=== PATIENT | female | born 1960 | race Caucasian/White ===

== ENCOUNTER → 2017-07-30 07:07 | Outpatient (CLI) | payer OTHER, SELFPAY ==
--- NOTE | 2017-07-30 07:07 | DT_ITS ---
This patient was seen during an EMR downtime July 29, 2017 - August 05, 2017. This patient may have a combination of paper and electronic documentation or all paper documentation. All documentation is viewable within the e-chart portion of [employer] for each patient visit.
[2017-08-04 09:44] LABS: AST(SGOT) 16 U/L (15-37); Alanine Aminotransfer ALT/SGPT 21 U/L (13-56); Albumin, Serum 3.9 g/dL (3.2-5.0); Alkaline Phosphatase 67 U/L (45-117); BUN 19 mg/dL (7-18); BUN/Creat Ratio 22.1 RATIO (10-20); Bilirubin, Direct 0.11 mg/dL (0.00-0.30); Calcium,Total 9.3 mg/dL (8.5-10.1); Cholesterol 146 mg/dL (200); Creatinine, Serum 0.86 mg/dL (0.55-1.02); EST Glomerular Filtration Rate 72 mL/min (>60); Est Glom Filt Rate - Afr Amer 87 mL/min (>60); Globulin 3.7 g/dL (2.2-4.2); Glucose 120 mg/dL (74-106); Protein, Total 7.6 g/dL (6.4-8.2); Sodium Level 138 mmol/L (136-145); Triglycerides 180 mg/dL; Very Low Density Lipoprotein 36 mg/dL (5-40)
[2017-08-04 09:45] LABS: Anion Gap 7 (5-15); Chloride 105 mmol/L (98-107); High Density Lipoprotein 47 mg/dL; Potassium 4.2 mmol/L (3.5-5.1)
[2017-08-04 10:07] LABS: Microalbumin,Random Urine < 5.0 mg/L (NO RANGE EST.)
== END ==
PROVIDERS: Family Provider Family Medicine; PCP Family Medicine; Visit Provider Family Medicine
DX: E11.9 Type 2 diabetes mellitus without complications (principal)
CPT/HCPCS: 36415; 80048; 80061; 80076; 82043; 82570; 83036

== ENCOUNTER → 2017-08-06 08:06 | Outpatient (CLI) | payer OTHER, SELFPAY ==
--- NOTE | 2017-08-06 08:10 | BI_ITS ---
MAMMOGRAPHY - BILATERAL SCREENING REASON FOR EXAM: Female, 56 years old. Routine annual screening examination. PERTINENT HISTORY: Non-contributory. TECHNIQUE: Digital bilateral breast lucian (3D mammographic acquisition) in the CC and MLO projections. 2-D mediolateral oblique (MLO) and craniocaudad (CC) views of both breasts were obtained. CAD: Full Field Digital Mammography with Computer Added Detection was performed. COMPARISON: None. FINDINGS: Breast Composition: There are scattered areas of fibroglandular density. There is a new nodule in the lateral aspect of the left breast for which further evaluation by ultrasound is recommended. No other significant abnormalities are identified. BI/SCREENING MAMM (CAD), BILAT IMPRESSION: Further imaging evaluation recommended, as described above. (E) ASSESSMENT CATEGORY: BIRADS Category 0: Incomplete. Need additional imaging evaluation. A letter regarding these results will be sent to the patient by the facility within 30 days. Approximately 10% of breast cancers are not detected by mammography. A normal mammogram should not delay biopsy of a clinically suspicious abnormality. [id number] Electronically Signed: Mikey Hartman MD at 10:25 EDT Tel , Service support ,
--- NOTE | 2017-08-06 08:41 | BD_ITS ---
STUDY: DUAL ENERGY X-RAY ABSORPTIOMETRY / DXA REASON FOR EXAM: Female, 56 years old. Postmenopausal female diabetic. Smoker. Family history of osteoporosis. Minimal exercise. TECHNIQUE: Bone Mineral Density (BMD) measurements of lumbar spine and bilateral hips were obtained. COMPARISON: None. FINDINGS: Lumbar Spine (L1-L4): g/cm2 (1.308) / T-score (1.1) / Z-score (2.2) Findings are suggestive of normal bone density with a low fracture risk. Left Femur Total: g/cm2 (0.866) / T-score (-1.1) / Z-score (-0.3) Left Femoral Neck: g/cm2 (0.980) / T-score (-0.4) / Z-score (0.8) Right Femur Total: g/cm2 (0.944) / T-score (-0.5) / Z-score (0.3) Right Femoral Neck: g/cm2 (1.037) / T-score (0.0) / Z-score (1.2) BD/Dexa Bone Density Study IMPRESSION: The patient is considered osteopenic as outlined below according to World Eme[place] Organization (WHO) criteria with a moderate fracture risk. Reference Information: The T-score is the number of standard deviations above or below the standard which is normal for young adults at their peak bone mineral density. The World Health Organization (WHO) interprets the T-scores as follows: Above -1 Normal bone density Between -1 and -2.5 Osteopenia Equal to / or below -2.5 Osteoporosis As a practical clinical guideline, osteopenia may be graded as follows: Mild -1 through -1.5 Moderate -1.6 through -2.0 Severe -2.1 through -2.4 The Z-score is the number of standard deviations above or below age-matched controls. A Z-score of less than -1.5 would be considered abnormal. References: 1. NIH Osteoporosis and Related Bone Diseases http://www.osteo.org 2. International Society for Clinical Densitometry http://www.iscd.org 3. National Osteoporosis Foundation http://www.nof.org Electronically Signed: Clem Whitt DO at 11:14 EDT Tel [phone], Service support ,
== END ==
PROVIDERS: Family Provider Family Medicine; PCP Family Medicine; Visit Provider Family Medicine
DX: Z12.31 Encounter for screening mammogram for malignant neoplasm of breast (principal); N63.20 Unspecified lump in the left breast, unspecified quadrant; Z78.0 Asymptomatic menopausal state
CPT/HCPCS: 77063; 77067; 77080

== ENCOUNTER → 2017-08-09 13:45 | Outpatient (CLI) | payer OTHER, SELFPAY ==
--- NOTE | 2017-08-09 13:46 | US_ITS ---
STUDY: ULTRASOUND BREAST - LEFT REASON FOR EXAM: Female, 56 years old. Abnormal screening mammogram. Left breast nodule. TECHNIQUE: Axial and longitudinal images of the LEFT breast were performed with a high resolution ultrasound transducer. COMPARISON: Comparison is made with prior mammogram dated August 06, 2017. FINDINGS: LEFT Breast: The upper and lateral quadrants of the left breast laterally were examined with ultrasound. No solid or cystic mass lesion is seen. US/Breast Limited Unilateral IMPRESSION: Unremarkable left breast ultrasound. ASSESSMENT CATEGORY: BIRADS Category 1: Negative. A letter regarding these results will be sent to the patient by the facility within 30 days. Electronically Signed: Talon Cesar MD at 8:15 EDT Tel [phone], Service support ,
== END ==
PROVIDERS: Family Provider Family Medicine; PCP Family Medicine; Visit Provider Family Medicine
DX: R92.8 Other abnormal and inconclusive findings on diagnostic imaging of breast (principal)
CPT/HCPCS: 76642

== ENCOUNTER 2017-12-23 05:46 | Inpatient (IN) | payer OTHER, SELFPAY ==
[2017-12-10 10:15] VITALS: BP 113/66; PULSE 64; RESP 16; TEMP 36.9; O2SAT 99; BMI 30.2
--- NOTE | 2017-12-10 10:30 | RAD_ITS ---
STUDY: X-RAY CHEST REASON FOR EXAM: Female, 57 years old. Preoperative evaluation. TECHNIQUE: PA and lateral views of the chest. COMPARISON: None. FINDINGS: The lungs are clear and expanded. There is no demonstrated pleural abnormality. Normal size heart. Normal mediastinum and maureen. Normal visualized pulmonary arteries. Normal visualized aortic arch and descending thoracic aorta. Normal visualized thoracic spine. Normal visualized ribs, clavicles, and shoulders. There is no demonstrated abnormality of the visualized soft tissue structures of the upper abdomen. RAD/Chest PA and Lateral IMPRESSION: Normal x-ray examination of the chest. Electronically Signed: Talon Cesar MD at 11:01 EDT Tel [phone], Service support ,
--- NOTE | 2017-12-10 10:30 | SDCEKG_ITS ---
Test Reason : Blood Pressure : / mmHG Vent. Rate : 061 BPM Atrial Rate : 061 BPM P-R Int : 124 ms QRS Dur : 086 ms QT Int : 436 ms P-R-T Axes : 026 -09 030 degrees QTc Int : 438 ms Normal sinus rhythm Low voltage QRS Borderline ECG Confirmed by EARNEST FLETCHER, RENE ([id number]), research editor GERARDO MAYEN ([id number]) on 12/12/2017 9:40:44 AM Referred By: Sanjay Cardoza Confirmed By:RENE TINOCO MD
[2017-12-10 11:00] LABS: Hematocrit 41.2 % (37-47); Hemoglobin 14.5 g/dl (12.0-15.0); Mean Corp Hgb Conc 35.2 g/gl (32-36); Mean Corpuscular Hgb 33.5 pg (27.0-32.0); Mean Corpuscular Volume 95.2 fL (81-99); Mean Platelet Vol. 9.6 fl (6.2-12.0); Platelet Count 206 K/mm3 (150-450); RBC Distribution Width CV 12.5 % (11.6-14.6); RBC Distribution Width SD 42.5 fl (35.1-43.9); Red Blood Count 4.33 M/mm3 (4.2-5.4); White Blood Count 5.7 K/mm3 (4.4-11.0)
[2017-12-10 11:01] LABS: Scan Indicated on CBC? Y/N NO
[2017-12-10 11:33] LABS: Anion Gap 8 (5-15); BUN 20 mg/dL (7-18); BUN/Creat Ratio 24.2 RATIO (10-20); Calcium,Total 8.9 mg/dL (8.5-10.1); Chloride 105 mmol/L (98-107); Creatinine, Serum 0.83 mg/dL (0.55-1.02); EST Glomerular Filtration Rate 75 mL/min (>60); Est Glom Filt Rate - Afr Amer 91 mL/min (>60); Estimated Creatinine Clearance 78.92 ml/min; Glucose 97 mg/dL (74-106); Potassium 4.4 mmol/L (3.5-5.1); Sodium Level 139 mmol/L (136-145)
[2017-12-10 11:53] LABS: Hemoglobin A1c 6.3 % (4.2-6.3)
--- NOTE | 2017-12-18 10:16 | CASEMGMT ---
Called and spoke with patient regarding discharge needs after upcoming surgery. Patient plans to return home with assistance from family. Has outpatient physical therapy set up with [facility], and will have assistance with transportation. Patient has a walker, shower seat, grab bars, toilet riser. Patient has 4 steps into home at the front entrance, there are no steps at rear entrance. Patient has a bathroom on the 1st level of the home, plans to sleep in recliner chair at first. Otherwise, there are 13 steps to 2nd level of home. Informed patient that RN-CM will follow up after surgery. Deann Valencia LPN Clinical Support
[2017-12-23] VITALS (20 sets, daily range): BP systolic 99–122; BP diastolic 54–72; PULSE 49–83; RESP 16–18; TEMP 36.1–36.6; O2SAT 96–99; BMI 30.2
[2017-12-23] MEDS: Acetaminophen 500 MG Tablet 1000 MG PO ×3 (06:33→22:46)
[2017-12-23] MEDS: oxyCODONE HCl Cr 10 MG Tablet PO (06:34)
[2017-12-23] MEDS: Celecoxib 200 MG Capsule 400 MG PO (06:34)
[2017-12-23 06:41] LABS: Bedside Glucose 159 mg/dL (70-110)
--- NOTE | 2017-12-23 07:15 | KNEE_PTH ---
PATIENT: JACI PERALTA LOC: MS3 U#:[id number] AGE/SX: 57/F ROOM: MS305 RE12/23/[address]: Dr. Sanjay Cardoza DO : 1960 BED: 1 DIS: 12/25/2017 SPEC #: [id number] RECD: 12/23/17 10:52 STATUS: OZ REQ #: [id number] CHUY: 12/23/17 07:[address]: Sanjay Cardoza DEPT: SURGICAL PATHOLOGY RECD BY: Daniel Stewart ENTERED: 12/23/17 11:03 SP TYPE: TOTAL KNEE OTHR DR: Dr. Darshan Rowley MD Tissues: Knee, NOS Procedures: Decalcification bone/plaque Surgery Specimen Level IV HEADER OPERATION: Left total knee replacement PRE-OP DIAGNOSIS: Endstage osteoarthritis left knee TISSUE SUBMITTED: Bone and soft tissue of left knee MICROSCOPIC DIAGNOSIS Bone and soft tissue of left knee, total knee resection: Severe degenerative joint disease. Mild synovial hyperplasia. AM:jada 12/27/17 MICROSCOPIC DESCRIPTION Slides are reviewed. GROSS DESCRIPTION Received is one container designated bone and soft tissue left knee. The specimen consists of multiple fragments of gant-yellow bone measuring in aggregate 10 x 11 x 4 cm. Also in the specimen container are multiple fragments of yellow-white soft tissue measuring in aggregate 7 x 6 x 3 cm. A number of bony fragments contain articular surfaces consistent with tibial plateau and femoral condyle and displaying prominent osteophyte formation, eburnation, and bone erosion. Home Aid sections are submitted in two cassettes as follows: 1 - soft tissue, 2 - bone after decalcification. / SJ:jada 12/23/17 TC:5 [facility]: [id number], [id number]
[2017-12-23] MEDS: Cefazolin 2 GM in 0.9% Normal Saline 100 ML IV (07:26)
--- NOTE | 2017-12-23 08:59 | OP.PN_ITS ---
Immediate Post-Op Note Date of Procedure: 12/23/17 Primary Surgeon/Physician: Sanjay Cardoza calendering supervisor: Colby Acharya Pre-Operative Diagnosis: OA Left knee Post-Operative Diagnosis: same Surgery/Procedure Performed:: Left TKR Description of Surgical Findings:: see op norte Estimated Blood Loss: 25cc Specimen's removed: bone Type of Anesthesia:: Spinal ASA Class: ASA2 Mod Systematic Disease - Admit VTE Documentation VTE Present on Admission: No VTE Mechan Device Prophylaxis: SCD's, Thigh High BELKYS Hose VTE Pharm Prophylaxis ordered?: Yes
--- NOTE | 2017-12-23 08:59 | PCM.OP.BLANK ---
Operative Report Date of Procedure: 12/23/17 Primary Surgeon/Physician: Sanjay Cardoza riding coach: Colby Herman.MAINTENANCE FITTER riding coach: Pre-Operative Diagnosis: OA left knee Post-Operative Diagnosis: same Surgery/Procedure Performed: Left TKR Estimated Blood Loss: 25cc Specimen's Removed: bone Type of Anesthesia: spinal ASA Class: 2 Implants: [Check Triathlon size 4 cemented PS femur, size 4 tibia, 11mm polyethylene spacer, 29 mm patella ] Indications: Patient has severe end-stage osteoarthritis diagnosed via x-rays in the knee. They have failed all forms of conservative measures including activity modification, injections, anti-inflammatories, use of assistive device. The patient has pain that affects on a daily basis and prevents him from doing things that they enjoyed. They have elected to undergo the above procedure. The risks of the procedure were discussed at length and their questions were answered. Procedure Description: The patient was greeted in the preoperative area. The [left knee ] knee was then marked with a surgical marker. Patient was then taken to or Suite 1. They were administered a dose of antibiotics as well as tranexamic acid. Once adequate anesthesia was obtained and airway was secured to placed in supine position on the operating room table. A well-padded tourniquet was placed on the affected extremity. Leg was then prepped and draped in the usual sterile fashion from the knee down. Ioban was used on the skin. Surgical timeout was then performed and confirmed with all present. Six-inch Esmarch was used to examine the limb and tourniquet was then inflated to 250 mmHg. A longitudinal incision was then planned and carried out in the anterior aspect of the knee. The dissection was then carried the length of the incision the extensor mechanism was identified. Standard medial parapatellar arthrotomy was then performed revealing severe eburnation of bone and periarticular osteophytes. There is complete loss of cartilage especially in the medial compartment with varus alignment. Anterior fat pad was removed for visualization purposes and the anterior medial aspect of the tibia was skeletonized for exposure to the knee. The knee was then flexed the patella was inverted. Opening reamer was then used in the femur approximately 1 cm anterior to the attachment of the PCL. The intramedullary valgus wand was then placed in the femur set at 5? of valgus. The distal femoral cutting jig was then applied to the femur with anticipated resection of approximately 8 mm. This was then made with a oscillating saw. The sizing guide was then placed referencing off the posterior condyles and also reference off the epicondylar axis. This was measured and the appropriate size 4-in-1 cutting jig was then applied to the distal femur. Anterior posterior cuts were made followed by the anterior and posterior chamfer cuts. These bony pieces and fragments were removed and placed on the back table. Posterior retractor was then utilized and the tibia was subluxed anteriorly. Intramedullary tibial alignment jig was then applied to the tibia referencing off the medial one third of the tibial tubercle the anterior tibial spine the middle aspect of the tibiotalar joint. Also reference off patient's nondalton slope. The tibial cutting jig was then pinned with anticipated resection of 2 mm off of the deficient medial tibial condyle. This cut was made with the oscillating saw. Once this was complete a laminar singing messenger was utilized in both medial lateral meniscus were removed and a posterior capsular osteophytes were also removed. Posterior capsule release was performed in the posterior capsule as well as the geniculate arteries are treated with the aqua Mario Alberto. The tibia was incised and the appropriate sized tibial tray was then pinned. The femoral box cutting jig was then applied to the femur and the box was prepared removing a portion of the intercondylar notch. The femoral trial was then placed and the knee was trialed. Full flexion-extension were easily achieved. The knee seemed to balance quite nicely. Any remaining osteophytes were removed at this time. Once this was complete the patella was everted and the Lencho patella reaming device was then utilized the patella was then placed in the appropriate jig and reamer was then used to remove approximately 9 mm of the undersurface of the patella. A soft tissue remaining was in the way was removed and patella trial was then placed listed maintain excellent tracking using the no thumbs technique. The tibial tray at this point was punched to accommodate the fins of the final implant. At this point cement was mixed on the back table. The trial components were removed and the knee was copiously irrigated. Did use a cocktail of injection for postoperative pain control. The final components were then cemented in the standard fashion and excess cement was removed with cement removal tools and patellar clamp is placed in the patella. As the cement had cured in full extension tourniquet was deflated and hemostasis was perfect with Bovie cautery as well as the aqua Manus. Needle is once again trialed with different size polyethylenes to ensure the full range of motion was achieved as well as excellent balancing ligamentously was achieved. At this point the knee was copiously irrigated. Final implant was then inserted locking mechanism was engaged and confirmed to be locked. The arthrotomy was then closed with #1 Vicryl aggravate type fashion interrupted. Subcutaneous tissue was closed with 0 Vicryl and surgical lakia were placed in the skin. A occlusive silver impregnated dressing was then applied followed by well-padded sterile dressing secured with an Alcides wrap. The patient was taken to the PACU in stable condition. No complications known at this time. Postoperatively we will maintain standard total knee postoperative protocol. The use of the metal forger's assistant was integral during this procedure. They assisted with positioning placement of the tourniquet retracting closure and placement of the dressing. The procedure would have been much more difficult without their expertise and assistance
--- NOTE | 2017-12-23 09:03 | OP.PCM_ITS ---
Operative Report Date of Procedure: 12/23/17 Primary Surgeon/Physician: Sanjay Cardoza policy manager: Colby Herman.FRONT COUNTER CLERK policy manager: Pre-Operative Diagnosis: OA left knee Post-Operative Diagnosis: same Surgery/Procedure Performed: Left TKR Estimated Blood Loss: 25cc Specimen's Removed: bone Type of Anesthesia: spinal ASA Class: 2 Implants: [[place] Triathlon size 4 cemented PS femur, size 4 tibia, 11mm polyethylene spacer, 29 mm patella ] Indications: Patient has severe end-stage osteoarthritis diagnosed via x-rays in the knee. They have failed all forms of conservative measures including activity modification, injections, anti-inflammatories, use of assistive device. The patient has pain that affects on a daily basis and prevents him from doing things that they enjoyed. They have elected to undergo the above procedure. The risks of the procedure were discussed at length and their questions were answered. Procedure Description: The patient was greeted in the preoperative area. The [left knee ] knee was then marked with a surgical marker. Patient was then taken to or Suite 1. They were administered a dose of antibiotics as well as tranexamic acid. Once adequate anesthesia was obtained and airway was secured to placed in supine position on the operating room table. A well-padded tourniquet was placed on the affected extremity. Leg was then prepped and draped in the usual sterile fashion from the knee down. Ioban was used on the skin. Surgical timeout was then performed and confirmed with all present. Six- inch Esmarch was used to examine the limb and tourniquet was then inflated to 250 mmHg. A longitudinal incision was then planned and carried out in the anterior aspect of the knee. The dissection was then carried the length of the incision the extensor mechanism was identified. Standard medial parapatellar arthrotomy was then performed revealing severe eburnation of bone and periarticular osteophytes. There is complete loss of cartilage especially in the medial compartment with varus alignment. Anterior fat pad was removed for visualization purposes and the anterior medial aspect of the tibia was skeletonized for exposure to the knee. The knee was then flexed the patella was inverted. Opening reamer was then used in the femur approximately 1 cm anterior to the attachment of the PCL. The intramedullary valgus wand was then placed in the femur set at 5? of valgus. The distal femoral cutting jig was then applied to the femur with anticipated resection of approximately 8 mm. This was then made with a oscillating saw. The sizing guide was then placed referencing off the posterior condyles and also reference off the epicondylar axis. This was measured and the appropriate size 4-in-1 cutting jig was then applied to the distal femur. Anterior posterior cuts were made followed by the anterior and posterior chamfer cuts. These bony pieces and fragments were removed and placed on the back table. Posterior retractor was then utilized and the tibia was subluxed anteriorly. Intramedullary tibial alignment jig was then applied to the tibia referencing off the medial one third of the tibial tubercle the anterior tibial spine the middle aspect of the tibiotalar joint. Also reference off patient's [place] slope. The tibial cutting jig was then pinned with anticipated resection of 2 mm off of the deficient medial tibial condyle. This cut was made with the oscillating saw. Once this was complete a laminar engineering job titles was utilized in both medial lateral meniscus were removed and a posterior capsular osteophytes were also removed. Posterior capsule release was performed in the posterior capsule as well as the geniculate arteries are treated with the aqua Mario Alberto. The tibia was incised and the appropriate sized tibial tray was then pinned. The femoral box cutting jig was then applied to the femur and the box was prepared removing a portion of the intercondylar notch. The femoral trial was then placed and the knee was trialed. Full flexion-extension were easily achieved. The knee seemed to balance quite nicely. Any remaining osteophytes were removed at this time. Once this was complete the patella was everted and the Lencho patella reaming device was then utilized the patella was then placed in the appropriate jig and reamer was then used to remove approximately 9 mm of the undersurface of the patella. A soft tissue remaining was in the way was removed and patella trial was then placed listed maintain excellent tracking using the no thumbs technique. The tibial tray at this point was punched to accommodate the fins of the final implant. At this point cement was mixed on the back table. The trial components were removed and the knee was copiously irrigated. Did use a cocktail of injection for postoperative pain control. The final components were then cemented in the standard fashion and excess cement was removed with cement removal tools and patellar clamp is placed in the patella. As the cement had cured in full extension tourniquet was deflated and hemostasis was perfect with Bovie cautery as well as the aqua Manus. Needle is once again trialed with different size polyethylenes to ensure the full range of motion was achieved as well as excellent balancing ligamentously was achieved. At this point the knee was copiously irrigated. Final implant was then inserted locking mechanism was eng aged and confirmed to be locked. The arthrotomy was then closed with #1 Vicryl aggravate type fashion interrupted. Subcutaneous tissue was closed with 0 Vicryl and surgical lakia were placed in the skin. A occlusive silver impregnated dressing was then applied followed by well-padded sterile dressing secured with an Alcides wrap. The patient was taken to the PACU in stable condition. No complications known at this time. Postoperatively we will maintain standard total knee postoperative protocol. The use of the physical therapy assistant instructor was integral during this procedure. They assisted with positioning placement of the tourniquet retracting closure and placement of the dressing. The procedure would have been much more difficult without their expertise and assistance
[2017-12-23 09:51] LABS: Bedside Glucose 155 mg/dL (70-110)
[2017-12-23] MEDS: Lactated Ringers 1,000 ML 125 ML IV (13:32)
[2017-12-23] MEDS: Cefazolin 1 GM/50 ML BAG IV ×2 (15:24→22:46)
[2017-12-23] MEDS: Aspirin 325 MG Tablet PO (17:05)
[2017-12-23] MEDS: metFORMIN HCl 1,000 MG Tablet 1000 MG PO (17:05)
[2017-12-23 17:25] LABS: Bedside Glucose 175 mg/dL (70-110)
[2017-12-23] MEDS: Senna/Docusate Sodium 1 Tablet 2 TABLET PO (22:46)
[2017-12-23] MEDS: 0.9% NaCl Peripheral Flush Adult/Peds IV (22:47)
[2017-12-23] MEDS: Atorvastatin Calcium 20 MG Tablet PO (22:47)
[2017-12-24 02:20] VITALS: BP 91/48; PULSE 59; RESP 16; TEMP 36.7; O2SAT 99
[2017-12-24] MEDS: Acetaminophen 500 MG Tablet 1000 MG PO ×3 (05:56→22:50)
[2017-12-24 06:15] LABS: Hematocrit 36.9 % (37-47); Hemoglobin 12.7 g/dl (12.0-15.0); Mean Corp Hgb Conc 34.4 g/gl (32-36); Mean Corpuscular Hgb 32.7 pg (27.0-32.0); Mean Corpuscular Volume 95.1 fL (81-99); Mean Platelet Vol. 9.6 fl (6.2-12.0); Platelet Count 198 K/mm3 (150-450); RBC Distribution Width SD 41.1 fl (35.1-43.9); Red Blood Count 3.88 M/mm3 (4.2-5.4); White Blood Count 6.7 K/mm3 (4.4-11.0)
[2017-12-24 06:24] LABS: Scan Indicated on CBC? Y/N NO
[2017-12-24 06:37] LABS: Anion Gap 9 (5-15); BUN 16 mg/dL (7-18); BUN/Creat Ratio 22.5 RATIO (10-20); Calcium,Total 8.4 mg/dL (8.5-10.1); Chloride 109 mmol/L (98-107); Creatinine, Serum 0.71 mg/dL (0.55-1.02); EST Glomerular Filtration Rate 89 mL/min (>60); Est Glom Filt Rate - Afr Amer 108 mL/min (>60); Estimated Creatinine Clearance 92.26 ml/min; Glucose 108 mg/dL (74-106); Potassium 4.4 mmol/L (3.5-5.1); Sodium Level 144 mmol/L (136-145)
--- NOTE | 2017-12-24 07:48 | DCINST_ITS ---
Discharge Diet: No Restrictions Discharge Activity: May Not Drive Call your doctor if your incision/area has: Continuous Slow Oozing, Sudden Increased Bleeding, Increased Pain/ Swelling, Increased Redness, Foul Smelling Discharge, Swelling at the incision site Call your doctor if you observe: Fever of 101 or Higher Additional Dressing/Incision Instructions:: Leave current dreesing on until Saturday unless saturated the change and cover wound with standard sterile dressing Additional Instructions: see pink sheet Allergies/Adverse Reactions: Allergies lisinopril Adverse Reaction (Verified 12/10/17 10:08) COUGH Medications to take at Discharge Cholecalciferol (VIT D3) [Vitamin D3] 400 unit PO DAILY 12/28/15 Losartan Potassium [Cozaar] 25 mg PO DAILY 12/28/15 Meloxicam [Mobic] 15 mg PO DAILY 12/28/15 Metformin HCl [Glucophage] 1,000 mg PO BIDCM 01/09/16 Aspirin [Adult Aspirin] 81 mg PO DAILY 12/10/17 Dapagliflozin Propanediol [Farxiga] 5 mg PO DAILY 12/10/17 Multivitamin [Multiple Vitamins] 1 each PO DAILY 12/10/17 Rosuvastatin Calcium [Crestor] 10 mg PO QHS 12/10/17 Zolpidem Tartrate [Ambien] 5 mg PO QHS PRN PRN 12/10/17 Acetaminophen [Tylenol] 1,000 mg PO Q8 tablet 12/24/17 Aspirin 325 mg PO BIDCM tablet 12/24/17 Oxycodone [Oxyir] 5 - 10 mg PO Q4H PRN PRN 7 Days #60 tab 12/24/17 The following prescriptions were given: Oxycodone [Oxyir] 5 - 10 mg PO Q4H PRN PRN 7 Days #60 tab PRN Reason: Mod-Severe Pain (4-12/04) Primary Care Physician: Darshan Rowley MD [Primary Care Provider] - Test Results: Test results from this visit will be discussed in further detail at your follow- up appointment, if applicable. Proposed Discharge Date: 12/24/17
--- NOTE | 2017-12-24 08:00 | PCM.PN.ORT ---
Subjective: Pt. doing well, Pain under excellent control. - Physical Exam General: Alert, Oriented x3, No apparent distress Extremities: No clubbing, No edema, Capillary Refill Less than 3 Seconds, No Calf Tenderness Skin: Incision - stable Vital Signs Temp Pulse Resp BP Pulse Ox 98.1 F 59 L 16 91/48 L 99 12/24/17 02:20 12/24/17 02:20 12/24/17 02:20 12/24/17 02:20 12/24/17 02:20 Oxygen Delivery Method Room Air Weight: 210 lb 8.663 oz Body Mass Index (BMI) 30.2 Finger Stick Blood Glucose 155 Intake and Output for Last 24 Hours 12/22/17 12/23/17 12/24/17 23:59 23:59 23:59 Intake Total 3300 / 3300 736 / 736 Balance 3300 / 3300 736 / 736 Laboratory Tests Past 24 Hrs 12/24/17 12/24/17 05:37 05:37 WBC 6.7 RBC 3.88 L Hgb 12.7 Hct 36.9 L MCV 95.1 MCH 32.7 H MCHC 34.4 RDW 12.0 RDW Differential 41.1 Plt Count 198 MPV 9.6 Sodium 144 Potassium 4.4 Chloride 109 H Carbon Dioxide 26.0 Anion Gap 9 BUN 16 Creatinine 0.71 Estim Creat Clear Calc 92.26 Est GFR (MDRD) Af Amer 108 Est GFR (MDRD) Non-Af 89 BUN/Creatinine Ratio 22.5 H Glucose 108 H Calcium 8.4 L POC Glucose 12/23/17 12/23/17 17:08 09:44 POC Glucose 175 H 155 H Medical Necessity - Tobacco Use Smoking Status: Current every day smoker Tobacco Use: Cigarettes Assessment/Plan s/p left TKR Discharge home today after PT if does well
[2017-12-24 08:20] VITALS: BP 113/57; PULSE 68; RESP 16; TEMP 36.6; O2SAT 97
[2017-12-24] MEDS: Multivitamins,Therapeutic Tablet 1 TABLET PO (08:25)
[2017-12-24] MEDS: Aspirin 325 MG Tablet PO ×2 (08:25→18:24)
[2017-12-24] MEDS: metFORMIN HCl 1,000 MG Tablet 1000 MG PO ×2 (08:25→18:24)
[2017-12-24] MEDS: oxyCODONE 5 MG Tablet PO ×3 (10:04→22:54)
[2017-12-24] MEDS: Empagliflozin 10 MG Tablet PO (10:06)
[2017-12-24] MEDS: Senna/Docusate Sodium 1 Tablet 2 TABLET PO ×2 (10:07→22:51)
[2017-12-24] MEDS: Losartan Potassium 25 MG Tablet PO (10:07)
--- NOTE | 2017-12-24 10:42 | NURSING ---
per patient she would like to wait to be discharged until after dinner today
--- NOTE | 2017-12-24 10:50 | CASEMGMT ---
RN CM Face to Face with patient for initial transition planning/care coordination assessment. RN CM introduced self and role at [facility]. Patient lying in bed, alert and oriented, at bedside. Patient willing to participate in assessment and is able to answer all questions appropriately. Care providers, pharmacy, and demographics verified. Patient wishes to discharge home and is setup with [facility] for outpatient therapy. Patient states she has no further needs or concerns at this time. CM to follow for discharge planning needs that may arise. PCP: [facility] Specialists: None Preferred Pharmacy: [facility] Insurance: Commercial other Prescription Benefit: Commercial other Living Will/HPOA: No, interested in completing at hospital. DEIDRA EvanLula Melchores updated [facility]NOK: Living Arrangements: Patient lives with in 2 story house with bed and bath on first floor. Patient was independent prior to admission. Transportation: DME/HHC: Patient has walker, cane, and hip kit. Denies additional DME. Outpt PT at [facility] scheduled. Disposition Plan: Patient to discharge home with outpatient therapy, family support, and follow-up plans in place. Keiry MILES, RN, CM
[2017-12-24 14:10] VITALS: BP 105/70; PULSE 78; RESP 18; TEMP 37.5; O2SAT 99
--- NOTE | 2017-12-24 15:00 | CASEMGMT ---
Social Work Note RN PALMIRA Morin updated this worker that pt would like to complete Advanced Directives. SW completed Advanced Directives with pt. Pt is alert and orientated x4. SW provided pt with original copy of Advanced Directives and copy was placed on pt's chart. Keiry Grande MANAGER PROVIDER RELATIONS, MATERIALS PLANNER
--- NOTE | 2017-12-24 18:33 | NURSING ---
pt requesting to stay another night, concerned with pain and earlier temp of 99.5. Dr. Cardoza made aware - discharge canceled
[2017-12-24 20:00] VITALS: PULSE 79
[2017-12-24 20:10] VITALS: BP 128/57; PULSE 79; RESP 16; TEMP 37.3; O2SAT 97
[2017-12-24] MEDS: Atorvastatin Calcium 20 MG Tablet PO (22:51)
[2017-12-25 04:00] VITALS: BP 131/65; PULSE 69; RESP 16; TEMP 37.4; O2SAT 96
[2017-12-25] MEDS: Acetaminophen 500 MG Tablet 1000 MG PO (06:46)
[2017-12-25 08:00] VITALS: BP 129/59; PULSE 87; RESP 16; TEMP 37.2; O2SAT 98
[2017-12-25] MEDS: Aspirin 325 MG Tablet PO (08:10)
[2017-12-25] MEDS: Multivitamins,Therapeutic Tablet 1 TABLET PO (08:10)
[2017-12-25] MEDS: Senna/Docusate Sodium 1 Tablet 2 TABLET PO (08:10)
[2017-12-25] MEDS: metFORMIN HCl 1,000 MG Tablet 1000 MG PO (08:10)
[2017-12-25] MEDS: Losartan Potassium 25 MG Tablet PO (08:11)
[2017-12-25] MEDS: Empagliflozin 10 MG Tablet PO (08:11)
--- NOTE | 2017-12-25 11:38 | PCM.PN.ORT ---
Subjective: Patient sitting up in bed, her at bedside. Patient states pain is well-managed has no complaints ready for discharge home. Objective: Dressings clean dry intact, negative signs and symptoms of DVT. Vital signs labs within normal limits. Patient is afebrile neurovascular is otherwise intact. - Physical Exam General: Alert HEENT: Atraumatic, PERRLA, EOMI, Normocephalic Neck: Supple, No JVD, Negative Carotid Bruits Lungs: Clear to auscultation, Normal air movement Cardiovascular: Regular rate, No murmurs Abdomen: Bowel Sounds Present, Soft, Non Tender Extremities: No edema, Capillary Refill Less than 3 Seconds Skin: No rashes, No breakdown Musculoskeletal: No Tenderness to Palpation of Joints or Extremities Neurological: Cranial nerves II-XII grossly intact Psych/Mental Status: Normal Affect, Appropriate, Alert and oriented to time, place, person, mood and affect Vital Signs Temp Pulse Resp BP Pulse Ox 98.9 F 87 16 129/59 H 98 12/25/17 08:00 12/25/17 08:00 12/25/17 08:00 12/25/17 08:00 12/25/17 08:00 Oxygen Delivery Method Room Air Weight: 95.5 kg Body Mass Index (BMI) 30.2 Finger Stick Blood Glucose 155 Intake and Output for Last 24 Hours 12/23/17 12/24/17 12/25/17 23:59 23:59 23:59 Intake Total 3300 / 3300 1536 / 1536 200 / 200 Balance 3300 / 3300 1536 / 1536 200 / 200 Medical Necessity - Tobacco Use Smoking Status: Current every day smoker Tobacco Use: Cigarettes Assessment/Plan Status post left total knee Plan 1. Continue all pain medications as prescribed 2. Continue with physical therapy outpatient at [facility] 3. Aspirin 325 mg 1 p.o. every 12 hours times 30 days for postop DVT prophylaxis 4. Follow-up as scheduled (see pink sheet) 5. Discharge home today
--- NOTE | 2017-12-25 11:41 | PN.ORTHO_ITS ---
Subjective: Patient sitting up in bed, her at bedside. Patient states pain is well- managed has no complaints ready for discharge home. Objective: Dressings clean dry intact, negative signs and symptoms of DVT. Vital signs labs within normal limits. Patient is afebrile neurovascular is otherwise intact. - Physical Exam General: Alert HEENT: Atraumatic, PERRLA, EOMI, Normocephalic Neck: Supple, No JVD, Negative Carotid Bruits Lungs: Clear to auscultation, Normal air movement Cardiovascular: Regular rate, No murmurs Abdomen: Bowel Sounds Present, Soft, Non Tender Extremities: No edema, Capillary Refill Less than 3 Seconds Skin: No rashes, No breakdown Musculoskeletal: No Tenderness to Palpation of Joints or Extremities Neurological: Cranial nerves II-XII grossly intact Psych/Mental Status: Normal Affect, Appropriate, Alert and oriented to time, place, person, mood and affect Vital Signs Temp Pulse Resp BP Pulse Ox 98.9 F 87 16 129/59 H 98 12/25/17 08:00 12/25/17 08:00 12/25/17 08:00 12/25/17 08:00 12/25/17 08:00 Oxygen Delivery Method Room Air Weight: 95.5 kg Body Mass Index (BMI) 30.2 Finger Stick Blood Glucose 155 Intake and Output for Last 24 Hours 12/23/17 12/24/17 12/25/17 23:59 23:59 23:59 Intake Total 3300 / 3300 1536 / 1536 200 / 200 Balance 3300 / 3300 1536 / 1536 200 / 200 Medical Necessity - Tobacco Use Smoking Status: Current every day smoker Tobacco Use: Cigarettes Assessment/Plan Status post left total knee Plan 1. Continue all pain medications as prescribed 2. Continue with physical therapy outpatient at [facility] 3. Aspirin 325 mg 1 p.o. every 12 hours times 30 days for postop DVT prophylaxis 4. Follow-up as scheduled (see pink sheet) 5. Discharge home today
== END 2017-12-25 12:05 | disposition home or self-care (01) | DRG 470 ==
PROVIDERS: Anesthesiology; Admitting Provider Orthopaedic Surgery; Family Provider Family Medicine; PCP Family Medicine; Referring Provider Orthopaedic Surgery; Visit Provider Orthopaedic Surgery
PROC: 0SRD0J9 Replacement of Left Knee Joint with Synthetic Substitute, Cemented, Open Approach (ICD-10-PCS; CPT 27447; principal; 2017-12-23 06:50)
DX: M17.12 Unilateral primary osteoarthritis, left knee (principal); F17.210 Nicotine dependence, cigarettes, uncomplicated; Z96.651 Presence of right artificial knee joint; Z23 Encounter for immunization
CPT/HCPCS: 36415; 71046; 80048; 82962; 83036; 85027; 87081; 88305; 88311; 93005; 97110; 97161; 97165; 97530; C1776; J7120; 90686; A4216; J2405

== ENCOUNTER → 2018-02-14 07:45 | Outpatient (CLI) | payer OTHER, SELFPAY ==
[2018-02-14 10:58] LABS: Cholesterol 178 mg/dL (200); High Density Lipoprotein 45 mg/dL; Triglycerides 262 mg/dL; Very Low Density Lipoprotein 52 mg/dL (5-40)
[2018-02-14 11:00] LABS: Vitamin D,25 Hydroxy 99.6 ng/mL (29.95-100.01)
== END ==
PROVIDERS: Family Provider Family Medicine; PCP Family Medicine; Referring Provider Family Medicine; Visit Provider Family Medicine
DX: E11.9 Type 2 diabetes mellitus without complications (principal); E55.9 Vitamin D deficiency, unspecified
CPT/HCPCS: 36415; 80061; 82306

== ENCOUNTER → 2018-03-17 09:57 | Outpatient (CLI) | payer OTHER, SELFPAY ==
[2018-03-17 12:17] LABS: Absolute Neutrophil Count 2.3 X10^3/uL (2.0-7.7); Basophil# 0.01 X10^3/uL; Basophil% 0.2 % (0-1); Eosinophil# 0.05 X10^3/uL; Eosinophils% 1.1 % (0-5); Hematocrit 44.6 % (37-47); Hemoglobin 15.1 g/dl (12.0-15.0); Lymphocyte % 40.6 % (19-41); Mean Corp Hgb Conc 33.9 g/gl (32-36); Mean Corpuscular Hgb 31.9 pg (27.0-32.0); Mean Corpuscular Volume 94.3 fL (81-99); Mean Platelet Vol. 9.6 fl (6.2-12.0); Monocyte# 0.42 X10^3/uL; Neutrophil # 2.29 X10^3/uL (2.7-7.7); Neutrophil % 48.9 % (47-70); Platelet Count 225 K/mm3 (150-450); RBC Distribution Width CV 12.9 % (11.6-14.6); RBC Distribution Width SD 44.3 fl (35.1-43.9); Red Blood Count 4.73 M/mm3 (4.2-5.4); White Blood Count 4.7 K/mm3 (4.4-11.0)
[2018-03-17 12:18] LABS: CRP < 2.90 mg/L (0.0-3.0)
[2018-03-17 12:27] LABS: POSITIVE COUNT NO; POSITIVE DIFFERENTIAL NO; POSITIVE MORPHOLOGY NO
[2018-03-17 12:28] LABS: Erythrocyte Sedimentation Rate 7 mm/hr (0-30)
--- OUTSIDE RECORDS SUMMARY | 2018-05-19 20:02 | XMS RPT_ITS ---
:1960 Author Organization OHIP Care Team Providers Name Role Phone Darshan Rowley Attending Unavailable Darshan Rowley Referring Unavailable Darshan Rowley Primary Care Unavailable Conrado Cardoza Attending Unavailable Darshan Rowley Primary Care Unavailable Conrado Cardoza Referring Unavailable Darshan Rowley Attending Unavailable Darshan Rowley Referring Unavailable Darshan Rowley Primary Care Unavailable Darshan Rowley Attending Unavailable Darshan Rowley Primary Care Unavailable Darshan Rowley Attending Unavailable Darshan Rowley Primary Care Unavailable Conrado Cardoza Admitting Unavailable Conrado Cardoza Attending Unavailable Conrado Cardoza Referring Unavailable Darshan Rowley Primary Care Unavailable Miguel Bowman Attending Unavailable Conrado Cardoza Referring Unavailable PROBLEMS PROBLEMS DATE TYPE CONDITION / CODE ATTENDING STATUS SOURCE 02/14/2018 Unknown E11.9 - Type 2 Darshan Rowley Active [place] diabetes mellitus Community without Hospital complications / Repository E11.9(ICD-10) 02/14/2018 Unknown E55.9 - Vitamin D Darshan Rowley Active [place] deficiency, Community unspecified / Hospital E55.9(ICD-10) Repository 12/25/2017 Unknown M25.569 - Pain in Conrado Cardoza Active [place] unspecified knee / Community M25.569(ICD-10) Hospital Repository 12/31/2017 Unknown Z01.810 - Encounter GracieMiguel desai Active [place] for preprocedural [facility] cardiovascular Hospital examination / Repository Z01.810(ICD-10) PROCEDURES PROCEDURES No Procedure Records FoundRESULTS RESULTS CRP Collected: 03/17/2018 Status: F Source: LOWELL 10:02 AM [facility] REPOSITORY TYPE CODE TESTS RESULT OUT OF RANGE REFERENCE UNITS LAB L501.6710 0.0-3.0 mg/L Normal < 2.90 C-REACTIVE PROT Result Comment: C-Reactive Protein (CRP) provides useful information for the diagnosis, therapy and monitoring of inflammatory processes and associated diseases. For the evaluation of Relative Risk for Cardiovascular Disease, a High Sensitivity CRP (HSCRP) should be ordered. Performed By: #### L501.6710 #### [facility] [place], [address] CBC W/DIFF, AUTOMATED Collected: 03/17/2018 Status: F Source: MANI 10:02 AM [facility] REPOSITORY TYPE CODE TESTS RESULT OUT OF RANGE REFERENCE UNITS LAB L100.1000 4.4-11.0 K/mm3 Normal WBC 4.7 LAB L100.1200 4.2-5.4 M/mm3 Normal RBC 4.73 LAB L100.1300 12.0-15.0 g/dl High HGB 15.1 LAB L100.1400 37-47 % Normal HCT 44.6 LAB L100.1500 81-99 fL Normal MCV 94.3 LAB L100.1600 27.0-32.0 pg Normal MCH 31.9 LAB L100.1700 32-36 g/gl Normal MCHC 33.9 LAB L100.1810 11.6-14.6 % Normal RDW CV 12.9 LAB L100.1820 35.1-43.9 fl High RDW SD 44.3 LAB L100.1900 150-450 K/mm3 Normal PLT 225 LAB L100.2000 6.2-12.0 fl Normal MPV 9.6 LAB L100.2100 47-70 % Normal NEUT% 48.9 LAB L100.2200 19-41 % Normal LY% 40.6 LAB L100.2300 0-10 % Normal MONO% 9.0 LAB L100.2400 0-5 % Normal EO% 1.1 LAB L100.2500 0-1 % Normal BASO% 0.2 LAB L100.2550 0.0-0.9 % Normal IM GRAN % 0.200 Result Comment: IG% - Immature Granulocytes (promyelocytes, myelocytes and metamyelocytes) > 1% indicates that a LEFT SHIFT is Present. LAB L100.2620 2.0-7.7 X10 3/uL Normal Absolute Neut 2.3 LAB L100.2720 0.83-4.51 X10 3/ul Normal Absolute Lymph 1.90 Performed By: #### L100.0100, L101.9900 #### [facility] [address] [place], [place], [address] ERYTHROCYTE SED RATE Collected: 03/17/2018 Status: F Source: [place]OWELL 10:02 AM [facility] REPOSITORY TYPE CODE TESTS RESULT OUT OF RANGE REFERENCE UNITS LAB L102.0000 0-30 mm/hr Normal SED RATE 7 Performed By: #### L100.0100, L101.9900 #### [facility] [address] [place], [place], [address] LIPID PROFILE Collected: 02/14/2018 Status: F Source: [place]OWELL 7:49 AM [facility] REPOSITORY TYPE CODE TESTS RESULT OUT OF RANGE REFERENCE UNITS LAB L501.4900 200 mg/dL Normal CHOL 178 Result Comment: <200 mg/dL Desirable 200-240 mg/dL Borderline >240 mg/dL High Risk LAB L501.5000 mg/dL High TRIG 262 Result Comment: The drugs N-Acetylcysteine and Metamizole may falsely depress this assay. Serum Triglycerides Reference Interval Normal <150 mg/dL Borderline high 150 - 199 mg/dL High 200 - 499 mg/dL Very High > or = 500 mg/dL LAB L501.6400 mg/dL Normal HDL 45 Result Comment: The drugs N-Acetylcysteine and Metamizole may falsely depress this assay. Reference Range HDL <40 mg/dL Low HDL Cholesterol HDL >or= 60 mg/dL High HDL Cholesterol LAB L501.6500 0-130 mg/dL Normal LDL 81 LAB L501.6600 5-40 mg/dL High VLDL 52 Performed By: #### L500.4100 #### [facility] [address] [place], [address] VITAMIN D,25 HYDROXY Collected: 02/14/2018 Status: F Source: [place] 7:49 AM [facility] REPOSITORY TYPE CODE TESTS RESULT OUT OF RANGE REFERENCE UNITS LAB L506.1000 29.95-100.01 ng/mL Normal Vitamin D 99.6 25-OH Result Comment: Vitamin D 25(OH) Status Range Deficiency <20 ng/mL (50nmol/L) Insuffciency 20 - 30 ng/mL (50 - 75 nmol/L) Sufficiency 30 - 100 ng/mL (75 - 250 nmol/L) Toxicity >100 ng/mL (>250 nmol/L) Performed By: #### L506.1000 #### [facility] [address] [facility] [place] [place], [address] DISCHARGE INSTRUCTION Observed: 12/24/2017 Status: F Source: [place] 7:48 AM [facility] REPOSITORY [facility] Medical Records Department [address] [facility] [place] [address] Instructions for Home/Discharge Instructions 12/24/17 0744 MR#: [id number] Acct: [id number] Name: TESS PERALTA Donald Rep #: [id number] : 1960 57 From: Conrado Cardoza DO PCP: Darshan Rowley MD Status: ADM IN Discharge Diet: No Restrictions Discharge Activity: May Not Drive Call your doctor if your incision/area has: Continuous Slow Oozing, Sudden Increased Bleeding, Increased Pain/ Swelling, Increased Redness, Foul Smelling Discharge, Swelling at the incision site Call your doctor if you observe: Fever of 101 or Higher Additional Dressing/Incision Instructions:: Leave current dreesing on until Saturday unless saturated the change and cover wound with standard sterile dressing Additional Instructions: see pink sheet Allergies/Adverse Reactions: Allergies lisinopril Adverse Reaction (Verified 12/10/17 10:08) COUGH Medications to take at Discharge Cholecalciferol (VIT D3) [Vitamin D3] 400 unit PO DAILY 12/28/15 Losartan Potassium [Cozaar] 25 mg PO DAILY 12/28/15 Meloxicam [Mobic] 15 mg PO DAILY 12/28/15 Metformin HCl [Glucophage] 1,000 mg PO BIDCM 01/09/16 Aspirin [Adult Aspirin] 81 mg PO DAILY 12/10/17 Dapagliflozin Propanediol [Farxiga] 5 mg PO DAILY 12/10/17 Multivitamin [Multiple Vitamins] 1 each PO DAILY 12/10/17 Rosuvastatin Calcium [Crestor] 10 mg PO QHS 12/10/17 Zolpidem Tartrate [Ambien] 5 mg PO QHS PRN PRN 12/10/17 Acetaminophen [Tylenol] 1,000 mg PO Q8 tablet 12/24/17 Aspirin 325 mg PO BIDCM tablet 12/24/17 Oxycodone [Oxyir] 5 - 10 mg PO Q4H PRN PRN 7 Days #60 tab 12/24/17 The following prescriptions were given: Oxycodone [Oxyir] 5 - 10 mg PO Q4H PRN PRN 7 Days #60 tab PRN Reason: Mod-Severe Pain (-12/04) Primary Care Physician: Darshan Rowley MD [Primary Care Provider] - Test Results: Test results from this visit will be discussed in further detail at your follow-up appointment, if applicable. Proposed Discharge Date: 12/24/17 12/24/17 0748 <Electronically signed by Conrado Cardoza DO> Date Conrado Cardoza DO CC: Darshan Rowley MD CBC-COMPLETE BLOOD CNT Collected: 12/24/2017 Status: F Source: MANI NO DIFF 5:37 AM [facility] REPOSITORY TYPE CODE TESTS RESULT OUT OF RANGE REFERENCE UNITS LAB L100.1000 4.4-11.0 K/mm3 Normal WBC 6.7 LAB L100.1200 4.2-5.4 M/mm3 Low RBC 3.88 LAB L100.1300 12.0-15.0 g/dl Normal HGB 12.7 LAB L100.1400 37-47 % Low HCT 36.9 LAB L100.1500 81-99 fL Normal MCV 95.1 LAB L100.1600 27.0-32.0 pg High MCH 32.7 LAB L100.1700 32-36 g/gl Normal MCHC 34.4 LAB L100.1810 11.6-14.6 % Normal RDW CV 12.0 LAB L100.1820 35.1-43.9 fl Normal RDW SD 41.1 LAB L100.1900 150-450 K/mm3 Normal PLT 198 LAB L100.2000 6.2-12.0 fl Normal MPV 9.6 Performed By: #### L100.0500 #### [facility] [address] [place], [address] BASIC METABOLIC Collected: 12/24/2017 Status: F Source: [place] PROFILE ([facility]) 5:37 AM [facility] REPOSITORY TYPE CODE TESTS RESULT OUT OF RANGE REFERENCE UNITS LAB L501.0100 74-106 mg/dL High GLU 108 Result Comment: Fasting Glucose result from 100 to 125 mg/dL suggests IMPAIRED HOMEOSTASIS per A.D.A. criteria. Please note revised GLUCOSE reference range effective 2017. LAB L501.1000 7-18 mg/dL Normal BUN 16 LAB L501.1100 0.55-1.02 mg/dL Normal CREAT,SERUM 0.71 Result Comment: The validity of the calculated GFR AND GFRAA in patients over 70 years has not been determined. Clinical correlation is essential. LAB L501.1110 >60 mL/min Normal EST GFR 89 Result Comment: Non- GFR Calc LAB L501.1115 >60 mL/min Normal EST GFR - AA 108 Result Comment: GFR Calc LAB L501.1255 ml/min Normal Estimated CRCL 92.26 LAB L501.1300 10-20 RATIO High BUN/CRE 22.5 LAB L501.2200 8.5-10 mg/dL Low .1 CA 8.4 LAB L501.5300 136-14 mmol/L Normal 5 NA 144 LAB L501.5600 3.5-5. mmol/L Normal 1 K 4.4 LAB L501.5900 98-107 mmol/L High CL 109 LAB L501.6100 21.0-3 mmol/L Normal 2.0 CO2 26.0 LAB L501.6200 5-15 Normal GAP 9 Performed By: #### L500.2500 #### [facility] [address] [place], [address] BEDSIDE GLUCOSE Collected: 12/23/2017 Status: F Source: MANI 5:08 PM [facility] REPOSITORY TYPE CODE TESTS RESULT OUT OF REFERENCE UNITS RANGE LAB L501.080 70-110 mg/dL High BEDSIDE GLU 175 Result Comment: MANAGEMENT OF PATIENT CARE PER NURSING PROTOCOL Performed By: #### L501.080 #### [facility] Point of Care [address] [place] [address] BEDSIDE GLUCOSE Collected: 12/23/2017 Status: F Source: MANI 9:44 AM [facility] REPOSITORY TYPE CODE TESTS RESULT OUT OF REFERENCE UNITS RANGE LAB L501.080 70-110 mg/dL High BEDSIDE GLU 155 Result Comment: MANAGEMENT OF PATIENT CARE PER NURSING PROTOCOL Performed By: #### L501.080 #### [facility] Point of Care [address] [place] [address] OPERATIVE REPORT Observed: 12/23/2017 Status: F Source: MANI 9:03 AM [facility] REPOSITORY [facility] Medical Records Department [address] [place] [address] Operative Report 12/23/17 0859 MR#: [id number] Acct: [id number] Name: TESS PERALTA Rep #: [id number] : 1960 57 From: Conrado Cardoza DO PCP: Darshan Rowley MD Status: ADM IN [id number] Report Date of Procedure: 12/23/17 Primary Surgeon/Physician: Conrado Cardoza hotel dining room cashier: Colby Herman.BEVELLER OPERATOR hotel dining room cashier: Pre-Operative Diagnosis: OA left knee Post-Operative Diagnosis: same Surgery/Procedure Performed: Left TKR Estimated Blood Loss: 25cc Specimen's Removed: bone Type of Anesthesia: spinal ASA Class: 2 Implants: [[place] [employer]athlon size 4 cemented PS femur, size 4 tibia, 11mm polyethylene spacer, 29 mm patella ] Indications: Patient has severe end-stage osteoarthritis diagnosed via x-rays in the knee. They have failed all forms of conservative measures including activity modification, injections, anti-inflammatories, use of assistive device. The patient has pain that affects on a daily basis and prevents him from doing things that they enjoyed. They have elected to undergo the above procedure. The risks of the procedure were discussed at length and their questions were answered. Procedure Description: The patient was greeted in the preoperative area. The [left knee ] knee was then marked with a surgical marker. Patient was then taken to or [address]. They were administered a dose of antibiotics as well as tranexamic acid. Once adequate anesthesia was obtained and airway was secured to placed in supine position on the operating room table. A well-padded tourniquet was placed on the affected extremity. Leg was then prepped and draped in the usual sterile fashion from the knee down. Ioban was used on the skin. Surgical timeout was then performed and confirmed with all present. Six-inch Esmarch was used to examine the limb and tourniquet was then inflated to 250 mmHg. A longitudinal incision was then planned and carried out in the anterior aspect of the knee. The dissection was then carried the length of the incision the extensor mechanism was identified. Standard medial parapatellar arthrotomy was then performed revealing severe eburnation of bone and periarticular osteophytes. There is complete loss of cartilage especially in the medial compartment with varus alignment. Anterior fat pad was removed for visualization purposes and the anterior medial aspect of the tibia was skeletonized for exposure to the knee. The knee was then flexed the patella was inverted. Opening reamer was then used in the femur approximately 1 cm anterior to the attachment of the PCL. The intramedullary valgus wand was then placed in the femur set at 5 of valgus. The distal femoral cutting jig was then applied to the femur with anticipated resection of approximately 8 mm. This was then made with a oscillating saw. The sizing guide was then placed referencing off the posterior condyles and also reference off the epicondylar axis. This was measured and the appropriate size 4-in-1 cutting jig was then applied to the distal femur. Anterior posterior cuts were made followed by the anterior and posterior chamfer cuts. These bony pieces and fragments were removed and placed on the back table. Posterior retractor was then utilized and the tibia was subluxed anteriorly. Intramedullary tibial alignment jig was then applied to the tibia referencing off the medial one third of the tibial tubercle the anterior tibial spine the middle aspect of the tibiotalar joint. Also reference off patient's [place] slope. The tibial cutting jig was then pinned with anticipated resection of 2 mm off of the deficient medial tibial condyle. This cut was made with the oscillating saw. Once this was complete a laminar antenna installer was utilized in both medial lateral meniscus were removed and a posterior capsular osteophytes were also removed. Posterior capsule release was performed in the posterior capsule as well as the geniculate arteries are treated with the aqua Mario Alberto. The tibia was incised and the appropriate sized tibial tray was then pinned. The femoral box cutting jig was then applied to the femur and the box was prepared removing a portion of the intercondylar notch. The femoral trial was then placed and the knee was trialed. Full flexion-extension were easily achieved. The knee seemed to balance quite nicely. Any remaining osteophytes were removed at this time. Once this was complete the patella was everted and the Lencho patella reaming device was then utilized the patella was then placed in the appropriate jig and reamer was then used to remove approximately 9 mm of the undersurface of the patella. A soft tissue remaining was in the way was removed and patella trial was then placed listed maintain excellent tracking using the no thumbs technique. The tibial tray at this point was punched to accommodate the fins of the final implant. At this point cement was mixed on the back table. The trial components were removed and the knee was copiously irrigated. Did use a cocktail of injection for postoperative pain control. The final components were then cemented in the standard fashion and excess cement was removed with cement removal tools and patellar clamp is placed in the patella. As the cement had cured in full extension tourniquet was deflated and hemostasis was perfect with Bovie cautery as well as the aqua Manus. Needle is once again trialed with different size polyethylenes to ensure the full range of motion was achieved as well as excellent balancing ligamentously was achieved. At this point the knee was copiously irrigated. Final implant was then inserted locking mechanism was engaged and confirmed to be locked. The arthrotomy was then closed with #1 Vicryl aggravate type fashion interrupted. Subcutaneous tissue was closed with 0 Vicryl and surgical lakia were placed in the skin. A occlusive silver impregnated dressing was then applied followed by well-padded sterile dressing secured with an Alcides wrap. The patient was taken to the PACU in stable condition. No complications known at this time. Postoperatively we will maintain standard total knee postoperative protocol. The use of the physician assistant was integral during this procedure. They assisted with positioning placement of the tourniquet retracting closure and placement of the dressing. The procedure would have been much more difficult without their expertise and assistance 12/23/17902 <Electronically signed by Conrado Cardoza DO> Date Conrado Cardoza DO CC: Conrado Cardoza DO; Darshan Rowley MD Signed TOTAL KNEE REPLACEMENT Observed: 12/23/2017 Status: F Source: MANI 7:15 AM [facility] REPOSITORY Patient: TESS PERALTA : 1960 (57/F) Acct Num: [id number] Phys: Conrado Cardoza DO Unit Num: [id number] Loc: MS3 [id number] Specimen: [id number] Received: 12/23/17 - 1052 Spec Type: TOTAL KNEE TISSUES 1 TISSUES: Knee, NOS GROSS DESCRIPTION Received is one container designated bone and soft tissue left knee. The specimen consists of multiple fragments of gant-yellow bone measuring in aggregate 10 x 11 x 4 cm. Also in the specimen container are multiple fragments of yellow-white soft tissue measuring in aggregate 7 x 6 x 3 cm. A number of bony fragments contain articular surfaces consistent with tibial plateau and femoral condyle and displaying prominent osteophyte formation, eburnation, and bone erosion. Executive Secretary sections are submitted in two cassettes as follows : 1 - soft tissue, 2 - bone after decalcification. / ESTRELLA:jada 12/23/17 TC:5 CPT: 81625, 70960 HEADER OPERATION: Left total knee replacement PRE-OP DIAGNOSIS: Endstage osteoarthritis left knee TISSUE SUBMITTED: Bone and soft tissue of left knee MICROSCOPIC DESCRIPTION Slides are reviewed. MICROSCOPIC DIAGNOSIS Bone and soft tissue of left knee, total knee resection: Severe degenerative joint disease. Mild synovial hyperplasia. AM:rg 12/27/17 Signed Calin Kleinih 12/27/17 <signature on file> Performed By: #### PKNEE #### [facility] [address] [place], [address] BEDSIDE GLUCOSE Collected: 12/23/2017 Status: F Source: [place]OW[place] 6:31 AM [facility] REPOSITORY TYPE CODE TESTS RESULT OUT OF REFERENCE UNITS RANGE LAB L501.080 70-110 mg/dL High BEDSIDE GLU 159 Result Comment: MANAGEMENT OF PATIENT CARE PER NURSING PROTOCOL Performed By: #### L501.080 #### [facility] Point of Care [address] [facility] [place] [address] 12 LEAD ELECTROCARDIOGRAM Observed: 12/12/2017 Status: F Source: MANI 9:40 AM [facility] REPOSITORY [facility] Cardiovascular Services [address] [place] [address] EKG - [facility] 12/10/17 0943 MR#: [id number] Acct: [id number] Name: TESS PERALTA Rep #: [id number] : 1960 57 From: Miguel Bowman MD Attending Dr: Conrado Cardoza DO Status: PRE IN Ordering Dr: Conrado Cardoza DO Date: 12/10/17 Location: [facility] Sex: F C Admitted: Test Reason : Blood Pressure : / mmHG Vent. Rate : 061 BPM Atrial Rate : 061 BPM P-R Int : 124 ms QRS Dur : 086 ms QT Int : 436 ms P-R-T Axes : 026 -09 030 degrees QTc Int : 438 ms Normal sinus rhythm Low voltage QRS Borderline ECG Confirmed by MIGUEL BOWMAN MD ([id number]), editor magazine GERARDO MAYEN ([id number]) on 12/12/2017 9:40:44 AM Referred By: Conrado Cardoza Confirmed By:MIGUEL BOWMAN MD 12/12/1740 Date Miguel Bowman MD CC: Conrado Cardoza DO; Darshan Rowley MD Date Dictated: 12/10/17942 Date Transcribed: 12/10/17942 Clothing Designer: Signed CBC-COMPLETE BLOOD CNT Collected: 12/10/2017 Status: F Source: [place] NO DIFF 10:45 AM [facility] REPOSITORY TYPE CODE TESTS RESULT OUT OF RANGE REFERENCE UNITS LAB L100.1000 4.4-11.0 K/mm3 Normal WBC 5.7 LAB L100.1200 4.2-5.4 M/mm3 Normal RBC 4.33 LAB L100.1300 12.0-15.0 g/dl Normal HGB 14.5 LAB L100.1400 37-47 % Normal HCT 41.2 LAB L100.1500 81-99 fL Normal MCV 95.2 LAB L100.1600 27.0-32.0 pg High MCH 33.5 LAB L100.1700 32-36 g/gl Normal MCHC 35.2 LAB L100.1810 11.6-14.6 % Normal RDW CV 12.5 LAB L100.1820 35.1-43.9 fl Normal RDW SD 42.5 LAB L100.1900 150-450 K/mm3 Normal PLT 206 LAB L100.2000 6.2-12.0 fl Normal MPV 9.6 Performed By: #### L100.0500 #### [facility] [address] [place] [address]. [place], [address] BASIC METABOLIC Collected: 12/10/2017 Status: F Source: [place] PROFILE (BMP) 10:45 AM [facility] REPOSITORY TYPE CODE TESTS RESULT OUT OF RANGE REFERENCE UNITS LAB L501.0100 74-106 mg/dL Normal GLU 97 Result Comment: Please note revised GLUCOSE reference range effective 2017. LAB L501.1000 7-18 mg/dL High BUN 20 LAB L501.1100 0.55-1.02 mg/dL Normal CREAT,SERUM 0.83 Result Comment: The validity of the calculated GFR AND GFRAA in patients over 70 years has not been determined. Clinical correlation is essential. LAB L501.1110 >60 mL/min Normal EST GFR 75 Result Comment: Non- GFR Calc LAB L501.1115 >60 mL/min Normal EST GFR - AA 91 Result Comment: GFR Calc LAB L501.1255 ml/min Normal Estimated CRCL 78.92 LAB L501.1300 10-20 RATIO High BUN/CRE 24.2 LAB L501.2200 8.5-10 mg/dL Normal .1 CA 8.9 LAB L501.5300 136-14 mmol/L Normal 5 NA 139 LAB L501.5600 3.5-5. mmol/L Normal 1 K 4.4 LAB L501.5900 98-107 mmol/L Normal CL 105 LAB L501.6100 21.0-3 mmol/L Normal 2.0 CO2 26.0 LAB L501.6200 5-15 Normal GAP 8 Performed By: #### L500.2500 #### [facility] [address] [place], [address] HEMOGLOBIN A1C Collected: 12/10/2017 Status: F Source: [place] 10:45 AM [facility] REPOSITORY TYPE CODE TESTS RESULT OUT OF RANGE REFERENCE UNITS LAB L501.9985 4.2-6.3 % Normal HGB A1C 6.3 Performed By: #### L501.9985 #### [facility] [address] [place], [address] Observed: 12/10/2017 Status: F Source: [place] MRSA/SAID SCREEN 10:45 AM [facility] REPOSITORY MRSA/SAID SCRN S. AUREUS S. aureus Negative MRSA MRSA Negative Performed By: #### M100.651 #### [facility] [address] [place], [address] CHEST PA AND LATERAL Observed: 12/10/2017 Status: F Source: [place] 10:33 AM [facility] REPOSITORY [facility] Imaging Services [address] [place] [address] Chest PA and Lateral MR#: [id number] Acct: [id number] Name: TESS PERALTA Rep #: [id number] : 1960 F 57 From: Talon Cesar MD PCP: Darshan Rowley MD Status: PRE IN Study: Chest PA and Lateral Date of Exam: 12/10/17 Exam# [id number] Ordering Dr: Conrado Cardoza DO STUDY: X-RAY CHEST REASON FOR EXAM: Female, 57 years old. Preoperative evaluation. TECHNIQUE: PA and lateral views of the chest. COMPARISON: None. FINDINGS: The lungs are clear and expanded. There is no demonstrated pleural abnormality. Normal size heart. Normal mediastinum and maureen. Normal visualized pulmonary arteries. Normal visualized aortic arch and descending thoracic aorta. Normal visualized thoracic spine. Normal visualized ribs, clavicles, and shoulders. There is no demonstrated abnormality of the visualized soft tissue structures of the upper abdomen. RAD/Chest PA and Lateral IMPRESSION: Normal x-ray examination of the chest. Electronically Signed: Talon Cesar MD at 11:01 EDT Tel [phone], Service support , CC: Conrado Cardoza DO; Darshan Rowley MD Clothing Designer: Signed DOWNTIME REPORT Observed: 08/15/2017 Status: F Source: MANI 2:02 PM [facility] REPOSITORY [facility] Medical Records Department [address] [place] [address] Downtime Report MR#: [id number] Acct: [id number] Name: TESS PERALTA Rep #: [id number] : 1960 56 From: Jordon Mayen PCP: Darshan Rowley MD Status: REG CLI This patient was seen during an EMR downtime July 29, 2017 - August 05, 2017. This patient may have a combination of paper and electronic documentation or all paper documentation. All documentation is viewable within the e-chart portion of [employer] for each patient visit. BREAST LIMITED Observed: 08/09/2017 Status: F Source: MANI UNILATERAL 1:46 PM [facility] REPOSITORY [facility] Imaging Services [address] [place] [address] Breast Limited Unilateral MR#: [id number] Acct: [id number] Name: TESS PERALTA Rep #: [id number] : 1960 F 56 From: Talon Cesar MD PCP: Darshan Rowley MD Status: REG CLI Study: Breast Limited Unilateral Date of Exam: 08/09/17 Exam# [id number] Ordering Dr: Darshan Rowley MD STUDY: ULTRASOUND BREAST - LEFT REASON FOR EXAM: Female, 56 years old. Abnormal screening mammogram. Left breast nodule. TECHNIQUE: Axial and longitudinal images of the LEFT breast were performed with a high resolution ultrasound transducer. COMPARISON: Comparison is made with prior mammogram dated August 06, 2017. FINDINGS: LEFT Breast: The upper and lateral quadrants of the left breast laterally were examined with ultrasound. No solid or cystic mass lesion is seen. US/Breast Limited Unilateral IMPRESSION: Unremarkable left breast ultrasound. ASSESSMENT CATEGORY: BIRADS Category 1: Negative. A letter regarding these results will be sent to the patient by the facility within 30 days. Electronically Signed: Talon Cesar MD at 8:15 EDT Tel [phone], Service support , CC: Darshan Rowley MD Clothing Designer: Signed SCREENING MAMM (CAD), Observed: 08/06/2017 Status: F Source: MANI BILAT 8:14 AM [facility] REPOSITORY [facility] Imaging Services [address] [place] [address] SCREENING MAMM (CAD), BILAT MR#: [id number] Acct: [id number] Name: PERALTATESS Donald Rep #: [id number] : 1960 F 56 From: Mikey Hartman MD PCP: Darshan Rowley MD Status: [facility] Study: SCREENING MAMM (CAD), BILAT Date of Exam: 08/06/17 Exam# [id number] Ordering Dr: Darshan Rowley MD ADDENDUM by Mikey Hartman MD on 08/07/17 at 1046 BI/SCREENING MAMM (CAD), BILAT 08/07/17 1053 Date cc: Darshan Rowley MD * Signed ADDENDUM by Mikey Hartman MD on 08/07/17 at 1046 ADDENDUM COMPARISON: 04/01/15 and 04/08/2015 Electronically Signed: Mikey Hartman MD at 10:46 EDT Tel , Service support , 08/07/17 1046 Date cc: Darshan Rowley MD * Signed MAMMOGRAPHY - BILATERAL SCREENING REASON FOR EXAM: Female, 56 years old. Routine annual screening examination. PERTINENT HISTORY: Non-contributory. TECHNIQUE: Digital bilateral breast lucian (3D mammographic acquisition) in the CC and MLO projections. 2-D mediolateral oblique (MLO) and craniocaudad (CC) views of both breasts were obtained. CAD: Full Field Digital Mammography with Computer Added Detection was performed. COMPARISON: None. FINDINGS: Breast Composition: There are scattered areas of fibroglandular density. There is a new nodule in the lateral aspect of the left breast for which further evaluation by ultrasound is recommended. No other significant abnormalities are identified. BI/SCREENING MAMM (CAD), BILAT IMPRESSION: Further imaging evaluation recommended, as described above. (E) ASSESSMENT CATEGORY: BIRADS Category 0: Incomplete. Need additional imaging evaluation. A letter regarding these results will be sent to the patient by the facility within 30 days. Approximately 10% of breast cancers are not detected by mammography. A normal mammogram should not delay biopsy of a clinically suspicious abnormality. [id number] Electronically Signed: Mikey Hartman MD at 10:25 EDT Tel , Service support , CC: Darshan Rowley MD Clothing Designer: Signed DEXA BONE DENSITY Observed: 08/06/2017 Status: F Source: LOWELL STUDY 8:14 AM [facility] REPOSITORY [facility] Imaging Services [address] [place] [address] Dexa Bone Density Study MR#: [id number] Acct: [id number] Name: TESS PERALTA Rep #: [id number] : 1960 F 56 From: Clem Whitt DO PCP: Darshan Rowley MD Status: REG CLI Study: Dexa Bone Density Study Date of Exam: 08/06/17 Exam# [id number] Ordering Dr: Darshan Rowley MD STUDY: DUAL ENERGY X-RAY ABSORPTIOMETRY / DXA REASON FOR EXAM: Female, 56 years old. Postmenopausal female diabetic. Smoker. Family history of osteoporosis. Minimal exercise. TECHNIQUE: Bone Mineral Density (BMD) measurements of lumbar spine and bilateral hips were obtained. COMPARISON: None. FINDINGS: Lumbar Spine (L1-L4): g/cm2 (1.308) / T-score (1.1) / Z-score (2.2) Findings are suggestive of normal bone density with a low fracture risk. Left Femur Total: g/cm2 (0.866) / T-score (-1.1) / Z- score (-0.3) Left Femoral Neck: g/cm2 (0.980) / T-score (-0.4) / Z- score (0.8) Right Femur Total: g/cm2 (0.944) / T-score (-0.5) / Z- score (0.3) Right Femoral Neck: g/cm2 (1.037) / T-score (0.0) / Z- score (1.2) BD/Dexa Bone Density Study IMPRESSION: The patient is considered osteopenic as outlined below according to World Emeka Organization (WHO) criteria with a moderate fracture risk. Reference Information: The T-score is the number of standard deviations above or below the standard which is normal for young adults at their peak bone mineral density. The World Health Organization (WHO) interprets the T-scores as follows: Above -1 Normal bone density Between -1 and -2.5 Osteopenia Equal to / or below -2.5 Osteoporosis As a practical clinical guideline, osteopenia may be graded as follows: Mild -1 through -1.5 Moderate -1.6 through -2.0 Severe -2.1 through -2.4 The Z-score is the number of standard deviations above or below age-matched controls. A Z-score of less than -1.5 would be considered abnormal. References: 1. NIH Osteoporosis and Related Bone Diseases http://www.osteo.org 2. International Society for Clinical Densitometry http://www.iscd.org 3. National Osteoporosis Foundation http://www.nof.org Electronically Signed: Clem Whitt DO at 11:14 EDT Tel [phone], Service support , CC: Darshan Rowley MD Clothing Designer: Signed BASIC METABOLIC Collected: 07/30/2017 Status: F Source: MANI PROFILE (BMP) 9:25 AM [facility] REPOSITORY Order Comment: RESULT(S) PREVIOUSLY REPORTED ON MANUAL REQUISITION DURING DOWNTIME. TYPE CODE TESTS RESULT OUT OF RANGE REFERENCE UNITS LAB L501.0100 74-106 mg/dL High GLU 120 Result Comment: Fasting Glucose result from 100 to 125 mg/dL suggests IMPAIRED HOMEOSTASIS per A.D.A. criteria. Please note revised GLUCOSE reference range effective 2017. LAB L501.1000 7-18 mg/dL High BUN 19 LAB L501.1100 0.55-1.02 mg/dL Normal CREAT,SERUM 0.86 Result Comment: The validity of the calculated GFR AND GFRAA in patients over 70 years has not been determined. Clinical correlation is essential. LAB L501.1110 >60 mL/min Normal EST GFR 72 LAB L501.1115 >60 mL/min Normal EST GFR - AA 87 LAB L501.1300 10-20 RATIO High BUN/CRE 22.1 LAB L501.2200 8.5-10.1 mg/dL Normal CA 9.3 LAB L501.5300 136-145 mmol/L Normal NA 138 LAB L501.5600 3.5-5.1 mmol/L Normal K 4.2 LAB L501.5900 98-107 mmol/L Normal CL 105 LAB L501.6100 21.0-32.0 mmol/L Normal CO2 26.0 LAB L501.6200 5-15 Normal GAP 7 Performed By: #### L500.2500, L500.3400, L500.4100 #### [facility] [address] [place], [address] LIVER PROFILE Collected: 07/30/2017 Status: F Source: MANI 9:25 AM [facility] REPOSITORY Order Comment: RESULT(S) PREVIOUSLY REPORTED ON MANUAL REQUISITION DURING DOWNTIME. TYPE CODE TESTS RESULT OUT OF RANGE REFERENCE UNITS LAB L501.1500 6.4-8.2 g/dL Normal T PROT 7.6 LAB L501.1800 3.2-5.0 g/dL Normal ALB 3.9 LAB L501.1950 2.2-4.2 g/dL Normal GLOB 3.7 LAB L501.4100 15-37 U/L Normal AST 16 LAB L501.4305 45-117 U/L Normal ALK P 67 LAB L501.4405 13-56 U/L Normal ALT 21 LAB L501.4600 0.20-1.00 mg/dL Normal T BILI 0.40 LAB L501.4700 0.00-0.30 mg/dL Normal D BILI 0.11 Performed By: #### L500.2500, L500.3400, L500.4100 #### [facility] [address] [place], [place], [id number] LIPID PROFILE Collected: 07/30/2017 Status: F Source: LOWELL 9:25 AM [facility] REPOSITORY Order Comment: RESULT(S) PREVIOUSLY REPORTED ON MANUAL REQUISITION DURING DOWNTIME. TYPE CODE TESTS RESULT OUT OF RANGE REFERENCE UNITS LAB L501.4900 200 mg/dL Normal CHOL 146 Result Comment: <200 mg/dL Desirable 200-240 mg/dL Borderline >240 mg/dL High Risk LAB L501.5000 mg/dL Normal TRIG 180 Result Comment: The drugs N-Acetylcysteine and Metamizole may falsely depress this assay. Serum Triglycerides Reference Interval Normal <150 mg/dL Borderline high 150 - 199 mg/dL High 200 - 499 mg/dL Very High > or = 500 mg/dL LAB L501.6400 mg/dL Normal HDL 47 Result Comment: The drugs N-Acetylcysteine and Metamizole may falsely depress this assay. Reference Range HDL <40 mg/dL Low HDL Cholesterol HDL >or= 60 mg/dL High HDL Cholesterol LAB L501.6500 0-130 mg/dL Normal LDL 63 LAB L501.6600 5-40 mg/dL Normal VLDL 36 Performed By: #### L500.2500, L500.3400, L500.4100 #### [facility] [address] [place], [place], [id number] HEMOGLOBIN A1C Collected: 07/30/2017 Status: F Source: LOWELL 9:25 AM [facility] REPOSITORY Order Comment: RESULT(S) PREVIOUSLY REPORTED ON MANUAL REQUISITION DURING DOWNTIME. TYPE CODE TESTS RESULT OUT OF RANGE REFERENCE UNITS LAB L501.9985 4.2-6.3 % High HGB A1C 7.0 Performed By: #### L501.9985 #### [facility] [address] [place], [address] MICROALB:CREAT Collected: 07/30/2017 Status: F Source: MANI RATIO,RANDOM UR 9:25 AM [facility] REPOSITORY Order Comment: RESULT(S) PREVIOUSLY REPORTED ON MANUAL REQUISITION DURING DOWNTIME. TYPE CODE TESTS RESULT OUT OF RANGE REFERENCE UNITS LAB L501.1200 NO RANGE EST. mg/dL Test Normal UR not performed CREAT LAB L502.0500 NO RANGE EST. mg/L < 5.0 Normal MICROALBUMI N,UR LAB L502.0600 <30 mg/g CRE mg/g CRE Test Normal not performed MALB:CREAT Performed By: #### L502.0250 #### [facility] [address] [place], [address] ALLERGIES ALLERGIES DATE TYPE / CODE NAME / CODE REACTION SEVERITY SOURCE 12/10/2017 Drug lisinopril/F cough Unknown [facility] Allergy/4160 [id number]([facility] 33265(SNOMED NORM) Repository CT) ENCOUNTERS ENCOUNTERS ADMIT/DISCHARGE ACCOUNT ADMITTING ENCOUNTER LOCATION SOURCE NUMBER CLASS 03/17/2018 [id number] Ambulatory [facility]i Mani 8 [facility] ing:MTLAB Repository 02/14/2018 [id number] Ambulatory Mani Mani 1 [facility] ing:MTLAB Repository 12/23/2017/ [id number] [place], Inpatient [place] Mani 8 9 [place] Encounter [facility] ing:EF9Rxbq: Repository YJ174Sha: 1 12/10/2017 [id number] Ambulatory BMSBuilding:W Mani 1 [facility] Repository 08/09/2017 [id number] Ambulatory [place] Mani 6 [facility] ing:OPUS Repository 08/06/2017 [id number] Ambulatory Mani Mani 0 [facility] ing:OPBI Repository 07/30/2017 [id number] Ambulatory [place] Mani 5 [facility] ing:MTLAB Repository PAYERS PAYERS ENCOUNTER GUARANTOR PAYER SUBSCRIBER SOURCE 03/17/2018 TESS Bennett Primary [place] [id number] Insurance:HEALTH EOS BARNESDOB: [facility] BY [id number] [place] [facility] Repository [address]Sea: 330 [id number] [phone] () Date:7814-84-07QL [id number] [address]QL: 03/17/2018 Secondary NOT GIVENUNK [place] Insurance:SELF PAY [place] Number: Effective Repository Date:2018-03-15 02/14/2018 TESS Bennett Primary [place] [id number] Insurance:HEALTH EOS BARNESDOB: [facility] BY [facility] [id number] [place] Number: Repository [address]Uda: 330 [id number] [phone] () Date:2895-65-44KD [id number] [place] [address]AN: 02/14/2018 Secondary NOT GIVENUNK [place] Insurance:SELF PAY [place] Number: Effective Repository Date:2018-02-14 12/23/2017 TESS Bennett Primary [place] [id number] Insurance:HEALTH EOS BARNESDOB: [facility] BY [facility] [id number] [place] Number: Repository [address]Cpp: 330 [id number] [phone] () Date:0364-35-25OX [id number] [place] [address]WJ: 12/23/2017 Secondary NOT GIVENUNK [place] Insurance:SELF PAY [place] Number: Effective Repository Date:2017-10-21 12/10/2017 TESS Bennett Primary [place] [id number] Insurance:HEALTH EOS BARNESDOB: [facility] [id number] [facility] [place] Number: Repository [address]Oyf: 330 [id number] [phone] (HP) Date:1475-35-91IU [id number] [place], [place] [address]VY: 12/10/2017 Secondary NOT GIVENUNK [place] Insurance:SELF PAY [facility]: Effective Repository Date:2017-12-10 08/09/2017 Tess Bennett Primary Conrado Boykin Mani [id number] Insurance:HEALTH EOS BarnesDOB: [facility] BY [facility] [id number] [place] Number: Repository [address]Lbn: 330 [id number] [phone] (HP) Date:7060-14-86JZ [id number] [place], [place] [address]LG: 08/09/2017 Secondary NOT GIVENUNK [place] Insurance:SELF PAY [facility] Number: Effective Repository Date:2017-08-07 08/06/2017 [facility] Con[place]ado Boykin Mani [id number] Insurance:HEALTH EOS BarnesDOB: [facility] BY [facility] [id number] [place] Number: Repository [address]Lvn: 330 [id number] [phone] () Date:2677-62-33XR [id number] [address]JR: 08/06/2017 Secondary NOT GIVENUNK [place] Insurance:SELF PAY [place] Number: Effective Repository Date:2017-08-05 07/30/2017 [facility] Con[place]ado Boykin [place] [id number] Insurance:HEALTH EOS BarnesDOB: [facility] BY [facility] [id number] [place] Number: Repository [address]Pir: 330 [id number] [phone] (HP) Date:5929-73-47WL [id number], [place] [address]SC: 07/30/2017 Secondary NOT GIVENUNK Man[place] Insurance:SELF PAY [place] Number: Effective Repository Date:2017-07-30
== END ==
PROVIDERS: Family Provider Family Medicine; PCP Family Medicine; Referring Provider Orthopaedic Surgery; Visit Provider Orthopaedic Surgery
DX: M54.16 Radiculopathy, lumbar region (principal); M17.12 Unilateral primary osteoarthritis, left knee; M25.562 Pain in left knee
CPT/HCPCS: 36415; 85025; 85652; 86140

== ENCOUNTER → 2018-05-13 09:12 | Outpatient (CLI) | payer OTHER, SELFPAY ==
[2017-12-23 13:09] VITALS: BMI 30.2
[2018-05-13 10:31] LABS: Anion Gap 8 (5-15); BUN 30 mg/dL (7-18); BUN/Creat Ratio 34.5 RATIO (10-20); Calcium,Total 9.1 mg/dL (8.5-10.1); Chloride 105 mmol/L (98-107); Cholesterol 136 mg/dL (200); Creatinine, Serum 0.87 mg/dL (0.55-1.02); EST Glomerular Filtration Rate 71 mL/min (>60); Est Glom Filt Rate - Afr Amer 86 mL/min (>60); Glucose 117 mg/dL (74-106); High Density Lipoprotein 44 mg/dL; Potassium 4.3 mmol/L (3.5-5.1); Sodium Level 139 mmol/L (136-145); Triglycerides 148 mg/dL; Very Low Density Lipoprotein 30 mg/dL (5-40)
== END ==
PROVIDERS: Family Provider Family Medicine; PCP Family Medicine; Referring Provider Family Medicine; Visit Provider Family Medicine
DX: E11.9 Type 2 diabetes mellitus without complications (principal)
CPT/HCPCS: 36415; 80048; 80061

== ENCOUNTER → 2018-08-08 08:41 | Outpatient (CLI) | payer OTHER, SELFPAY ==
[2017-12-23 13:09] VITALS: BMI 30.2
--- NOTE | 2018-08-08 08:46 | RAD_ITS ---
HISTORY: back pain, radiates into left leg COMPARISON: None FINDINGS: # of images incl. paperwork: 3 XR Spine Lumbar 2 or 3 Views: Lumbar vertebral bodies are normal in height. Lumbar disc spaces are well maintained. No acute lumbar spine fracture or subluxation. Facet arthropathy at the L4-L5 and L5-S1 levels. RAD/Lumbar Spine 2 or 3 Views IMPRESSION: No acute lumbar spine fracture or subluxation. at 0055 Reported and signed by: Ministerio Boyce MD Electronically Signed: Ministerio Boyce MD at 0:54 EDT Tel , Service support ,
== END ==
PROVIDERS: Family Provider Family Medicine; PCP Family Medicine; Referring Provider Physician Assistant; Visit Provider Physician Assistant
DX: M54.16 Radiculopathy, lumbar region (principal)
CPT/HCPCS: 72100

== ENCOUNTER 2018-09-29 09:16 | Day surgery (SDC) | payer OTHER, SELFPAY ==
[2018-09-29] VITALS (7 sets, daily range): BP systolic 94–106; BP diastolic 56–70; PULSE 64–69; RESP 16; TEMP 36.4–36.6; O2SAT 98–99; BMI 27.4
--- NOTE | 2018-09-29 10:20 | RAD_ITS ---
PROCEDURE: Caudal block. DATE OF EXAMINATION: September 29, 2018. INDICATION: Female, 58 years old. Chronic low back pain. FLUOROSCOPY TIME (if supplied): (0:08) minutes/seconds. 2 images were obtained. Intraoperative imaging provided for caudal block. RAD/Fluor Guidance for Spine Inj IMPRESSION: Intraoperative imaging provided for caudal block. Electronically Signed: Talon Cesar, at 16:03 EDT , Service support ,
[2018-09-29 10:26] LABS: Bedside Glucose 115 mg/dL (70-110)
[2018-09-29] MEDS: MethylPREDNISolone Acetate 80 MG/ML Vial (10:41)
[2018-09-29] MEDS: Bupivacaine 0.25% 30 ML Vial (10:41)
--- NOTE | 2018-09-29 17:39 | PCM.OPRPT ---
Problem List (1) Degeneration of lumbar or lumbosacral intervertebral disc Status: Chronic (2) Radiculopathy of lumbosacral region Status: Chronic Report of Operation Date of Procedure: 09/29/18 Pre-Operative Diagnosis: Lumbosacral radiculopathy, lumbosacral degenerative disc disease, lumbar sacral spinal stenosis Post-Operative Diagnosis: Lumbosacral radiculopathy, lumbar sacral degenerative disc disease, lumbosacral spinal stenosis Surgery/Procedure Performed:: Diagnostic/therapeutic caudal epidural steroid injection Description of Surgical Findings:: PROCEDURE: Diagnostic/therapeutic caudal epidural steroid injection PREOPERATIVE DIAGNOSIS: Lumbosacral radiculopathy, lumbosacral degenerative disc disease, lumbosacral spinal stenosis POSTOPERATIVE DIAGNOSIS: Lumbosacral radiculopathy, lumbosacral degenerative disc disease, lumbosacral spinal stenosis ANESTHESIA: MAC COMPLICATIONS: None BLOOD LOSS: Minimal PROCEDURE IN DETAIL: History and physical today was reviewed. Risks and benefits of the procedure were explained. The patient understood, agreed to our procedure, and informed consent was obtained. IV inserted per routine protocol. The patient was taken to the operating room, placed in a prone position with a pillow positioned underneath the abdomen. The lower back area was prepped and draped in a sterile fashion using iodine x3 under fluoroscopy guidance on the lateral view the caudal space was identified the skin and subcutaneous tissue and size approximately 3 cc of 1% lidocaine using a 25-gauge regular needle under direct visualization fluoroscopy using a 22-gauge 3-1/2 inch spinal needle the needle was advanced via the skin through the sacral hiatus tip of the needle passed through the sacrococcygeal ligament advanced approximately S4 area after negative aspiration for blood or CSF a total of 3 cc of contrast were injected to confirm correct placement of the needle as well as cephalad spread the spread was followed to approximately L5 area after negative aspiration for blood or CSF and confirmation AP as well as lateral view a total of 15 cc of preservative-free 0.125% Marcaine with 80 mg of Depo-Medrol were injected easily. The needles were then removed intact. The patient experienced no signs or symptoms intrathecal, intravascular injection. The patient experienced no paraesthesia. The procedure was completed without any apparent difficult, any complication. The patient appeared to tolerate well. ASSESSMENT AND PLAN: This is a 58-year-old female with lumbosacral radiculopathy, lumbosacral trip disc disease, lumbar sacral spinal stenosis status post diagnostic/therapeutic caudal epidural steroid injection. The patient will continue her current medications. The patient will follow in approximately 2 weeks for possible reevaluation.
== END 2018-09-29 11:34 | disposition home or self-care (01) ==
LOC: SDC 09:19 → AC 09:21
PROVIDERS: Family Provider Family Medicine; PCP Family Medicine; Referring Provider Anesthesiology Pain Medicine; Visit Provider Anesthesiology Pain Medicine
PROC: 3E0S3BZ Introduction of Anesthetic Agent into Epidural Space, Percutaneous Approach (ICD-10-PCS; CPT 62282; principal; 2018-09-29 10:15)
DX: M51.17 Intervertebral disc disorders with radiculopathy, lumbosacral region (principal); M51.36 Other intervertebral disc degeneration, lumbar region; M48.07 Spinal stenosis, lumbosacral region; M48.061 Spinal stenosis, lumbar region without neurogenic claudication; F17.200 Nicotine dependence, unspecified, uncomplicated; Z79.891 Long term (current) use of opiate analgesic
CPT/HCPCS: 62323; 64483; 77003; 82962; J7120; J3490

== ENCOUNTER → 2018-11-12 07:09 | Outpatient (CLI) | payer OTHER, SELFPAY ==
[2018-09-29 10:02] VITALS: BMI 27.4
--- NOTE | 2018-11-12 07:20 | MRI_ITS ---
STUDY: MRI LUMBAR SPINE WITHOUT CONTRAST REASON FOR EXAM: Female, 58 years old. Low back pain, left leg pain and radiculopathy. TECHNIQUE: Standardized fat and water weighted pulse sequences were obtained in the sagittal and axial planes. COMPARISON: X-ray 08/08/2018 FINDINGS: T12-L1: Normal endplates. Normal disc height, hydration and morphology. Normal bilateral facet joints. Normal central canal and bilateral lateral recesses. Normal bilateral intervertebral neural foramina. Normal lumbar lordosis. There is no substantial scoliosis. Normal conus medullaris that terminates at the L1. At the level of T11/T12 there is a 2.5 cm mass within the thecal sac worrisome for tumor correlation with MRI of the thoracic spine with contrast is recommended. L1-2: Normal endplates. Normal disc height, hydration and morphology. Normal bilateral facet joints. Normal central canal and bilateral lateral recesses. Normal bilateral intervertebral neural foramina. L2-3: Normal endplates. Normal disc height, hydration and morphology. Normal bilateral facet joints. Normal central canal and bilateral lateral recesses. Normal bilateral intervertebral neural foramina. L3-4: Mild bilateral facet hypertrophy and moderate ligament flavum hypertrophy. Mild bilobed disc protrusion produces mild spinal stenosis and mild bilateral neural foraminal stenosis. L4-5: Moderate bilateral facet hypertrophy and ligament flavum hypertrophy. 2 mm of anterolisthesis of L4 and L5 with a mild broad disc protrusion produces mild spinal stenosis and mild bilateral neural foraminal stenosis. L5-S1: Mild bilateral facet hypertrophy. Mild broad disc protrusion produces mild spinal stenosis and mild bilateral neural foraminal stenosis. Normal visualized sacral ala. Normal visualized paraspinous soft tissue structures. MRI/Spine Lumbar (Routine) IMPRESSION: 1. Incompletely imaged 2.5 cm mass within the thecal sac at the level T11/T12 worrisome for tumor correlation with MRI of the thoracic spine with contrast is recommended. 2. Mild degenerative disc disease as described above. Electronically Signed: Cam Monroe MD at 8:51 EDT Tel , Service support ,
[2018-11-12 12:47] LABS: Anion Gap 6 (5-15); BUN 24 mg/dL (7-18); BUN/Creat Ratio 28.3 RATIO (10-20); Calcium,Total 9.4 mg/dL (8.5-10.1); Chloride 106 mmol/L (98-107); Creatinine, Serum 0.85 mg/dL (0.55-1.02); EST Glomerular Filtration Rate 73 mL/min (>60); Est Glom Filt Rate - Afr Amer 88 mL/min (>60); Glucose 131 mg/dL (74-106); Potassium 4.4 mmol/L (3.5-5.1); Sodium Level 139 mmol/L (136-145)
--- NOTE | 2018-11-12 15:13 | MRI_ITS ---
STUDY: MRI THORACIC SPINE WITH AND WITHOUT CONTRAST REASON FOR EXAM: Female, 58 years old. Mass TECHNIQUE: 17 IV Dotarem was administered for the contrast portion of the examination. COMPARISON: MRI lumbar spine earlier today FINDINGS: Normal kyphosis of the thoracic spine. There is no substantial scoliosis. T1-2, T2-3, T3-4, T4-5, T5-6, T6-7, T7-8, T8-9, T9-10, T10-11, T11-12: At T7/T8 there is a small central disc protrusion which produces mild spinal stenosis but no cord compression. At T11/T12 there is a 1.2 x 1.6 x 2.5 cm oval circumscribed isointense mass with solid contrast enhancement within the thecal sac felt to represent an intradural but extramedullary tumor. This occupies virtually the entire thecal sac with compression of the spinal cord anteriorly into the right. This is felt to most likely represent a meningioma but other possibilities include nerve sheath tumor, leptomeningeal metastasis or ependymoma. It is possible that this is an intramedullary lesion in the differential diagnosis includes ependymoma or metastasis. Normal conus medullaris that terminates at the L1.. The soft tissue structures are unremarkable. There is no enhancing abnormality. 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 Other possibilities include ependymoma or metastasis. Electronically Signed: Cam Monroe MD at 16:46 EDT Tel , Service support ,
== END ==
PROVIDERS: Family Provider Family Medicine; PCP Family Medicine; Referring Provider Physician Assistant; Visit Provider Physician Assistant
DX: M54.16 Radiculopathy, lumbar region (principal); D49.2 Neoplasm of unspecified behavior of bone, soft tissue, and skin
CPT/HCPCS: 36415; 72148; 72157; 80048; A9575

== ENCOUNTER → 2019-02-09 10:30 | Outpatient (CLI) | payer OTHER, SELFPAY ==
[2018-09-29 10:02] VITALS: BMI 27.4
== END ==
PROVIDERS: Family Provider Family Medicine; PCP Family Medicine; Referring Provider Family Medicine; Visit Provider Family Medicine
DX: N39.0 Urinary tract infection, site not specified (principal)
CPT/HCPCS: 87086; 87088

== ENCOUNTER 2019-06-08 16:00 | Outpatient (RCR) | payer OTHER, SELFPAY ==
[2018-09-29 10:02] VITALS: BMI 27.4
--- NOTE | 2019-04-02 11:05 | HP.PTEVAL_ITS ---
Patient's Visit Information JACI PERALTA is a 58 year old F referred to Physical Therapy by Lauren Sewell MD with a diagnosis of 02/16/19 S/P LAMINECTOMY FOR SPINAL TUMOR T10,11,12. Date of Evaluation: 04/02/19 Physical Therapist: Hollie Rebolledo PT, Cert MDT - Visit Plan Frequency: 2-3x /Week Duration: 4-6 Weeks Plan: START OUT 2X'S A WEEK IN THE WATER AND 1 TIME A WEEK ON LAND X 2 WEEKS THEN PROGRESS TO 1X A WEEK IN THE WATER AND 2 TIMES A WEEK ON LAND IF APPROPRIATE. BALANCE TRAINING. POSTURE CORRECTION/STRENGTHENING, INSTRUCTION IN APPROPRIATE BODY MECHANICS AND ACTIVITY MODIFICATIONS. DLS STARTING WITH A NEUTRAL SPINE PROGRESSING ROM TOLERATED. MEGHAN LE ROM, STRETCHING AND STRENGTHENING. HEP INSTRUCTION. *MINIMAL LIFTING > 10 LBS, BENDING, PUSHING, PULLING, TWISTING AND OVER HEAD EXTENSION FOR 4-6 WEEKS. 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 Disability: NO. Present symptoms: INTERMITTENT MID BACK PAIN (SUB SCAPULAR). NO NUMBNESS OR TINGLING. LLE WEAKNESS. Present since: YEARS - CHRONIC. Pain Scale: WORST 3/10, LEAST 0/10. Currently: 0/10. IMPROVING. Commenced as a result of: T11- T12 TUMOR INSIDE THE DURA CRUSHING THE SPINAL CORD. Symptoms at onset: ELECTRIC CHARGES IN MEDIAL LEFT THIGH. Worse: LIFTING, REACHING ON RIGHT SIDE. Better: STOP AND REST. Disturbed sleep: NO. Previous history/Previous treatment: TESTING LED TO SURGERY. MRI IN OCT 2018. Treatment this episode: 02/16/19 TUMOR REMOVEL AND LAMINECTOMY T10, T11, T12. LIMPING HAS IMPROVED SINCE SURGERY ON LLE. REPORTS SURGEON THINKS TUMOR WAS SLOW GROWING AND MAY HAVE BEEN THERE 10 TO 15 YEARS OR MAYBE SINCE . Coughing/sneezing/straining: NEGATIVE. Gait: MUCH BETTER. LEFT LEG JUST ISN'T STRONG. NEEDS UE'S MORE ON STEPS. Difficulty initiating urinatin: NO. Accidents: NO. Unexplained weight loss: NO. Imaging: MRI - TUMOR - BENIGN. PMH/Recent major surgery: MEGHAN TKR'S 2015 AND 2018. LEFT KNEE COMPLICATION AND THEN LIGHTENING VOLTS. NIDDM. HIGH CHOLESTEROL. DEGENERATIVE ARTHRITIS MEGHAN HIPS. - Objective Sitting/Standing Posture: POOR. INCREASED KYPHOSIS. Lordosis: REDUCED. Lateral shift: NO. Relevant shift: N/A. Active Correction of posture: NE. Other Observations: INDEP GAIT INTO PT WITHOUT ANY ASSISTIVE DEVICES OR LOB. VERY ACTIVE ANKLE STRATEGIES TO MAINTAIN BALANCE IN STANDING. Motor deficit: Sensory deficit: ROM deficit: Reflexes: Dural Signs: Lumbar mvmt loss: flex - MOD. ext - GABRIELLE. R SG - MOD. L SG - GABRIELLE. THORACIC MVMT LOSS: RIGHT ROT - MOD, LEFT ROT - MOD. NO PAIN WITH TESTING. PATIENT DENIES INCREASED PAIN WITH LUMBAR ROM TESTING. Core strength: POOR. Palpation: NO ACUTE TENDERNESS. TREATMENT: NEUROMUSCULAR REEDUCATION - RETRAINING OF MVMT AND POSTURE FOR SITTING, LYING AND STANDING ACTIVITIES. - Goals Goal 1:: DECREASE C/O BACK PAIN AND LLE WEAKNESS Goal Time Frame: 6-8 Weeks Goal 2:: IMPROVE STAIR CLIMBING, SIT TO STAND TRANSER, LIFTING, ADL AND WORK FUNCTION Goal Time Frame: 6-8 Weeks Goal 3:: PATIENT WILL BE INDEP WITH A HEP FOR FURTHER IMPROVEMENT ONCE FORMAL PHYSICAL THERAPY CONCLUDES. Goal Time Frame: 6-8 Weeks - Rehabilitation Potential Rehabilitation Potential: Good - Anticipated Interventions Patient/Client Instruction: Educate patient on: Condition, Plan of Care, Risk Factors, Benefits of Fitness Program For the Purpose of:: To improve self management Therapeutic Exercise to Include: Strength training, Body mechanics, Postural training, Flexibilty training, Gait and locomotor training, Neuromotor development, Dynamic Lumbar Stabilization, Scapular Strength/Stabilization Comment: STAIR TRAINING FOR WORK AND OTHER. For the Purpose of:: To increase ROM, To improve muscle performance and motor function, To increase tolerance to activity/condition/position, To improve ability of physical actions for home/community/work/leisure, To improve gait and locomotor functions Thank you for the opportunity to evaluate your patient. For Medicare and Medicare HMO plans, please review the plan of care and approve it. It will need to be FAXED BACK to us at [phone] for Medicare purposes. For Medicare only, by signing this I certify the plan of care. Please let me know if there are questions or concerns regarding this plan of care. Physician Signature:___ Date:
--- NOTE | 2019-04-20 12:23 | HP.PTREVAL ---
Lauren Sewell MD, It has been my pleasure to treat JACI PERALTA over the last 8 visits for 02/16/19 S/P LAMINECTOMY FOR SPINAL TUMOR T10,11,12. Please see the progress note below for an update on the physical therapy plan of care! Subjective: TENTATIVE RTW DATE MAY 11 2019. I THINK I AM PRETTY MUCH 100%. I FEEL I AM BACK TO HOW I WAS BEFORE SURGERY BUT I WOULD LIKE TO BE BETTER THAN I WAS BEFORE SURGERY. DOS 02/16/19 (TWO MONTHS PO NOW). LE SX'S HAVE RESOLVED EXCEPT STILL SOME WEAKNESS LLE. STEPS ARE GOING BETTER BUT CAN FEEL LLE WEAKNESS ON STEPS. RIGHT SCAP PAIN IS GONE. SAW PAIN MGMT LAST WEEK. WEANING OFF OF LYRICA NOW. PLANS TO TRY TO STOP MALAXACAM SOON TOO. HTN AND DIABETIC MEDICATION TO CONTINUE. Objective/Function: PATIENT WAS SEEN TODAY FOR RE-ASSESSMENT OF PROGRESS TOWARD THE SET PT GOALS AND THE NEED FOR FURTHER PHYSICAL THERAPY VS READINESS FOR DISCHARGE. PATIENT IS MAKING GOOD PROGRESS WITH PT BUT STILL WITH SIGNIFICANT CORE AND MEGHAN HIP/KNEE WEAKNESS LEFT > RIGHT. UPON EXAM TODAY: THIS PATIENT AMBULATES INDEP'LY INTO PT WITHOUT ANY ASSISTIVE DEVICES. PATIENT IS UNABLE TO TRANSFER FROM SIT TO STAND WITHOUT UE ASSIST. MEGHAN LE MMT'ING REVEALS MEGHAN WEAKNESS. MEGHAN QUADS 4-/5, MEGHAN HS'S 4+/5, RIGHT HIP 4/5 AND LEFT HIP 4-/5. MEGHAN HIP EXTENSOR WEAKNESS NOTED. PATIENT IS ABLE TO HEEL WALK AND TOE WALK WELL. Lumbar mvmt loss: flex - MIN. ext - GABRIELLE. R SG - MIN. L SG - MOD. THORACIC MVMT LOSS: RIGHT ROT - MIN, LEFT ROT - MIN. NO PAIN WITH TESTING. PATIENT DENIES INCREASED PAIN WITH LUMBAR ROM TESTING. RIGHT KNEE ROM IN SUPINE WITH A HEEL SLIDE: 0 DEG EXT TO 120 DEG FLEX. LEFT 0 DEG EXT TO 130 DEG FLEX. MILD RIGHT HIP IR TIGHTNESS COMPARED TO LEFT. Plan Plan: CONT PER POC. PATIENT IS AGREEABLE. *Progressing to I pool program with [facility]*. *START OUT 2X'S A WEEK IN THE WATER AND 1 TIME A WEEK ON LAND X 2 WEEKS THEN PROGRESS TO 1X A WEEK IN THE WATER AND 2 TIMES A WEEK ON LAND IF APPROPRIATE. BALANCE TRAINING. POSTURE CORRECTION/STRENGTHENING, INSTRUCTION IN APPROPRIATE BODY MECHANICS AND ACTIVITY MODIFICATIONS. DLS STARTING WITH A NEUTRAL SPINE PROGRESSING ROM TOLERATED. MEGHAN LE ROM, STRETCHING AND STRENGTHENING. HEP INSTRUCTION. *MINIMAL LIFTING > 10 LBS, BENDING, PUSHING, PULLING, TWISTING AND OVER HEAD EXTENSION FOR 4-6 WEEKS. Goals Goal 1:: DECREASE C/O BACK PAIN AND LLE WEAKNESS Goal Time Frame: 6-8 Weeks Goal Progress: Progressing Goal 2:: IMPROVE STAIR CLIMBING, SIT TO STAND TRANSER, LIFTING, ADL AND WORK FUNCTION Goal Time Frame: 6-8 Weeks Goal Progress: Progressing Goal 3:: PATIENT WILL BE INDEP WITH A HEP FOR FURTHER IMPROVEMENT ONCE FORMAL PHYSICAL THERAPY CONCLUDES. Goal Time Frame: 6-8 Weeks Goal Progress: Progressing Anticipated Interventions Patient/Client Instruction: Educate patient on: Condition, Plan of Care, Risk Factors, Benefits of Fitness Program For the Purpose of:: To improve self management Therapeutic Exercise to Include: Strength training, Body mechanics, Postural training, Flexibilty training, Gait and locomotor training, Neuromotor development, Dynamic Lumbar Stabilization, Scapular Strength/Stabilization Comment: STAIR TRAINING FOR WORK AND OTHER. For the Purpose of:: To increase ROM, To improve muscle performance and motor function, To increase tolerance to activity/condition/position, To improve ability of physical actions for home/community/work/leisure, To improve gait and locomotor functions Please do not hesitate to contact me at [phone] by phone or if you have questions or concerns regarding this new plan of care! Sincerely, Hollie Rebolledo, PT, Cert MDT
--- NOTE | 2019-06-08 16:32 | HP.PTDCSUM ---
It has been my pleasure to treat JACI PERALTA referred by Lauren Sewell MD, with the diagnosis of 02/16/19 S/P LAMINECTOMY FOR SPINAL TUMOR T10,11,12 for a total of 22 visit(s). Discharge Date: Please see the following information for a summary of their discharge status. Subjective: PATIENT REPORTS SHE IS MUCH BETTER. STATES SHE HAS ENJOYED PT AND IT HAS KEPT HER ACCOUNTABLE BUT SHE CAN CONTINUE HER HEP AT THIS POINT. PATIENT STILL FEELS A LITTLE WEAKER IN THE LEFT LEG. Lumbar Spine Pain Intensity (Out of 10): 0 % Improvement: 100 Objective/Function: PATIENT WAS SEEN TODAY FOR RE-ASSESSMENT OF PROGRESS TOWARD THE SET PT GOALS AND THE NEED FOR FURTHER PHYSICAL THERAPY VS READINESS FOR DISCHARGE. ALL GOALS HAVE BEEN MET AND PATIENT IS APPROPRIATE FOR D/C. UPON EXAM TODAY: STRENGHT: MEGHAN LE'S 5/5 EXCEPT LEFT HIP IR, EX ROT, AND EXT GRADED 4/5. Lumbar mvmt loss: flex - VERY MIN. ext - MOD. R SG - MIN. L SG - MIN. THORACIC MVMT LOSS: RIGHT ROT - NIL, LEFT ROT - NIL NO PAIN WITH TESTING. PATIENT DENIES INCREASED PAIN WITH LUMBAR ROM TESTING TOO. RIGHT KNEE ROM IN SUPINE WITH A HEEL SLIDE: 0 DEG EXT TO 123 DEG FLEX. LEFT 0 DEG EXT TO 130 DEG FLEX. MILD RIGHT HIP IR TIGHTNESS COMPARED TO LEFT. Goal 1:: DECREASE C/O BACK PAIN AND LLE WEAKNESS Goal Progress: Goal Met Goal 2:: IMPROVE STAIR CLIMBING, SIT TO STAND TRANSER, LIFTING, ADL AND WORK FUNCTION Goal Progress: Goal Met Goal 3:: PATIENT WILL BE INDEP WITH A HEP FOR FURTHER IMPROVEMENT ONCE FORMAL PHYSICAL THERAPY CONCLUDES. Goal Progress: Goal Met Plan: D/C TO HEP. PATIENT AGREEABLE. If there are questions or concerns regarding this patient's physical therapy, please feel free to call me at [phone]. Thank you for the referral of this patient. Sincerely, Hollie Rebolledo, PT, Cert MDT
== END 2019-06-08 19:00 | disposition home or self-care (01) ==
LOC: PT 16:00
PROVIDERS: PCP Family Medicine; Referring Provider Neurological Surgery; Visit Provider Neurological Surgery
DX: D49.2 Neoplasm of unspecified behavior of bone, soft tissue, and skin (principal); Z98.890 Other specified postprocedural states
CPT/HCPCS: 97110; 97112; 97113; 97162; 97164; 97530

== ENCOUNTER → 2019-08-13 13:07 | Outpatient (CLI) | payer OTHER, SELFPAY ==
[2018-09-29 10:02] VITALS: BMI 27.4
--- NOTE | 2019-08-13 13:23 | MRI_ITS ---
STUDY: MRI THORACIC SPINE WITH AND WITHOUT CONTRAST REASON FOR EXAM: Female, 58 years old. thoracic mass, S/P SURGERY 02/16/19 TECHNIQUE: IV 17 cc dotarem was administered for the contrast portion of the examination. COMPARISON: November 12, 2018 and MR thoracic spine FINDINGS: Normal kyphosis of the thoracic spine. There is no substantial scoliosis. Interval resection of spinal tumor and laminectomies at Laminectomies [id number]. No residual enhancement/tumors noted. Moderate disc marginal osteophyte at T7-T8. T1-2, T2-3, T3-4, T4-5, T5-6, T6-7, T7-8, T8-9, T9-10, T10-11, T11-12: Normal endplates. Normal disc hydration, heights and morphology of the corresponding intervertebral discs. Normal central canal and intervertebral neural foramina at the corresponding levels. T11-T12 cord narrowing and focal T2 lengthening. Normal conus medullaris that terminates at the L1 level. The soft tissue structures are unremarkable. There is no enhancing abnormality. MRI/Spine Thoracic W/WO Contrast IMPRESSION: Postsurgical change/focal myelomalacia T11-T12 status post tumor resection with no evidence of residual or recurrent tumor. Laminectomies T10-T11 and T12. Moderate disc marginal osteophyte at T7-T8. Electronically Signed: Go Paige MD at 0:00 EDT , Service support ,
[2019-08-15 11:02] LABS: CREATININE FINGERSTICK 0.91 mg/dL (0.55-1.02); EGFR FINGERSTICK > 60 mL/min (>60)
== END ==
PROVIDERS: PCP Family Medicine
DX: D49.2 Neoplasm of unspecified behavior of bone, soft tissue, and skin (principal); Z98.890 Other specified postprocedural states
CPT/HCPCS: 72157; A9575

== ENCOUNTER → 2019-08-27 07:30 | Outpatient (CLI) | payer OTHER, SELFPAY ==
[2018-09-29 10:02] VITALS: BMI 27.4
[2019-08-27 10:41] LABS: Anion Gap 3 (5-15); BUN 24 mg/dL (7-18); BUN/Creat Ratio 29.2 RATIO (10-20); Calcium,Total 8.9 mg/dL (8.5-10.1); Chloride 110 mmol/L (98-107); Cholesterol 169 mg/dL (200); Creatinine, Serum 0.82 mg/dL (0.55-1.02); EST Glomerular Filtration Rate 75 mL/min (>60); Est Glom Filt Rate - Afr Amer 91 mL/min (>60); Glucose 99 mg/dL (74-106); High Density Lipoprotein 46 mg/dL; Potassium 3.9 mmol/L (3.5-5.1); Sodium Level 140 mmol/L (136-145); Triglycerides 211 mg/dL; Very Low Density Lipoprotein 42 mg/dL (5-40)
[2019-08-27 11:20] LABS: Microalbumin,Random Urine 15.3 mg/L (NO RANGE EST.); Microalbumin:Creatinine Ratio 9.3 mg/g CRE (<30 mg/g CRE)
== END ==
PROVIDERS: PCP Family Medicine; Referring Provider Family Medicine; Visit Provider Family Medicine
DX: E11.9 Type 2 diabetes mellitus without complications (principal)
CPT/HCPCS: 36415; 80048; 80061; 82043; 82570

== ENCOUNTER → 2019-11-18 07:15 | Outpatient (CLI) | payer OTHER, SELFPAY ==
[2018-09-29 10:02] VITALS: BMI 27.4
--- NOTE | 2019-11-18 07:28 | MRI_ITS ---
STUDY: MRI THORACIC SPINE WITH AND WITHOUT CONTRAST REASON FOR EXAM: Female, 59 years old. spine meningioma, post op meningioma removal T11-T12 02/16/19 TECHNIQUE: IV Dotarem 17 was administered for the contrast portion of the examination. COMPARISON: 08/13/2019 FINDINGS: Normal kyphosis of the thoracic spine. There is no substantial scoliosis. No evidence for acute fracture... There is interosseous hemangioma of T8 There is diffuse desiccation of the disks within the lower thoracic spine. There is a small left paracentral disc/osteophyte protrusion at T7-8 mildly narrowing the spinal canal without cord compression. There is minor bulging of the disc at T9-10 without spinal stenosis. Normal visualized thoracic cord. Normal conus medullaris that terminates at T12-L1 Surgical changes status post bilateral laminectomy T10-11 and T11-12. The soft tissue structures are unremarkable. Increased intramedullary signal noted within the cord at T11-12 without enhancement consistent with myelomalacia possibly due to chronic impingement. There is no enhancing abnormality. No significant change since prior exam MRI/Spine Thoracic W/WO Contrast IMPRESSION: Post surgical changes at T11-12 and T12-L1 status post meningioma removal as per clinical history. No evidence for residual or recurrent tumor. Focal myelomalacia in the cord at T11-12. Small left paracentral disc/ossified protrusion at T7-8 mildly narrowing the central canal without cord compression. Minor bulging of the disc at T9-10 without spinal stenosis Electronically Signed: Stanislav Lui MD at 16:42 EDT , Service support ,
[2019-11-28 13:02] LABS: CREATININE FINGERSTICK 0.76 mg/dL (0.55-1.02); EGFR FINGERSTICK > 60 mL/min (>60)
== END ==
PROVIDERS: PCP Family Medicine
DX: D32.1 Benign neoplasm of spinal meninges (principal)
CPT/HCPCS: 72157; A9575

== ENCOUNTER → 2020-03-03 06:29 | Outpatient (CLI) | payer OTHER, SELFPAY ==
[2018-09-29 10:02] VITALS: BMI 27.4
[2020-03-04 07:11] LABS: CREATININE FINGERSTICK 1.15 mg/dL (0.55-1.02)
== END ==
PROVIDERS: PCP Family Medicine
DX: D49.2 Neoplasm of unspecified behavior of bone, soft tissue, and skin (principal); D32.1 Benign neoplasm of spinal meninges

== ENCOUNTER → 2020-04-14 07:42 | Outpatient (CLI) | payer OTHER, SELFPAY ==
[2018-09-29 10:02] VITALS: BMI 27.4
--- NOTE | 2020-04-14 08:07 | US_ITS ---
STUDY: THYROID ULTRASOUND REASON FOR EXAM: Female, 59 years old. Enlarged thyroid TECHNIQUE: Ultrasound evaluation of the thyroid was performed with real-time and static acuna-scale imaging. COMPARISON: None. FINDINGS: RIGHT LOBE: The right lobe of the thyroid gland is slightly enlarged and measures 5.2 cm x 1.9 cm x 1.8 cm. There is a heterogeneous echotexture. There is a 1.1 cm x 0.9 cm x 0.9 cm solid hypoechoic nodule with rim-like calcification in the lower pole. There is evidence of perinodular increased vascularity. LEFT LOBE: The left lobe of the thyroid gland measures 4.6 cm x 1.8 cm x 1.7 cm. There is a heterogeneous echotexture. There are 2 hypoechoic solid nodules in the lower pole of the left lobe. The larger measures 1.3 cm x 1 cm x 0.9 cm. Perinodular vascularity is seen. ISTHMUS: The isthmus measures 3.7 mm. The regional lymph nodes are normal. US/Thyroid IMPRESSION: Mild enlargement of the right lobe of the thyroid. Bilateral dominant solid nodules as described. A biopsy of the lower pole nodule in the left thyroid is recommended. Electronically Signed: Talon Cesar MD at 15:16 EST , Service support ,
== END ==
PROVIDERS: PCP Family Medicine; Referring Provider Family Medicine; Visit Provider Family Medicine
DX: E04.9 Nontoxic goiter, unspecified (principal)
CPT/HCPCS: 76536

== ENCOUNTER → 2020-04-25 15:28 | Outpatient (CLI) | payer OTHER, SELFPAY ==
--- NOTE | 2020-04-25 14:00 | ASPS_PTH ---
PATIENT: JACI PERALTA LOC: [facility] U#:[id number] AGE/SX: 64/F ROOM: RE04/25/[address]: Dr. Yung Inman MD : 1960 BED: DIS: SPEC #: [id number] RECD: 04/25/20 15:13 STATUS: OZ GENIE #: [id number] CHUY: 04/25/20 14:[address]: Yung Inman DEPT: CYTOLOGY RECD BY: Saba Burr ENTERED: 04/26/20 07:57 SP TYPE: ASPIRATION OTHR DR: Dr. Darshan Rowley MD Tissues: A - Thyroid gland, NOS B - Thyroid gland, NOS Procedures: Special Stain Group II Cytology Other HEADER OPERATION: Bilateral thyroid FNA PRE-OP DIAGNOSIS: Multiple thyroid nodules TISSUE SUBMITTED: A - Right thyroid slides x4, B - Left thyroid slides x6 DIAGNOSIS CYTOLOGY A. Right thyroid nodule, FNA (smears): Consistent with benign follicular/colloid nodule. Adequate for evaluation. B. Left thyroid nodule, FNA (smears): Consistent with benign follicular/colloid nodule. Adequate for evaluation. See comment. SJ:jada 04/27/2020 COMMENT B. The smears are cellular and the findings may represent adenomatoid nodule. Correlation with clinical, radiologic findings and appropriate follow up are necessary. CYTOLOGY STUDY Slides are reviewed. CYTOLOGY GROSS A - Received are four smears labeled with the patient's name and designated per the requisition as right thyroid. Submitted for staining. B - Received are six smears labeled with the patient's name and designated per the requisition as left thyroid. Submitted for staining. / jada 04/26/20 TC:5 CPT: 87885 x2
[2020-04-25 14:05] VITALS: BMI 29.8
== END ==
PROVIDERS: PCP Family Medicine; Visit Provider Surgery
DX: E04.1 Nontoxic single thyroid nodule (principal)
CPT/HCPCS: 88161; 88313

== ENCOUNTER → 2020-06-15 07:31 | Outpatient (CLI) | payer OTHER, SELFPAY ==
[2020-04-25 14:05] VITALS: BMI 29.8
[2020-06-15 10:52] LABS: Hemoglobin A1c 6.3 % (3.8-5.6)
[2020-06-15 10:54] LABS: Cholesterol 147 mg/dL (200); High Density Lipoprotein 48 mg/dL; Triglycerides 204 mg/dL; Very Low Density Lipoprotein 41 mg/dL (5-40)
== END ==
PROVIDERS: PCP Family Medicine; Referring Provider Family Medicine; Visit Provider Family Medicine
DX: I10 Essential (primary) hypertension (principal); E11.9 Type 2 diabetes mellitus without complications
CPT/HCPCS: 36415; 80061; 82043; 83036

== ENCOUNTER → 2020-11-25 08:24 | Outpatient (CLI) | payer OTHER, SELFPAY ==
[2020-11-25 10:24] LABS: Hemoglobin A1c 6.5 % (3.8-5.6)
[2020-11-25 10:27] LABS: Anion Gap 5 (5-15); BUN 24 mg/dL (7-18); BUN/Creat Ratio 31.3 RATIO (10-20); Calcium,Total 8.8 mg/dL (8.5-10.1); Chloride 107 mmol/L (98-107); Cholesterol 151 mg/dL (200); Creatinine, Serum 0.77 mg/dL (0.55-1.02); EST Glomerular Filtration Rate 81 mL/min (>60); Est Glom Filt Rate - Afr Amer 98 mL/min (>60); Glucose 121 mg/dL (74-106); High Density Lipoprotein 43 mg/dL; Potassium 4.4 mmol/L (3.5-5.1); Sodium Level 140 mmol/L (136-145); Thyroid Stim Hormone (TSH) 1.47 uIU/mL (0.358-3.74); Triglycerides 237 mg/dL; Very Low Density Lipoprotein 47 mg/dL (5-40)
== END ==
PROVIDERS: PCP Family Medicine; Referring Provider Family Medicine; Visit Provider Family Medicine
DX: Z00.00 Encounter for general adult medical examination without abnormal findings (principal); E11.9 Type 2 diabetes mellitus without complications
CPT/HCPCS: 36415; 80048; 80061; 83036; 84443

== ENCOUNTER 2021-04-28 07:13 | Outpatient (CLI) | payer OTHER, SELFPAY ==
--- NOTE | 2021-04-28 07:16 | US_ITS ---
History: Thyroid nodules Thyroid ultrasound: Comparison: April 14, 2020 Findings: Right thyroid lobe measures 4.7 x 1.7 x 2.0 cm. Left lobe measures 5.2 x 1.8 x 1.8 cm. Isthmus measures 2 mm in AP dimension. Thyroid echogenicity is multinodular and without significant interval change from prior exam. Dominant 16 mm left thyroid nodule is unchanged in appearance. 10 mm nodules along the posterior aspect of both thyroid lobes may represent parathyroid tissue. 15 x 5 mm mm right-sided cervical lymph node is noted with loss of the normal internal architecture may represent reactive change. IMPRESSION: Stable multinodular thyroid gland. A 15 x 5 mm right-sided cervical lymph node which may be reactive in nature. at 1012 Reported and signed by: Daniel Harrington MD Electronically Signed: Daniel Harrington MD at 10:10 EST , US/Thyroid
== END 2021-04-28 23:59 | disposition home or self-care (01) ==
LOC: US 07:15
PROVIDERS: PCP Family Medicine; Referring Provider Surgery; Visit Provider Surgery
DX: E04.2 Nontoxic multinodular goiter (principal)
CPT/HCPCS: 76536

== ENCOUNTER 2021-05-11 07:43 | Outpatient (CLI) | payer OTHER, SELFPAY ==
[2021-05-11 08:43] LABS: PTHIN 43.8 pg/mL (18.4-80.1)
== END 2021-05-11 23:59 | disposition home or self-care (01) ==
LOC: LAB 07:44
PROVIDERS: PCP Family Medicine; Referring Provider Surgery; Visit Provider Surgery
DX: E04.2 Nontoxic multinodular goiter (principal)
CPT/HCPCS: 36415; 83970

== ENCOUNTER 2021-05-29 07:03 | Outpatient (CLI) | payer OTHER, SELFPAY ==
--- NOTE | 2021-05-29 07:06 | BI_ITS ---
MAMMOGRAPHY - BILATERAL SCREENING REASON FOR EXAM: Female, 60 years old. Routine annual screening examination. PERTINENT HISTORY: Non-contributory. TECHNIQUE: Digital bilateral breast chrissie (3D mammographic acquisition) in the CC and MLO projections. 2-D mediolateral oblique (MLO) and craniocaudad (CC) views of both breasts were obtained. CAD: Full Field Digital Mammography with Computer Added Detection was performed. COMPARISON: Comparison is made with prior study dated 08/06/2017 and 04/08/2015. FINDINGS: Breast Composition: The breasts are heterogeneously dense, which may obscure small masses. There is a 9.4 mm x 9.4 mm nodule in the upper lateral aspect of the left breast. Correlation with ultrasound is recommended. Stable small benign-appearing bilateral axillary lymph nodes. No other significant abnormalities are identified. BI/SCRN MAMM (CAD)W/CHRISSIE BILAT IMPRESSION: 9.4 mm x 9.4 mm well-defined nodule in the upper lateral aspect of the left breast. Correlation with ultrasound is recommended. ASSESSMENT CATEGORY: BIRADS Category 0: Incomplete. Need additional imaging evaluation. A letter regarding these results will be sent to the patient by the facility within 30 days. Approximately 10% of breast cancers are not detected by mammography. A normal mammogram should not delay biopsy of a clinically suspicious abnormality. [id number] Electronically Signed: Talon Cesar MD at 8:40 EDT ,
== END 2021-05-29 23:59 | disposition home or self-care (01) ==
LOC: OPBI 07:03
PROVIDERS: PCP Family Medicine; Visit Provider Family Medicine
DX: Z12.31 Encounter for screening mammogram for malignant neoplasm of breast (principal)
CPT/HCPCS: 77063; 77067

== ENCOUNTER 2021-06-02 08:42 | Outpatient (CLI) | payer OTHER, SELFPAY ==
--- NOTE | 2021-06-02 08:49 | BI_ITS ---
MAMMOGRAPHY - UNILATERAL DIAGNOSTIC: LEFT BREAST REASON FOR EXAM: Female, 60 years old. Abnormal screening mammogram. PERTINENT HISTORY: Non-contributory. TECHNIQUE: Compression spot views in the mediolateral oblique and craniocaudad views were obtained. CAD: Full Field Digital Mammography with Computer Added Detection was performed. COMPARISON: Comparison is made with prior study dated 05/29/2001. FINDINGS: Breast Composition: The breasts are heterogeneously dense, which may obscure small masses. No definite nodule is seen at this time. Correlation with ultrasound is recommended. No other significant abnormalities are identified. BI/DIAG MAMM W/CAD, UNILAT IMPRESSION: No definite nodule is seen at this time. Correlation with ultrasound is recommended. ASSESSMENT CATEGORY: BIRADS Category 0: Incomplete. Need additional imaging evaluation. A letter regarding these results will be sent to the patient by the facility within 30 days. Approximately 10% of breast cancers are not detected by mammography. A normal mammogram should not delay biopsy of a clinically suspicious abnormality. Electronically Signed: Talon Cesar MD at 9:57 EDT ,
--- NOTE | 2021-06-02 08:49 | US_ITS ---
STUDY: ULTRASOUND BREAST - LEFT REASON FOR EXAM: Female, 60 years old. Abnormal screening mammogram. TECHNIQUE: Axial and longitudinal images of the LEFT breast were performed with a high resolution ultrasound transducer. # OF IMAGES: [id number] COMPARISON: Comparison is made with prior mammogram dated 05/29/2021 and prior sonogram of the left breast dated 08/09/2017. FINDINGS: LEFT Breast: The upper outer quadrant of the left breast was examined by ultrasound. No sonographic abnormality is seen. US/Breast Limited Unilateral IMPRESSION: No sonographic abnormality is seen. ASSESSMENT CATEGORY: BIRADS Category 1: Negative. A letter regarding these results will be sent to the patient by the facility within 30 days. Electronically Signed: Talon Cesar MD at 15:34 EDT ,
== END 2021-06-02 23:59 | disposition home or self-care (01) ==
LOC: OPBI 08:48
PROVIDERS: PCP Family Medicine; Visit Provider Family Medicine
DX: R92.8 Other abnormal and inconclusive findings on diagnostic imaging of breast (principal)
CPT/HCPCS: 76642; 77065

== ENCOUNTER → 2021-12-25 | Outpatient (CLI) | payer OTHER, SELFPAY ==
[2021-12-25 10:26] LABS: Anion Gap 7 (5-15); BUN 31 mg/dL (7-18); Calcium,Total 9.2 mg/dL (8.5-10.1); Chloride 107 mmol/L (98-107); Cholesterol 168 mg/dL (200); Creatinine, Serum 0.91 mg/dL (0.55-1.02); EST Glomerular Filtration Rate 66 mL/min (>60); Est Glom Filt Rate - Afr Amer 80 mL/min (>60); Glucose 140 mg/dL (74-106); High Density Lipoprotein 47 mg/dL; Potassium 4.5 mmol/L (3.5-5.1); Sodium Level 139 mmol/L (136-145); Triglycerides 234 mg/dL; Very Low Density Lipoprotein 47 mg/dL (5-40)
[2021-12-25 10:30] LABS: Hemoglobin A1c 6.8 % (3.8-5.6)
[2021-12-25 10:39] LABS: Microalbumin:Creatinine Ratio 97.7 mg/g CRE (<30 mg/g CRE)
== END | disposition home or self-care (01) ==
LOC: MTLAB 08:36
PROVIDERS: PCP Family Medicine; Referring Provider Family Medicine; Visit Provider Family Medicine
DX: Z00.00 Encounter for general adult medical examination without abnormal findings (principal); E11.9 Type 2 diabetes mellitus without complications
CPT/HCPCS: 36415; 80048; 80061; 82043; 82306; 82570; 83036

== ENCOUNTER → 2022-04-30 | Outpatient (CLI) | payer OTHER, SELFPAY ==
--- NOTE | 2022-04-30 07:14 | US_ITS ---
STUDY: THYROID ULTRASOUND REASON FOR EXAM: Female, 61 years old. Multiple thyroid nodules TECHNIQUE: Ultrasound evaluation of the thyroid was performed with real-time and static acuna-scale imaging. COMPARISON: Comparison is made with prior study dated April 28, 2021. FINDINGS: RIGHT LOBE: The right lobe of the thyroid gland is enlarged and measures 5.5 cm x 1.7 cm x 2.1 cm. There is a heterogeneous echotexture. Multiple small hypoechoic nodes are seen in the right lobe. The largest measures 9 mm x 9 mm x 9 mm. A calcific rim is seen. This is unchanged. LEFT LOBE: The left lobe of the thyroid gland is enlarged and measures 5.1 cm x 1.7 cm x 2.3 cm. There is a heterogeneous echotexture. Once again, multiple small nodules are scattered throughout the left lobe. The largest measures 1.1 sono by 1 cm x 0.9 cm. ISTHMUS: The isthmus measures 4 mm. Stable 1.6 cm x 0.8 cm x 0.6 cm benign-appearing right cervical lymph node. US/Thyroid IMPRESSION: Stable examination. Thyroid enlargement with multiple bilateral small nodules scattered throughout. Electronically Signed: Talon Cesar MD at 12:44 EST ,
== END | disposition home or self-care (01) ==
LOC: US 07:14
PROVIDERS: PCP Family Medicine; Visit Provider Surgery
DX: E04.2 Nontoxic multinodular goiter (principal)
CPT/HCPCS: 76536

== ENCOUNTER → 2022-09-14 | Outpatient (CLI) | payer OTHER, SELFPAY ==
--- NOTE | 2022-09-14 07:21 | BI_ITS ---
MAMMOGRAPHY - BILATERAL SCREENING 3-D TOMOSYNTHESIS REASON FOR EXAM: Female, 62 years old. Routine screening PERTINENT HISTORY: No significant family history. TECHNIQUE: 2-D mammograms and 3-D Tomosynthesis of the breast (s) were performed. CAD was performed. COMPARISON: 08/06/2017 FINDINGS: The breast composition is heterogeneously dense that can obscure small breast masses. Scattered benign calcifications are seen. No dense spiculated masses or suspicious microcalcifications are identified. No architectural distortion is identified. There is no skin thickening or retraction. There has been no significant change since the prior study. BI/SCRN MAMM (CAD)W/CHRISSIE BILAT IMPRESSION: No mammographic signs of malignancy. Routine yearly mammograms recommended. ASSESSMENT CATEGORY: BIRADS Category 2: Benign. A letter regarding these results will be sent to the patient by the facility within 30 days. FOLLOW UP RECOMMENDATION: Yearly follow up mammogram recommended. (A) Approximately 10% of breast cancers are not detected by mammography. A normal mammogram should not delay biopsy of a clinically suspicious abnormality. Electronically Signed: Henrry Luke MD at 8:32 EDT ,
== END | disposition home or self-care (01) ==
LOC: OPBI 07:19
PROVIDERS: PCP Family Medicine; Referring Provider Family Medicine; Visit Provider Family Medicine
DX: Z12.31 Encounter for screening mammogram for malignant neoplasm of breast (principal)
CPT/HCPCS: 77063; 77067

== ENCOUNTER → 2022-12-27 | Outpatient (CLI) | payer OTHER, SELFPAY ==
[2022-12-27 10:19] LABS: Hemoglobin A1c 6.8 % (3.8-5.6)
[2022-12-27 10:20] LABS: Microalbumin,Random Urine 8.6 mg/L (NO RANGE EST.); Microalbumin:Creatinine Ratio 8.4 mg/g CRE (<30 mg/g CRE)
[2022-12-27 10:28] LABS: Anion Gap 7 (5-15); BUN 21 mg/dL (7-18); BUN/Creat Ratio 25.4 RATIO (10-20); Calcium,Total 9.1 mg/dL (8.5-10.1); Chloride 107 mmol/L (98-107); Cholesterol 178 mg/dL (200); Creatinine, Serum 0.83 mg/dL (0.55-1.02); EST Glomerular Filtration Rate 74 mL/min (>60); Est Glom Filt Rate - Afr Amer 89 mL/min (>60); Glucose 115 mg/dL (74-106); High Density Lipoprotein 46 mg/dL; Potassium 4.2 mmol/L (3.5-5.1); Sodium Level 139 mmol/L (136-145); Triglycerides 287 mg/dL; Very Low Density Lipoprotein 57 mg/dL (5-40)
== END | disposition home or self-care (01) ==
LOC: MTLAB 08:19
PROVIDERS: PCP Family Medicine; Referring Provider Family Medicine; Visit Provider Family Medicine
DX: E11.9 Type 2 diabetes mellitus without complications (principal)
CPT/HCPCS: 36415; 80048; 80061; 82043; 82570; 83036

== ENCOUNTER → 2023-03-08 | Outpatient (CLI) | payer OTHER, SELFPAY | END | disposition home or self-care (01) | LOC: LABSPEC 15:17 | PROVIDERS: PCP Family Medicine; Referring Provider Physician Assistant Surgical; Visit Provider Physician Assistant Surgical | DX: N39.0 Urinary tract infection, site not specified (principal) | CPT/HCPCS: 87086 ==

== ENCOUNTER → 2023-06-04 | Outpatient (CLI) | payer OTHER, SELFPAY ==
[2023-06-04 07:51] LABS: Bacteria 0 SEEN /hpf (None Seen); Mucous, Urine 0 SEEN /hpf (<or=2+); Red Blood Cells-Urine 0 SEEN /hpf (0-5); Squamous Epithelial Cells - UA 0 SEEN /hpf (5-10)
[2023-06-04 09:50] LABS: Color, Urine Yellow (Yellow); Glucose, Dipstick 1000 mg/dl (Normal); Ketone-Dipstick 15 mg/dl (Negative); Leukocyte Esterase-Dipstick 500 /ul (Negative); Nitrite-Dipstick Negative (Negative); Occult Blood-Urine 250 /ul (Negative); Protein-Dipstick 100 mg/dl (Negative); Urine Bilirubin Dipstick Negative (Negative); Urine Clarity Turbid (Clear); Urine Urobilinogen Normal (Normal)
[2023-06-04 09:57] LABS: White Blood Cells >100 SEEN /hpf (0-5)
== END | disposition home or self-care (01) ==
PROVIDERS: PCP Family Medicine; Visit Provider Physician Assistant
DX: R35.0 Frequency of micturition (principal)
CPT/HCPCS: 81001; 87077; 87086; 87088; 87186

== ENCOUNTER → 2023-07-03 | Outpatient (CLI) | payer OTHER, SELFPAY ==
--- NOTE | 2023-07-03 13:45 | US_ITS ---
ACR Level 3 findings have been noted. An addendum which confirms receipt of the report will follow. INDICATION: UTI EXAMINATION: Ultrasound US Kidney(s) complete (eg, kidneys and bladder) TECHNIQUE: Moralez scale and color doppler images were obtained of the kidneys. COMPARISON: None. FINDINGS: RIGHT KIDNEY: 11.9 x 5.7 x 5.4 cm. There is no hydronephrosis. No shadowing calculus, focal lesion or perinephric collection is demonstrated. LEFT KIDNEY: 11.7 x 5.4 x 6.4 cm. There is no hydronephrosis. Exophytic midpole 0.6 x 0.6 x 0.9 cm hyperechoic lesion. No shadowing calculus or perinephric collection is demonstrated. URINARY BLADDER: Mostly anechoic with demonstration of bilateral ureteral jets. Mild dependent debris seen within the posterior bladder. Prevoid volume 420 mL. No post void imaging obtained. Borderline wall thickening at 5 mm. US/Kidney and Bladder IMPRESSION: No hydronephrosis. Borderline bladder wall thickening with mild dependent debris in the bladder as can be seen with cystitis. Correlate with urine. Recommend ultrasound follow-up after treatment to exclude underlying focal wall thickening along the posterior bladder. Prevoid bladder volume 420 mL. Left renal exophytic echogenic 0.9 cm lesion is indeterminate by ultrasound, commonly angiomyolipoma. Noncontrast CT may be able to characterize if there is high fat content. Otherwise multiphasic renal MRI could best further evaluate given small size Electronically Signed: Eleuterio Batres MD at 22:16 EDT ,
== END | disposition home or self-care (01) ==
LOC: US 13:42
PROVIDERS: PCP Family Medicine; Referring Provider Urology; Visit Provider Urology
DX: N39.0 Urinary tract infection, site not specified (principal)
CPT/HCPCS: 76770

== ENCOUNTER → 2023-07-19 | Outpatient (CLI) | payer OTHER, SELFPAY ==
--- NOTE | 2023-07-19 17:17 | CT_ITS ---
EXAM: CT ABDOMEN AND PELVIS WITHOUT AND WITH INTRAVENOUS CONTRAST CLINICAL INDICATION: RENAL MASS TECHNIQUE: Helically acquired images were obtained of the abdomen and pelvis without and with intravenous contrast. This CT exam was performed using one or more of the following dose reduction techniques: automated exposure control, adjustment of the mA and/or kV according to patient size, and/or use of iterative reconstruction technique. CONTRAST: IV 100mL Isovue-370 COMPARISON: No relevant prior studies available. FINDINGS: LOWER THORAX: Small sliding hiatal hernia. ABDOMEN: LIVER: Normal. Homogeneous. No focal mass. PANCREAS: Normal. No focal cystic or solid mass. SPLEEN: Normal. Normal size without focal cystic or solid mass. ADRENALS: Normal. No nodules. KIDNEYS AND URETERS: Tiny cortical cyst noted within both kidneys. No evidence of solid renal mass. Normal renal size and position. No hydronephrosis. STOMACH AND BOWEL: Mild stool burden within the large bowel and rectum. Diverticulosis of the colon noted without evidence of acute diverticulitis. PELVIS: APPENDIX: Appendix is visualized and normal in appearance. BLADDER: Normal. REPRODUCTIVE: Unremarkable as visualized. No mass. ABDOMEN and PELVIS: INTRAPERITONEAL SPACE: Normal. No ascites or other fluid collection. No free air. BONES/JOINTS: No suspicious lytic or blastic abnormality. SOFT TISSUES: Normal. No discrete abdominal or pelvic wall hernia. VASCULATURE: Normal. Abdominal aorta is non-dilated. LYMPH NODES: Normal. No enlarged lymph nodes. CT/CT Abd/Pelvis W/WO Contrast IMPRESSION: 1. No acute abdominal or pelvic abnormality. 2. No evidence of renal mass. Electronically Signed: Daniel Harrington MD at 16:58 EDT ,
[2023-07-19 17:39] LABS: CREATININE FINGERSTICK < 1.0 mg/dL (0.55-1.02); EGFR FINGERSTICK > 60.0000 mL/min (>60)
== END | disposition home or self-care (01) ==
LOC: CT 17:14
PROVIDERS: PCP Family Medicine; Referring Provider Urology; Visit Provider Urology
DX: N28.81 Hypertrophy of kidney (principal)
CPT/HCPCS: 74178; Q9967

== ENCOUNTER → 2023-08-21 | Outpatient (CLI) | payer OTHER, SELFPAY ==
[2023-08-21 10:29] LABS: Erythrocyte Sedimentation Rate 4 mm/hr (0-30)
[2023-08-21 10:31] LABS: Absolute Lymphocyte Count 2.16 X10^3/uL (0.83-4.51); Absolute Neutrophil Count 3.9 X10^3/uL (2.0-7.7); Basophil# 0.04 X10^3/uL; Basophil% 0.6 % (0-1); Eosinophil# 0.13 X10^3/uL; Eosinophils% 1.9 % (0-5); Hematocrit 44.6 % (37-47); Hemoglobin 14.9 g/dL (12.0-15.0); Lymphocyte # 2.16 X10^3/ul (0.83-4.51); Lymphocyte % 32.3 % (19-41); Mean Corp Hgb Conc 33.4 g/dL (32-36); Mean Corpuscular Hgb 31.9 pg (27.0-32.0); Mean Corpuscular Volume 95.5 fL (81-99); Mean Platelet Vol. 9.8 fl (6.2-12.0); Monocyte# 0.46 X10^3/uL; Monocyte% 6.9 % (0-10); NRBC Flagged by Analyzer 0 % (0-5); Neutrophil # 3.89 X10^3/uL (2.7-7.7); Neutrophil % 58.2 % (47-70); Platelet Count 248 K/mm3 (150-450); RBC Distribution Width CV 13.6 % (11.6-14.6); RBC Distribution Width SD 47.5 fl (35.1-43.9); Red Blood Count 4.67 M/mm3 (4.2-5.4); White Blood Count 6.7 K/mm3 (4.4-11.0)
[2023-08-21 10:39] LABS: Anion Gap 6 (5-15); BUN 19 mg/dL (7-18); BUN/Creat Ratio 19.8 RATIO (10-20); CRP, High Sensitivity Cardiac 3.36 mg/L; Calcium,Total 9.3 mg/dL (8.5-10.1); Chloride 107 mmol/L (98-107); Creatinine, Serum 0.96 mg/dL (0.55-1.02); EST Glomerular Filtration Rate 62 mL/min (>60); Est Glom Filt Rate - Afr Amer 75 mL/min (>60); Glucose 123 mg/dL (74-106); Potassium 4.4 mmol/L (3.5-5.1); Sodium Level 140 mmol/L (136-145)
== END | disposition home or self-care (01) ==
PROVIDERS: PCP Family Medicine; Referring Provider Family Medicine; Visit Provider Family Medicine
DX: R59.1 Generalized enlarged lymph nodes (principal); N32.9 Bladder disorder, unspecified
CPT/HCPCS: 36415; 80048; 85025; 85652; 86141

== ENCOUNTER 2023-09-12 10:09 | Day surgery (SDC) | payer OTHER, SELFPAY ==
--- NOTE | 2023-09-04 07:49 | EKG12_ITS ---
Test Reason : PREOP Blood Pressure : / mmHG Vent. Rate : 068 BPM Atrial Rate : 068 BPM P-R Int : 124 ms QRS Dur : 088 ms QT Int : 414 ms P-R-T Axes : 018 -05 041 degrees QTc Int : 440 ms Normal sinus rhythm Normal ECG Confirmed by Sanjay Yancey ([id number]), editorial intern HAI YUAN ([id number]) on 09/05/2023 7:48:24 AM Referred By: Rayna Smith Confirmed By:Sanjay Yancey
[2023-09-12] VITALS (7 sets, daily range): BP systolic 76–122; BP diastolic 59–66; PULSE 54–67; RESP 14–16; TEMP 36.2–36.5; O2SAT 96–100; BMI 28.0
--- NOTE | 2023-09-12 | BLA_PTH ---
PATIENT: JACI PERALTA LOC: [facility] U#:[id number] AGE/SX: 63/F ROOM: RE09/12/[address]: Dr. Rayna Smith MD : 1960 BED: DIS: 09/12/2023 SPEC #: [id number] RECD: 09/12/23 13:18 STATUS: OZ PRESCOTT #: [id number] CHUY: 09/12/23 00:[address]: Rayna Smith DEPT: SURGICAL PATHOLOGY RECD BY: Heladio Mauricio ENTERED: 09/12/23 13:18 SP TYPE: BLADDER BX OTHR DR: Dr. Darshan Rowley MD Tissues: Urinary bladder, NOS Procedures: Surgery Specimen Level IV HEADER OPERATION: Bladder biopsy with fulguration PRE-OP DIAGNOSIS: Nocturia, urinary tract infection TISSUE SUBMITTED: Bladder biopsy MICROSCOPIC DIAGNOSIS Urinary bladder, biopsy: Chronic follicular cystitis. AM/mr 09/13/2023 MICROSCOPIC DESCRIPTION Slides are reviewed. GROSS DESCRIPTION Received in fixative is one container labeled with the patient's name and designated Bladder biopsy. The specimen consists of two irregular fragments of light gant soft tissue that in aggregate measure 0.6 x 0.3 x 0.1 cm. The specimen is totally submitted in one cassette. ESTRELLA/ 09/12/2023 TC:3 CPT:98615
[2023-09-12] MEDS: Lactated Ringers 1,000 ML 15 ML IV (10:39)
[2023-09-12 11:00] LABS: Bedside Glucose 116 mg/dL (74-106)
--- NOTE | 2023-09-12 11:04 | PCM.PRE.AN2 ---
ASA Classification* ASA Classification ASA Classification: 2 Assessment & Plan Anesthesia* Anesthesia Assessment Anesthesia Assessment: Discussed sedation and/or anesthesia options, risks, benefits, and alternatives with patient/parents/legal guardian/POA. Questions invited. The patient/parents/legal guardian/POA seems to understand and agrees to proceed with anesthesia plan. Reviewed the physical assessment, medical history, allergy history and patient home medications list prior to surgery/procedure/anesthetic and documented any changes. Performed airway and anesthesia risk assessments. Anesthesia Type Anesthesia Type: MAC (see pre anesthesia written record for full assessment) Anesthesia Focused Assessment* Temperature: 97.7 F Pulse Rate: 55 Blood Pressure: 122/66 Respiratory Rate: 16 Pulse Ox: 99 Airway Assessment Mouth opens: >3 cm Mallampati Score: II Focused Labs Anesthesia Preop lab: CBC WBC 6.7 K/mm3 (4.4-11.0) 08/21/23 07:16 RBC 4.67 M/mm3 (4.2-5.4) 08/21/23 07:16 Hgb 14.9 g/dL (12.0-15.0) 08/21/23 07:16 Hct 44.6 % (37-47) 08/21/23 07:16 Plt Count 248 K/mm3 (150-450) 08/21/23 07:16 CHEMISTRY Potassium 4.4 mmol/L (3.5-5.1) 08/21/23 07:16 Sodium 140 mmol/L (136-145) 08/21/23 07:16 BUN 19 mg/dL (7-18) H 08/21/23 07:16 Creatinine 0.96 mg/dL (0.55-1.02) 08/21/23 07:16 Glucose 123 mg/dL (74-106) H 08/21/23 07:16 POC Glucose 116 mg/dL (74-106) H 09/12/23 10:33 TSH 1.47 uIU/mL (0.358-3.74) 11/25/20 08:27 COAG Pre-Assessment Diagnosis/Proposed Procedure Planned Operative Procedure(s): Cysto, Bladder biospy with fulguration Anesthesia History Anesthesia History - envelope adjuster: Anesthesia History - envelope adjuster Hx Hospitalization No 09/03/23 10:01 Any Problems With Anesthesia No 09/03/23 10:01 Cholinesterase deficiency No 09/03/23 10:01 You/Your Family Experience No 09/03/23 10:01 fever (hyperthermia) with Relationship Recent Exposure to Contagious No 09/12/23 10:34 Disease Does patient have nerve No 09/03/23 10:01 stimulator Patient instructed to have device shut off --Does patient have Pacemaker No 09/12/23 10:34 or ICD? When Was Last Pacemaker Check QUESTION #4 FULL TEXT: You/Your Family Experience fever (hyperthermia) with Anesthesia Last Oral Intake Last Oral intake: Last Oral Intake NPO since 00:00 09/12/23 10:34 Meds taken in AM with sips of No 09/12/23 10:34 water? Meds patient instructed to take am of surgery PONV PONV - envelope adjuster: PONV - envelope adjuster Female Yes 09/03/23 10:01 HX of Motion Sickness No 09/03/23 10:01 HX of N/V After Surgery No 09/03/23 10:01 Non-Smoker No 09/03/23 10:01 Duration of Surgery greater No 09/03/23 10:01 than 60 minutes Number of Risk Factors 1 09/03/23 10:01 PONV Score Low Risk 09/03/23 10:01 Height & Weight Height & Weight: Anesthesia: Height & Weight Height 5 ft 10 in 09/12/23 10:34 Weight: 88.541 kg 09/12/23 10:34 Body Mass Index (BMI) 28.0 09/12/23 10:34 Respiratory Assessment Respiratory Assessment - envelope adjuster: Respiratory Tract Infection Hx - envelope adjuster Hx Respiratory Tract Infection No 09/03/23 10:01 STOP Sleep Apnea STOP Sleep Apnea - envelope adjuster: STOP Sleep Apnea - envelope adjuster Hx Hypertension Yes 09/03/23 10:01 Hx Sleep Apnea No 09/03/23 10:01 CPAP BIPAP Do you snore loudly (louder No 09/03/23 10:01 than talking or can be heard Do you often feel tired/ No 09/03/23 10:01 fatigued/ sleepy during daytime? Has anyone observed you stop No 09/03/23 10:01 breathing during sleep? STOP Results Negative 09/03/23 10:01 QUESTION #5 FULL TEXT : Do you snore loudly (louder than talking or can be heard through closed doors)? 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 Specify any problems Hx of Preganancy in last 3 N/A 09/03/23 10:01 Months Nurse Filling Out Transfusion NBUCHER 09/03/23 10:01 & Questions: Date: 09/03/23 09/03/23 10:01 Time: 10:02 09/03/23 10:01 Patient unable to answer at this time (ie. confused, unrespo /Reproduction History /Reproductive History - envelope adjuster: /Reproductive Hx- envelope adjuster Hx Now No 09/03/23 10:01 Gestational Age (in weeks): EDC: Hx Hx Para Hx Section SAB No 09/03/23 10:01 Active Medications Active Medications: Current Medications Generic Name Dose Route Start Last Admin Trade Name Freq PRN Reason Stop Dose Admin Cefazolin Sodium 2 gm/ Sodium 110 mls @ 150 mls/hr 09/12/23 11:45 Chloride IV 09/12/23 12:28 PREOP ONE Lactated Ringer's 1,000 mls @ 15 mls/hr 09/12/23 10:15 09/12/23 10:39 IV 15 mls/hr .Q48H KIMBERLY Administration PFSH Medical History Arthritis High cholesterol Heartburn Smoker Hyperlipidemia Insomnia Osteoarthritis Diabetes Multiple thyroid nodules Home Medications ?Medication ?Instructions ?Recorded ?Last Taken ?Type losartan 25 mg tablet 25 mg PO DAILY PROTECT KIDNEYS 12/28/15 09/12/23 History meloxicam 15 mg tablet 15 mg PO DAILY PAIN 12/28/15 09/11/23 History metformin 500 mg tablet 1,000 mg PO BIDCM DIABETES 01/09/16 09/11/23 History multivitamin 1 ea PO DAILY SUPPLEMENT 12/10/17 09/11/23 History rosuvastatin 10 mg tablet 10 mg PO QHS CHOLESTEROL 12/10/17 09/11/23 History acetaminophen 500 mg tablet 1,000 mg PO Q8 PRN Pain 09/24/18 09/11/23 History empagliflozin 10 mg tablet 10 mg PO DAILY 09/24/18 09/11/23 History eszopiclone 2 mg tablet (Lunesta) 2 mg PO QHS PRN sleep 04/25/20 09/11/23 History ascorbic acid (vitamin C) 500 mg 1 g PO DAILY 09/03/23 09/11/23 History tablet (Vitamin C) cranberry 500 mg capsule 1,000 mg PO DAILY 09/03/23 09/11/23 History lactobacillus combination no.4 3 3,000 mmu cells PO DAILY 09/03/23 09/11/23 History billion cell capsule (Probiotic) Allergy/AdvReac Type Severity Reaction Status Date / Time methocarbamol (From Robaxin) AdvReac Intermediate pain Verified 09/03/23 09:56 lisinopril AdvReac COUGH Verified 09/03/23 09:56 Family History Father No problems noted. Surgical History History of tubal ligation History of resection of meningioma History of laminectomy History of left knee replacement History of right knee joint replacement History of tonsillectomy and adenoidectomy Social History Smoking Status: Current every day smoker tobacco type: cigarettes Review of Systems (Anesthesia) ROS Narrative System reviewed and no additional complaints, except as documented.
--- NOTE | 2023-09-12 11:16 | DCINST_ITS ---
Discharge Instructions Diet Discharge Diet: No restrictions Activity Discharge Activity: Return to Normal Activity Dressing / Incision Call your doctor if you observe: Fever of 101 or Higher, Inability to urinate and Inability to have a bowel movement Follow Up Care Please Follow Up With: Rayna Smith MD When: Next week for biopsy results. Test Results: Test results from this visit will be discussed in further detail at your follow- up appointment, if applicable. Discharge Plan Admission Attending Provider: Rayna Smith Primary Care Provider: Darshan Rowley Instructions Print Language: Luxembourgish Discharge Orders/Prescriptions Prescriptions: New oxycodone-acetaminophen [Percocet] 5-325 mg tablet 1 tab PO Q8H PRN (Reason: pain) 2 Days Qty: 6 0RF cephalexin 500 mg capsule 500 mg PO Q12 3 Days Qty: 6 0RF Continued eszopiclone [Lunesta] 2 mg tablet 2 mg PO QHS PRN (Reason: sleep) meloxicam 15 MG tablet 15 mg PO DAILY losartan 25 MG tablet 25 mg PO DAILY Patient Comments: bp metformin 500 MG tablet 1,000 mg PO BIDCM Patient Comments: diabetic medication multivitamin 1 EACH tablet 1 ea PO DAILY rosuvastatin 10 MG tablet 10 mg PO QHS empagliflozin 10 MG tablet 10 mg PO DAILY acetaminophen 500 MG tablet 1,000 mg PO Q8 PRN (Reason: Pain) Probiotic 3 billion cell capsule 3,000 mmu cells PO DAILY Rx Instructions: administer with a meal cranberry 500 mg capsule 1,000 mg PO DAILY Rx Instructions: administer with a meal ascorbic acid (vitamin C) [Vitamin C] 500 mg tablet 1 g PO DAILY Other Ambulatory Orders: 12 Lead EKG (Routine) Timeframe: [id number] Location: None Selected Ordered By: Dr. David Reyes Referrals / Follow Up: Darshan Rowley MD [Primary Care Provider] - Disposition Disposition (needs filled in before D/C Order can be placed): Home, Self Care
[2023-09-12] MEDS: Cefazolin 2 GM in 0.9% Normal Saline (100mL Bag) 100 ML IV (11:17)
--- NOTE | 2023-09-12 11:19 | PCM.OPRPT ---
Report of Operation Date of Procedure: 09/12/23 Pre-Operative Diagnosis: erythematous bladder lesion, urinary tract infection Post-Operative Diagnosis: same Surgery/Procedure Performed:: cystoscopy with bladder biopsy and fulguration Surgeon: Rayna Smith Type of Anesthesia: MAC Specimen's removed: bladder biopsy Description of Procedure: The patient is a 63-year-old female who was evaluated with cystoscopy for issues with recurrent urinary tract infections. An erythematous lesion was identified and she now presents for biopsy and fulguration for evaluation and treatment. Informed consent was obtained. The patient was taken to the operating room and placed on the operating room table. Anesthesia monitored the head, neck, airway, IV access and vital signs throughout the case. Once anesthesia was appropriately administered, she was placed into dorsolithotomy position and was prepped and draped in usual sterile fashion. The cystoscope was inserted through the urethra under direct visualization. The bladder mucosa was visualized in its entirety. The same areas of erythema were identified. Two biopsies were performed with flexible biopsy forceps. One was in the right posterior dome of the bladder and the other was the left posterior bladder wall. These areas were fulgurated for hemostatic control and tissue treatment. At this time the patient's bladder was emptied and the cystoscope was removed. She was awakened and taken to the recovery room in good condition. There were no complications during the procedure. Grafts/Implants Used: none Complications none Admit VTE Documentation VTE Present on Admission: Yes VTE Mechan Device Prophylaxis: SCD's VTE Pharm Prophylaxis ordered?: No Reason prophylaxis not ordered:: Treatment Not Indicated
--- NOTE | 2023-09-12 11:49 | PCM.POST.ANE ---
Anesthesia: Postop Eval I Current Vital Signs Temperature: 97.1 F Pulse Rate: 60 Blood Pressure: 76/59 Respiratory Rate: 14 Pulse Ox: 98 Oxygen Delivery Method: Room Air Assessment Airway patent: Yes Spontaneous unlabored respirations: Yes Mental status: Awake and Calm nausea: No Vomiting: No Anesthesia Complication: No Fluid Hydration Crystalloid volume administer (ml): 800 Total IV fluid infused: 800 Progress Note Anesthesia document: Postop Eval 1 completed: Yes
--- NOTE | 2023-09-12 12:12 | POSTOPAN2_ITS ---
Anesthesia Postop Eval I Sum Postop Eval Completion status Anesthesia document: Postop Eval 1 completed: Yes Anesthesia Postop Eval I Summary Anesthesia Postop Eval I Summary: Anesthesia Postop Eval I: Assessment Summary Airway patent Yes 09/12/23 11:50 MONOMER RECOVERY [email or web address] Spontaneous unlabored Yes 09/12/23 11:50 MONOMER RECOVERY [email or web address] respirations Mental status Awake,Calm 09/12/23 11:50 MONOMER RECOVERY [email or web address] nausea No 09/12/23 11:50 MONOMER RECOVERY [email or web address] Vomiting No 09/12/23 11:50 MONOMER RECOVERY [email or web address] Anesthesia Postop Eval I: Fluid Summary Crystalloid volume administer 800 09/12/23 11:50 MONOMER RECOVERY [email or web address] (ml) Colloids volume administered ( ml) Blood Product volume administered (ml) Total IV fluid infused 800 09/12/23 11:50 MONOMER RECOVERY [email or web address] Anesthesia Postop Eval I: Summary Notes Anesthesia Complication No 09/12/23 11:50 MONOMER RECOVERY [email or web address] Anesthesia Complication Comment: Post-operative progress note Anesthesia: Postop Eval II Evaluation Mental status: Awake Pain Level: 0 nausea: No Vomiting: No
--- NOTE | 2023-09-12 12:12 | PCM.POSTANE2 ---
Anesthesia Postop Eval I Sum Postop Eval Completion status Anesthesia document: Postop Eval 1 completed: Yes Anesthesia Postop Eval I Summary Anesthesia Postop Eval I Summary: Anesthesia Postop Eval I: Assessment Summary Airway patent Yes 09/12/23 11:50 TRAFFIC CONTROL [email or web address] Spontaneous unlabored Yes 09/12/23 11:50 TRAFFIC CONTROL [email or web address].[email or web address] respirations Mental status Awake,Calm 09/12/23 11:50 TRAFFIC CONTROL [email or web address].[email or web address] nausea No 09/12/23 11:50 TRAFFIC CONTROL [email or web address] Vomiting No 09/12/23 11:50 TRAFFIC CONTROL [email or web address] Anesthesia Postop Eval I: Fluid Summary Crystalloid volume administer 800 09/12/23 11:50 TRAFFIC CONTROL [email or web address] (ml) Colloids volume administered ( ml) Blood Product volume administered (ml) Total IV fluid infused 800 09/12/23 11:50 TRAFFIC CONTROL [email or web address] Anesthesia Postop Eval I: Summary Notes Anesthesia Complication No 09/12/23 11:50 TRAFFIC CONTROL [email or web address] Anesthesia Complication Comment: Post-operative progress note Anesthesia: Postop Eval II Evaluation Mental status: Awake Pain Level: 0 nausea: No Vomiting: No
== END 2023-09-12 12:41 | disposition home or self-care (01) ==
LOC: SDC 10:14 → AC 10:15
PROVIDERS: PCP Family Medicine; Referring Provider Urology; Visit Provider Urology
PROC: 0TBB8ZX Excision of Bladder, Via Natural or Artificial Opening Endoscopic, Diagnostic (ICD-10-PCS; CPT 52204; principal; 2023-09-12 11:35)
DX: N30.30 Trigonitis without hematuria (principal); E11.9 Type 2 diabetes mellitus without complications; N32.89 Other specified disorders of bladder; F17.200 Nicotine dependence, unspecified, uncomplicated; N28.89 Other specified disorders of kidney and ureter; N95.2 Postmenopausal atrophic vaginitis; R35.1 Nocturia; E78.00 Pure hypercholesterolemia, unspecified; Z79.84 Long term (current) use of oral hypoglycemic drugs; Z79.899 Other long term (current) drug therapy
CPT/HCPCS: 52204; 00910; 82962; 88305; 93005; J7120; J2405

== ENCOUNTER → 2023-10-31 | Outpatient (CLI) | payer OTHER, SELFPAY ==
[2023-10-31 15:14] LABS: Mucous, Urine 0 SEEN /hpf (<or=2+)
[2023-10-31 17:43] LABS: Color, Urine Brown (Yellow); Glucose, Dipstick 1000 mg/dl (Normal); Leukocyte Esterase-Dipstick 500 /ul (Negative); Nitrite-Dipstick Positive (Negative); Occult Blood-Urine 250 /ul (Negative); Protein-Dipstick 500 mg/dl (Negative); Urine Clarity Cloudy (Clear); Urine Urobilinogen 8 mg/dl (Normal)
[2023-10-31 17:47] LABS: Urine Bilirubin Dipstick 3 mg/dL (Negative)
[2023-10-31 17:58] LABS: Ketone-Dipstick 150 mg/dl (Negative)
[2023-10-31 18:00] LABS: Bacteria 1+ /hpf (None Seen); Red Blood Cells-Urine 25-50 SEEN /hpf (0-5); Squamous Epithelial Cells - UA 5-10 SEEN /hpf (5-10); White Blood Cells 50-100 SEEN /hpf (0-5)
== END | disposition home or self-care (01) ==
LOC: MTLAB 15:09
PROVIDERS: PCP Family Medicine; Referring Provider Internal Medicine Infectious Disease; Visit Provider Internal Medicine Infectious Disease
DX: B37.41 Candidal cystitis and urethritis (principal)
CPT/HCPCS: 36415; 81001; 87077; 87086; 87101

== ENCOUNTER → 2023-11-01 | Outpatient (CLI) | payer OTHER, SELFPAY ==
[2023-11-01 11:56] LABS: Absolute Lymphocyte Count 1.21 X10^3/uL (0.83-4.51); Absolute Neutrophil Count 4.8 X10^3/uL (2.0-7.7); Basophil# 0.05 X10^3/uL; Basophil% 0.7 % (0-1); Eosinophil# 0.09 X10^3/uL; Eosinophils% 1.3 % (0-5); Hematocrit 40.9 % (37-47); Hemoglobin 13.2 g/dL (12.0-15.0); Lymphocyte # 1.21 X10^3/ul (0.83-4.51); Mean Corp Hgb Conc 32.3 g/dL (32-36); Mean Corpuscular Hgb 32.7 pg (27.0-32.0); Mean Corpuscular Volume 101.2 fL (81-99); Mean Platelet Vol. 8.9 fl (6.2-12.0); Monocyte# 0.55 X10^3/uL; Monocyte% 8.2 % (0-10); NRBC Flagged by Analyzer 0 % (0-5); Neutrophil # 4.79 X10^3/uL (2.7-7.7); Neutrophil % 71.5 % (47-70); Platelet Count 334 K/mm3 (150-450); RBC Distribution Width CV 13.2 % (11.6-14.6); RBC Distribution Width SD 49.1 fl (35.1-43.9); Red Blood Count 4.04 M/mm3 (4.2-5.4); White Blood Count 6.7 K/mm3 (4.4-11.0)
[2023-11-01 12:25] LABS: Anion Gap 8 (5-15); BUN 21 mg/dL (7-18); Calcium,Total 9.5 mg/dL (8.5-10.1); Chloride 102 mmol/L (98-107); Creatinine, Serum 1.05 mg/dL (0.55-1.02); EST Glomerular Filtration Rate 56 mL/min (>60); Est Glom Filt Rate - Afr Amer 68 mL/min (>60); Glucose 261 mg/dL (74-106); Potassium 4.4 mmol/L (3.5-5.1); Sodium Level 136 mmol/L (136-145)
[2023-11-01 12:36] LABS: Hemoglobin A1c 5.5 % (3.8-5.6)
== END | disposition home or self-care (01) ==
LOC: MTLAB 10:58
PROVIDERS: PCP Family Medicine; Referring Provider Family Medicine; Visit Provider Family Medicine
DX: R73.9 Hyperglycemia, unspecified (principal); N39.0 Urinary tract infection, site not specified
CPT/HCPCS: 36415; 80048; 83036; 85025

== ENCOUNTER 2023-11-14 09:00 | Outpatient (CLI) | payer OTHER, SELFPAY | END 2023-11-14 23:00 | disposition home or self-care (01) | LOC: SDC 04-29 21:52 | PROVIDERS: PCP Family Medicine; Visit Provider Urology | DX: Z53.9 Procedure and treatment not carried out, unspecified reason (principal) ==

== ENCOUNTER → 2024-02-05 | Outpatient (CLI) | payer OTHER, SELFPAY ==
[2024-02-05 13:11] LABS: AST(SGOT) 14 U/L (15-37); Alanine Aminotransfer ALT/SGPT 17 U/L (13-56); Albumin, Serum 3.6 g/dL (3.2-5.0); Alkaline Phosphatase 62 U/L (45-117); Anion Gap 6 (5-15); BUN 13 mg/dL (7-18); BUN/Creat Ratio 14.6 RATIO (10-20); Calcium,Total 9.3 mg/dL (8.5-10.1); Chloride 106 mmol/L (98-107); Cholesterol 171 mg/dL (200); Creatinine, Serum 0.89 mg/dL (0.55-1.02); EST Glomerular Filtration Rate 68 mL/min (>60); Est Glom Filt Rate - Afr Amer 82 mL/min (>60); Globulin 3.7 g/dL (2.2-4.2); Glucose 148 mg/dL (74-106); High Density Lipoprotein 55 mg/dL; Potassium 4.3 mmol/L (3.5-5.1); Protein, Total 7.3 g/dL (6.4-8.2); Sodium Level 138 mmol/L (136-145); Triglycerides 192 mg/dL; Very Low Density Lipoprotein 38 mg/dL (5-40)
[2024-02-05 14:16] LABS: Hemoglobin A1c 6.7 % (3.8-5.6)
== END | disposition home or self-care (01) ==
LOC: MTLAB 09:34
PROVIDERS: PCP Family Medicine; Referring Provider Family Medicine; Visit Provider Family Medicine
DX: E11.9 Type 2 diabetes mellitus without complications (principal)
CPT/HCPCS: 36415; 80053; 80061; 83036

== ENCOUNTER → 2024-02-07 | Outpatient (CLI) | payer OTHER, SELFPAY ==
--- NOTE | 2024-02-07 06:58 | MRI_ITS ---
EXAM: MR THORACIC SPINE WITHOUT AND WITH INTRAVENOUS CONTRAST CLINICAL INDICATION: SPINAL TUMOR TECHNIQUE: Multiplanar and multisequence MR images of the thoracic spine without and with intravenous contrast. CONTRAST: IV 17ml clariscan COMPARISON: MRI of thoracic spine, 11/18/[address] abdomen and pelvis, 07/19/2023. FINDINGS: VERTEBRAE: Advanced degenerative changes at T11-T12 with intervertebral disc height loss and associated endplate sclerosis as well as endplate edema. Mild multilevel facet arthrosis and endplate osteophytosis. Status post T11 and T12 laminectomy. Degenerative changes at T10-T11 with disc height loss and likely vacuum disc phenomenon as well as endplate edema. Focal T2 hyperintense intramedullary signal abnormality and volume loss in the distal spinal cord/conus medullaris at the level of the superior endplate of T12 indicating myelomalacia. This is similar to the prior examination. Normal alignment. There is preservation of the normal thoracic kyphosis. No scoliosis. DISCS/SPINAL CANAL/NEURAL FORAMINA: No significant abnormality. Normal disc height and morphology. Normal spinal canal and neuroforamina. SPINAL CORD: No significant abnormality. No pathologic intramedullary enhancement throughout the spinal cord and no additional spinal cord signal abnormality is clearly identified. SOFT TISSUES: No significant abnormality. No pathologic intradural mass or enhancement is present. MRI/Spine Thoracic W/WO Contrast IMPRESSION: 1. Status post T11 and T12 laminectomy. Degenerative changes, significantly more advanced at T10-T11 and T11-T12. 2. Focal T2 hyperintense intramedullary signal abnormality and volume loss in the distal spinal cord/conus medullaris at the level of the superior endplate of T12 indicating myelomalacia. This is similar to the prior examination. Electronically Signed: Estiven uBtler DO at 16:06 EST ,
--- NOTE | 2024-02-07 07:02 | MRI_ITS ---
EXAM: MR ORBITS WITHOUT AND WITH INTRAVENOUS CONTRAST CLINICAL INDICATION: HX WHITE LESIONS PERIVENTRICULAR SPACE, OCULAR INFLAMM, bilat posterior uveitis TECHNIQUE: Multiplanar and multisequence MR images of the orbits without and with intravenous contrast. CONTRAST: IV 17ml clariscan COMPARISON: No relevant prior studies available. FINDINGS: ORBITS: The extraocular muscles are normal and symmetric. Lacrimal glands appear normal and symmetric. Status post left ocular lens extraction presumptively for the treatment of a cataract. Optic globes are otherwise unremarkable. Unremarkable optic nerve sheath and nerves. No orbital mass or inflammatory change. No pathologic orbital enhancement is otherwise identified. OPTIC CHIASM: No significant abnormality. No pathologic enhancement or signal abnormality along the course of the optic nerves or the optic chiasm. SELLA: No significant abnormality. Pituitary gland is normal in size and signal. Normal sella Turcica and suprasellar structures. CAVERNOUS SINUSES: No significant abnormality. SINUSES: Normal as visualized. Clear. MASTOID AIR CELLS: Trace left and small right mastoid effusion is nonspecific. SOFT TISSUES: Surrounding soft tissues appear normal. No scalp edema. VASCULATURE: No significant abnormality. Superior ophthalmic veins are symmetric. BRAIN AND EXTRA-AXIAL SPACES: There is no pathologic parenchymal or meningeal enhancement identified. There are a few foci of periventricular and subcortical T2 and T2 FLAIR hyperintensity within the white matter of the bilateral cerebral hemispheres. There is no restricted diffusion to indicate recent infarct or other pathology. Mild global parenchymal volume loss, not atypical for age. MRI/Brain W/WO Contrast IMPRESSION: 1. Trace left and small right mastoid effusion is nonspecific. 2. No discrete evidence of optic neuritis or other acute orbital pathology. 3. White matter changes are most likely due to chronic microvascular ischemic changes in a patient of this age. Otherwise, postinfectious or inflammatory changes or migraine related changes may be considered. Doubt primary demyelination. Electronically Signed: Estiven Butler DO at 15:57 EST ,
== END | disposition home or self-care (01) ==
LOC: MRI 06:54
PROVIDERS: PCP Family Medicine
DX: H30.93 Unspecified chorioretinal inflammation, bilateral (principal); D32.1 Benign neoplasm of spinal meninges
CPT/HCPCS: 70553; 72157; A9575

== ENCOUNTER → 2024-04-29 | Outpatient (CLI) | payer OTHER, SELFPAY ==
[2024-04-29 15:17] LABS: Hematocrit 42.8 % (37-47); Hemoglobin 14.5 g/dL (12.0-15.0); Mean Corp Hgb Conc 33.9 g/dL (32-36); Mean Corpuscular Hgb 33.1 pg (27.0-32.0); Mean Corpuscular Volume 97.7 fL (81-99); Mean Platelet Vol. 9.2 fl (6.2-12.0); Platelet Count 293 K/mm3 (150-450); RBC Distribution Width CV 13.5 % (11.6-14.6); RBC Distribution Width SD 48.9 fl (35.1-43.9); Red Blood Count 4.38 M/mm3 (4.2-5.4); White Blood Count 7.7 K/mm3 (4.4-11.0)
== END | disposition home or self-care (01) ==
LOC: MTLAB 12:53
PROVIDERS: PCP Family Medicine; Referring Provider Urology; Visit Provider Urology
DX: N76.0 Acute vaginitis (principal)
CPT/HCPCS: 36415; 85027

== ENCOUNTER → 2024-07-08 | Outpatient (CLI) | payer MEDICARE, SELFPAY ==
[2024-07-08 09:36] LABS: Bacteria 0 SEEN /hpf (None Seen); Mucous, Urine 0 SEEN /hpf (<or=2+)
[2024-07-08 12:32] LABS: Color, Urine Yellow (Yellow); Glucose, Dipstick Normal (Normal); Ketone-Dipstick Negative (Negative); Leukocyte Esterase-Dipstick 100 /ul (Negative); Nitrite-Dipstick Negative (Negative); Occult Blood-Urine 50 /ul (Negative); Protein-Dipstick 15 mg/dl (Negative); Urine Bilirubin Dipstick Negative (Negative); Urine Clarity Sl. Cloudy (Clear); Urine Urobilinogen Normal (Normal)
[2024-07-08 12:38] LABS: Red Blood Cells-Urine 0-5 SEEN /hpf (0-5); Squamous Epithelial Cells - UA 0-5 SEEN /hpf (5-10); White Blood Cells 0-5 SEEN /hpf (0-5)
== END | disposition home or self-care (01) ==
LOC: MTLAB 09:24
PROVIDERS: PCP Family Medicine; Referring Provider Internal Medicine Infectious Disease; Visit Provider Internal Medicine Infectious Disease
DX: N34.2 Other urethritis (principal)
CPT/HCPCS: 81001; 87086

== ENCOUNTER → 2024-09-28 | Outpatient (CLI) | payer MEDICARE, SELFPAY ==
[2024-09-28 12:48] LABS: Mucous, Urine 0 SEEN /hpf (<or=2+)
[2024-09-28 13:26] LABS: Hematocrit 41.4 % (37-47); Hemoglobin 14.6 g/dL (12.0-15.0); Mean Corp Hgb Conc 35.3 g/dL (32-36); Mean Corpuscular Volume 93.9 fL (81-99); Mean Platelet Vol. 9.0 fl (6.2-12.0); Platelet Count 259 K/mm3 (150-450); RBC Distribution Width CV 12.3 % (11.6-14.6); RBC Distribution Width SD 43.0 fl (35.1-43.9); Red Blood Count 4.41 M/mm3 (4.2-5.4); White Blood Count 8.4 K/mm3 (4.4-11.0)
[2024-09-28 13:41] LABS: Anion Gap 13 (5-15); BUN 17 mg/dL (4-19); BUN/Creat Ratio 15.5 RATIO (10-20); Calcium,Total 9.7 mg/dL (7.6-11.0); Carbon Dioxide 24.6 mmol/L (21.0-32.0); Chloride 98 mmol/L (98-108); Glucose 147 mg/dL (70-99); Lipase 42 U/L (13-75); Potassium 4.9 mmol/L (3.3-5.1)
[2024-09-28 13:48] LABS: Color, Urine Yellow (Yellow); Glucose, Dipstick Normal (Normal); Ketone-Dipstick 15 mg/dl (Negative); Leukocyte Esterase-Dipstick 25 /ul (Negative); Nitrite-Dipstick Negative (Negative); Occult Blood-Urine 10 /ul (Negative); Protein-Dipstick 15 mg/dl (Negative); Specific Gravity, Urine 1.010 (1.002-1.030); Urine Bilirubin Dipstick Negative (Negative)
[2024-09-28 14:09] LABS: Red Blood Cells-Urine 0-5 SEEN /hpf (0-5); Squamous Epithelial Cells - UA 0-5 SEEN /hpf (5-10)
--- NOTE | 2024-09-28 15:23 | CT_ITS ---
PROCEDURE: ABDOMEN/PELVIS WITH CONTRAST 09/28/2024 REASON FOR EXAM: ABD PAIN Increasing left abdominal pain. TECHNIQUE: ABDOMEN/PELVIS WITH CONTRAST Coronal and Sagittal reconstruction series were provided. CONTRAST: Isovue-300 VOLUME: 85 mL One or more dose reduction techniques were used (e.g., Automated exposure control, adjustment of the mA and/or kV according to patient size, use of iterative reconstruction technique. RADIATION DOSE SUMMARY: CTDlvol: 15.4 mGy DLP: 951.32 mGycm COMPARISON: Prior study dated July 19, 2023 FINDINGS: Lung bases: The lung bases are clear. Liver: Diffuse fatty infiltration. Gallbladder: Unremarkable Spleen: Normal size. Pancreas: Normal size without evidence of mass surrounding inflammation or ductal dilation. Adrenals: Unremarkable Kidneys: Normal renal sizes. No hydronephrosis. Bladder: Mild degree of diffuse bladder wall thickening especially towards the left side and anterior aspect of the bladder. Reproductive Organs: The uterus is enlarged for the patient's stated age. Bowel: Unremarkable Appendix: The appendix is not identified. There is no inflammatory process identified in the right lower quadrant to suggest appendicitis. Lymph nodes: Unremarkable. Vasculature: Mild diffuse atherosclerotic calcifications are noted. Peritoneum / Retroperitoneum: Bones: Degenerative changes of the spine. This is worse at the T11 and T12 vertebrae. CT/Abdomen/Pelvis WITH Contrast IMPRESSION: Fatty infiltration of the liver. Mild degree of bladder wall thickening more prominent along the anterior and le ft lateral wall of the bladder. Enlargement of the uterus for the patient's stated age. Reading Location: [facility]
== END | disposition home or self-care (01) ==
PROVIDERS: PCP Family Medicine; Referring Provider Family Medicine; Visit Provider Family Medicine
DX: R10.9 Unspecified abdominal pain (principal); N95.2 Postmenopausal atrophic vaginitis; R30.0 Dysuria
CPT/HCPCS: 36415; 74177; 80048; 81001; 83690; 85027; 87086; Q9967

== ENCOUNTER → 2024-11-09 | Outpatient (CLI) | payer MEDICARE, SELFPAY ==
--- OUTSIDE RECORDS SUMMARY | 2024-11-09 07:25 | XMS RPT_ITS | CCD ---
Author Organization [facility] Care Team Providers Care Revenue Coordinator Name Role Phone He Oakes DO Paula Unavailable Darshan Rowley MD Primary Care Provider [phone] Darshan Rowley Primary Care Provider Dr. Darshan Rowley Referring Provider Dr. Yung Inman Attending Provider Darshan Rowley MD Primary Care Provider Darshan Rowley MD Primary Care Provider Dr. Darshan Rowley Primary Care Provider Dr. Darshan Rowley Referring Provider KRAIG Cross Attending Provider Dr. Darshan Rowley Primary Care Provider Dr. Darshan Rowley Referring Provider KRAIG Cross Attending Provider [phone] KRAIG Roche Attending Provider Rayna Smith MD Unavailable Dr. Darshan Rowley MD Primary Care Provider [phone] Dr. Darshan Rowley MD Attending Provider [phone] Darshan Rowley MD Referring Provider RENEE EVANS Attending Provider RENEE EVANS Referring Provider Dr. Rayna Smith MD Attending Provider Dr. Rayna Smith MD Referring Provider Darshan Rowley MD Primary Care Provider Sarah FLETCHER, Rayna Unavailable Unavailable Sraah FLETCHER, Rayna Unavailable Darshan Rowley Attending Unavailable Rowley, Darshan Referring Unavailable Rowley, Darshan Primary Care Unavailable Rowley, Darshan Primary Care Unavailable Hunter, Yung Attending Unavailable Hunter, Yung Referring Unavailable Rowley, Darshan Primary Care Unavailable Rayna Smith Attending Unavailable Rowley, Darshan Attending Unavailable Rowley, Darshan Referring Unavailable Rowley, Darshan Primary Care Unavailable Rowley, Darshan Primary Care Unavailable Hunter, Yung Attending Unavailable Hunter, Yung Referring Unavailable Wyneski, Rayna Referring Unavailable Rowley, Darshan Primary Care Unavailable Rayna Smith Attending Unavailable Rowley, Darshan Attending Unavailable Rowley, Darshan Referring Unavailable Rowley, Darshan Primary Care Unavailable Rowley, Darshan Referring Unavailable Rowley, Darshan Primary Care Unavailable Wyneski, Rayna Attending Unavailable Consuelo Trinidad Attending Unavailable Rowley, Darshan Primary Care Unavailable Cherise Greenwood Attending Unavailable Rowley, Darshan Primary Care Unavailable Cherise Greenwood Attending Unavailable Rowley, Darshan Primary Care Unavailable Rowley, Dasrhan Primary Care Unavailable BRUNSONERIN Attending Unavailable BRUNSONERIN Referring Unavailable ANTHONY YING Referring Unavailable ROWLEY, DARSHAN R Primary Care Unavailable ANTHONY YING Attending Unavailable ANTHONY YING Attending Unavailable SELF, SELF Referring Unavailable ROWLEY, DARSHAN R Primary Care Unavailable ROWLEY, DARSHAN R Primary Care Unavailable SELF, SELF Referring Unavailable SELF, SELF Referring Unavailable ROWLEY, DARSHAN R Primary Care Unavailable ANTHONY YING Attending Unavailable SELF, SELF Referring Unavailable ROWLEY, DARSHAN R Primary Care Unavailable ANTHONY YING Attending Unavailable SELF, SELF Referring Unavailable ROWLEY, DARSHAN R Primary Care Unavailable ANTHONY YING Attending Unavailable SELF, SELF Referring Unavailable LOIS HOROWITZ Attending Unavailable ROWLEY, DARSHAN R Primary Care Unavailable ANTHONY YING Attending Unavailable LOIS HOROWITZ Referring Unavailable ROWLEY, DARSHAN R Primary Care Unavailable LOIS HOROWITZ Referring Unavailable ROWLEY, DARSHAN R Primary Care Unavailable ANTHONY YING Attending Unavailable PHYSICIAN, NOT RECORDED Attending Unavaila ble PHYSICIAN, NOT RECORDED Primary Care Unavaila ble Allergies Allergy Classification Reported Allergen(s) Allergy Type Date of Onset Reaction(s) Facility (14 sources) Lisinopril Drug Allergy 7 Cough [facility] (14 sources) Lisinopril Propensity to adverse reactions to drug 7 Cough [facility] (8 sources) Methocarbamol Drug Allergy 0 Muscle Rigidity [facility] (1 source) Methocarbamol Drug Allergy 4 pain [facility] (1 source) Lisinopril Drug Allergy 5 [facility] (1 source) Methocarbamol Drug Allergy 5 [facility] Medications Current Medications Medication Drug Class(es) Dates Sig (Normalized) Sig (Original) acetaminophen 500 mg oral tablet (14 sources) Start: 12-24-2017 End: 09-24-2018 take 2 tablets by mouth every eight hours as needed for pain Acetaminophen 500 MG tablet Active 1000 mg PO EVERY 8 HOURS as needed for Pain September 24, 2018 9:17am Start: 12-24-2017 End: 09-24-2018 take 1000 mg by mouth every eight hours Acetaminophen Active 1000 MG PO EVERY 8 HOURS September 24, 2018 9:17am acetaminophen 325 mg / oxyCODONE hydrochloride 5 mg oral tablet (1 source) Opioid Agonist Start: 09-12-2023 take 1 tablet by mouth every eight hours as needed for pain Oxycodone-Acetaminophen (Percocet) 5-325 mg tablet Active 1 {tbl} PO Q8H as needed for pain 6 2 September 12, 2023 amitriptyline hydrochloride 10 mg oral tablet (2 sources) Tricyclic Antidepressant Start: 10-30-2024 take 1 tablet by mouth at bedtime Amitriptyline 10 MG tablet Take 1 tablet by mouth at bedtime. 30 tablet 11 10/30/2024 Active Start: 10-30-2023 take 1 tablet by debbie [facility] at bedtime Amitriptyline 10 mg tablet Active 10 mg PO AT BEDTIME October 30, 2023 12:00am cephalexin 500 mg oral capsule (2 sources) Cephalosporin Antibacterial Start: 10-30-2023 Cephalexin 500 mg capsule Active 250 mg PO AT BEDTIME October 30, 2023 12:00am Start: 09-12-2023 End: 10-30-2023 take 1 capsule by mouth every twelve hours Cephalexin 500 mg capsule Discontinued 500 mg PO EVERY 12 HOURS 6 3 September 12, 2023 12:00am October 30, 2023 8:27am dexamethasone 0.7 mg drug implant (7 sources) Corticosteroid Start: 06-12-2024 dexAMETHasone 0.7 MG Implant Indications: Bilateral posterior uveitis 0.7 mg by Intravitreal route Once (In Clinic) for 1 dose. 1 Each 07/27/2024 Active empagliflozin 10 mg oral tablet (20 sources) Sodium-Glucose Cotransporter 2 Inhibitor Start: 09-24-2018 take 1 tablet by mouth once daily Empagliflozin 10 MG tablet Active 10 mg PO DAILY September 24, 2018 12:00am take 5 mg by mouth o nce daily in the morning Empagliflozin (JARDIANCE PO) Take 5 mg b y mouth daily every morning. Active take 5 mg by mouth o nce daily in the morning Empagliflozin (JARDIANCE PO) Take 5 mg b y mouth daily every morning. 0 Active estradiol 0.01 mg vaginal insert (1 source) Estrogen Start: 11-02-2024 estradiol (Yuvafem) 10 MCG vaginal tablet Insert 1 tablet vaginally every Saturday and . 8 tablet 11 11/02/2024 Active eszopiclone 2 mg oral tablet (7 sources) Start: 04-25-2020 take 1 tablet by mouth at bedtime as needed for sleep Eszopiclone (Lunesta) 2 mg tablet Active 2 mg PO AT BEDTIME as needed for sleep April 25, 2020 1:00am glipiZIDE 5 mg oral tablet (1 source) Sulfonylurea take 1 tablet by mouth twice daily glipiZIDE 5 MG tablet regular release Take 1 tablet by mouth 2 times daily. Active hyoscyamine sulfate 0.12 mg / methenamine 81.6 mg / methylene blue 10.8 mg / sodium phosphate, monobasic 40.8 mg oral tablet (1 source) Oxidation-Reducti on Agent Start: 10-30-2023 Methen-Sod Phos-Meth Blue-Hyos (Urogesic-Blue) 81.6-40.8-0.12 mg tablet Active 1 {tbl} PO 4 TIMES DAILY NEEDED as needed for bladder spasms October 30, 2023 12:00am 3 ml insulin lispro 100 unt/ml pen injector (4 sources) Insulin Analog Start: 03-04-2024 inject 4 [IU] by subcutaneous injection at bedtime Insulin lispro, 1 Unit Dial, 100 UNIT/ML Solution Pen-injector Inject 4 Units under the skin before meals & at bedtime. 03/04/2024 Active Lactobacillus Combination No.4 (Probiotic) 3 billion cell capsule (1 source) Start: 09-03-2023 take 3 capsules by mouth once daily Lactobacillus Combination No.4 (Probiotic) 3 billion cell capsule Active 3000 NMA PO DAILY September 03, 2023 12:00am administer with a meal losartan potassium 25 mg oral tablet (20 sources) Angiotensin 2 Receptor Jermain Start: 12-28-2015 take 1 tablet by mouth once daily Losartan 25 MG tablet Active 25 mg PO DAILY December 28, 2015 12:00am meloxicam 15 mg oral tablet (20 sources) Nonsteroidal Anti-inflammatory Drug Start: 12-28-2015 take 1 tablet by mouth once daily Meloxicam 15 MG tablet Active 15 mg PO DAILY December 28, 2015 12:00am take 0.5 tablet by mouth once da charlette meloxicam 15 MG tablet Take 0.5 tablets by mouth daily. Active take 7.5 mg by mouth once daily meloxicam 15 MG tablet Take 7.5 mg by mouth daily. 0 Active metFORMIN hydrochloride 1000 mg oral tablet (20 sources) Biguanide Start: 05-03-2016 take 1 tablet by mouth twice daily metformin 1000 MG Tab tablet Take 1 tablet by mouth 2 times daily. 05/03/2016 Active Start: 01-09-2016 take 2 tablets by mo uth twice daily at mealtime Metformin 500 MG tablet Active 1000 mg PO TWICE DAILY WITH MEALS January 09, 2016 1:00am Start: 01-09-2016 take 1000 mg by mout h twice daily at mealtime Metformin Active 1000 MG PO TWICE DAILY WITH MEALS January 09, 2016 1:00am 24 hr mirabegron 50 mg extended release oral tablet (1 source) beta3-Adrenergic Agonist Start: 10-30-2024 take 1 tablet by mouth once daily Mirabegron ER (Myrbetriq) 50 MG tablet Take 1 tablet by mouth daily. 30 tablet 11 10/30/2024 Active moxifloxacin 400 mg oral tablet (8 sources) Quinolone Antimicrobial Start: 11-05-2023 Moxifloxacin 400 MG tablet 11/05/2023 Active Multivitamin 1 EACH tablet (1 source) Start: 12-10-2017 Multivitamin 1 EACH tablet Active 1 NMA PO DAILY December 10, 2017 12:00am Multivitamin preparation (6 sources) Start: 12-10-2017 Multivitamin Active 1 EACH PO DAILY December 10, 2017 10:09am Start: 12-10-2017 Multivitamin A ctive 1 EACH PO DAILY December 10, 2017 12:00am Start: 12-10-2017 Multivitamin A ctive 1 EACH PO DAILY December 09, 2017 11:00pm nitrofurantoin, macrocrystals 25 mg / nitrofurantoin, monohydrate 75 mg oral capsule (14 sources) Nitrofuran Antibacterial Start: 06-04-2023 take 1 capsule by mouth twice daily Nitrofurantoin, macrocrystal-monohydrate, 100 MG capsule Take 1 capsule by mouth 2 times daily. 06/04/2023 Active Start: 06-04-2023 End: 06-09-2023 take 1 capsule by mouth every twelve hours at mealtime Nitrofurantoin Monohyd/M-Cryst (Macrobid) 100 mg capsule Discontinued 100 mg PO Q12H 10 5 June 04, 2023 12:00am June 08, 2023 12:00am June 09, 2023 12:06am must administer with a meal/food Start: 03-08-2023 End: 03-15-2023 take 1 capsule by mouth every twelve hours at mealtime Nitrofurantoin Monohyd/M-Cryst 100 mg capsule Discontinued 1 NMA PO Q12H 14 7 March 08, 2023 1:00am March 14, 2023 1:00am March 15, 2023 1:05am administer with a meal/food; swallow whole; do not open, crush, dissolve , or chew predniSONE 10 mg oral tablet (2 sources) Start: 03-17-2024 End: 04-16-2024 take 3 tablets by mouth once daily predniSONE 10 MG tablet Take 3 tablets by mouth daily. 90 tablet 03/17/2024 04/16/2024 Active Start: 02-14-2024 End: 03-26-2024 take 6 tablets by mouth once daily, then take 5 tablets by mouth once daily, then take 4 tablets by mouth once daily, then take 3 tablets by mouth once daily, then take 2 tablets by mouth once daily, then take 1 tablet by mouth once daily predniSONE 10 MG tablet Take 6 tablets by mouth daily for 7 days, THEN 5 tablets daily for 7 days, THEN 4 tablets daily for 7 days, THEN 3 tablets daily for 7 days, THEN 2 tablets daily for 7 days, THEN 1 tablet daily for 7 days. 147 tablet 02/14/2024 03/26/2024 Active Vibegron (1 source) Start: 10-30-2023 take 1 tablet by debbie th every other day Vibegron (Gemtesa) 75 mg tablet Active 75 mg PO EVERY OTHER DAY October 30, 2023 12:00am Completed/Discontinued Medications Medication Drug Class(es) Dates Sig (Normalized) Sig (Original) ascorbic acid 500 mg oral tablet (1 source) Vitamin C Start: 09-03-2023 End: 10-30-2023 take 1 g by mouth once daily Ascorbic Acid (Vitamin C) (Vitamin C) 500 mg tablet Discontinued 1 g PO DAILY September 03, 2023 12:00am October 30, 2023 8:27am aspirin 81 mg delayed release oral tablet (15 sources) Platelet Aggregation Inhibitor, Nonsteroidal Anti-inflammatory Drug Start: 12-10-2017 End: 04-25-2020 take 1 tablet by mouth once daily Aspirin 81 MG tablet,delayed release (DR/EC) Discontinued 81 mg PO DAILY December 10, 2017 12:00am April 25, 2020 3:04pm Start: 12-28-2015 End: 01-10-2016 take 1 tablet by mouth once daily Aspirin 81 MG tablet Discontinued 81 mg PO DAILY@0800 December 28, 2015 12:00am January 10, 2016 8:49am Cranberry (1 source) Non-Standardized Food Allergenic Extract, Non-Standardized Plant Allergenic Extract Start: 09-03-2023 End: 10-30-2023 take 1 capsule by mouth once daily Cranberry 500 mg capsule Discontinued 1000 mg PO DAILY September 03, 2023 12:00am October 30, 2023 8:27am administer with a meal gabapentin 100 mg oral capsule (8 sources) Anti-epileptic Agent Start: 11-27-2018 GABAPENTIN 100 MG CAPS 2-3 capsules (200mg-300mg) twice daily as directed GABAPENTIN [id number] Jessica Chauhan RN Start: 09-24-2018 End: 04-25-2020 take 1 capsule by mouth three times daily at mealtime Gabapentin 100 MG capsule Discontinued 100 mg PO 3 TIMES DAILY WITH MEALS September 24, 2018 12:00am April 25, 2020 3:04pm Gadopiclenol SOLN 1-25 mL (1 source) Start: 06-06-2023 End: 06-06-2023 1-25 mL, Intravenous, ONCE, 1 dose, On Natalie 06/06/23 at 1515 gadoterate Meglumine (DOTARE M) 5 MMOL/10ML injection 3-60 mL (4 sources) Start: 12-04-2022 End: 12-04-2022 gadoterate Meglumine (DOTARE M) 5 MMOL/10ML injection 3-60 mL Start: 04-05-2022 End: 04-05-2022 gadoterate Meglumine (DOTARE M) 5 MMOL/10ML injection 3-60 mL Start: 10-12-2021 End: 10-12-2021 gadoterate Meglumine (DOTARE M) 5 MMOL/10ML injection 3-60 mL Start: 10-18-2020 End: 10-18-2020 gadoterate Meglumine (DOTARE M) 5 MMOL/10ML injection 3-60 mL methylcellulose 500 mg oral tablet (7 sources) Start: 04-25-2020 End: 09-03-2023 take 1 tablet by mouth once daily Methylcellulose (Laxative) (Citrucel) 500 mg tablet Discontinued 500 mg PO DAILY April 25, 2020 1:00am September 03, 2023 9:58am oxyCODONE hydrochloride 5 mg oral tablet (20 sources) Opioid Agonist Start: 12-24-2017 End: 12-31-2017 take 5-10 mg by mouth every four hours as needed for pain Oxycodone 5 MG tablet Discontinued 5 - 10 mg PO EVERY 4 HOURS NEEDED as needed for Mod-Severe Pain (4-10/10) 60 December 24, 2017 12:00am December 30, 2017 1:00am December 31, 2017 1:08am Start: 01-10-2016 End: 01-11-2016 take 1 tablet by mouth every six hours as needed for pain Oxycodone 5 MG tablet Discontinued 5 mg PO EVERY 6 HOURS NEEDED as needed for Breakthrough Pain (>4-10/10) 60 January 10, 2016 1:00am January 11, 2016 1:45pm Start: 01-10-2016 End: 01-11-2016 take 1 tablet by mouth twice daily Oxycodone (Oxycontin) 10 MG tablet Discontinued 10 mg PO TWICE A DAY January 10, 2016 1:00am January 11, 2016 1:45pm rosuvastatin calcium 5 mg oral tablet (20 sources) HMG-CoA Reductase Inhibitor Start: 12-03-2018 CRESTOR 5 MG TABS 1 tablet nightly ROSUVASTATIN CALCIUM [id number] Qian Presley LPN Start: 12-10-2017 take 5 tablets by mo [facility] at bedtime rosuvastatin 10 MG Tab tablet Take 5 tablets by mouth at bedtime. 12/10/2017 Active Start: 12-10-2017 take 1 tablet by [facility] at bedtime Rosuvastatin 10 MG tablet Active 10 mg PO AT BEDTIME December 10, 2017 12:00am 20 ml sodium chloride 9 mg/m l injection (5 sources) Start: 06-06-2023 End: 06-06-2023 1-100 mL, Intravenous, ONCE NEEDED, 1 dose, Starting on Natalie 06/06/23 at 1504, Until Natalie 06/06/23 at 1504, Flush, MR Procedure Start: 12-04-2022 End: 12-04-2022 Sodium chloride (PF) 0.9 % i njection 1-100 mL Start: 04-05-2022 End: 04-05-2022 Sodium chloride (PF) 0.9 % i njection 1-100 mL Start: 10-12-2021 End: 10-12-2021 sodium chloride (PF) 0.9 % i njection 1-100 mL Start: 10-18-2020 End: 10-18-2020 sodium chloride (PF) 0.9 % i njection 1-100 mL zolpidem tartrate 5 mg oral tablet (8 sources) gamma-Aminobutyric Acid-ergic Agonist Start: 11-27-2018 AMBIEN 5 MG TABS 1 tablet nightly ZOLPIDEM TARTRATE [id number] Qian Presley LPN Start: 12-10-2017 End: 04-25-2020 take 1 tablet by mouth at bedtime as needed for sleep Zolpidem 5 MG tablet Discontinued 5 mg PO AT BEDTIME NEEDED as needed for Sleep December 10, 2017 12:00am April 25, 2020 3:04pm Problems Active Problems Problem Classification Problem Date Documented Date Episodic/Chronic Abdominal pain (3 sources) Unspecified abdominal pain; Translations: [Pain in pelvis] Onset: 10-06-2024 11-02-2024 Episodic Anxiety disorders (1 source) Anxiety disorder, unspecified; Translations: [Anxiety disorder, unspecified] Onset: 09-26-2024 Chronic Cancer of brain and nervous system (1 source) Malignant tumor of spinal cord, extramedullary; Translations: [Neoplasm of unspecified behavior of endocrine glands and other parts of nervous system] Onset: 12-04-2018 12-04-2018 Chronic Cataract (12 sources) Bilateral senile combined form cataracts of eyes; Translations: [Combined forms of age-related cataract, bilateral] Onset: 12-23-2023 Chronic Diabetes mellitus with complications (8 sources) Type 2 diabetes mellitus; Translations: [Type 2 diabetes mellitus with mild nonproliferative diabetic retinopathy without macular edema, left eye] Onset: 07-27-2024 11-12-2023 Chronic Diabetes mellitus without complication (3 sources) Type 2 diabetes mellitus without complications; Translations: [Type 2 diabetes mellitus without complications] Onset: 11-12-2023 Chronic Inflammation; infection of eye (except that caused by tuberculosis or sexually transmitteddisease) (9 sources) Posterior uveitis; 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, bilateral] Onset: 03-11-2024 12-23-2023 Chronic Inflammatory diseases of female pelvic organs (1 source) Acute vaginitis; Translations: [Acute vaginitis] Onset: 09-30-2024 Episodic Menopausal disorders (2 sources) Atrophy of vagina; Translations: [Postmenopausal atrophic vaginitis] 11-02-2024 Chronic Neoplasms of unspecified nature or uncertain behavior (20 sources) Neoplastic disease; Translations: [Neoplasm of unspecified behavior of bone, soft tissue, and skin] 01-29-2019 Episodic Other acquired deformities (1 source) Spondylolisthesis; Translations: [Spondylolisthesis, lumbar region] Onset: 12-04-2018 12-04-2018 Chronic Other acquired deformities (1 source) Postural kyphosis; Translations: [Postural kyphosis, site unspecified] 02-05-2023 Chronic Other connective tissue disease (1 source) Myofascial pain; Translations: [Myalgia, other site] 02-05-2023 Episodic Other diseases of bladder and urethra (1 source) Lesion of bladder; Translations: [Bladder disorder, unspecified] 09-12-2023 Chronic Residual codes; unclassified (1 source) History of thoracic surgery; Translations: [Other specified postprocedural states] 02-05-2023 Episodic Retinal detachments; defects; vascular occlusion; and retinopathy (9 sources) Retinal dystrophy; 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] Onset: 06-12-2024 Chronic Spondylosis; intervertebral disc disorders; other back problems (7 sources) Degeneration of lumbosacral intervertebral disc; Translations: [Other intervertebral disc degeneration, lumbosacral region] 09-29-2018 Chronic Spondylosis; intervertebral disc disorders; other back problems (9 sources) Spinal stenosis of lumbar region; Translations: [Lumbosacral radiculopathy] Onset: 12-04-2018 12-04-2018 Episodic Thyroid disorders (9 sources) Multinodular goiter; Translations: [Nontoxic multinodular goiter] Chronic Urinary tract infections (3 sources) Urinary tract infection, site not specified; Translations: [Urinary tract infection, site not specified] Onset: 07-14-2024 03-08-2023 Episodic Past or Other Problems Problem Classification Problem Date Documented Date Episodic/Chronic Diabetes mellitus without complication (1 source) Hyperglycemia, unspecified; Translations: [Hyperglycemia, unspecified] Onset: 11-22-2023 Episodic Fluid and electrolyte disorders (20 sources) Disorder of electrolytes; Translations: [Other disorders of electrolyte and fluid balance, not elsewhere classified] Onset: 02-17-2019 03-02-2019 Episodic Mood disorders (20 sources) Mood disorders; Translations: [Depression, unspecified] Onset: 03-29-2020 Resolved: 06-06-2023 03-29-2020 Mycoses (1 source) Candidal cystitis and urethritis; Translations: [Candidal cystitis and urethritis] Onset: 11-21-2023 Episodic Other aftercare (2 sources) retirement (current) use of insulin; Translations: [retirement (current) use of insulin] Onset: 11-12-2023 Episodic Other and unspecified benign neoplasm (20 sources) Spinal meningioma; Translations: [Benign neoplasm of spinal meninges] Onset: 04-01-2019 04-01-2019 Episodic Other eye disorders (4 sources) Disorder of lacrimal gland; Translations: [Dry eye syndrome of bilateral lacrimal glands] Onset: 12-23-2023 Episodic Other eye disorders (1 source) Dry eye syndrome of bilateral lacrimal glands; Translations: [Dry eye syndrome of bilateral lacrimal glands] Onset: 12-23-2023 Episodic Residual codes; unclassified (20 sources) Postoperative state; Translations: [Other specified postprocedural states] Onset: 02-16-2019 02-16-2019 Episodic Residual codes; unclassified (1 source) Procedure and treatment not carried out, unspecified reason; Translations: [Procedure and treatment not carried out, unspecified reason] Onset: 05-11-2024 Episodic Unclassified (1 source) Problem Results Test Name Value Interpretation Reference Range Facility POCT URINE DIPSTICK NON-AUTO MATEDon 10-30-2024 Amorphous sediment LM Ql (Urine sed) [facility] Appearance (U) CLEAR [facility] Bacteria LM Ql (Urine sed) [facility] Bilirubin Ql (U) Negative [facility] Casts LM.LPF (Urine sed) [#/Area] [facility] Color (U) YELLOW [facility] Crystals LM Nom (Urine sed) [facility] Epithelial cells.squamous LM.HPF (Urine sed) [#/Area] [facility] Flow cytometry specialist review Jamar (Unsp spec) [Interp] [facility] Glucose Auto test strip (U) [Mass/Vol] Negative mg/dL [facility] Ketones [Mass/Vol] Negative mg/dL [facility] Leukocyte esterase Qn (U) [facility] Leukocyte esterase Test strip Ql (U) Negative [facility] Microscopic observation Gram stain Nom (Bronch spec) [facility] Nitrite Ql (U) Negative [facility] pH (U) 6.5 [pH] 5 - 7 [facility] Protein Ql (U) Negative mg/dL [facility] RBC LM.HPF (Urine sed) [#/Area] [facility] RBC Ql (U) Negative [facility] Specific gravity (U) [Rel density] 1.001 - 1.035 [facility] Transitional cells LM Ql (Urine sed) [facility] Urobilinogen Qn (U) 0.[address] [facility] WBC LM.HPF (Urine sed) [#/Area] [facility] URINE DIPSTICK WITH REFLEX M ICROSCOPYon 10-30-2024 Appearance (U) Clear Clear [facility] Color (U) Yellow Yellow [facility] Glucose Test strip (U) [Mass/Vol] Negative Negative [facility] Interpretation and review of laboratory results Normal [facility] Ketones (U) [Mass/Vol] Negative Negative [facility] Leukocyte esterase Test strip Ql (U) Negative Negative [facility] Nitrite Ql (U) Negative Negative [facility] pH (U) 6.5 [pH] 5.0 - 7.0 [facility] Protein (U) [Mass/Vol] Negative Negative [facility] RBC (U) [#/Vol] Negative Negative [facility] Specific gravity (U) [Rel density] 1.006 1.001 - 1.035 [facility] Urobilinogen (U) [Mass/Vol] 0.2 E.U./dL 0.2 E.U/dL, 1.0 E.U/dL [facility] Appearance (U) Clear Normal Clear [facility] Comment on above: Performed By: #### U ASR #### [facility] (DEFAULT) [address] [place] [id number] Blood Urine Negative Normal Negative [facility] Comment on above: Performed By: #### U ASR #### [facility] (DEFAULT) [address] [place] [id number] Color (U) Yellow Normal Yellow [facility] Comment on above: Performed By: #### U ASR #### [facility] (DEFAULT) [address] [place] [id number] Glucose Ql (U) Negative Normal Negative [facility] Comment on above: Performed By: #### U ASR #### [facility] (DEFAULT) [address] [place] [id number] Ketones Ql (U) Negative Normal Negative [facility] Comment on above: Performed By: #### U ASR #### U [facility] (DEFAULT) [address] [place] [phone] Leukocyte esterase Test strip Ql (U) Negative Normal Negative [facility] Comment on above: Performed By: #### U ASR #### U [facility] (DEFAULT) [address] [place] [address] 47102 Nitrites Urine Negative Normal Negative [facility] Comment on above: Performed By: #### U ASR #### [facility] (DEFAULT) [address] [place] [address] 53099 pH (U) 6.5 [pH] Normal 5.0-7.0 [facility] Comment on above: Performed By: #### U ASR #### [facility] (DEFAULT) [address] [place] [address] 60477 Protein Urine Negative Normal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 Performed By: #### A NCArti, ANASR #### [facility] (DEFAULT) [address] [address] ANTI-PROTEINASE 3 ABon 12-22 Proteinase 3 Antibodies Negative Normal Negative [facility] Comment on above: Performed By: #### S YPHT, PR3AB, MPO #### [facility] (DEFAULT) [address] [address] CBC AND ELECTRONIC DIFFon Basophils (Bld) [#/Vol] 0.04 10*3/uL Normal 0.00-0.15 [facility] Comment on above: Performed By: #### L AB980 #### [facility] (DEFAULT) [address] [address] Basophils/100 WBC (Bld) 0.7 % Normal [facility] Comment on above: Performed By: #### L AB980 #### [facility] (DEFAULT) [address] [place] [address] DIFF STATUS Electronic Differential Normal [facility] Comment on above: Performed By: #### L [id number] #### [facility] (DEFAULT) [address] [place] [address] Eosinophils (Bld) [#/Vol] 0.10 10*3/uL Normal 0.00-0.42 [facility] Comment on above: Performed By: #### L AB980 #### [facility] (DEFAULT) [address] [place] [address] Eosinophils/100 WBC (Bld) 1.7 % Normal [facility] Comment on above: Performed By: #### L AB980 #### [facility] (DEFAULT) [address] [place] [address] Hematocrit (Bld) [Volume fraction] 41.3 % Normal 34.9-44.3 [facility] Comment on above: Performed By: #### L AB980 #### [facility] (DEFAULT) [address] [place] [address] Hemoglobin (Bld) [Mass/Vol] 13.2 g/dL Normal 11.4-15.2 [facility] Comment on above: Performed By: #### L AB980 #### [facility] (DEFAULT) [address] [address] Immature Grans % 0.2 % Normal [facility] Comment on above: Performed By: #### L AB980 #### [facility] (DEFAULT) [address] [place] [address] Immature Grans Absolute < Normal <=0.08 [facility] Comment on above: Performed By: #### L AB980 #### [facility] (DEFAULT) [address] [address] Lymphocytes (Bld) [#/Vol] 1.94 10*3/uL Normal 1.16-3.51 [facility] Comment on above: Performed By: #### L AB980 #### [facility] (DEFAULT) [address] [place] [address] Lymphocytes/100 WBC (Bld) 32.8 % Normal [facility] Comment on above: Performed By: #### L AB980 #### [facility] (DEFAULT) [address] [place] [address] MCV (RBC) [Entitic vol] 103.3 fL High 79.6-97.7 [facility] Comment on above: Performed By: #### L AB980 #### [facility] (DEFAULT) [address] [place] [address] Mean Cell Hgb 33.0 pg Normal 25.9-33.9 [facility] Comment on above: Performed By: #### L AB980 #### [facility] (DEFAULT) [address] [place] [address] Mean Cell Hgb Conc 32.0 g/dL Normal 31.4-35.9 [facility] Comment on above: Performed By: #### L AB980 #### [facility] (DEFAULT) [address] [place] [address] Monocytes (Bld) [#/Vol] 0.44 10*3/uL Normal 0.22-0.87 [facility] Comment on above: Performed By: #### L AB980 #### [facility] (DEFAULT) [address] [place] [address] Monocytes/100 WBC (Bld) 7.4 % Normal [facility] Comment on above: Performed By: #### L AB980 #### [facility] (DEFAULT) [address] [place] [address] Nucleated RBC 0.0 /100 WBC Normal <=0.2 [facility] Comment on above: Performed By: #### L AB980 #### [facility] (DEFAULT) [address] [place] [address] Platelet mean volume (Bld) [Entitic vol] 9.4 fL Normal 8.5-12.2 [facility] Comment on above: Performed By: #### L AB980 #### [facility] (DEFAULT) [address] [place] [address] Platelets (Bld) [#/Vol] 265 10*3/uL Normal 150-393 [facility] Comment on above: Performed By: #### L AB980 #### [facility] (DEFAULT) [address] [place] [address] RBC (Bld) [#/Vol] 4.00 10*6/uL Normal 3.91-5.04 [facility] Comment on above: Performed By: #### L AB980 #### [facility] (DEFAULT) [address] [place] [address] RBC Distribution 11.6 % Normal 10.8-14.9 [facility] Comment on above: Performed By: #### L AB980 #### [facility] (DEFAULT) [address] [place] [address] Segs + Bands Auto 57.2 % Normal [facility] Comment on above: Performed By: #### L AB980 #### [facility] (DEFAULT) [address] [place] [address] Segs + Bands,Absolute Auto 3.39 K/uL Normal 1.64-7.28 [facility] Comment on above: Performed By: #### L AB980 #### [facility] (DEFAULT) [address] [place] [address] WBC (Bld) [#/Vol] 5.92 10*3/uL Normal 3.99-11.19 [facility] Comment on above: Performed By: #### L AB980 #### [facility] (DEFAULT) [address] [address] COMPREHENSIVE METABOLIC PANE Tereso 12-23-2023 Albumin [Mass/Vol] 4.4 g/dL 3.5 - 5.0 g/dL [facility] ALP [Catalytic activity/Vol] 49 U/L 32 - 126 U/L [facility] ALT [Catalytic activity/Vol] 7 U/L Low 9 - 48 U/L [facility] Anion gap [Moles/Vol] 15 mmol/L 7 - 17 mmol/L [facility] AST [Catalytic activity/Vol] 13 U/L 10 - 39 U/L [facility] Bilirubin [Mass/Vol] 0.3 mg/dL NINF - 1.5 mg/dL [facility] Calcium [Mass/Vol] 10.2 mg/dL 8.6 - 10. 5 mg/dL [facility] Chloride [Moles/Vol] 104 mmol/L 98 - 10 8 mmol/L [facility] CO2 [Moles/Vol] 27 mmol/L 21 - 31 mmol/L [facility] Creatinine [Mass/Vol] 0.69 mg/dL 0.50 - 1.20 mg/dL [facility] eGFR, CKD-EPI, Female - PINF [facility] Comment on above: Reported eGFR is bas ed on the CKD-EPI 2020 equation using creatinine, age, and sex. Glucose [Mass/Vol] 139 mg/dL High 70 - 99 mg/dL [facility] Interpretation and review of laboratory results Abnormal [facility] Osmolality Calc [Osmolality] 302 [facility] Potassium [Moles/Vol] 4.5 mmol/L 3.5 - 5.0 mmol/L [facility] Protein [Mass/Vol] 7.4 g/dL 6.4 - 8.3 g/dL [facility] Sodium [Moles/Vol] 141 mmol/L 135 - 145 mmol/L [facility] Urea nitrogen [Mass/Vol] 25 mg/dL 7 - 25 mg/dL [facility] Urea nitrogen/Creatinine [Mass ratio] 36 mg/mg [facility] Albumin [Mass/Vol] 4.4 g/dL Normal 3.5-5.0 [facility] Comment on above: Performed By: #### C MPN #### [facility] (DEFAULT) [address] [place] [address] ALP [Catalytic activity/Vol] 49 U/L Normal 32-126 [facility] Comment on above: Performed By: #### C MPN #### [facility] (DEFAULT) [address] [place] [address] ALT [Catalytic activity/Vol] 7 U/L Low 9-48 [facility] Comment on above: Performed By: #### C MPN #### [facility] (DEFAULT) [address] [place] [address] Anion gap [Moles/Vol] 15 mmol/L Normal 7-17 [facility] Comment on above: Performed By: #### C MPN #### [facility] (DEFAULT) [address] [place] [address] AST [Catalytic activity/Vol] 13 U/L Normal 10-39 [facility] Comment on above: Performed By: #### C MPN #### [facility] (DEFAULT) [address] [place] [address] Bilirubin [Mass/Vol] 0.3 mg/dL Normal <1.5 [facility] Comment on above: Performed By: #### C MPN #### [facility] (DEFAULT) [address] [place] [address] Calcium [Mass/Vol] 10.2 mg/dL Normal 8.6-10.5 [facility] Comment on above: Performed By: #### C MPN #### [facility] (DEFAULT) [address] [place] [address] Chloride [Moles/Vol] 104 mmol/L Normal 98-108 [facility] Comment on above: Performed By: #### C MPN #### [facility] (DEFAULT) [address] [place] [address] CO2 [Moles/Vol] 27 mmol/L Normal 21-31 [facility] Comment on above: Performed By: #### C MPN #### [facility] (DEFAULT) [address] [place] [address] Creatinine [Mass/Vol] 0.69 mg/dL Normal 0.50-1.20 [facility] Comment on above: Performed By: #### C MPN #### [facility] (DEFAULT) [address] [place] [address] eGFR, CKD-EPI, Female > Normal >=60 [facility] Comment on above: Result Comment: Repo rted eGFR is based on the CKD-EPI 2020 equation using creatinine, age, and sex. Performed By: #### C MPN #### [facility] (DEFAULT) [address] [place] [address] Glucose [Mass/Vol] 139 mg/dL High 70-99 [facility] Comment on above: Performed By: #### C MPN #### [facility] (DEFAULT) [address] [place] [address] Osmolality [Osmolality] 302 mosm/kg Normal 278-305 [facility] Comment on above: Performed By: #### C MPN #### [facility] (DEFAULT) [address] [place] [address] Potassium [Moles/Vol] 4.5 mmol/L Normal 3.5-5.0 [facility] Comment on above: Performed By: #### C MPN #### [facility] (DEFAULT) [address] [place] [address] Protein [Mass/Vol] 7.4 g/dL Normal 6.4-8.3 [facility] Comment on above: Performed By: #### C MPN #### [facility] (DEFAULT) [address] [place] [address] Sodium [Moles/Vol] 141 mmol/L Normal 135-145 [facility] Comment on above: Performed By: #### C MPN #### [facility] (DEFAULT) [address] [place] [address] Urea nitrogen [Mass/Vol] 25 mg/dL Normal 7-25 [facility] Comment on above: Performed By: #### C MPN #### [facility] (DEFAULT) [address] [address] Urea nitrogen/Creatinine [Mass ratio] 36 mg/mg Normal [facility] Comment on above: Performed By: #### C MPN #### [facility] (DEFAULT) [address] [address] FLUORESCEIN ANGIOGRAPHY AND ICGA-OUon 12-23-2023 [facility] Radiology Study observation (narrative) [facility] FUNDUS PHOTOGRAPHY-OUon 11-26 [facility] Radiology Study observation (narrative) [facility] M TUBERCULOSIS BY Adalid KISER 12-23-2023 M. TB Mitogen-Nil 9.97 IU/mL Normal [facility] Comment on above: Order Comment: The M . Tuberculosis antigen levels cannot be correlated to stage or degree of infection, response to therapy or likelihood for progression to active disease. Results from QuantiFERON TB Gold Plus must be used in conjunction with individual epidemiological history, current medical status, and results of other diagnostic evaluation. Performed By: #### S YPHT, PR3AB, MPO #### [facility] (DEFAULT) [address] [address] M. TB Nil 0.03 IU/mL Normal [facility] Comment on above: Order Comment: The M . Tuberculosis antigen levels cannot be correlated to stage or degree of infection, response to therapy or likelihood for progression to active disease. Results from QuantiFERON TB Gold Plus must be used in conjunction with individual epidemiological history, current medical status, and results of other diagnostic evaluation. Performed By: #### S YPHT, PR3AB, MPO #### [facility] (DEFAULT) [address] [address] M. TB TB1-Nil 0.00 IU/mL Normal [facility] Comment on above: Order Comment: The M . Tuberculosis antigen levels cannot be correlated to stage or degree of infection, response to therapy or likelihood for progression to active disease. Results from QuantiFERON TB Gold Plus must be used in conjunction with individual epidemiological history, current medical status, and results of other diagnostic evaluation. Performed By: #### S YPHT, PR3AB, MPO #### [facility] (DEFAULT) [address] [address] M. TB TB2-Nil 0.01 IU/mL Normal [facility] Comment on above: Order Comment: The M . Tuberculosis antigen levels cannot be correlated to stage or degree of infection, response to therapy or likelihood for progression to active disease. Results from QuantiFERON TB Gold Plus must be used in conjunction with individual epidemiological history, current medical status, and results of other diagnostic evaluation. Performed By: #### S YPHT, PR3AB, MPO #### [facility] (DEFAULT) [address] [address] M. Tuberculosis by Quantiferon in tube Negative Normal Negative [facility] Comment on above: Order Comment: The M . Tuberculosis antigen levels cannot be correlated to stage or degree of infection, response to therapy or likelihood for progression to active disease. Results from QuantiFERON TB Gold Plus must be used in conjunction with individual epidemiological history, current medical status, and results of other diagnostic evaluation. Performed By: #### S YPHT, PR3AB, MPO #### [facility] (DEFAULT) [address] [place] [address] MYELOPEROXIDASE ANTIBODIESon 12-23-2023 Myeloperoxidase Antibodies Negative Normal Negative [facility] Comment on above: Performed By: #### S YPHT, PR3AB, MPO #### [facility] (DEFAULT) [address] [address] OCT/HRT MACULA OUon 12-23-19 [facility] Radiology Study observation (narrative) [facility] SYPHILIS AB W/REFLEX RPRon 1 Syphilis IgG/IGM Total Non-Reactive Normal Non Reactive [facility] Comment on above: Performed By: #### S YPHT, PR3AB, MPO #### [facility] (DEFAULT) [address] [address] T. pallidum Ab Ql (S)Ordered By: Michelle Lane on 12-23-2023 Interpretation and review of laboratory results Normal [facility] T. pallidum IgG Ql (S) Non-Reactive Non Reactive [facility] XR CHEST PA AND LATERAL 2 EWSon 12-23-2023 XR CHEST PA AND LATERAL 2 VIEWS EXAM: XR CHEST PA AND LATERAL 2 VIEWS, 12/23/2023 11:30 AM CLINICAL INDICATIONS: uveitis, rule out TB and sarcoidosis RELEVANT CLINICAL HISTORY: H30.93:Bilateral posterior uveitis COMPARISON: February 03, 2019 FINDINGS: Well-expanded and clear lungs. Normal heart size and mediastinal contours. No pulmonary edema. Degenerative change in the thoracic spine. IMPRESSION: Degenerative changes in the thoracic spine; otherwise normal chest radiographs. Normal [facility] XR Chest PA and Lateralon IMPRESSION: Degenerative changes in the thoracic spine; otherwise normal chest radiographs. OLOGY EXAM: XR CHEST PA AN D LATERAL 2 VIEWS, 12/23/2023 11:30 AM CLINICAL INDICATIONS: uveitis, rule out TB and sarcoidosis RELEVANT CLINICAL HISTORY: H30.93:Bilateral posterior uveitis COMPARISON: February 03, 2019 FINDINGS: Well-expanded and clear lungs. Normal heart size and mediastinal contours. No pulmonary edema. Degenerative change in the thoracic spine. RADIOLOGY Alexx Brandon M D, PhD - 12/23/2023 EXAM: XR CHEST PA AND LATERAL 2 VIEWS, 12/23/2023 11:30 AM CLINICAL INDICATIONS: uveitis, rule out TB and sarcoidosis RELEVANT CLINICAL HISTORY: H30.93:Bilateral posterior uveitis COMPARISON: February 03, 2019 FINDINGS: Well-expanded and clear lungs. Normal heart size and mediastinal contours. No pulmonary edema. Degenerative change in the thoracic spine. IMPRESSION IMPRESSION: Degenerative changes in the thoracic spine; otherwise normal chest radiographs. [facility] Radiology Study observation (narrative) [facility] XR Chest PA and LateralOrder ed By: Alexx Brandon on 12-23-2023 [facility] Work Phone: FUNDUS PHOTOGRAPHY-OUon 10-26 FUNDUS PHOTOGRAPHY-OU Right Eye Clear. Disc findings include normal observations. Vessel findings include normal. Macula findings include atrophy. Pigmentary Change. Interval change is same. Left Eye Clear. Disc findings include normal observations. Vessel findings include normal. Macula findings include atrophy. Pigmentary Change. Interval change is worse. 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 Right Eye Clear. Disc findings include normal observations. Vessel findings include normal. Macula findings include atrophy. Pigmentary Change. Interval change is same. Left Eye Clear. Disc findings include normal observations. Vessel findings include normal. Macula findings include atrophy. Pigmentary Change. Interval change is worse. Notes Slight satellite changes on FAF of macular atrophy RADIOLOGY [facility] Radiology Study observation (narrative) [facility] OCT/HRT MACULA OUon 11-12-19 24 OCT/HRT MACULA OU Right Eye Quality was good. Findings include outer retinal layer disruption. Interval change is same. Left Eye Quality was good. Findings include epiretinal membrane, outer retinal layer disruption. Interval change is same. Normal [facility] Right Eye Quality was good. Findings include outer retinal layer disruption. Interval change is same. Left Eye Quality was good. Findings include epiretinal membrane, outer retinal layer disruption. Interval change is same. ORDEROUT [facility] Radiology Study observation (narrative) [facility] Culture, Fungus 8482on 11-10 CUF TESTING PERFORMED AT [facility]. ORIGINAL REPORT ON FILE IN LAB CONTAINS ADDITIONAL TEST SITE INFORMATION. CUF A Positive Fungus Culture A Telma glabrata Amount Growth Growth Normal [facility] Comment on above: Performed By: #### M 100.2200, L400.0001, M600.2000 #### [facility] [address] [place], [address] Basic Metabolic Profile (BMP )on 11-01-2023 BUN/CRE 20.0 RATIO Normal 10-20 [facility] Comment on above: Order Comment: Inter face Comments:UA glucose 1000Order Date: 11/01/23Order Info: 666- - BMPKetones 150 UA Performed By: #### L 500.2500, L501.9985 ####[facility] [address] [place], [address] CA,Total 9.5 mg/dL Normal 8.5-10.1 [facility] Comment on above: Order Comment: Inter face Comments:UA glucose 1000Order Date: 11/01/23Order Info: 666- - BMPKetones 150 UA Performed By: #### L 500.2500, L501.9985 ####[facility] [address] [place], [address] Chloride [Moles/Vol] 102 mmol/L Normal 98-107 [facility] Comment on above: Order Comment: Inter face Comments:UA glucose 1000Order Date: 11/01/23Order Info: 666- - BMPKetones 150 UA Performed By: #### L 500.2500, L501.9985 ####[facility] [address] [place], [address] CO2 [Moles/Vol] 26.0 mmol/L Normal 21.0-32.0 [facility] Comment on above: Order Comment: Inter face Comments:UA glucose 1000Order Date: 11/01/23Order Info: 666- - BMPKetones 150 UA Performed By: #### L 500.2500, L501.9985 ####[facility] [address] [place], [address] Creatinine [Mass/Vol] 1.05 mg/dL High 0.55-1.02 [facility] Comment on above: Order Comment: Inter face Comments:UA glucose 1000Order Date: 11/01/23Order Info: 666-02 - BMPKetones 150 UA Result Comment: The validity of the calculated GFR GFRAA in patients over 70 years has not been determined. Clinical correlation is essential. Performed By: #### L 500.2500, L501.9985 ####[facility] [address] [place], [address] EST GFR - AA 68 mL/min Normal >60 [facility] Comment on above: Order Comment: Inter face Comments:UA glucose 1000Order Date: 11/01/23Order Info: 666-02 - BMPKetones 150 UA Result Comment: Afri can [place] GFR Calc Performed By: #### L 500.2500, L501.9985 ####[facility] [address] [place], [address] GAP 8 Normal 5-15 [facility] Comment on above: Order Comment: Inter face Comments:UA glucose 1000Order Date: 11/01/23Order Info: 666-02 - BMPKetones 150 UA Performed By: #### L 500.2500, L501.9985 ####[facility] [address] [place], [address] GFR/1.73 sq M.predicted among non-blacks MDRD (S/P/Bld) [Vol rate/Area] 56 mL/min/{1.73_m2} Low >60 [facility] Comment on above: Order Comment: Inter face Comments:UA glucose 1000Order Date: 11/01/23Order Info: 666-02 - BMPKetones 150 UA Result Comment: Non- GFR Calc Performed By: #### L 500.2500, L501.9985 ####[facility] [address] [place], [address] Glucose [Mass/Vol] 261 mg/dL High 74-106 [facility] Comment on above: Order Comment: Inter face Comments:UA glucose 1000Order Date: 11/01/23Order Info: 666-02 - BMPKetones 150 UA Result Comment: Gluc ose result greater than or equal to 200 mg/dL suggests DIABETES MELLITUS per A.D.A. criteria. Performed By: #### L 500.2500, L501.9985 ####[facility] [address] [place], [address] Potassium [Moles/Vol] 4.4 mmol/L Normal 3.5-5.1 [facility] Comment on above: Order Comment: Inter face Comments:UA glucose 1000Order Date: 11/01/23Order Info: 666-02 - BMPKetones 150 UA Performed By: #### L 500.2500, L501.9985 ####[facility] [address] [place], [address] Sodium [Moles/Vol] 136 mmol/L Normal 136-145 [facility] Comment on above: Order Comment: Inter face Comments:UA glucose 1000Order Date: 11/01/23Order Info: 666-02 - BMPKetones 150 UA Performed By: #### L 500.2500, L501.9985 ####[facility] [address] [place], [address] Urea nitrogen [Mass/Vol] 21 mg/dL High 7-18 [facility] Comment on above: Order Comment: Inter face Comments:UA glucose 1000Order Date: 11/01/23Order Info: 666-02 - BMPKetones 150 UA Performed By: #### L 500.2500, L501.9985 ####[facility] [address] [place], [address] CBC W/Diff, Automatedon Absolute Lymph 1.21 X10 3/uL Normal 0.83-4.51 [facility] Comment on above: Order Comment: Inter face Comments: UTI Order Date: 11/01/23 Order Info: 0184-1 - CBCD Comments: UTI Performed By: #### L 100.0100 #### [facility] [address] [place], [address] Absolute Neut 4.8 X10 3/uL Normal 2.0-7.7 [facility] Comment on above: Order Comment: Inter face Comments: UTI Order Date: 11/01/23 Order Info: 018- - CBCD Comments: UTI Performed By: #### L 100.0100 #### [facility] [address] [place], [address] Basophils/100 WBC (Bld) 0.7 % Normal 0-1 [facility] Comment on above: Order Comment: Inter face Comments: UTI Order Date: 11/01/23 Order Info: 018- - CBCD Comments: UTI Performed By: #### L 100.0100 #### [facility] [address] [place], [address] Eosinophils/100 WBC (Bld) 1.3 % Normal 0-5 [facility] Comment on above: Order Comment: Inter face Comments: UTI Order Date: 11/01/23 Order Info: 018- - CBCD Comments: UTI Performed By: #### L 100.0100 #### [facility] [address] [place], [address] Erythrocyte distribution width (RBC) [Ratio] 13.2 % Normal 11.6-14.6 [facility] Comment on above: Order Comment: Inter face Comments: UTI Order Date: 11/01/23 Order Info: 018-1 - CBCD Comments: UTI Performed By: #### L 100.0100 #### [facility] [address] [place], [address] Hematocrit (Bld) [Volume fraction] 40.9 % Normal 37-47 [facility] Comment on above: Order Comment: Inter face Comments: UTI Order Date: 11/01/23 Order Info: 018- - CBCD Comments: UTI Performed By: #### L 100.0100 #### [facility] [address] [place], [address] Hemoglobin (Bld) [Mass/Vol] 13.2 g/dL Normal 12.0-15.0 [facility] Comment on above: Order Comment: Inter face Comments: UTI Order Date: 11/01/23 Order Info: 018- - CBCD Comments: UTI Performed By: #### L 100.0100 #### [facility] [address] [place], [address] IG% 0.300 Normal 0.0-0.9 [facility] Comment on above: Order Comment: Inter face Comments: UTI Order Date: 11/01/23 Order Info: 018- - CBCD Comments: UTI Result Comment: IG% - Immature Granulocytes (promyelocytes, myelocytes and metamyelocytes) > 1% indicates that a LEFT SHIFT is Present. Performed By: #### L 100.0100 #### [facility] [address] [place], [address] Lymphocytes/100 WBC (Bld) 18.0 % Low 19-41 [facility] Comment on above: Order Comment: Inter face Comments: UTI Order Date: 11/01/23 Order Info: 018- - CBCD Comments: UTI Performed By: #### L 100.0100 #### [facility] [address] [place], [address] MCH (RBC) [Entitic mass] 32.7 pg High 27.0-32.0 [facility] Comment on above: Order Comment: Inter face Comments: UTI Order Date: 11/01/23 Order Info: 018- - CBCD Comments: UTI Performed By: #### L 100.0100 #### [facility] [address] [place], [address] MCHC (RBC) [Mass/Vol] 32.3 g/dL Normal 32-36 [facility] Comment on above: Order Comment: Inter face Comments: UTI Order Date: 11/01/23 Order Info: 018- - CBCD Comments: UTI Performed By: #### L 100.0100 #### [facility] [address] [place], [address] MCV (RBC) [Entitic vol] 101.2 fL High 81-99 [facility] Comment on above: Order Comment: Inter face Comments: UTI Order Date: 11/01/23 Order Info: 018- - CBCD Comments: UTI Performed By: #### L 100.0100 #### [facility] [address] [place], [address] Monocytes/100 WBC (Bld) 8.2 % Normal 0-10 [facility] Comment on above: Order Comment: Inter face Comments: UTI Order Date: 11/01/23 Order Info: 018- - CBCD Comments: UTI Performed By: #### L 100.0100 #### [facility] [address] [place], [address] Neutrophils/100 WBC (Bld) 71.5 % High 47-70 [facility] Comment on above: Order Comment: Inter face Comments: UTI Order Date: 11/01/23 Order Info: 018- - CBCD Comments: UTI Performed By: #### L 100.0100 #### [facility] [address] [place], [address] Nucleated RBC (Bld) [#/Vol] 0 10*3/uL Normal 0-5 [facility] Comment on above: Order Comment: Inter face Comments: UTI Order Date: 11/01/23 Order Info: 018- - CBCD Comments: UTI Performed By: #### L 100.0100 #### [facility] [address] [place], [address] Platelet mean volume (Bld) [Entitic vol] 8.9 fL Normal 6.2-12.0 [facility] Comment on above: Order Comment: Inter face Comments: UTI Order Date: 11/01/23 Order Info: 0184- - CBCD Comments: UTI Performed By: #### L 100.0100 #### [facility] [address] [place], [address] Platelets (Bld) [#/Vol] 334 10*3/uL Normal 150-450 [facility] Comment on above: Order Comment: Inter face Comments: UTI Order Date: 11/01/23 Order Info: 018- - CBCD Comments: UTI Performed By: #### L 100.0100 #### [facility] [address] [place], [address] RBC (Bld) [#/Vol] 4.04 10*6/uL Low 4.2-5.4 [facility] Comment on above: Order Comment: Inter face Comments: UTI Order Date: 11/01/23 Order Info: 018- - CBCD Comments: UTI Performed By: #### L 100.0100 #### [facility] [address] [place], [address] RDW SD 49.1 fl High 35.1-43.9 [facility] Comment on above: Order Comment: Inter face Comments: UTI Order Date: 11/01/23 Order Info: [id number] - CBCD Comments: UTI Performed By: #### L 100.0100 #### [facility] [address] [place], [address] WBC (Bld) [#/Vol] 6.7 10*3/uL Normal 4.4-11.0 [facility] Comment on above: Order Comment: Inter face Comments: UTI Order Date: 11/01/23 Order Info: [id number] - CBCD Comments: UTI Performed By: #### L 100.0100 #### [facility] [address] [place], [address] Hemoglobin A1con 11-01-2023 HbA1c (Bld) [Mass fraction] 5.5 % Normal 3.8-5.6 [facility] Comment on above: Order Comment: Order Date: 11/01/23Order Info: 4548-4 - [id number]: Ketones 150 UA Result Comment: Norm al < 5.7 % Prediabetic 5.7 - 6.4 % Diabetic >or= 6.5 % Please note range changes. Performed By: #### L 500.2500, L501.9985 ####[facility] [address] [place], [address] Urine Cultureon 11-01-2023 URC Culture exhibits no growth. Normal [facility] Comment on above: Performed By: #### M 100.2200, L400.0001, M600.1999 #### [facility] [address] [place], [address] Urinalysis, Completeon 10-30 BACTERIA 1+ /hpf Normal None Seen [facility] Comment on above: Order Comment: COLOR OF URINE MAY AFFECT DIPSTICK RESULTS. CLEAN CATCH Performed By: #### M 100.2200, L400.0001, M600.1999 #### [facility] [address] [place], [address] EPI,SQUAMOUS 5-10 SEEN Normal 5-10 [facility] Comment on above: Order Comment: COLOR OF URINE MAY AFFECT DIPSTICK RESULTS. CLEAN CATCH Performed By: #### M 100.2200, L400.0001, M600.1999 #### [facility] [address] [place], [address] RBC 25-50 SEEN Normal 0-5 [facility] Comment on above: Order Comment: COLOR OF URINE MAY AFFECT DIPSTICK RESULTS. CLEAN CATCH Performed By: #### M 100.2200, L400.0001, M600.1999 #### [facility] [address] [place], [address] WBC 50-100 SEEN Normal 0-5 [facility] Comment on above: Order Comment: COLOR OF URINE MAY AFFECT DIPSTICK RESULTS. CLEAN CATCH Performed By: #### M 100.2200, L400.0001, M600.1999 #### [facility] [address] [place], [address] Mucus Ql (Urine sed) 0 SEEN Normal [facility] Comment on above: Order Comment: COLOR OF URINE MAY AFFECT DIPSTICK RESULTS. CLEAN CATCH Performed By: #### M 100.2200, L400.0001, M600.1999 #### [facility] [address] [place], [address] Basophil percentageOrdered B y: Hermilo Liu on 06-04-2023 Basophil percentage >100 SEEN /hpf 0-5 [facility] Comment on above: Microscopic field is filled. Other elements may be obscured. Bilirubin Test strip Ql (U)O rdered By: Hermilo Liu on 06-04-2023 Bilirubin Ql (U) Negative Negative [facility] Culture, urineOrdered By: St epifanio Liu on 06-04-2023 Bacteria identified Cx Nom (U) Escherichia coli [facility] Ketones Test strip Ql (U)Ord ered By: Hermilo Liu on 06-04-2023 Ketones Ql (U) 15 mg/dl Negative [facility] - Chemistry and C hemistry - challengeon 06-04-2023 Bilirubin Ql (U) Negative [facility] Glucose Ql (U) 500 g/dL [facility] Ketones Ql (U) Small (15+) [facility] pH (U) 6.0 [pH] [facility] Specific gravity (U) [Rel density] 1.015 [facility] Urobilinogen (U) [Mass/Vol] Negative [facility] - Hematology and Cell countson 06-04-2023 Hemoglobin Ql (U) Hemolyzed [facility] - Specimen inform ationon 06-04-2023 Clarity (U) Cloudy [facility] Color (U) YELLOW [facility] - Urinalysison Nitrite Ql (U) Negative [facility] Protein Ql (U) Negative [facility] Mucus LM Ql (Urine sed)Order ed By: Hermilo Liu on 06-04-2023 Mucus Ql (Urine sed) 0 SEEN /hpf [facility] Nitrite Test strip Ql (U)Ord ered By: Hermilo Liu on 06-04-2023 Nitrite Ql (U) Negative Negative [facility] No Panel InformationOrdered By: Hermilo Liu on 06-04-2023 Urine RBC 0 SEEN /hpf 0-5 [facility] No Panel Informationon 06-03 Urine Leukocytes Positive [facility] Urine Non-Hemolyzed Blood Moderate [facility] Protein Test strip Ql (U)Ord ered By: Hermilo Liu on 06-04-2023 Protein Ql (U) 100 mg/dl Negative [facility] Squamous epithelial cells de tection in urine sediment by light microscopyOrdered By: Hermilo Liu on 06-04-2023 Epithelial cells.squamous LM Ql (Urine sed) 0 SEEN /hpf 5-10 [facility] Urine blood detectionOrdered By: Hermilo Liu on 06-04-2023 RBC Ql (U) 250 /ul Negative [facility] Urine clarityOrdered By: Ez Liu on 06-04-2023 Clarity (U) Turbid Clear [facility] Urine color determinationOrd ered By: Hermilo Liu on 06-04-2023 Color (U) Yellow Yellow [facility] Urine glucose detectionOrder ed By: Hermilo Liu on 06-04-2023 Glucose Ql (U) 1000 mg/dl Normal [facility] Urine leukocyte esterase det ection by dipstickOrdered By: Hermilo Liu on 06-04-2023 Leukocyte esterase Test strip Ql (U) 500 /ul Negative [facility] Urine pHOrdered By: Hermilo harris on 06-04-2023 pH (U) 6.0 [pH] 5.0 - 8.0 [facility] Urine sediment bacteria coun t by microscopy (number/high power field)Ordered By: Hermilo Liu on 06-04-2023 Bacteria LM.HPF (Urine sed) [#/Area] 0 /[HPF] None Seen [facility] Urine specific gravity measu rementOrdered By: Hermilo Liu on 06-04-2023 Specific gravity (U) [Rel density] 1.010 1.002-1.030 [facility] Urine urobilinogen measureme ntOrdered By: Hermilo Liu on 06-04-2023 Urobilinogen Ql (U) Normal mg/dl Normal [facility] Culture, urineOrdered By: Jenny Moser on 03-08-2023 Bacteria identified Cx Nom (U) Culture exhibits no growth. [facility] Bacteria identified Cx Nom (U) Culture exhibits no growth. [facility] - Chemistry and C hemistry - challengeon 03-08-2023 Bilirubin Ql (U) Negative [facility] Glucose Ql (U) 500 g/dL [facility] Ketones Ql (U) Trace (5) [facility] pH (U) 6.0 [pH] [facility] Specific gravity (U) [Rel density] 1.015 [facility] Urobilinogen (U) [Mass/Vol] Negative [facility] - Hematology and Cell countson 03-08-2023 Hemoglobin Ql (U) Moderate [facility] - Specimen inform ationon 03-08-2023 Clarity (U) Cloudy [facility] Color (U) Dk Yellow [facility] - Urinalysison Nitrite Ql (U) Negative [facility] Protein Ql (U) Negative [facility] No Panel Informationon 03-08 Urine Leukocytes Positive [facility] Urine Non-Hemolyzed Blood [facility] Basophil percentageOrdered B y: Darshan Rowley on 12-27-2022 Chloride [Moles/Vol] 107 mmol/L 98-107 [facility] Cholesterol [Mass/Vol] 178 mg/dL <200 [facility] Comment on above: <200 mg/dL Desirable 200-240 mg/dL Borderline >240 mg/dL High Risk Glucose [Mass/Vol] 115 mg/dL 74-106 [facility] Comment on above: Fasting Glucose resu lt from 100 to 125 mg/dL suggests IMPAIRED HOMEOSTASIS per A.D.A. criteria. Potassium [Moles/Vol] 4.2 mmol/L 3.5-5.1 [facility] Sodium [Moles/Vol] 139 mmol/L 136-145 [facility] Triglyceride [Mass/Vol] 287 mg/dL <199 [facility] Comment on above: The drugs N-Acetylcy steine and Metamizole may falsely depress this assay.Serum Triglycerides Reference Interval Normal <150 mg/dL Borderline high 150 - 199 mg/dL High 200 - 499 mg/dL Very High > or = 500 mg/dL Laboratory - Chemistry and C hemistry - challengeOrdered By: Darshan Rowley on 12-27-2022 CO2 [Moles/Vol] 25.0 mmol/L 21.0-32.0 [facility] Urea nitrogen/Creatinine [Mass ratio] 25.4 mg/mg 10-20 [facility] No Panel InformationOrdered By: Darshan Rowley on 12-27-2022 Estimated GFR (MDRD) Amer 89 mL/min >60 [facility] Comment on above: GFR Calc Estimated GFR (MDRD) Non-Af Amer 74 mL/min >60 [facility] Comment on above: Non- GFR Calc Urine Microalbumin/Creatinin e Ratio 8.4 mg/g CRE <30 [facility] Serum or plasma calcium jaz urement (mass/volume)Ordered By: Darshan Rowley on 12-27-2022 Calcium [Mass/Vol] 9.1 mg/dL 8.5-10.1 [facility] Serum or plasma cholesterol in HDL measurement (mass/volume)Ordered By: Darshan Rowley on 12-27-2022 Cholesterol in HDL [Mass/Vol] 46 mg/dL >40 [facility] Comment on above: The drugs N-Acetylcy steine and Metamizole may falsely depress this assay. Reference Range HDL <40 mg/dL Low HDL Cholesterol HDL >or= 60 mg/dL High HDL Cholesterol Serum or plasma cholesterol in VLDL measurement (mass/volume)Ordered By: Darshan Rowley on 12-27-2022 Cholesterol in VLDL [Mass/Vol] 57 mg/dL 5-40 [facility] Serum or plasma creatinine m easurement (mass/volume)Ordered By: Darshan Rowley on 12-27-2022 Creatinine [Mass/Vol] 0.83 mg/dL 0.55-1.02 [facility] Comment on above: The validity of the calculated GFR & GFRAA in patients over 70 years has not been determined. Clinical correlation is essential. Serum or plasma low density lipoprotein (LDL) cholesterol measurement (mass/volume)Ordered By: Darshan Rowley on 12-27-2022 Cholesterol in LDL [Mass/Vol] 75 mg/dL 0-130 [facility] Serum or plasma urea nitroge n measurement (mass/volume)Ordered By: Darshan Rowley on 12-27-2022 Urea nitrogen [Mass/Vol] 21 mg/dL 7-18 [facility] Thin prep Papanicolaou smear with manual screeningOrdered By: Darshan Rowley on 12-27-2022 Thin prep Papanicolaou smear with manual screening 7 5-15 [facility] Thin prep Papanicolaou smear with manual screening 8.6 mg/L NO RANGE EST. [facility] Urine creatinine measurement (mass/volume)Ordered By: Darshan Rowley on 12-27-2022 Creatinine (U) [Mass/Vol] 102.00 mg/dL NO RANGE EST. [facility] Whole blood hemoglobin A1c/t otal hemoglobin ratio (mass fraction)Ordered By: Darshan Rowley on 12-27-2022 HbA1c (Bld) [Mass fraction] 6.8 % 3.8-5.6 [facility] Comment on above: Normal < 5.7 % Predi abetic 5.7 - 6.4 % Diabetic >or= 6.5 % Please note range changes. Basophil percentageon 2021 Chloride [Moles/Vol] 107 mmol/L 98-107 [facility] Work Phone: Cholesterol [Mass/Vol] 168 mg/dL <200 [facility] Work Phone: Comment on above: <200 mg/dL Desirable 200-240 mg/dL Borderline >240 mg/dL High Risk Glucose [Mass/Vol] 140 mg/dL 74-106 [facility] Work Phone: Comment on above: Fasting Glucose resu lt greater than or equal to 126 mg/dL suggests DIABETES MELLITUS per A.D.A. criteria. Potassium [Moles/Vol] 4.5 mmol/L 3.5-5.1 [facility] Work Phone: Sodium [Moles/Vol] 139 mmol/L 136-145 [facility] Work Phone: Triglyceride [Mass/Vol] 234 mg/dL <199 [facility] Work Phone: Comment on above: The drugs N-Acetylcy steine and Metamizole may falsely depress this assay.Serum Triglycerides Reference Interval Normal <150 mg/dL Borderline high 150 - 199 mg/dL High 200 - 499 mg/dL Very High > or = 500 mg/dL Laboratory - Chemistry and C hemistry - challengeon 12-25-2021 CO2 [Moles/Vol] 25.0 mmol/L 21.0-32.0 [facility] Work Phone: Urea nitrogen/Creatinine [Mass ratio] 34.0 mg/mg 12-14 [facility] Work Phone: [phone] No Panel Informationon 12-25 Estimated GFR (MDRD) Amer 80 mL/min >60 [facility] Work Phone: Comment on above: GFR Calc Estimated GFR (MDRD) Non-Af Amer 66 mL/min >60 [facility] Work Phone: Comment on above: Non- GFR Calc Urine Microalbumin/Creatinin e Ratio 97.7 mg/g CRE <30 [facility] Work Phone: [phone] Vitamin D 25-Hydroxy 29.0 ng/mL [facility] Work Phone: Comment on above: Vitamin D 25(OH) Sta tus Range Deficiency <20 ng/mL (50nmol/L) Insufficiency 20 - 30 ng/mL (50 - 75 nmol/L) Sufficiency 30 - 100 ng/mL (75 - 250 nmol/L) Toxicity >100 ng/mL (>250 nmol/L) Serum or plasma calcium jaz urement (mass/volume)on 12-25-2021 Calcium [Mass/Vol] 9.2 mg/dL 8.5-10.1 [facility] Work Phone: [phone] Serum or plasma cholesterol in HDL measurement (mass/volume)on 12-25-2021 Cholesterol in HDL [Mass/Vol] 47 mg/dL >40 [facility] Work Phone: Comment on above: The drugs N-Acetylcy steine and Metamizole may falsely depress this assay. Reference Range HDL <40 mg/dL Low HDL Cholesterol HDL >or= 60 mg/dL High HDL Cholesterol Serum or plasma cholesterol in VLDL measurement (mass/volume)on 12-25-2021 Cholesterol in VLDL [Mass/Vol] 47 mg/dL 5-40 [facility] Work Phone: Serum or plasma creatinine m easurement (mass/volume)on 12-25-2021 Creatinine [Mass/Vol] 0.91 mg/dL 0.55-1.02 [facility] Work Phone: Comment on above: The validity of the calculated GFR & GFRAA in patients over 70 years has not been determined. Clinical correlation is essential. Serum or plasma low density lipoprotein (LDL) cholesterol measurement (mass/volume)on 12-25-2021 Cholesterol in LDL [Mass/Vol] 74 mg/dL 0-130 [facility] Work Phone: Serum or plasma urea nitroge n measurement (mass/volume)on 12-25-2021 Urea nitrogen [Mass/Vol] 31 mg/dL 7-18 [facility] Work Phone: Thin prep Papanicolaou smear with manual screeningon 12-25-2021 Thin prep Papanicolaou smear with manual screening 7 5-15 [facility] Work Phone: Thin prep Papanicolaou smear with manual screening 126.0 mg/L NO RANGE EST. [facility] Work Phone: Urine creatinine measurement (mass/volume)on 12-25-2021 Creatinine (U) [Mass/Vol] 129.00 mg/dL NO RANGE EST. [facility] Work Phone: Whole blood hemoglobin A1c/t otal hemoglobin ratio (mass fraction)on 12-25-2021 HbA1c (Bld) [Mass fraction] 6.8 % 3.8-5.6 [facility] Work Phone: Comment on above: Normal < 5.7 % Predi abetic 5.7 - 6.4 % Diabetic >or= 6.5 % Please note range changes. FUNDUS PHOTOGRAPHY-OUon 10-26 Right Eye Clear. Disc findings include normal observations. Vessel findings include normal. Macula findings include atrophy. Pigmentary Change. Interval change is same. Left Eye Clear. Disc findings include normal observations. Vessel findings include normal. Pigmentary Change. Interval change is same. RADIOLOGY [facility]-14-19 Right Eye Quality was good. Findings include outer retinal layer disruption. Interval change is same. Left Eye Quality was good. Findings include outer retinal layer disruption, epiretinal membrane. Interval change is same. Notes Significant outer retinal loss, worse in right than left eye. [facility] FLUORESCEIN ANGIOGRAPHY-OUon 05-24-[facility] FUNDUS PHOTOGRAPHY-OUon 04-27 [facility] OU[facility] 05-25-[facility] No Panel Informationon 05-23 Radiology Study observation (narrative) [facility] No Panel Informationon 05-11 Parathyroid Hormone (Intact) 43.8 pg/mL 18.4-80.1 [facility] Work Phone: Clinical Summary: HMSPatient IDon 12-04-2018 OOP [facility] Work Phone: Office Visit: New - 1st visi t with practice, Rm: 40on 12-04-2018 NEGATED: Highlighted rowMRI (magnetic resonance imaging) history of the lumbar/thoracic on 11/12/2018 at [facility] Work Phone: NEGATED: Highlighted rowxray history of the back on 08/08/2018 at [facility] Work Phone: Clinical Lists Update: Prelo ad Extendedon 12-03-2018 Tobacco smoking status NHIS current everyday smoker [facility] Work Phone: Clinical Summary: Scanned Hi story Summaryon 12-03-2018 adl form etoh alcohol performance wine, liquor [facility] Work Phone: Beta HCG ( test) Ql (U) 1 time per year [facility] Work Phone: brother(s) of patient alive or I do not have any brothers. My brother(s)' health history is unknown. [facility] Work Phone: Cholesterol [Mass/Vol] ArthritisDiabetes - non-insulin dependentDiabetic neuropathyFracturesHigh cholesterol [facility] Work Phone: consumes three or more drinks of alcohol (beer, wine, liquor) daily or almost daily less than 1 drink per day [facility] Work Phone: data entered by patient, alcohol (ethanol or ETOH) use Yes [facility] Work Phone: Data entered by patient, allergy list I don't have any Drug AllergiesI don't have any Environmental AllergiesI don't have any Food Allergies [facility] Work Phone: data entered by patient, cigarette smoking 1 pack a day [facility] Work Phone: data entered by patient, drug (of abuse) use No [facility] Work Phone: data entered by patient, Employer Name employed [facility] [facility] Work Phone: data entered by patient, exercise history No [facility] Work Phone: data entered by patient, father's medical history COPD [facility] Work Phone: Data entered by patient, history of past surgeries Knee replacement - totalTonsillectomy [facility] Work Phone: Data entered by patient, medication list losartan potassium-25 FT-5-Rjwvkgihsreclc hcl-1000 RF-2-CQTsprthbpum-15 ZX-9-Jcamyihxcawzyc-10 US-6-Alzljywlyjzj-81 FW-3-Vdvabmcomksizyt-100 MG-2 & 1-UHPTlywfmk-6 MQ-7-LKyjtxwz-5 MG-1-HS [facility] Work Phone: data entered by patient, mother's medical history Heart disease [facility] Work Phone: data entered by patient, 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, current smoker current everyday smoker [facility] Work Phone: data entered by patient, 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, marital status [facility] Work Phone: data entered by patient, 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, 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 [facility] Work Phone: father of patient is alive or Alive [facility] Work Phone: father's medical history, comments emphysema [facility] Work Phone: Housing Type: apartment, house, group home, trailer, none house [facility] Work Phone: housing unit size (asthma environmental history, housing) (from single family to don't know) 2 floors [facility] Work Phone: mother of patient is alive or Alive [facility] Work Phone: Number of dependent children No [facility] Work Phone: sister of patient(s) alive or I do not have any sisters. My sister(s)' health history is unknown. [facility] Work Phone: tobacco use, when do you smoke? 21 [facility] Work Phone: Web entered surgical history comments Bilat Knee replacements, Lap BTO [facility] Work Phone: Clinical Lists Update: Prelo ad Extendedon 11-27-2018 Tobacco smoking status NHIS current everyday smoker [facility] Work Phone: Clinical Summary: Scanned Hi story Summaryon 11-27-2018 adl form etoh alcohol performance wine, liquor [facility] Work Phone: Beta HCG ( test) Ql (U) 1 time per year [facility] Work Phone: brother(s) of patient alive or I do not have any brothers. My brother(s)' health history is unknown. [facility] Work Phone: Cholesterol [Mass/Vol] ArthritisDiabetes - non-insulin dependentDiabetic neuropathyFracturesHigh cholesterol [facility] Work Phone: consumes three or more drinks of alcohol (beer, wine, liquor) daily or almost daily 1 drink per day [facility] Work Phone: data entered by patient, alcohol (ethanol or ETOH) use Yes [facility] Work Phone: Data entered by patient, allergy list I don't have any Drug AllergiesI don't have any Environmental AllergiesI don't have any Food Allergies [facility] Work Phone: data entered by patient, cigarette smoking 1 pack a day [facility] Work Phone: data entered by patient, drug (of abuse) use No [facility] Work Phone: data entered by patient, Employer Name employed [facility] Work Phone: data entered by patient, exercise history No [facility] Work Phone: Data entered by patient, history of past surgeries Knee replacement - totalTonsillectomy [facility] Work Phone: Data entered by patient, medication list losartan kfgvdmrzw-26ug-9-dailymet formin hcl-1000 cv-4-rcpbyhznwvji-15 sb-8-cwqmmdcbffzgic-10 ow-0-omkyutxoacfm-81 cf-5-qkkkesyntyyybbm-100 mg-2 & 6-hurugofpbv-5 ex-5-uffdjHzkpjk-5 mg-1-HS [facility] Work Phone: data entered by patient, mother's medical history Heart disease [facility] Work Phone: data entered by patient, 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, current smoker current everyday smoker [facility] Work Phone: data entered by patient, 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, marital status [facility] Work Phone: father of patient is alive or Alive [facility] Work Phone: Housing Type: apartment, house, group home, trailer, none house [facility] Work Phone: housing unit size (asthma environmental history, housing) (from single family to don't know) 2 floors [facility] Work Phone: mother of patient is alive or Alive [facility] Work Phone: Number of dependent children No [facility] Work Phone: sister of patient(s) alive or I do not have any sisters. My sister(s)' health history is unknown. [facility] Work Phone: tobacco use, when do you smoke? 20 [facility] Work Phone: Web entered surgical history comments Lap BTO [facility] Work Phone: Vital Signs Date Time Vital Sign Value Performing Clinician Facility 10-30-2024 09:08-0400 Body height 177.8 cm Rody Hampton MD Work Phone: [facility] 10-30-2024 09:08-0400 Body mass index (BMI) [Ratio] 28.04 kg/m2 Rody Hampton MD Work Phone: [facility] 10-30-2024 09:08-0400 Body temperature 98.01 [degF] Rody Hampton MD Work Phone: [facility] 10-30-2024 09:08-0400 Body weight 88.63 kg Rody Hampton MD Work Phone: [facility] 10-30-2024 09:08-0400 Diastolic blood pressure 81 mm[Hg] Rody Hampton MD Work Phone: [facility] 10-30-2024 09:08-0400 Heart rate 68 /min Rody Hampton MD Work Phone: [facility] 10-30-2024 09:08-0400 SaO2% (BldA) [Mass fraction] 97 % Rody Hampton MD Work Phone: [facility] 10-30-2024 09:08-0400 Systolic blood pressure 140 mm[Hg] Rody Hampton MD Work Phone: [facility] 06-06-2023 15:56-0400 Body height 177.8 cm Kurtis Harris MD Work Phone: [facility] 06-06-2023 15:56-0400 Body mass index (BMI) [Ratio] 28.65 kg/m2 Kurtis Harris MD Work Phone: [facility] 06-06-2023 15:56-0400 Body temperature 96.1 [degF] Kurtis Harris MD Work Phone: [facility] 06-06-2023 15:56-0400 Body weight 90.58 kg Kurtis Harris MD Work Phone: [facility] 06-06-2023 15:56-0400 Diastolic blood pressure 60 mm[Hg] Kurtis Harris MD Work Phone: [facility] 06-06-2023 15:56-0400 Heart rate 73 /min Kurtis Harris MD Work Phone: [facility] 06-06-2023 15:56-0400 Respiratory rate 18 /min Kurtis Harris MD Work Phone: [facility] 06-06-2023 15:56-0400 SaO2% (BldA) [Mass fraction] 96 % Kurtis Harris MD Work Phone: [facility] 06-06-2023 15:56-0400 Systolic blood pressure 132 mm[Hg] Kurtis Harris MD Work Phone: [facility] 06-06-2023 13:43-0400 Body height 177.8 cm Kurtis Harris MD Work Phone: [facility] 06-06-2023 13:43-0400 Body mass index (BMI) [Ratio] 28.27 kg/m2 Kurtis Harris MD Work Phone: [facility] 06-06-2023 13:43-0400 Body weight 89.36 kg Kurtis Harris MD Work Phone: [facility] 06-06-2023 13:43-0400 Diastolic blood pressure 64 mm[Hg] Kurtis Harris MD Work Phone: [facility] 06-06-2023 13:43-0400 Heart rate 80 /min Kurtis Harris MD Work Phone: [facility] 06-06-2023 13:43-0400 Systolic blood pressure 119 mm[Hg] Kurtis Harris MD Work Phone: [facility] 06-04-2023 07:37-0400 Body temperature 97.5 [degF] Dr. Darshan Rowley Work Phone: [facility] 06-04-2023 07:37-0400 Diastolic blood pressure 78 mm[Hg] Dr. Darshan Rowley Work Phone: [facility] 06-04-2023 07:37-0400 Heart rate 80 /min Dr. Darshan Rowley Work Phone: 4(180)808-332560 [place] [address] 06-04-2023 07:37-0400 Respiratory rate 12 /min Dr. Darshan Rowley Work Phone: 3(706)334-553960 [place] [address] 06-04-2023 07:37-0400 SaO2% (BldA) [Mass fraction] 97 % Dr. Darshan Rowley Work Phone: 1(049)019-953021 [address] 06-04-2023 07:37-0400 Systolic blood pressure 122 mm[Hg] Dr. Darshan Rowley Work Phone: 9(006)028-553601 [place] [address] 03-08-2023 12:50-0500 Body height 177.[address] Darshan Rowley Work Phone: 5(744)343-950901 [place] [address] 03-08-2023 12:50-0500 Body mass index (BMI) [Ratio] 31.4 kg/m2 Dr. Darshan Rowley Work Phone: 6(186)470-888501 [place] [address] 03-08-2023 12:50-0500 Body temperature 98 [degF] Dr. Darshan Rowley Work Phone: 0(443)678-471201 [place] [address] 03-08-2023 12:50-0500 Body weight 99.[address] Darshan Rowley Work Phone: 0(041)764-980501 [place] [address] 03-08-2023 12:50-0500 Diastolic blood pressure 68 mm[Hg] Dr. Darshan Rowley Work Phone: 7(976)213-284701 [place] [address] 03-08-2023 12:50-0500 Heart rate 73 /min Dr. Darshan Rowley Work Phone: 9(576)298-297601 [place] [address] 03-08-2023 12:50-0500 Respiratory rate 17 /min Dr. Darshan Rowley Work Phone: 5(661)487-433060 [place] [address] 03-08-2023 12:50-0500 SaO2% (BldA) [Mass fraction] 96 % Dr. Darshan Rowley Work Phone: [facility] 03-08-2023 12:50-0500 Systolic blood pressure 138 mm[Hg] Dr. Darshan Rowley Work Phone: [facility] 02-05-2023 11:13-0500 Body height 177.8 cm Seema Mendoza MD Work Phone: [facility] 02-05-2023 11:13-0500 Body mass index (BMI) [Ratio] 32.28 kg/m2 Seema Mendoza MD Work Phone: [facility] 02-05-2023 11:13-0500 Body temperature 96.69 [degF] Seema Mendoza MD Work Phone: [facility] 02-05-2023 11:13-0500 Body weight 102.06 kg Seema Mnedoza MD Work Phone: [facility] 02-05-2023 11:13-0500 Heart rate 82 /min Seema Mendoza MD Work Phone: [facility] 02-05-2023 11:13-0500 SaO2% (BldA) [Mass fraction] 96 % Seema Mendoza MD Work Phone: [facility] 12-04-2022 13:41-0400 Body height 177.8 cm Kurtis Harris MD Work Phone: [facility] 12-04-2022 13:41-0400 Body mass index (BMI) [Ratio] 31.85 kg/m2 Kurtis Harris MD Work Phone: [facility] 12-04-2022 13:41-0400 Body temperature 98.01 [degF] Kurtis Harris MD Work Phone: [facility] 12-04-2022 13:41-0400 Body weight 100.7 kg Kurtis Harris MD Work Phone: [facility] 12-04-2022 13:41-0400 Diastolic blood pressure 81 mm[Hg] Kurtis Harris MD Work Phone: [facility] 12-04-2022 13:41-0400 Heart rate 84 /min Kurtis Harris MD Work Phone: [facility] 12-04-2022 13:41-0400 SaO2% (BldA) [Mass fraction] 95 % Kurtis Harris MD Work Phone: [facility] 12-04-2022 13:41-0400 Systolic blood pressure 132 mm[Hg] Kurtis Harris MD Work Phone: [facility] 12-04-2022 11:45-0400 Body height 177.8 cm Renee Evans COMMUNICATIONS ADVISOR-GROUP CONTRACT ANALYST Work Phone: [facility] 12-04-2022 11:45-0400 Diastolic blood pressure 71 mm[Hg] Renee Evans COMMUNICATIONS ADVISOR-GROUP CONTRACT ANALYST Work Phone: [facility] 12-04-2022 11:45-0400 Systolic blood pressure 137 mm[Hg] Renee Evans COMMUNICATIONS ADVISOR-GROUP CONTRACT ANALYST Work Phone: [facility] 04-05-2022 13:50-0500 Body mass index (BMI) [Ratio] 30.39 kg/m2 Kurtis Harris MD Work Phone: [facility] 04-05-2022 13:50-0500 Body temperature 97.7 [degF] Kurtis Harris MD Work Phone: [facility] 04-05-2022 13:50-0500 Body weight 96.07 kg Kurtis Harris MD Work Phone: [facility] 04-05-2022 13:50-0500 Diastolic blood pressure 61 mm[Hg] Kurtis Harris MD Work Phone: [facility] 04-05-2022 13:50-0500 Heart rate 75 /min Kurtis Harris MD Work Phone: [facility] 04-05-2022 13:50-0500 Respiratory rate 16 /min Kurtis Harris MD Work Phone: [facility] 04-05-2022 13:50-0500 SaO2% (BldA) [Mass fraction] 97 % Kurtis Harris MD Work Phone: [facility] 04-05-2022 13:50-0500 Systolic blood pressure 130 mm[Hg] Kurtis Harris MD Work Phone: [facility] 04-05-2022 11:18-0500 Body height 177.8 cm Renee Nevarezuld COMMUNICATIONS ADVISOR-GROUP CONTRACT ANALYST Work Phone: [facility] 04-05-2022 11:18-0500 Diastolic blood pressure 65 mm[Hg] Renee Evans COMMUNICATIONS ADVISOR-GROUP CONTRACT ANALYST Work Phone: [facility] 04-05-2022 11:18-0500 Systolic blood pressure 121 mm[Hg] Renee Evans COMMUNICATIONS ADVISOR-GROUP CONTRACT ANALYST Work Phone: [facility] 10-12-2021 13:12-0400 Body height 177.8 cm Kurtis Harris MD Work Phone: [facility] 10-12-2021 13:12-0400 Body mass index (BMI) [Ratio] 30.71 kg/m2 Kurtis Harris MD Work Phone: [facility] 10-12-2021 13:12-0400 Body temperature 97.81 [degF] Kurtis Harris MD Work Phone: [facility] 10-12-2021 13:12-0400 Body weight 97.07 kg Kurtis Harris MD Work Phone: [facility] 10-12-2021 13:12-0400 Diastolic blood pressure 58 mm[Hg] Kurtis Harris MD Work Phone: [facility] 10-12-2021 13:12-0400 Heart rate 79 /min Kurtis Harris MD Work Phone: [facility] 10-12-2021 13:12-0400 Respiratory rate 16 /min Kurtis Harris MD Work Phone: [facility] 10-12-2021 13:12-0400 SaO2% (BldA) [Mass fraction] 97 % Kurtis Harris MD Work Phone: [facility] 10-12-2021 13:12-0400 Systolic blood pressure 122 mm[Hg] Kurtis Harris MD Work Phone: [facility] 10-18-2020 09:29-0400 Body height 177.8 cm Kurtis Harris MD Work Phone: [facility] 10-18-2020 09:29-0400 Diastolic blood pressure 63 mm[Hg] Kurtis Harris MD Work Phone: [facility] 10-18-2020 09:29-0400 Heart rate 75 /min Kurtis Harris MD Work Phone: [facility] 10-18-2020 09:29-0400 Systolic blood pressure 112 mm[Hg] Kurtis Harris MD Work Phone: [facility] NEGATED: Highlighted [id number] 11:14-0400 BMI (Body Mass Index) 28.08 kg/m2 [facility] Work Phone: NEGATED: Highlighted [id number] 11:14-0400 Body weight 88.[address] [facility] Work Phone: NEGATED: Highlighted [id number] 11:14-0400 Body [facility] Work Phone: NEGATED: Highlighted [id number] 11:14-0400 BP Diastolic 65 mm[Hg] [facility] Work Phone: NEGATED: Highlighted [id number] 11:14-0400 BP Systolic 101 mm[Hg] [facility] Work Phone: NEGATED: Highlighted [id number] 11:14-0400 Heart rate 2+ [facility] Work Phone: NEGATED: Highlighted [id number] 11:14-0400 Height 177.8 cm [facility] Work Phone: NEGATED: Highlighted [id number] 11:14-0400 Height 178 cm [facility] Work Phone: NEGATED: Highlighted [id number] 11:14-0400 Pulse (Heart Rate) 66 /min [facility] Work Phone: Encounters Encounter Date Encounter Type Care Provider Facility Start: 11-03-2024 ambulatory NOT RECORDED PHYSICIAN Facility:[facility] Start: 10-30-2024 End: 10-30-2024 Office consultation new/estab patient 80 min Rody Hampton MD Work Phone: [facility] Comment on above: Pelvic pain (Primary Dx); Vaginal atrophy Start: 10-30-2024 ambulatory DARSHAN ROWLEY [facility] :[facility] Start: 09-30-2024 End: 09-30-2024 ambulatory Darshan Rowley Facility:[facility] Start: 09-28-2024 End: 09-28-2024 ambulatory Darshan Rowley Facility:[facility] Start: 09-17-2024 End: 09-17-2024 ambulatory Consuelo Trinidad Facility:[facility] Start: 07-29-2024 End: 07-29-2024 ambulatory [facility] Facility:[facility] Start: 07-27-2024 ambulatory ANTHONY Rodriguez ity:[facility] Start: 07-27-2024 End: 07-27-2024 Office outpatient visit 15 minutes Anthony Ying DO Work Phone: [facility] Comment on above: Bilateral posterior uveitis (Primary Dx); 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, without long-term current use of insulin Start: 07-08-2024 End: 07-08-2024 ambulatory Darshan Rowley Facility:[facility] Start: 06-12-2024 End: 06-12-2024 Office outpatient visit 25 minutes Anthony Ying DO Work Phone: [facility] Comment on above: Bilateral posterior uveitis (Primary Dx); Pigmentary retinal dystrophy; 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 Darshan Rowley MD Work Phone: [facility] Work Phone: Start: 04-29-2024 End: 04-29-[address] 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, without long-term current use of insulin; Pigmentary retinal dystrophy Start: 03-20-2024 ambulatory SELF SELF [facility] Start: 02-14-2024 End: 02-14-2024 Office outpatient visit 25 minutes Anthony Ying DO Work Phone: [facility] Comment on above: Bilateral posterior uveitis (Primary Dx); Pigmentary retinal dystrophy; 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 Darshan Rowley MD Work Phone: -[facility] Work Phone: Start: 02-07-2024 End: 02-07-2024 ambulatory Darshan Rowley Facility:[facility] Start: 02-05-2024 End: 02-05-[address] 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, without long-term current use of insulin; Combined forms of age-related cataract of right eye; Dry eye syndrome of bilateral lacrimal glands; Pseudophakia of left eye Start: 12-23-2023 ambulatory ANTHONY Gamaliel Rodriguez ity:[facility] Start: 11-14-2023 End: 11-14-2023 ambulatory Darshan Rowley Facility:[facility] Start: 11-12-2023 End: 11-12-2023 Office outpatient visit 15 minutes Lois Horowitz MD, PhD Work Phone: [facility] Comment on above: Pigmentary retinal d ystrophy (Primary Dx); Combined forms of age-related cataract of right eye; Pseudophakia of left eye; Dry eye syndrome of bilateral lacrimal glands; 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, without long-term current use of insulin Start: 11-12-2023 ambulatory SELF SELF [facility] Start: 11-01-2023 End: 11-01-[facility] Start: 10-31-2023 End: 10-31-2023 [facility] Start: 06-06-2023 End: 06-06-2023 Office outpatient visit 25 minutes Kurtis Harris MD Work Phone: [facility] Comment on above: Meningioma, spinal ( Primary Dx) Start: 06-06-2023 End: 06-06-2023 Subsequent hospital visit by physician Kurtis Harris MD Work Phone: [facility] Comment on above: Arrived Start: 06-04-2023 End: 06-04-[address] Darshan Rowley Work Phone: [facility] Work Phone: Start: 06-04-2023 End: 06-04-[address] Darshan Rowley Work Phone: [facility] Work Phone: Start: 03-08-2023 End: 03-08-[address] Darshan Rowley Work Phone: [facility] Work Phone: Start: 03-08-2023 End: 03-08-[address] Darshan Rowley Work Phone: [facility] Work Phone: Start: 03-08-2023 End: 03-08-[address] Darshan Rowley Work Phone: [facility] Work Phone: Start: 02-05-2023 End: 02-05-2023 Office consultation new/estab patient 60 min Seema Mendoza MD Work Phone: [facility] Comment on above: Mid back pain (Prima ry Dx); Myofascial pain; History of thoracic surgery; Kyphosis (acquired) (postural) Start: 12-27-2022 End: 12-27-[address] Darshan Rowley Work Phone: [facility] [place] Work Phone: Start: 12-04-2022 End: 12-05-2022 Office outpatient visit 25 minutes Kurtis Harris MD Work Phone: Division of [facility]cology [facility] Comment on above: Thoracic spine tumor (Primary Dx) Start: 12-04-2022 End: 12-04-2022 Subsequent hospital visit by physician Renee Evans COMMUNICATIONS ADVISOR-GROUP CONTRACT ANALYST Work Phone: [facility] Comment on above: Arrived Start: 10-16-2022 End: 10-16-2022 Subsequent hospital visit by physician Renee Evans COMMUNICATIONS ADVISOR-GROUP CONTRACT ANALYST Work Phone: [facility] Comment on above: Canceled (Personal A ppointment Conflict) Start: 04-30-2022 End: 04-30-2022 ambulatory [facility] Work Phone: Start: 04-30-2022 End: 04-30-2022 Patient encounter procedure [facility] Start: 04-05-2022 End: 04-06-2022 Office outpatient visit 25 minutes Kurtis Harris MD Work Phone: Division of Neuro Oncology at [facility] Comment on above: Thoracic spine tumor (Primary Dx) Start: 04-05-2022 End: 04-05-2022 Subsequent hospital visit by physician Renee Evans APRN-GROUP CONTRACT ANALYST Work Phone: [facility] Comment on above: Arrived Start: 12-25-2021 End: 12-25-2021 ambulatory [facility] Work Phone: Start: 12-25-2021 End: 12-25-2021 Patient encounter procedure [facility] Start: 11-13-2021 End: 11-13-2021 Office outpatient visit 15 minutes Lois Horowitz MD, PhD Work Phone: [facility] Comment on above: Pigmentary retinal d ystrophy (Primary Dx); Nuclear senile cataract of right eye Start: 10-12-2021 End: 10-12-2021 Office outpatient visit 15 minutes Kurtis Harris MD Work Phone: Division of Neuro Oncology at [facility] Comment on above: Meningioma, spinal ( Primary Dx) Start: 10-12-2021 End: 10-12-2021 Subsequent hospital visit by physician Kurtis Harris MD Work Phone: Department of Radiology Comment on above: Arrived Start: 06-02-2021 End: 06-02-[address] Darshan Rowley Work Phone: [facility] Start: 05-29-2021 End: 05-29-[address] Darshan Rowley Work Phone: [facility] Start: 05-23-2021 End: 05-23-2021 Office outpatient new 45 minutes Lois Horowitz MD, PhD Work Phone: [facility] Comment on above: Pigmentary retinal d ystrophy (Primary Dx); Mixed type age-related cataract, both eyes; Dry eye syndrome of bilateral lacrimal glands; Pseudophakia Start: 05-11-2021 End: 05-11-[address] Darshan Rowley Work Phone: [facility] Start: 05-10-2021 End: 05-10-[address] Darshan Rowley Work Phone: [facility] Start: 04-28-2021 End: 04-28-[address] Darshan Rowley Work Phone: [facility] Start: 10-18-2020 End: 10-18-2020 Subsequent hospital visit by physician Kurtis Harris MD Work Phone: [facility] Comment on above: Arrived Start: 12-04-2018 End: 12-04-2018 Patient encounter procedure He Oakes DO Work Phone: [facility] Work Phone: Procedures Date Procedure Procedure Detail Performing Clinician Start: 10-30-2024 Urnls dip stick/tabl et rgnt auto w/o microscopy Rody Hampton MD Work Phone: Start: 10-30-2024 Urnls dip stick/tabl et rgnt non-auto w/o micrscp Rody Hampton MD Work Phone: Start: 07-27-2024 Intravitreal njx pharmacologic agt spx Anthony Ying DO Work Phone: Start: 07-27-2024 End: 07-27-2024 Fundus photography w/interpretation & report Anthony Ying DO Work Phone: Start: 06-12-2024 Intravitreal njx pharmacologic agt spx Anthony Ying DO Work Phone: Start: 06-12-2024 End: 06-12-2024 Fundus photography w/interpretation & report Anthony Ying DO Work Phone: Start: 03-20-2024 End: 03-20-2024 Fluorescein angrph w/multiframe i&r uni/bi Anthony Ying DO Work Phone: Start: 02-14-2024 End: 02-14-2024 Fundus photography w/interpretation & report Anthony Ying DO Work Phone: Start: 02-07-2024 MRI of brain with contrast Dr. Darshan Rowley MD Work Phone: Start: 02-07-2024 MRI of thoracic spin e with contrast Dr. Darshan Rowley MD Work Phone: Start: 12-23-2023 Fluorescein icg angr ph w/multiframe i&r uni/bi Anthony Ying DO Work Phone: Start: 12-23-2023 Radiologic exam ches t 2 views Anthony Ying DO Work Phone: Start: 12-23-2023 End: 12-23-2023 Fundus photography w/interpretation & report Anthony Ying DO Work Phone: Start: 11-12-2023 End: 11-12-2023 Fundus photography w/interpretation & report Lois Horowitz MD, PhD Work Phone: Start: 06-04-[address] Darshan Rowley Work Phone: Start: 03-08-[address] Darshan Rowley Work Phone: Start: 04-30-2022 US scan of thyroid Start: 11-13-2021 End: 11-13-2021 Fundus photography w/interpretation & report Lois Horowitz MD, PhD Work Phone: Start: 06-02-[address] Darshan jiang Work Phone: Start: 06-02-[address] Darshan Rowley Work Phone: Start: 05-29-2021 Screening mammography Paula Rowley Work Phone: Start: 05-23-2021 Fluorescein angrph w/multiframe i&r uni/bi Lois Horowitz MD, PhD Work Phone: Start: 04-28-2021 US scan of thyroid Dr. Darshan Rowley Work Phone: Start: 12-04-2018 End: 12-04-2018 Blood pressure within normal parameters - no follow-up required He Oakes DO Work Phone: Start: 12-04-2018 End: 12-04-2018 BMI documented as above normal parameters - follow-up documented He Oakes DO Work Phone: Start: 12-04-2018 End: 12-04-2018 Documentation of current medications He Oakes DO Work Phone: Start: 12-04-2018 End: 12-04-2018 Pain assessment documented as positive - follow-up documented He Oakes DO Work Phone: Start: 12-04-2018 End: 12-04-2018 Tobacco screening or cessation counseling not performed - unknown reason He Oakes DO Work Phone: NEGATED: Highlighted rowStart: 12-04-2018 End: 12-04-2018 Documentation of current medications Tammy Muñiz Plan of Treatment Date Care Activity Detail Author Start: 2033 RSV VACCINE (1 - 1-dose 75+ series) RSV VACCINE (1 - 1-dose 75+ series) [facility] Start: 12-11-2024 End: 12-11-2024 Patient encounter procedure 12/11/2024 3:20 PM EDT Office Visit [facility] [address] [place], [place] [id number] Anthony Ynig DO [address] [place] [address] [facility] Start: 11-26-2024 End: 11-26-2024 Patient encounter procedure 11/26/2024 10:30 AM EDT Office Visit [facility] [address] [place], [place] [id number] Rody Hampton MD [address] [place] [address] [facility] Start: 10-26-2024 COVID-19 VACCINE ( season) COVID-19 VACCINE ( season) [facility] Start: 10-26-2024 Influenza vaccination INFLUENZA VACC INE (#1) [facility] Start: 09-25-2024 End: 09-25-2024 Patient encounter procedure 09/25/2024 10:20 AM EDT Office Visit [facility] [address] [place], [place] [id number] Anthony Ying, [address] [place] [address] [facility] Start: 07-27-2024 End: 07-27-2024 Patient encounter procedure 07/27/2024 1:40 PM EDT Office Visit [facility] [address] [place], [place] [id number] Anthony Ying DO [address] [place] [address] [facility] Start: 06-12-2024 End: 06-12-2024 Patient encounter procedure 06/12/2024 10:40 AM EDT Office Visit [facility] [address] [place], [place] [id number] Anthony Ying DO [address] [place] [address] [facility] Start: 03-20-2024 End: 03-20-2024 Patient encounter procedure 03/20/2024 1:40 PM EST Office Visit [facility] [address] [place] [address] Anthony Ying, [address] [place] [address] [facility] Start: 01-29-2024 Tetanus vaccination TETANUS [facility] Start: 01-20-2024 End: 01-20-2024 Patient encounter procedure 01/20/2024 9:20 AM EST Office Visit [facility] [address] [place] [address] Anthony Ying, [address] [place] [id number] [facility] Start: 12-23-2023 End: 12-22-2024 BERTO MULTIPLEX SCRN WITH REFLEX [facility] Comment on above: Expected: 12/23/2023 , Expires: 12/22/2024 Start: 12-23-2023 End: 12-22-2024 ANCA INIT SCRN (ANCA, PR3AB, MPO) [facility] Comment on above: Expected: 12/23/2023 , Expires: 12/22/2024 Start: 12-23-2023 End: 12-22-2024 M TUBERCULOSIS BY QUANTIFERON, BLD [facility] Comment on above: Expected: 12/23/2023 , Expires: 12/22/2024 Start: 12-23-2023 End: 12-22-2024 MR Brain WO and W contrast IV MRI BRAIN WITH AND WITHOUT CONTRAST Imaging Routine Bilateral posterior uveitis Expected: 12/23/2023, Expires: 12/22/2024 [facility] Comment on above: Expected: 12/23/2023 , Expires: 12/22/2024 Start: 12-23-2023 End: 12-23-2023 Patient encounter procedure 12/23/2023 8:00 AM EDT Office Visit [facility] [address] [place] [address] Anthony Ying DO [address] [place] [phone] [facility] Start: 12-12-2023 End: 12-12-2023 Patient encounter procedure [facility] Start: 10-27-2023 COVID-19 VACCINE ( season) COVID-19 VACCINE () [facility] Start: 10-27-2023 COVID-19 VACCINE () COVID-19 VACCINE () [facility] Start: 10-27-2023 Influenza vaccination INFLUENZA VACC INE (#1) [facility] Start: 06-06-2023 End: 06-06-2023 Patient encounter procedure 06/06/2023 3:30 PM EDT Office Visit Division of Neuro Oncology at [facility] [address] [place] [address] Kurtis Harris MD [address] [place] [address] Division of [facility] Oncology at [facility] Start: 06-06-2023 End: 06-05-2024 MR Thoracic spine WO and W contrast IV [facility] Work Phone: Comment on above: 1 Occurrences starti ng 06/06/2023 until 06/06/2023 Expected: 06/06/2023 , Expires: 06/05/2024 Start: 06-06-2023 End: 06-06-2023 Patient encounter procedure 06/06/2023 1:40 PM EDT Appointment [facility] [address] [place] [address] Kurtis Harris MD [address] [place] [address] [facility] Start: 12-04-2022 End: 12-05-2023 MR Thoracic spine WO and W contrast IV MRI SPINE THORACIC WITH AND WITHOUT CONTRAST Imaging Routine Thoracic spine tumor Expected: 12/04/2022, Expires: 12/05/2023 [facility] Comment on above: Expected: 12/04/2022 , Expires: 12/05/2023 Start: 12-04-2022 End: 12-04-2022 Patient encounter procedure [facility] Start: 10-26-2022 COVID-19 VACCINE () COVID-19 VACCINE () [facility] Start: 10-26-2022 Influenza vaccination INFLUENZA VACC INE (#1) [facility] Start: 10-16-2022 End: 10-16-2022 Patient encounter procedure [facility] Start: 05-14-2022 End: 05-14-2022 Patient encounter procedure 05/14/2022 Office Visit Ophthalmology Lois Horowitz MD, PhD [address] [place], [place] [id number] [facility] Start: 04-14-2022 End: 10-12-2022 MR Thoracic spine WO and W contrast IV MRI SPINE THORACIC WITH AND WITHOUT CONTRAST Imaging Routine Meningioma, spinal Expected: 04/14/2022 (Approximate), Expires: 10/12/2022 [facility] Work Phone: Comment on above: Expected: 04/14/2022 (Approximate), Expires: 10/12/2022 Start: 04-06-2022 End: 04-05-2023 MR Thoracic spine WO and W contrast IV MRI SPINE THORACIC WITH AND WITHOUT CONTRAST Imaging Routine Thoracic spine tumor Expected: 04/06/2022, Expires: 04/05/2023 [facility] Work Phone: Comment on above: Expected: 04/06/2022 , Expires: 04/05/2023 Start: 04-05-2022 End: 04-05-2022 Patient encounter procedure [facility] Start: 11-13-2021 End: 11-13-2021 Patient encounter procedure 11/13/2021 Office Visit Ophthalmology Lois Horowitz MD, PhD [address] [place] [address] [address] [place] [address] [facility] Start: 11-13-2021 End: 11-13-2021 Patient encounter procedure 11/13/2021 Office Visit Ophthalmology Lois Horowitz MD, PhD [address] [place] [address] [place] [address] [facility] Start: 10-26-2021 Influenza vaccination INFLUENZA VACC INE (#1) [facility] Start: 10-19-2021 End: 10-19-2021 Patient encounter procedure [facility] Start: 10-26-2020 Influenza vaccination INFLUENZA VACC INE (#1) [facility] Start: 12-04-2018 End: 12-04-2018 Appointment Appointment [facility] Work Phone: Start: 2018 RSV VACCINE (1 - 1-dose 60+ series) RSV VACCINE (1 - 1-dose 60+ series) [facility] Start: 11-25-2014 Hepatitis B vaccination HEP B VACCINE (2 of 3 - 19+ 3-dose series) [facility] Start: 09-20-2013 Zoster vaccine hzv live for subcutaneous use ZOSTER (SHINGLES) VACCINE (1 of 2) [facility] Start: 2008 Screening for malignant neoplasm of lung LUNG CANCER SCREENING [facility] Start: 2008 Zoster vaccine hzv live for subcutaneous use ZOSTER (SHINGLES) VACCINE (1 of 2) [facility] Start: 09-09-2003 Colonoscopy COLORECTAL CAN CER SCREENING DISCUSSION [facility] Start: 09-09-2003 Screening for malignant neoplasm of colon COLORECTAL CANCER SCREENING DISCUSSION [facility] Start: 1998 Fasting lipid profile LIPID SCREENIN G [facility] Start: 1998 Lipid panel LIPID SCREENING [facility] Start: 1998 Screening for malignant neoplasm of breast MAMMOGRAM SCREENING DISCUSSION [facility] Start: 1998 Screening mammography MAMMOGRA M SCREENING DISCUSSION [facility] Start: 09-09-1979 Screening for malignant neoplasm of cervix CERVICAL CANCER SCREENING DISCUSSION [facility] Start: 1977 Pneumococcal vaccination PNEUMOCOCCAL VACCINE SERIES (1 of 2 - PCV) [facility] Start: 1977 Third diphtheria, tetanus and acellular pertussis (DTaP) vaccination TDAP (ADULT) [facility] Start: 1976 Tetanus vaccination TETANUS [facility] Start: 1973 HIV screening HIV SCREENING DISCUSSI ON [facility] Start: 1964 Pneumococcal vaccination PNEUMOCOCCAL VACCINE SERIES (1 of 2 - PCV) [facility] Start: 1964 PNEUMOCOCCAL VACCINE SERIES (1 - PCV) PNEUMOCOCCAL VACCINE SERIES (1 - PCV) [facility] Start: 1964 PNEUMOCOCCAL VACCINE SERIES (1 of 2 - PCV) PNEUMOCOCCAL VACCINE SERIES (1 of 2 - PCV) [facility] Start: 1964 PNEUMOCOCCAL VACCINE SERIES (1 of 2 - PPSV23) PNEUMOCOCCAL VACCINE SERIES (1 of 2 - PPSV23) [facility] Start: 09-09-1963 COVID-19 VACCINE (1) COVID-19 VACCIN E (1) [facility] Start: 03-11-1959 COVID-19 VACCINE (#1) COVID-19 VACCI NE (#1) [facility] Start: 1958 Hepatitis C antibody , confirmatory test HEPATITIS C VIRUS SCREENING [facility] Start: 1958 Hepatitis C screening HEPATITI S C VIRUS SCREENING [facility] Start: 1958 Screening for osteoporosis DEXA SCAN DISCUSSION [facility] Start: 1958 Tetanus vaccination TETANUS [facility] End: 02-05-2025 Fluorescein icg angrph w/multiframe i&r uni/bi FLUORESCEIN ANGIOGRAPHY AND ICGA-OU ME - OFFICE PERFORMED IMAGING Routine Bilateral posterior uveitis 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, without long-term current use of insulin 3 Occurrences starting 02/13/2024 until 02/05/2025, 1 completed [facility] Comment on above: 3 Occurrences starti ng 02/13/2024 until 02/05/2025, 1 completed End: 10-30-2024 Fundus photography w/interpretation & report FUNDUS PHOTOGRAPHY-OU ME - OFFICE PERFORMED IMAGING Routine Pigmentary retinal dystrophy 12 Occurrences starting 11/06/2023 until 10/30/2024, 1 completed [facility] Comment on above: 12 Occurrences start ing 11/06/2023 until 10/30/2024, 1 completed End: 03-17-2025 Fundus photography w/interpretation & report FUNDUS PHOTOGRAPHY-OU ME - OFFICE PERFORMED IMAGING Routine Bilateral posterior uveitis 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, without long-term current use of insulin 3 Occurrences starting 03/19/2024 until 03/17/2025, 1 completed [facility] Comment on above: 3 Occurrences starti ng 03/19/2024 until 03/17/2025, 1 completed End: 10-12-2021 MR Thoracic spine WO and W contrast IV [facility] Work Phone: Comment on above: 1 Occurrences starti ng 10/12/2021 until 10/12/2021 End: 04-02-2022 MR Thoracic spine WO and W contrast IV [facility] Work Phone: Comment on above: 1 Occurrences starti ng 04/02/2022 until 04/02/2022 End: 10-04-2022 MR Thoracic spine WO and W contrast IV MRI SPINE THORACIC WITH AND WITHOUT CONTRAST Imaging Routine Thoracic spine tumor 1 Occurrences starting 10/04/2022 until 10/04/[facility]22 [facility] Work Phone: Comment on above: 1 Occurrences starti ng 10/04/2022 until 10/04/2022 End: 10-18-2020 MRI of thoracic spine [facility] Work Phone: Comment on above: 1 Occurrences starti ng 10/18/2020 until 10/18/2020 End: 10-30-2024 Optical coherence tomography of retina OCT/HRT MACULA OU ME - OFFICE PERFORMED IMAGING Routine Pigmentary retinal dystrophy 12 Occurrences starting 11/06/2023 until 10/30/2024, 1 completed [facility] Comment on above: 12 Occurrences start ing 11/06/2023 until 10/30/2024, 1 completed End: 03-17-2025 Optical coherence tomography of retina OCT/HRT MACULA OU ME - OFFICE PERFORMED IMAGING Routine 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 pdf [facility] Work Phone: Immunizations Immunization Date Immunization Notes Care Provider [facility] 12-12-2023 influenza, seasonal, injectable, preservative free Dr. Darshan Rowley MD Work Phone: [facility] 12-12-2023 influenza virus vaccine, unspecified formulation Rody Hampton MD Work Phone: [facility] 11-22-2022 influenza, injectabl e, quadrivalent, preservative free Dr. Darshan Rowley Work Phone: [facility] 11-22-2022 influenza virus vaccine, unspecified formulation Lois Horowitz MD, PhD Work Phone: [facility] 12-13-2021 influenza, injectabl e, quadrivalent, preservative free Dr. Darshan Rowley Work Phone: [facility] 12-13-2021 influenza, seasonal, injectable [facility] 12-13-2021 influenza virus vaccine, unspecified formulation Renee Evans COMMUNICATIONS ADVISOR-GROUP CONTRACT ANALYST Work Phone: [facility] 12-28-2020 Covid (Moderna) Dr. Darshan baugh Work Phone: [facility] 11-30-2020 influenza, injectabl e, quadrivalent, preservative free Dr. Darshan Rowley Work Phone: [facility] 11-30-2020 influenza, seasonal, injectable Dr. Darshan Rowley Work Phone: [facility] 11-30-2020 influenza virus vaccine, unspecified formulation Kurtis Harris MD Work Phone: [facility] 04-12-2020 Covid (Moderna) Dr. Darshan baugh Work Phone: [facility] 03-15-2020 Covid (Moderna) Dr. Darshan baugh Work Phone: [facility] 12-02-2019 influenza, injectabl e, quadrivalent, preservative free Dr. Darshan Rowley Work Phone: [facility] 12-02-2019 influenza, seasonal, injectable Dr. Darshan Rowley Work Phone: [facility] 11-20-2018 influenza, injectabl e, quadrivalent, preservative free Dr. Darshan Rowley Work Phone: [facility] 11-20-2018 influenza, seasonal, injectable Dr. Darshan Rowley Work Phone: [facility] 12-24-2017 influenza, injectabl e, quadrivalent, preservative free Dr. Darshan Rowley Work Phone: [facility] 12-24-2017 influenza, seasonal, injectable Dr. Darshan Rowley Work Phone: [facility] 03-16-2014 hepatitis B vaccine, pediatric or pediatric/adolescent dosage Dr. Darshan Rowley Work Phone: [facility] 02-03-2014 hepatitis B vaccine, pediatric or pediatric/adolescent dosage Dr. Darshan Rowley Work Phone: [facility] 01-28-2014 tetanus toxoid, redu freddie diphtheria toxoid, and acellular pertussis vaccine, adsorbed Dr. Darshan Rowley Work Phone: [facility] 07-26-2013 zoster vaccine, unspecified formulation Renee Evans COMMUNICATIONS ADVISOR-GROUP CONTRACT ANALYST Work Phone: [facility] Payers Date Payer Category Payer Medicare (Managed Care) MEDICARE [employer] M[employer] HMO PPO [id number] 2024 Medicare [id number] 2024 Medicare [id number] 2023 Self-pay [id number] 2022 Managed Care (unspecified) AEMARILEE LEONARD [id number] 2022 Private Health Insurance AETROMARIO LEONARD [id number] 2022-Present [address] [place] [address] [id number] 2022 Unknown [id number] 2020 Unknown MEDICAL MUTUAL M MO [id number] 2020-Present [address] [place] [address] [id number] 2018 Unknown MEDICAL MUTUAL M MO NETWORK ACCESS [id number] 2018-Present [address] [address] [place] [address] [id number] 1958 Unknown [id number] 2.16.840.1.264293.3.579.2. 594 1958 Unknown [id number] 2.16.840.1.061307.3.579.2. 594 1958 Unknown [id number] 2.16.840.1.281685.3.579.2. 594 1958 Unknown [id number] 2.16.840.1.792130.3.579.2. 594 1958 Unknown [id number] 2.16.840.1.388601.3.579.2. 594 1958 Unknown [id number] 2.16.840.1.227114.3.579.2. 594 1958 Unknown [id number] 2.16.840.1.448578.3.579.2. 594 1958 Unknown [id number] 2.16.840.1.066261.3.579.2. 594 1958 Unknown [id number] 2.16.840.1.815448.3.579.2. 594 Unknown [id number] Unknown [id number] Unknown [id number] 2.16.840.1.085114.3.579.2. 462 Unknown [id number] 2.16.840.1.912964.3.579.2. 462 Unknown [id number] 2.16.840.1.551940.3.579.2. 462 Unknown [id number] 2.16.840.1.070302.3.579.2. 462 Unknown [id number] 2.16.840.1.946640.3.579.2. 462 Unknown [id number] 2.16.840.1.291580.3.579.2. 462 Unknown [id number] 2.16.840.1.757884.3.579.2. 462 Unknown [id number] 2.16.840.1.865072.3.579.2. 462 Unknown [id number] 2.16.840.1.084671.3.579.2. 462 Unknown [id number] 2.16.840.1.457096.3.579.2. 462 Unknown [id number] 2.16.840.1.518743.3.579.2. 462 Unknown [id number] 2.16.840.1.994257.3.579.2. 462 Social History Date Type Detail Facility Start: 05-10-2021 End: 06-04-2023 Assertion Unknown if ever smoked [facility] Work Phone: Start: 12-29-2018 End: 11-12-2023 Tobacco smoking status NHIS Smokes tobacco daily [facility] History of tobacco use Cigarette Smoker [facility] Start: 12-29-2018 End: 06-06-2023 Cigarettes smoked current (pack per day) - Reported 1 [facility] Start: 12-29-2018 End: 11-12-2023 Tobacco use and exposure Smokeless tobacco non-user [facility] Start: 05-23-2021 End: 10-30-2024 Alcohol intake Current drinker of alcohol (finding) [facility] Start: 03-29-2020 History SDOH Alcohol Comment social [facility] Start: 1960 Sex Assigned At Not on file [facility] Start: 05-13-2021 End: 05-23-2021 Exposure to SARS-CoV-2 (event) Not sure [facility] Start: 12-25-2017 Cigarettes [facility] Start: 1960 Sex Assigned At Female [facility] Start: 03-26-2022 End: 04-05-2022 Exposure to SARS-CoV-2 (event) Unable to assess [facility] Start: 05-14-2022 End: 06-06-2023 Tobacco use panel [facility] Adolescent depressio n screening assessment 0 [facility] Start: 05-19-2021 Gender identity Identifies as female gender (finding) [facility] Start: 12-26-2018 End: 05-13-2024 Sex Female (finding) [facility] Start: 06-05-2024 Sexual orientation Choose not to disclose [facility] [facility] NEGATED: Highlighted rowStart: 12-04-2018 End: 12-04-2018 Employment detail Employment detail [facility] Work Phone: Medical Equipment Procedure Code Equipment Code Equipment Origin al Text Equipment Identifier Dates Total replacement of knee joint DOUGH,CEMENT 6191-1-010 FDA Start: 12-23-2017 Total replacement of knee joint DOUGH,CEMENT 6191-1-010 FDA Start: 12-23-2017 Total replacement of knee joint TRIATHLON PATELLA FDA Start: 12-23-2017 Total replacement of knee joint TRIATHLON POST STAB FEM COMP FDA Start: 12-23-2017 Total replacement of knee joint TRIATHLON PRIM TIB BASEPLATE FDA Start: 12-23-2017 Total replacement of knee joint TRIATHLON TIBIAL INSERT-PS FDA Start: 12-23-2017 Total replacement of knee joint DOUGH,CEMENT 6191-1-010 FDA Start: 12-23-2017 Total replacement of knee joint DOUGH,CEMENT 6191-1-010 FDA Start: 12-23-2017 Total replacement of knee joint TRIATHLON PATELLA FDA Start: 12-23-2017 Total replacement of knee joint TRIATHLON POST STAB FEM COMP FDA Start: 12-23-2017 Total replacement of knee joint TRIATHLON PRIM TIB BASEPLATE FDA Start: 12-23-2017 Total replacement of knee joint TRIATHLON TIBIAL INSERT-PS FDA Start: 12-23-2017 Total replacement of knee joint DOUGH,CEMENT 6191-1-010 FDA Start: 12-23-2017 Total replacement of knee joint DOUGH,CEMENT 6191-1-010 FDA Start: 12-23-2017 Total replacement of knee joint TRIATHLON PATELLA FDA Start: 12-23-2017 Total replacement of knee joint TRIATHLON POST STAB FEM COMP FDA Start: 12-23-2017 Total replacement of knee joint TRIATHLON PRIM TIB BASEPLATE FDA Start: 12-23-2017 Total replacement of knee joint TRIATHLON TIBIAL INSERT-PS FDA Start: 12-23-2017 Total replacement of knee joint DOUGH,CEMENT 6191-1-010 FDA Start: 12-23-2017 Total replacement of knee joint DOUGH,CEMENT 6191-1-010 FDA Start: 12-23-2017 Total replacement of knee joint TRIATHLON PATELLA FDA Start: 12-23-2017 Total replacement of knee joint TRIATHLON POST STAB FEM COMP FDA Start: 12-23-2017 Total replacement of knee joint TRIATHLON PRIM TIB BASEPLATE FDA Start: 12-23-2017 Total replacement of knee joint TRIATHLON TIBIAL INSERT-PS FDA Start: 12-23-2017 Total replacement of knee joint DOUGH,CEMENT 6191-1-010 FDA Start: 12-23-2017 Total replacement of knee joint DOUGH,CEMENT 6191-1-010 FDA Start: 12-23-2017 Total replacement of knee joint TRIATHLON PATELLA FDA Start: 12-23-2017 Total replacement of knee joint TRIATHLON POST STAB FEM COMP FDA Start: 12-23-2017 Total replacement of knee joint TRIATHLON PRIM TIB BASEPLATE FDA Start: 12-23-2017 Total replacement of knee joint TRIATHLON TIBIAL INSERT-PS FDA Start: 12-23-2017 Total replacement of knee joint DOUGH,CEMENT 6191-1-010 FDA Start: 12-23-2017 Total replacement of knee joint DOUGH,CEMENT 6191-1-010 FDA Start: 12-23-2017 Total replacement of knee joint TRIATHLON PATELLA FDA Start: 12-23-2017 Total replacement of knee joint TRIATHLON POST STAB FEM COMP FDA Start: 12-23-2017 Total replacement of knee joint TRIATHLON PRIM TIB BASEPLATE FDA Start: 12-23-2017 Total replacement of knee joint TRIATHLON TIBIAL INSERT-PS FDA Start: 12-23-2017 Total replacement of knee joint DOUGH,CEMENT 6191-1-010 FDA Start: 12-23-2017 Total replacement of knee joint DOUGH,CEMENT 6191-1-010 FDA Start: 12-23-2017 Total replacement of knee joint TRIATHLON PATELLA FDA Start: 12-23-2017 Total replacement of knee joint TRIATHLON POST STAB FEM COMP FDA Start: 12-23-2017 Total replacement of knee joint TRIATHLON PRIM TIB BASEPLATE FDA Start: 12-23-2017 Total replacement of knee joint TRIATHLON TIBIAL INSERT-PS FDA Start: 12-23-2017 Functional Status Date Assessment Result Facility 06-06-2023 Are you deaf, or do you have serious difficulty hearing Yes 06/06/2023 4:20 PM Hiwot Rodriguez, JOE Yes [facility] 06-06-2023 Are you blind, or do you have serious difficulty seeing, even when wearing glasses No 06/06/2023 4:20 PM Hiwot Rodriguez, JOE No [facility] 06-06-2023 Do you have serious difficulty walking or climbing stairs No 06/06/2023 4:20 PM Hiwot Rodriguez, JOE No [facility] 06-06-2023 Do you have difficul ty dressing or bathing No 06/06/2023 4:20 PM Hiwot Rodriguez, JOE No [facility] 06-06-2023 Because of a physica l, mental, or emotional condition, do you have difficulty doing errands alone such as visiting a physician's office or shopping No 06/06/2023 4:20 PM EDT Hiwot Dumont, RN No [facility] Mental Status Date Assessment Result Facility 06-06-2023 Because of a physica l, mental, or emotional condition, do you have serious difficulty concentrating, remembering, or making decisions No 06/06/2023 4:20 PM EDT Hiwot Dumont, RN No [facility] Clinical Notes 05-23-2021 to 10-30-2024 Renee Sher - 10/30/2024 10:30 AM EDTCsushila Hampton MD - 10/30/2024 10:30 AM EDTPatient Blaire Ying DO - 07/27/2024 1:40 PM EDTCbayron Ken - 07/27/2024 1:40 PM EDT Note Date & Type Note Facility 10-30-2024 History of Present illness Narrative Post void residual completed today. Result of 44 entered into Urology Flowsheet. Tess Ken was offered and accepted a Medical Risk Advisor for this exam/procedure/test 10/30/2024. Name of Medical Risk Advisor: RENEE SHER New Patient Visit: Urology Female Pelvic Medicine and Reconstructive Surgery Chief Complaint Patient presents with New Patient Dysuria and Perineal Pain Referring Provider: Self, Self HPI I had the pleasure of seeing 64 y.o. female with has a past medical history of Arthritis, Cataract, Diabetes mellitus, Essential hypertension, benign, Hyperlipidemia, Pigmentary retinal dystrophy, OU, and Thoracic spine tumor. in the urology clinic today for pelvic pain, urgency, frequency, RUTIS. Pt was seen by Dr Smith in 09/17f ro [facility]OSS. On Cysto she was noted to have 2 erythematous areas on her bladder & underwent a a cysto/biopsy on 09/11/23 Per the op note: 2 areas of ulceration - Biopsy- R posterior dome, left posterior wall Biopsy showed: chronic follicular cystitis The pt was told that the took a bigger biopsy then expected & had to do a more extensive fulguration Since then the pt has been experiencing urgency, frequency [id number], perineal pain with standing - radiates from L labia to perineum She has tried gemtesa, elavil & lidocaine jelly with no improvement Pain is NOT alleviated with voiding Pain is worse if she does not drink at least 60oz water She is on vit c, cranberry, probiotics & daily keflex to prevent UTIS - never been on topical estrogen Was seen by ID for recurrent telma infections GRACIELA: no UUI: no Pads: 0 Urgency: yes Frequency: Q60min Nocturia: 3 Straining to void: no Empties to completion: yes Fluids: 60oz Caffeine: 20oz ROS: Hematuria: yes UTIs: yes Kidney stones: no Bowel function: Bowel Movement per Week: QD Constipation: no Diarrhea: no Fecal Incontinence: no Gynecological History: Vaginal deliveries: 4 Menopausal: yes Prior hysterectomy: no History of abnormal PAPs: no Hormone replacement: no Prolapse Symptoms: Bulge/pressure: no Sexual History: Sexually active:yes Desires to be sexually active in future: yes Dyspareunia: no Past Medical History Past Medical History[1] Past Surgical History Past Surgical History[2] Medications Current Medications[3] Allergies Allergies[4] Social History Social History[5] Family History Family History Problem Relation Age of Onset Cataract Mother Heart Disease - Other Mother Heart Failure Mother Cataract Father Other - Specify Father COPD Emphysema Father Review of Systems Pertinent positives and negatives are noted in HPI. Physical Exam BP 140/81 (BP Location: Right arm, BP Position: Sitting) Pulse 68 Temp 98 F (36.7 C) (Infrared) Ht 1.778 m (5' 10) Wt 88.6 kg (195 lb 6.4 oz) SpO2 97% BMI 28.04 kg/m Smoking Status Every Day Body mass index is 28.04 kg/m . Constitutional: NAD, WDWN. HEENT: NCAT. Conjunctivae normal. MMM. Cardiovascular: Well perfused. Pulmonary/Chest: Respirations are even and non-labored bilaterally. Abdominal: Soft. No distension, tenderness, masses or guarding. No CVA tenderness. Neurological: AA + O x 3. Cranial Nerves II-XII grossly intact. Extremities: MORALES x 4, Warm. No clubbing. No cyanosis. Skin: [place], warm and dry. No rashes noted. Pelvic Exam: Their was a Medical Risk Advisor for this exam/procedure/test. Name of Medical Risk Advisor: Rneee Sher MA External genitalia: Normal labia minora and majora, normal clitoris, prepuce YARD COUPLER: negative, 30 hypermobility Urinary system: urethral meatus normal, urethra and bladder palpate normally Vaginal: atrophic Levator spasm: no No POP Labs Lab Results Component Value Date WBC 5.92 12/23/2023 HGB 13.2 12/23/2023 HCT 41.3 12/23/2023 PLATELET 265 12/23/2023 MCV 103.3 (H) 12/23/2023 Lab Results Component Value Date SODIUM 141 12/23/2023 POTASSIUM 4.5 12/23/2023 CHLORIDE 104 12/23/2023 CO2 27 12/23/2023 BUN 25 12/23/2023 CREATSERUM 0.69 12/23/2023 GLUCOSE 139 (H) 12/23/2023 Lab Results Component Value Date PH 7.39 02/16/2019 GLUCOSE 139 (H) 12/23/2023 Post-Void Residual A post-void residual was measured by ultrasonic bladder scanner. PVR: [address] 10/19: Results- images not available Kidneys - normal, no hydro Bladder: diffuse bladder wall thickening towards left side & anterior aspect Assessment Ms. Ken is a 64 y.o. female with the following diagnosis: ICD-10-CM 1. Pelvic pain R10.2 2. Urgency, frequency 3. RUTIS 4. Recurrent yeast infections Plan 1. PFPT, trial of elevail 10mg 2. We reviewed the following treatment options for OAB: Lifestyle modification including decreasing fluid intake to 48oz/day, avoidance of caffeine and bladder irritants and timed voiding Weight loss Pelvic floor exercises Medical therapy ( anticholinergics and beta-3 agonists) Posterior tibial nerve stimulation (PTNS) Botox injections Sacral neuromodulation At this point the patient has failed: gemtesa The patient would like to proceed with: myrbetriq 50mg 3. We reviewed the following education and treatment for recurrent UTIs: Topical vaginal estrogen to alter vaginal pH and improve vaginal tissue Probiotics - to alter bowel chuck Good bowel regimen to decrease perineal colonization Cranberry supplements - Ellura- OTC supplements that prevent bacteria from adhering to the bladder lining 4. Recurrent yeast infections - stop Kelfex prophylaxis Cysto to r/o bladder abnormalities/ ulcers based on cysto All questions were answered. The patient will follow up in cysto We plan to continue to follow this patient for this ongoing complex condition Rody Hampton MD [1] Past Medical History: Diagnosis Date Arthritis Cataract Diabetes mellitus Essential hypertension, benign Hyperlipidemia Pigmentary retinal dystrophy, OU diagnosed > 15 yrs ago Thoracic spine tumor [2] Past Surgical History: Procedure Laterality Date REMOVAL CATARACT WITH INSERTION INTRAOCCULA Left 05/03/2021 LAMINECTOMY W/ BX OR EXCISION LESION INTRASPINAL INTRADURAL THORACIC Midline 02/16/2019 Laterality: Midline; Surgeon: Lauren Horowitz MD; Location: [facility] MAIN OR FUSION POSTERIOR THORACIC Midline 02/16/2019 Laterality: Midline; Surgeon: Lauren Horowitz MD; Location: [facility] MAIN OR- No metal seen on imaging KNEE REPLACEMENT Total TONSILLECTOMY [3] Current Outpatient Medications Medication Sig Dispense Refill glipiZIDE 5 MG tablet regular release Take 1 tablet by mouth 2 times daily. losartan 25 MG Tab tablet Take 1 tablet by mouth daily every morning. meloxicam 15 MG tablet Take 0.5 tablets by mouth daily. metformin 1000 MG Tab tablet Take 1 tablet by mouth 2 times daily. rosuvastatin 10 MG Tab tablet Take 5 tablets by mouth at bedtime. dexAMETHasone 0.7 MG Implant 0.7 mg by Intravitreal route Once (In Clinic) for 1 dose. (Patient not taking: Reported on 10/30/2024) 1 Each 0 dexAMETHasone 0.7 MG Implant 0.7 mg by Intravitreal route Once (In Clinic) for 1 dose. 1 Each 0 Empagliflozin (JARDIANCE PO) Take 5 mg by mouth daily every morning. (Patient not taking: Reported on 11/12/2023) Insulin lispro, 1 Unit Dial, 100 UNIT/ML Solution Pen-injector Inject 4 Units under the skin before meals & at bedtime. Moxifloxacin 400 MG tablet Nitrofurantoin, macrocrystal-monohydrate, 100 MG capsule Take 1 capsule by mouth 2 times daily. No current facility-administered medications for this visit. [4] Allergies Allergen Reactions Methocarbamol Muscle Rigidity Lisinopril Cough cough [5] Social History Tobacco Use Smoking status: Every Day Current packs/day: 1.00 Average packs/day: 1 pack/day for 21.0 years (21.0 ttl pk-yrs) Types: Cigarettes Smokeless tobacco: Never Vaping Use Vaping status: Never Used Substance Use Topics Alcohol use: Yes Alcohol/week: 3.0 standard drinks of alcohol Types: 3 Glasses of wine per week Comment: social Drug use: Never documented in this encounter [facility] 10-30-2024 Instructions Rody Hampton MD - 10/30/2024 10:30 AM EDT We reviewed the following education and treatment for recurrent UTIs: Topical vaginal estrogen to alter vaginal pH and improve vaginal tissue Probiotics - to alter bowel chuck Good bowel regimen to decrease perineal colonization Cranberry supplements - Ellura- OTC supplements that prevent bacteria from adhering to the bladder lining documented in this encounter [facility] 07-27-2024 Note Table formatting fro m the original result was not included. Procedure date: 07/27/2024. Intraocular injection: 0.7 mg dexAMETHasone 0.7 MG Route: Intravitreal, Site: Left Eye [facility]: 6196-4442-35, Lot: [id number], Expiration date: 05/26/2026, Waste: 0 mg Notes Dexamethasone (Ozurdex) 0.7 mg Intraocular Injection Left Eye - OPHTHALMOLOGY PROCEDURE NOTE PROCEDURE PERFORMED BY: Anthony Ying DO HEALTH CARE CONSULTANT(S): None ATTENDING: Anthony Ying DO PROCEDURE DATE: 07/27/2024 PROCEDURE START TIME: 8:45 PM INDICATIONS: Treatment of ICD-10-CM 1. Bilateral posterior uveitis H30.93 dexAMETHasone 0.7 MG Implant ME DEXAMETHASONE IO IMPL - OS OCT/HRT MAC[facility]A OU FUNDUS PHOTOGRAPHY-OU ME DEXAMETHASONE IO IMPL - OS 2. 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 EBL: None Specimen: None Complications: None CONSENT: Informed consent was obtained prior to the procedure after discussion of the risks, benefits, alternatives, and expected outcomes were discussed with the patient. The consent was placed in the chart. The possibilities of infection, reaction to medication, retinal tear, bleeding, cataract, glaucoma, increased blood glucose levels, the need for additional procedures, failure to diagnosis a condition, and creating a complication requiring surgery were discussed with the patient. The patient was made aware that the medication is expected to continue in the eye for up to 6 months. The patient concurred with the proposed plan and signed the consent form, giving informed consent. DOES THIS PROCEDURE REQUIRE A UNIVERSAL PROTOCOL? Yes. Henderson Protocol is required. Pre-procedure verification was completed. The patient verified the site and procedure. The consent was confirmed, procedure sites were identified and marked, and a timeout was called before the start of the procedure. ANESTHESIA: topical proparacaine/tetracaine and subconjunctival lidocaine 2% with epinephrine 1:200,000 PROCEDURE DETAILS: The operative eye was prepped with Betadine. Using a single dose sterile delivery unit, the following medication was injected: Ozurdex (Dexamethasone) 0.7 mg implant. The intravitreal pars plana injection was placed 3.5-4.0 mm from the limbus. Following the injection the eye was irrigated with sterile saline and an antibiotic drop was instilled. [facility] 07-27-2024 Note Table formatting fro m the original result was not included. Procedure date: 07/27/2024. Intraocular injection: 0.7 mg dexAMETHasone 0.7 MG Route: Intravitreal, Site: Left Eye [place]: [id number], Lot: [id number], Expiration date: 05/26/2026, Waste: 0 mg Notes Dexamethasone (Ozurdex) 0.7 mg Intraocular Injection Left Eye - OPHTHALMOLOGY PROCEDURE NOTE PROCEDURE PERFORMED BY: Anthony Ying DO HEALTH CARE CONSULTANT(S): None ATTENDING: Anthony Ying DO PROCEDURE DATE: 07/27/2024 PROCEDURE START TIME: 8:45 PM INDICATIONS: Treatment of ICD-10-CM 1. Bilateral posterior uveitis H30.93 dexAMETHasone 0.7 MG Implant ME DEXAMETHASONE IO IMPL - OS OCT/HRT [place] OU FUNDUS PHOTOGRAPHY-OU ME DEXAMETHASONE IO IMPL - OS 2. 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 EBL: None Specimen: None Complications: None CONSENT: Informed consent was obtained prior to the procedure after discussion of the risks, benefits, alternatives, and expected outcomes were discussed with the patient. The consent was placed in the chart. The possibilities of infection, reaction to medication, retinal tear, bleeding, cataract, glaucoma, increased blood glucose levels, the need for additional procedures, failure to diagnosis a condition, and creating a complication requiring surgery were discussed with the patient. The patient was made aware that the medication is expected to continue in the eye for up to 6 months. The patient concurred with the proposed plan and signed the consent form, giving informed consent. DOES THIS PROCEDURE REQUIRE A UNIVERSAL PROTOCOL? Yes. Henderson Protocol is required. Pre-procedure verification was completed. The patient verified the site and procedure. The consent was confirmed, procedure sites were identified and marked, and a timeout was called before the start of the procedure. ANESTHESIA: topical proparacaine/tetracaine and subconjunctival lidocaine 2% with epinephrine 1:200,000 PROCEDURE DETAILS: The operative eye was prepped with Betadine. Using a single dose sterile delivery unit, the following medication was injected: Ozurdex (Dexamethasone) 0.7 mg implant. The intravitreal pars plana injection was placed 3.5-4.0 mm from the limbus. Following the injection the eye was irrigated with sterile saline and an antibiotic drop was instilled. [facility] 07-27-2024 Note Procedure date: 2024. Right Eye Quality was good. Findings include atrophy, outer retinal layer disruption. Interval change is same. Left Eye Quality was good. Findings include atrophy, outer retinal layer disruption. Interval change is same. [facility] 07-27-2024 Note Procedure date: 2024. Right Eye Clear. Disc findings include normal observations. Vessel findings include normal. Macula findings include atrophy. Pigmentary Change. Interval change is same. Left Eye Clear. Disc findings include normal observations. Vessel findings include normal. Macula findings include atrophy. Pigmentary Change. Interval change is same. [facility] 07-27-2024 Note Procedure date: 2024. Right Eye Clear. Disc findings include normal observations. Vessel findings include normal. Macula findings include atrophy. Pigmentary Change. Interval change is same. Left Eye Clear. Disc findings include normal observations. Vessel findings include normal. Macula findings include atrophy. Pigmentary Change. Interval change is same. [facility] 07-27-2024 Note Procedure date: 2024. Right Eye Quality was good. Findings include atrophy, outer retinal layer disruption. Interval change is same. Left Eye Quality was good. Findings include atrophy, outer retinal layer disruption. Interval change is same. ORDEROUT 07-27-2024 History of Present illness Narrative ATTENDING PHYSICIAN NOTE Chief Complaint Patient presents with Follow-up HPI 63 y.o. female presents for OCT and Optos and possible Ozurdex Left Eye for bilateral posterior uveitis. blurred vision OS and low vision OD Denies any stinging, burning, irritation, pain after last injection Patient current eye medication regiment: Ozerdex Denies side effects from current regiment (stinging, burning, redness, irritation) Refill not needed pharmacy verified Compliant with current regiment Denies hospital, surgery or change in health since last visit Last edited by Catalina Ken on 07/27/2024 2:25 PM. Referring Doctor: Self Self No address on file Medications: Current Outpatient Medications Medication Sig dexAMETHasone 0.7 MG Implant 0.7 mg by Intravitreal route Once (In Clinic) for 1 dose. Empagliflozin (JARDIANCE PO) Take 5 mg by mouth daily every morning. (Patient not taking: Reported on 11/12/2023) Insulin lispro, 1 Unit Dial, 100 UNIT/ML Solution Pen-injector Inject 4 Units under the skin before meals & at bedtime. losartan 25 MG Tab tablet Take 1 tablet by mouth daily every morning. meloxicam 15 MG tablet Take 0.5 tablets by mouth daily. metformin 1000 MG Tab tablet Take 1 tablet by mouth 2 times daily. Moxifloxacin 400 MG tablet Nitrofurantoin, macrocrystal-monohydrate, 100 MG capsule Take 1 capsule by mouth 2 times daily. rosuvastatin 10 MG Tab tablet Take 5 tablets by mouth at bedtime. Review of Systems: I reviewed the patient's review of systems, and I have updated the medical record. Today's Ancillary Tests: OCT/HRT MAC[place]A OU Procedure date: 07/27/2024. Right Eye Quality was good. Findings include atrophy, outer retinal layer disruption. Interval change is same. Left Eye Quality was good. Findings include atrophy, outer retinal layer disruption. Interval change is same. FUNDUS PHOTOGRAPHY-OU Procedure date: 07/27/2024. Right Eye Clear. Disc findings include normal observations. Vessel findings include normal. Macula findings include atrophy. Pigmentary Change. Interval change is same. Left Eye Clear. Disc findings include normal observations. Vessel findings include normal. Macula findings include atrophy. Pigmentary Change. Interval change is same. ME DEXAMETHASONE IO IMPL - OS Procedure date: 07/27/2024. Intraocular injection: 0.7 mg dexAMETHasone 0.7 MG Route: Intravitreal, Site: Left Eye [facility]: [id number], Lot: [id number], Expiration date: 05/26/2026, Waste: 0 mg Notes Dexamethasone (Ozurdex) 0.7 mg Intraocular Injection Left Eye - OPHTHALMOLOGY PROCEDURE NOTE PROCEDURE PERFORMED BY: Anthony Ying DO HEALTH CARE CONSULTANT(S): None ATTENDING: Anthony Ying DO PROCEDURE DATE: 07/27/2024 PROCEDURE START TIME: 8:45 PM INDICATIONS: Treatment of ICD-10-CM 1. Bilateral posterior uveitis H30.93 dexAMETHasone 0.7 MG Implant ME DEXAMETHASONE IO IMPL - OS OCT/HRT [place] OU FUNDUS PHOTOGRAPHY-OU ME DEXAMETHASONE IO IMPL - OS 2. 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 EBL: None Specimen: None Complications: None CONSENT: Informed consent was obtained prior to the procedure after discussion of the risks, benefits, alternatives, and expected outcomes were discussed with the patient. The consent was placed in the chart. The possibilities of infection, reaction to medication, retinal tear, bleeding, cataract, glaucoma, increased blood glucose levels, the need for additional procedures, failure to diagnosis a condition, and creating a complication requiring surgery were discussed with the patient. The patient was made aware that the medication is expected to continue in the eye for up to 6 months. The patient concurred with the proposed plan and signed the consent form, giving informed consent. DOES THIS PROCEDURE REQUIRE A UNIVERSAL PROTOCOL? Yes. Henderson Protocol is required. Pre-procedure verification was completed. The patient verified the site and procedure. The consent was confirmed, procedure sites were identified and marked, and a timeout was called before the start of the procedure. ANESTHESIA: topical proparacaine/tetracaine and subconjunctival lidocaine 2% with epinephrine 1:200,000 PROCEDURE DETAILS: The operative eye was prepped with Betadine. Using a single dose sterile delivery unit, the following medication was injected: Ozurdex (Dexamethasone) 0.7 mg implant. The intravitreal pars plana injection was placed 3.5-4.0 mm from the limbus. Following the injection the eye was irrigated with sterile saline and an antibiotic drop was instilled. Base Eye Exam Visual Acuity (Snellen - Linear) Right Left Dist sc CF at 3' 20/50 -2 Dist ph sc 20/40 -1 Tonometry (Tonopen, 2:33 PM) Right Left Pressure 18 11 Denies any drop use at this time Pupils Pupils Right PERRL Left PERRL Extraocular Movement Right Left Full Full Neuro/Psych Oriented x3: Yes Mood/Affect: Normal Dilation Both eyes: 1.0% Mydriacyl, 2.5% Phenylephrine @ 2:33 PM Slit Lamp and Fundus Exam External Exam Right Left External Normal Normal Slit Lamp Exam Right Left Lids/Lashes Normal Normal Conjunctiva/Sclera White and quiet White and quiet Cornea Clear Clear Anterior Chamber quiet Deep and quiet Iris Round and dilated Round and dialted Lens 2+ NS, 2+ CC PCIOL Anterior Vitreous Normal Normal Fundus Exam Right Left Posterior Vitreous Ozurdex implant (inferior) PVD, reyes ring Disc Normal Normal C/D Ratio 0.1 0.1 Macula atrophic no CME, some thinning, central island preserved Vessels Normal, no vascular changes Normal, no vascular changes Periphery pigmentary change pigmentary change Assessment/Plan: Bilateral posterior uveitis Pigmentary retinal dystrophy DDx: MAR,CAR,birdshot, APMPPE - Discussed diagnosis in detail with patient. - imaging suggestive of genetic cause with bilateral presentation - however differential dx includes uveitic entities as well as CAR/MAR - hx of meningioma - Will do Spark test to rule out genetic vs inflammatory conditions. - FA today shows: Staining and window defects, no leakage, more consistent with genetic conditions v inflammatory. - Will know more once the Spark results come back in 6-8 weeks, referral placed to [facility] for counseling. - Call for a sooner appointment with any problems or concerns - (11/13/2021) No evidence of inflammation seen today - Still waiting on results from genetic testing - Reviewed FAF imaging with patient, stable - 05/14/2022: [facility] genetic testing (05/23/22) did not identify any pathogenic variants - FAF stable. - VA and vision remain stable - No leakage on FA last year - Consulting Dr. Malone re workup for CAR and ddx above. - (11/12/2023) reviewed results of imaging with patient and - Eli Cabrera and Claudette Phelps were present during exam - having bladder issues, taking ATB, no hx of pentosan per patient - inflammation or toxicity perhaps more likely with completely negative genetic screening - consider referring to Dr. Ying or Kira for evaluation - could consider local steroid tx as she's already pseudophakic with good vision but slightly worsening areas of posterior atrophy on FAF today - patient advised to call if any changes (12/23/2023) Course: - right eye vision loss for 15-20 years - denies flashes or floaters - reports pink eye at the time of unknown etiology for bladder inflammation for 6 week course. Resolved now. Workup: - 01/20/2019 MRI brain: white matter abnormalties nonspecific, possible vascular or demyelinating areas in the periventricular areas of the parietal lobe 02/07/24 MRI brain: Trace left and small right mastoid effusion is nonspecific. No discrete evidence of optic neuritis or other acute orbital pathology. White matter changes are most likely due to chronic microvascular ischemic changes in a patient of this age. Otherwise, postinfectious or inflammatory changes or migraine related changes by be considered. Doubt primary demyelination. ROS: Positive: recent weight loss/gain, changes in bowel or bladder patterns, and change in urine Negative: fever/chills, night sweats, fatigue, generalized weakness, easy bruising/bleeding, tremor, intolerance to heat or cold, raynaud's, sicca symptoms, nasal ulcers, oral ulcer, cold sores, genital ulcers, sinusitis, nose bleeds, difficulty swallowing, chest pain, shortness of breath, wheezing, cough, blood in sputum, nausea, vomiting, abdominal pain, diarrhea, weakness/numbness/tingling of limbs/digits, muscle pain, joint aches/pains, rash, hives, sun sensitivity, hair loss, skin discoloration, headache, dizziness, seizure, tinnitus, hearing loss, depression, anxiety, enlarged lymph nodes, and tattoos/inflammation of tattoos Family History:(eye diseases, autoimmune disease) - none - 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 Right Eye Quality was good. Findings include atrophy, outer retinal layer disruption. Interval change is same. Left Eye Quality was good. Findings include atrophy, outer retinal layer disruption. Interval change is same. FUNDUS PHOTOGRAPHY-OU Procedure date: 07/27/2024. Right Eye Clear. Disc findings include normal observations. Vessel findings include normal. Macula findings include atrophy. Pigmentary Change. Interval change is same. Left Eye Clear. Disc findings include normal observations. Vessel findings include normal. Macula findings include atrophy. Pigmentary Change. Interval change is same. ME DEXAMETHASONE IO IMPL - OS Procedure date: 07/27/2024. Intraocular injection: 0.7 mg dexAMETHasone 0.7 MG Route: Intravitreal, Site: Left Eye [facility]: [id number], Lot: [id number], Expiration date: 05/26/2026, Waste: 0 mg Notes Dexamethasone (Ozurdex) 0.7 mg Intraocular Injection Left Eye - OPHTHALMOLOGY PROCEDURE NOTE PROCEDURE PERFORMED BY: Anthony Ying DO HEALTH CARE CONSULTANT(S): None ATTENDING: Anthony Ying DO PROCEDURE DATE: 07/27/2024 PROCEDURE START TIME: 8:45 PM INDICATIONS: Treatment of ICD-10-CM 1. Bilateral posterior uveitis H30.93 dexAMETHasone 0.7 MG Implant ME DEXAMETHASONE IO IMPL - OS OCT/HRT MACULA OU FUNDUS PHOTOGRAPHY-OU ME DEXAMETHASONE IO IMPL - OS 2. 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 EBL: None Specimen: None Complications: None CONSENT: Informed consent was obtained prior to the procedure after discussion of the risks, benefits, alternatives, and expected outcomes were discussed with the patient. The consent was placed in the chart. The possibilities of infection, reaction to medication, retinal tear, bleeding, cataract, glaucoma, increased blood glucose levels, the need for additional procedures, failure to diagnosis a condition, and creating a complication requiring surgery were discussed with the patient. The patient was made aware that the medication is expected to continue in the eye for up to 6 months. The patient concurred with the proposed plan and signed the consent form, giving informed consent. DOES THIS PROCEDURE REQUIRE A UNIVERSAL PROTOCOL? Yes. Henderson Protocol is required. Pre-procedure verification was completed. The patient verified the site and procedure. The consent was confirmed, procedure sites were identified and marked, and a timeout was called before the start of the procedure. ANESTHESIA: topical proparacaine/tetracaine and subconjunctival lidocaine 2% with epinephrine 1:200,000 PROCEDURE DETAILS: The operative eye was prepped with Betadine. Using a single dose sterile delivery unit, the following medication was injected: Ozurdex (Dexamethasone) 0.7 mg implant. The intravitreal pars plana injection was placed 3.5-4.0 mm from the limbus. Following the injection the eye was irrigated with sterile saline and an antibiotic drop was instilled. Meds: - current medications: none - prior Medications: Impression/PLAN: - FAF reviewed from initial visit with Dr. Horowitz and clear evidence of disease progression - IVFA/ICG reviewed in detail. Difficult to assess given diffuse atrophy but does appear to be possible leakage. - MRI brain 2018 with possible demyelinating disease and recent episode of inflammation in bladder - Discussed with patient: 4 causes of uveitis, cancer, trauma, autoimmune or infection, 50% of the time no cause is found and it is considered idiopathic. Discussed findings of today's exam with the patient. The pathophysiology of uveitis discussed with patient. Will order blood work to narrow down the cause of inflammation. - consider oral steroids if TB and Syphilis negative with repeat imaging in 4 weeks to check for changes 02/14/2024 - Eyes are quiet on exam. - Reviewed brain MRI results of 02/06/24 with patient. - IVFA today shows vascular leakage both eyes. - Autoimmune blood work that was ordered was all negative. - Discussed starting oral steroids; if the inflammation responds to steroid use this suggests the uveitis is caused by an autoimmune condition. - Recommend starting prednisone 60 mg by mouth all at once in the morning with food for 1 week. -This will be followed by a 10 mg taper per week as follows 50-40-30, and remain on 30mg until next visit. - Discussed side effects of medication such as: elevated blood pressure, elevated blood sugar/worsening of diabetes, osteoporosis/fractures, mood swings, memory or behavior changes, confusion, delirium, increased appetite, weight gain, upset stomach/ulcer, belly, face, back or lower extremity edema, glaucoma, cataracts, thin skin or bruising of skin, increased risk of infection or slow wound healing - DO NOT STOP without consulting a health care provider. Cessation without taper could be life threatening. - Recommend return to the clinic in 4 weeks with repeat imaging to evaluate control of inflammation. (03/20/2024) - Currently on Prednisone 30mg PO daily. - Cannot appreciate a difference in vision while being on Prednisone. Reports huge spike in glucose and now using sliding scale insulin. - IVFA unreliable today due to poor fill secondary to blinking during administration of dye. - Based on imaging obtained, there is still leakage present but unsure if related to inflammation or damaged blood vessels. - Due to no improvement with Prednisone, will begin weekly taper 20-10 - Discussed presenting case with fellow colleagues. - Recheck in 12 weeks. (06/12/2024) She is holding stable. Could consider local treatment OD>OS vs observation. Risk with local would be increased high IOP - Plan for Ozurdex Right Eye today R/B/I/A discussed with patient at length and informed consent obtained (07/27/2024) - No IOP spike following injection. - Minor improvement on imaging s/p Ozurdex OD. - Recommend proceeding with Ozurdex OS today - Return in 8 weeks for IVFA OS>OD. 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 - Stressed blood glucose and blood pressure control and close follow-up with PCP/dog hair clipper - Advised importance in blood glucose and BP control in reducing risk of vision loss - Advised importance of regular fundus exams - Photos obtained to document disease severity and to follow changes over time - OCT obtained to evaluate for evidence of subretinal/intraretinal fluid (03/20/2024) - Glucose levels have spiked significantly since starting oral Prednisone leading to insulin dependency. Combined form of age-related cataract, right eye - Denies limitation in daily activities - Not visually significant at this time - Continue to monitor Dry eye syndrome of bilateral lacrimal glands - Artificial tears QID - Warm compresses BID Pseudophakia, left eye - well centered, monitor NEXT VISIT Tropicamide 1% 1 drop Both eyes x 1 Phenylephrine 2.5% 1 drop to Both eyes x 1 William applanation: Both Eyes Return in about 8 weeks (around 09/21/2024) for DFE OU, OCT OU, Optos OU, IVFA OS>OD. Anthony Ying DO Uveitis and Surgical Retina [facility] Eye Des[facility] Department of Ophthalmology and Visual Science I, Anthony Ying DO acted as a scribe for Anthony Ying DO for this note of 07/27/2024 8:46 PM. REASON FOR VISIT Tess Bennett Ken presents to clinic today for a Follow-Up Patient visit. Chief Complaint Follow-up HISTORY OF PRESENT ILLNESS HPI 63 y.o. female presents for OCT and Optos and possible Ozurdex Left Eye for bilateral posterior uveitis. blurred vision OS and low vision OD Denies any stinging, burning, irritation, pain after last injection Patient current eye medication regiment: Ozerdex Denies side effects from current regiment (stinging, burning, redness, irritation) Refill not needed pharmacy verified Compliant with current regiment Denies hospital, surgery or change in health since last visit Last edited by Catalina Ken on 07/27/2024 2:25 PM. Allergies, medications & history reviewed & updated by Catalina Ken REVIEW OF SYSTEMS Review of Systems >10 minutes was spent with patient updating allergies, medications, and medical history. Referring Physician: documented in this encounter [facility] 06-12-2024 Note Table formatting fro m the original result was not included. Procedure date: 06/12/2024. Intraocular injection: 0.7 mg dexAMETHasone 0.7 MG Route: Intravitreal, Site: Right Eye [facility]: [id number], Lot: [id number], Expiration date: 05/26/2026, Waste: 0 mg Notes Dexamethasone (Ozurdex) 0.7 mg Intraocular Injection Right Eye - OPHTHALMOLOGY PROCEDURE NOTE PROCEDURE PERFORMED BY: Anthony Ying DO HEALTH CARE CONSULTANT(S): None ATTENDING: Anthony Ying DO PROCEDURE DATE: 06/12/2024 PROCEDURE START TIME: 12:32 PM INDICATIONS: Treatment of ICD-10-CM 1. Bilateral posterior uveitis H30.93 OCT/HRT MAC[place]A OU FUNDUS PHOTOGRAPHY-OU ME DEXAMETHASONE IO IMPL - OD 2. 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 Combined forms of age-related cataract of right eye H25.811 EYE: Right (OD) PROCEDURE GOALS: To preserve or improve vision, reduce retinal swelling and/or decrease inflammation. EBL: None Specimen: None Complications: None CONSENT: Informed consent was obtained prior to the procedure after discussion of the risks, benefits, alternatives, and expected outcomes were discussed with the patient. The consent was placed in the chart. The possibilities of infection, reaction to medication, retinal tear, bleeding, cataract, glaucoma, increased blood glucose levels, the need for additional procedures, failure to diagnosis a condition, and creating a complication requiring surgery were discussed with the patient. The patient was made aware that the medication is expected to continue in the eye for up to 6 months. The patient concurred with the proposed plan and signed the consent form, giving informed consent. DOES THIS PROCEDURE REQUIRE A UNIVERSAL PROTOCOL? Yes. Henderson Protocol is required. Pre-procedure verification was completed. The patient verified the site and procedure. The consent was confirmed, procedure sites were identified and marked, and a timeout was called before the start of the procedure. ANESTHESIA: topical proparacaine/tetracaine and subconjunctival lidocaine 2% with epinephrine 1:200,000 PROCEDURE DETAILS: The operative eye was prepped with Betadine. Using a single dose sterile delivery unit, the following medication was injected: Ozurdex (Dexamethasone) 0.7 mg implant. The intravitreal pars plana injection was placed 3.5-4.0 mm from the limbus. Following the injection the eye was irrigated with sterile saline and an antibiotic drop was instilled. [facility] 06-12-2024 Note Table formatting fro m the original result was not included. Procedure date: 06/12/2024. Intraocular injection: 0.7 mg dexAMETHasone 0.7 MG Route: Intravitreal, Site: Right Eye [facility]: [id number], Lot: [id number], Expiration date: 05/26/2026, Waste: 0 mg Notes Dexamethasone (Ozurdex) 0.7 mg Intraocular Injection Right Eye - OPHTHALMOLOGY PROCEDURE NOTE PROCEDURE PERFORMED BY: Anthony Ying DO HEALTH CARE CONSULTANT(S): None ATTENDING: Anthony Ying DO PROCEDURE DATE: 06/12/2024 PROCEDURE START TIME: 12:32 PM INDICATIONS: Treatment of ICD-10-CM 1. Bilateral posterior uveitis H30.93 OCT/HRT [facility] OU FUNDUS PHOTOGRAPHY-OU ME DEXAMETHASONE IO IMPL - OD 2. 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 Combined forms of age-related cataract of right eye H25.811 EYE: Right (OD) PROCEDURE GOALS: To preserve or improve vision, reduce retinal swelling and/or decrease inflammation. EBL: None Specimen: None Complications: None CONSENT: Informed consent was obtained prior to the procedure after discussion of the risks, benefits, alternatives, and expected outcomes were discussed with the patient. The consent was placed in the chart. The possibilities of infection, reaction to medication, retinal tear, bleeding, cataract, glaucoma, increased blood glucose levels, the need for additional procedures, failure to diagnosis a condition, and creating a complication requiring surgery were discussed with the patient. The patient was made aware that the medication is expected to continue in the eye for up to 6 months. The patient concurred with the proposed plan and signed the consent form, giving informed consent. DOES THIS PROCEDURE REQUIRE A UNIVERSAL PROTOCOL? Yes. Henderson Protocol is required. Pre-procedure verification was completed. The patient verified the site and procedure. The consent was confirmed, procedure sites were identified and marked, and a timeout was called before the start of the procedure. ANESTHESIA: topical proparacaine/tetracaine and subconjunctival lidocaine 2% with epinephrine 1:200,000 PROCEDURE DETAILS: The operative eye was prepped with Betadine. Using a single dose sterile delivery unit, the following medication was injected: Ozurdex (Dexamethasone) 0.7 mg implant. The intravitreal pars plana injection was placed 3.5-4.0 mm from the limbus. Following the injection the eye was irrigated with sterile saline and an antibiotic drop was instilled. [facility] 06-12-2024 Note Procedure date: 06/12. Right Eye Quality was good. Findings include atrophy, outer retinal layer disruption. Interval change is same. Left Eye Quality was good. Findings include atrophy, outer retinal layer disruption. Interval change is same. [facility] 06-12-2024 Note Procedure date: 06/12. Right Eye Quality was good. Findings include atrophy, outer retinal layer disruption. Interval change is same. Left Eye Quality was good. Findings include atrophy, outer retinal layer disruption. Interval change is same. [facility] 06-12-2024 Note Procedure date: 06/12. Right Eye Clear. Disc findings include normal observations. Vessel findings include normal. Macula findings include atrophy. Pigmentary Change. Interval change is same. Left Eye Clear. Disc findings include normal observations. Vessel findings include normal. Macula findings include atrophy. Pigmentary Change. Interval change is same. [facility] 06-12-2024 Note Procedure date: 06/12. Right Eye Clear. Disc findings include normal observations. Vessel findings include normal. Macula findings include atrophy. Pigmentary Change. Interval change is same. Left Eye Clear. Disc findings include normal observations. Vessel findings include normal. Macula findings include atrophy. Pigmentary Change. Interval change is same. [facility] 06-12-2024 History of Present illness Narrative ATTENDING PHYSICIAN NOTE Chief Complaint Patient presents with Follow-up Uveitis HPI 1.Bilateral posterior uveitis 2.Pigmentary retinal dystrophy 3.DDx: MAR,CAR,birdshot, APMPPE 63 year old female patient presents to clinic as 12 week follow-up with OCT/OPTOS due to bilateral posterior uveitis OU Pt continues to have intermittent murky VA OS x last visit. Pt notices decrease VA OS at near even with her OTC readers. Pt denies floaters/flashes/pain OU x last visit. Diabetes: Last A1C: Lab Results Component Value Date HGBA1C 7.2 06/19 FBS: 99 this am Last edited by Veronica Santana on 06/12/2024 10:57 AM. Referring Doctor: Self Self No address on file Medications: Current Outpatient Medications Medication Sig Insulin lispro, 1 Unit Dial, 100 UNIT/ML Solution Pen-injector Inject 4 Units under the skin before meals & at bedtime. losartan 25 MG Tab tablet Take 1 tablet by mouth daily every morning. meloxicam 15 MG tablet Take 0.5 tablets by mouth daily. metformin 1000 MG Tab tablet Take 1 tablet by mouth 2 times daily. rosuvastatin 10 MG Tab tablet Take 5 tablets by mouth at bedtime. dexAMETHasone 0.7 MG Implant 0.7 mg by Intravitreal route Once (In Clinic) for 1 dose. Empagliflozin (JARDIANCE PO) Take 5 mg by mouth daily every morning. (Patient not taking: Reported on 11/12/2023) Moxifloxacin 400 MG tablet Nitrofurantoin, macrocrystal-monohydrate, 100 MG capsule Take 1 capsule by mouth 2 times daily. Review of Systems: I reviewed the patient's review of systems, and I have updated the medical record. Today's Ancillary Tests: OCT/HRT MACULA OU Procedure date: 06/12/2024. Right Eye Quality was good. Findings include atrophy, outer retinal layer disruption. Interval change is same. Left Eye Quality was good. Findings include atrophy, outer retinal layer disruption. Interval change is same. FUNDUS PHOTOGRAPHY-OU Procedure date: 06/12/2024. Right Eye Clear. Disc findings include normal observations. Vessel findings include normal. Macula findings include atrophy. Pigmentary Change. Interval change is same. Left Eye Clear. Disc findings include normal observations. Vessel findings include normal. Macula findings include atrophy. Pigmentary Change. Interval change is same. ME DEXAMETHASONE IO IMPL - OD Procedure date: 06/12/2024. Intraocular injection: 0.7 mg dexAMETHasone 0.7 MG Route: Intravitreal, Site: Right Eye [facility]: [id number], Lot: [id number], Expiration date: 05/26/2026, Waste: 0 mg Notes Dexamethasone (Ozurdex) 0.7 mg Intraocular Injection Right Eye - OPHTHALMOLOGY PROCEDURE NOTE PROCEDURE PERFORMED BY: Anthony Ying DO HEALTH CARE CONSULTANT(S): None ATTENDING: Anthony Ying DO PROCEDURE DATE: 06/12/2024 PROCEDURE START TIME: 12:32 PM INDICATIONS: Treatment of ICD-10-CM 1. Bilateral posterior uveitis H30.93 OCT/HRT MAC[place] OU FUNDUS PHOTOGRAPHY-OU ME DEXAMETHASONE IO IMPL - OD 2. 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 Combined forms of age-related cataract of right eye H25.811 EYE: Right (OD) PROCEDURE GOALS: To preserve or improve vision, reduce retinal swelling and/or decrease inflammation. EBL: None Specimen: None Complications: None CONSENT: Informed consent was obtained prior to the procedure after discussion of the risks, benefits, alternatives, and expected outcomes were discussed with the patient. The consent was placed in the chart. The possibilities of infection, reaction to medication, retinal tear, bleeding, cataract, glaucoma, increased blood glucose levels, the need for additional procedures, failure to diagnosis a condition, and creating a complication requiring surgery were discussed with the patient. The patient was made aware that the medication is expected to continue in the eye for up to 6 months. The patient concurred with the proposed plan and signed the consent form, giving informed consent. DOES THIS PROCEDURE REQUIRE A UNIVERSAL PROTOCOL? Yes. Henderson Protocol is required. Pre-procedure verification was completed. The patient verified the site and procedure. The consent was confirmed, procedure sites were identified and marked, and a timeout was called before the start of the procedure. ANESTHESIA: topical proparacaine/tetracaine and subconjunctival lidocaine 2% with epinephrine 1:200,000 PROCEDURE DETAILS: The operative eye was prepped with Betadine. Using a single dose sterile delivery unit, the following medication was injected: Ozurdex (Dexamethasone) 0.7 mg implant. The intravitreal pars plana injection was placed 3.5-4.0 mm from the limbus. Following the injection the eye was irrigated with sterile saline and an antibiotic drop was instilled. Base Eye Exam Visual Acuity (Snellen - Linear) Right Left Dist sc CF at 3' 20/50 Dist ph sc NI 20/40 +1 Tonometry (Applanation, 11:02 AM) Right Left Pressure 11 10 Pupils Pupils Right PERRL Left PERRL Visual Velasquez Left Right Full Full Extraocular Movement Right Left Full, Ortho Full, Ortho Neuro/Psych Oriented x3: Yes Mood/Affect: Normal Dilation Both eyes: 1.0% Mydriacyl, 2.5% Phenylephrine @ 11:02 AM Slit Lamp and Fundus Exam External Exam Right Left External Normal Normal Slit Lamp Exam Right Left Lids/Lashes Normal Normal Conjunctiva/Sclera White and quiet White and quiet Cornea Clear Clear Anterior Chamber quiet Deep and quiet Iris Round and dilated Round and dialted Lens 2+ NS, 2+ CC PCIOL Fundus Exam Right Left Vitreous Normal, no cell PVD, reyes ring, no cell Disc Normal Normal C/D Ratio 0.1 0.1 Macula atrophic no CME, some thinning, central island preserved Vessels Normal, no vascular changes Normal, no vascular changes Periphery pigmentary change pigmentary change Assessment/Plan: Bilateral posterior uveitis Pigmentary retinal dystrophy DDx: MAR,CAR,birdshot, APMPPE - Discussed diagnosis in detail with patient. - imaging suggestive of genetic cause with bilateral presentation - however differential dx includes uveitic entities as well as CAR/MAR - hx of meningioma - Will do Spark test to rule out genetic vs inflammatory conditions. - FA today shows: Staining and window defects, no leakage, more consistent with genetic conditions v inflammatory. - Will know more once the Spark results come back in 6-8 weeks, referral placed to [facility] for counseling. - Call for a sooner appointment with any problems or concerns - (11/13/2021) No evidence of inflammation seen today - Still waiting on results from genetic testing - Reviewed FAF imaging with patient, stable - 05/14/2022: [facility] genetic testing (05/23/22) did not identify any pathogenic variants - FAF stable. - VA and vision remain stable - No leakage on FA last year - Consulting Dr. Malone re workup for CAR and ddx above. - (11/12/2023) reviewed results of imaging with patient and - Eli Cabrera and Claudette Phelps were present during exam - having bladder issues, taking ATB, no hx of pentosan per patient - inflammation or toxicity perhaps more likely with completely negative genetic screening - consider referring to Dr. Ying or Suelves for evaluation - could consider local steroid tx as she's already pseudophakic with good vision but slightly worsening areas of posterior atrophy on FAF today - patient advised to call if any changes (12/23/2023) Course: - right eye vision loss for 15-20 years - denies flashes or floaters - reports pink eye at the time of unknown etiology for bladder inflammation for 6 week course. Resolved now. Workup: - 01/20/2019 MRI brain: white matter abnormalties nonspecific, possible vascular or demyelinating areas in the periventricular areas of the parietal lobe 02/07/24 MRI brain: Trace left and small right mastoid effusion is nonspecific. No discrete evidence of optic neuritis or other acute orbital pathology. White matter changes are most likely due to chronic microvascular ischemic changes in a patient of this age. Otherwise, postinfectious or inflammatory changes or migraine related changes by be considered. Doubt primary demyelination. ROS: Positive: recent weight loss/gain, changes in bowel or bladder patterns, and change in urine Negative: fever/chills, night sweats, fatigue, generalized weakness, easy bruising/bleeding, tremor, intolerance to heat or cold, raynaud's, sicca symptoms, nasal ulcers, oral ulcer, cold sores, genital ulcers, sinusitis, nose bleeds, difficulty swallowing, chest pain, shortness of breath, wheezing, cough, blood in sputum, nausea, vomiting, abdominal pain, diarrhea, weakness/numbness/tingling of limbs/digits, muscle pain, joint aches/pains, rash, hives, sun sensitivity, hair loss, skin discoloration, headache, dizziness, seizure, tinnitus, hearing loss, depression, anxiety, enlarged lymph nodes, and tattoos/inflammation of tattoos Family History:(eye diseases, autoimmune disease) - none - 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 Right Eye Quality was good. Findings include atrophy, outer retinal layer disruption. Interval change is same. Left Eye Quality was good. Findings include atrophy, outer retinal layer disruption. Interval change is same. FUNDUS PHOTOGRAPHY-OU Procedure date: 06/12/2024. Right Eye Clear. Disc findings include normal observations. Vessel findings include normal. Macula findings include atrophy. Pigmentary Change. Interval change is same. Left Eye Clear. Disc findings include normal observations. Vessel findings include normal. Macula findings include atrophy. Pigmentary Change. Interval change is same. ME DEXAMETHASONE IO IMPL - OD Procedure date: 06/12/2024. Intraocular injection: 0.7 mg dexAMETHasone 0.7 MG Route: Intravitreal, Site: Right Eye [facility]: [id number], Lot: [id number], Expiration date: 05/26/2026, Waste: 0 mg Notes Dexamethasone (Ozurdex) 0.7 mg Intraocular Injection Right Eye - OPHTHALMOLOGY PROCEDURE NOTE PROCEDURE PERFORMED BY: Anthony Ying DO HEALTH CARE CONSULTANT(S): None ATTENDING: Anthony Ying DO PROCEDURE DATE: 06/12/2024 PROCEDURE START TIME: 12:32 PM INDICATIONS: Treatment of ICD-10-CM 1. Bilateral posterior uveitis H30.93 OCT/HRT MACULA OU FUNDUS PHOTOGRAPHY-OU ME DEXAMETHASONE IO IMPL - OD 2. 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 Combined forms of age-related cataract of right eye H25.811 EYE: Right (OD) PROCEDURE GOALS: To preserve or improve vision, reduce retinal swelling and/or decrease inflammation. EBL: None Specimen: None Complications: None CONSENT: Informed consent was obtained prior to the procedure after discussion of the risks, benefits, alternatives, and expected outcomes were discussed with the patient. The consent was placed in the chart. The possibilities of infection, reaction to medication, retinal tear, bleeding, cataract, glaucoma, increased blood glucose levels, the need for additional procedures, failure to diagnosis a condition, and creating a complication requiring surgery were discussed with the patient. The patient was made aware that the medication is expected to continue in the eye for up to 6 months. The patient concurred with the proposed plan and signed the consent form, giving informed consent. DOES THIS PROCEDURE REQUIRE A UNIVERSAL PROTOCOL? Yes. Henderson Protocol is required. Pre-procedure verification was completed. The patient verified the site and procedure. The consent was confirmed, procedure sites were identified and marked, and a timeout was called before the start of the procedure. ANESTHESIA: topical proparacaine/tetracaine and subconjunctival lidocaine 2% with epinephrine 1:200,000 PROCEDURE DETAILS: The operative eye was prepped with Betadine. Using a single dose sterile delivery unit, the following medication was injected: Ozurdex (Dexamethasone) 0.7 mg implant. The intravitreal pars plana injection was placed 3.5-4.0 mm from the limbus. Following the injection the eye was irrigated with sterile saline and an antibiotic drop was instilled. Meds: - current medications: none - prior Medications: Impression/PLAN: - FAF reviewed from initial visit with Dr. Horowitz and clear evidence of disease progression - IVFA/ICG reviewed in detail. Difficult to assess given diffuse atrophy but does appear to be possible leakage. - MRI brain 2019 with possible demyelinating disease and recent episode of inflammation in bladder - Discussed with patient: 4 causes of uveitis, cancer, trauma, autoimmune or infection, 50% of the time no cause is found and it is considered idiopathic. Discussed findings of today's exam with the patient. The pathophysiology of uveitis discussed with patient. Will order blood work to narrow down the cause of inflammation. - consider oral steroids if TB and Syphilis negative with repeat imaging in 4 weeks to check for changes 02/14/2024 - Eyes are quiet on exam. - Reviewed brain MRI results of 02/06/24 with patient. - IVFA today shows vascular leakage both eyes. - Autoimmune blood work that was ordered was all negative. - Discussed starting oral steroids; if the inflammation responds to steroid use this suggests the uveitis is caused by an autoimmune condition. - Recommend starting prednisone 60 mg by mouth all at once in the morning with food for 1 week. -This will be followed by a 10 mg taper per week as follows 50-40-30, and remain on 30mg until next visit. - Discussed side effects of medication such as: elevated blood pressure, elevated blood sugar/worsening of diabetes, osteoporosis/fractures, mood swings, memory or behavior changes, confusion, delirium, increased appetite, weight gain, upset stomach/ulcer, belly, face, back or lower extremity edema, glaucoma, cataracts, thin skin or bruising of skin, increased risk of infection or slow wound healing - DO NOT STOP without consulting a health care provider. Cessation without taper could be life threatening. - Recommend return to the clinic in 4 weeks with repeat imaging to evaluate control of inflammation. (03/20/2024) - Currently on Prednisone 30mg PO daily. - Cannot appreciate a difference in vision while being on Prednisone. Reports huge spike in glucose and now using sliding scale insulin. - IVFA unreliable today due to poor fill secondary to blinking during administration of dye. - Based on imaging obtained, there is still leakage present but unsure if related to inflammation or damaged blood vessels. - Due to no improvement with Prednisone, will begin weekly taper 20-10 - Discussed presenting case with fellow colleagues. - Recheck in 12 weeks. (06/12/2024) She is holding stable. Could consider local treatment OD>OS vs observation. 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 - Stressed blood glucose and blood pressure control and close follow-up with PCP/dog hair clipper - Advised importance in blood glucose and BP control in reducing risk of vision loss - Advised importance of regular fundus exams - Photos obtained to document disease severity and to follow changes over time - OCT obtained to evaluate for evidence of subretinal/intraretinal fluid (03/20/2024) - Glucose levels have spiked significantly since starting oral Prednisone leading to insulin dependency. Combined form of age-related cataract, right eye - Denies limitation in daily activities - Not visually significant at this time - Continue to monitor Dry eye syndrome of bilateral lacrimal glands - Artificial tears QID - Warm compresses BID Pseudophakia, left eye - well centered, monitor NEXT VISIT Tropicamide 1% 1 drop Both eyes x 1 Phenylephrine 2.5% 1 drop to Both eyes x 1 William applanation: Both Eyes Return in about 6 weeks (around 07/24/2024) for DFE, OCT Mac, Optos, OU, possible Ozurdex OS. Anthony Ying DO Uveitis and Surgical Retina [facility] Department of Ophthalmology and Visual Science I, Anthony Ying DO acted as a scribe for Anthony Ying DO for this note of 06/12/2024 12:33 PM. I have reviewed the dictated documentation as scribed by Jesús Barksdale and it accurately reflects the work performed and the decisions made. I saw and independently examined this patient today. I discussed my findings and the therapeutic plan with the patient. I agree with the history, physical examination, and medical decisions as outlined. I have reviewed the documentation and it accurately reflects the work performed and the decisions made. Anthony Ying DO REASON FOR VISIT Tess Ken presents to clinic today for a Established Patient visit. Chief Complaint Follow-up; Uveitis HISTORY OF PRESENT ILLNESS HPI 1.Bilateral posterior uveitis 2.Pigmentary retinal dystrophy 3.DDx: MAR,CAR,birdshot, APMPPE 63 year old female patient presents to clinic as 12 week follow-up with OCT/OPTOS due to bilateral posterior uveitis OU Pt continues to have intermittent murky VA OS x last visit. Pt notices decrease VA OS at near even with her OTC readers. Pt denies floaters/flashes/pain OU x last visit. Diabetes: Last A1C: Lab Results Component Value Date HGBA1C 7.2 06/19 FBS: 99 this am Last edited by Veronica Santana on 06/12/2024 10:57 AM. Allergies, medications & history reviewed & updated by Veronica Santana REVIEW OF SYSTEMS Review of Systems >10 minutes was spent with patient updating allergies, medications, and medical history. documented in this encounter [facility] 06-12-2024 Instructions Jesús Barksdale - 06/12/2024 10:40 AM EDT Images from the original note were not included. Post-Operative Instructions Intravitreal Injection After Care Normal Findings: It is normal to have redness of the eye due to a broken blood vessel at the sight of the injection. It is normal to have burning or scratchiness in the eye- you may use over the counter artificial tear drops every few hours to soothe the eye. It is normal to see floaters in the eye following the injection, which will eventually resolve over 24 hours. The surface of the eye may be numb for about one hour following the injection, please do not rub the eye. PLEASE CALL THE OFFICE IMMEDIATELY IF YOU EXPERIENCE: PROGRESSIVELY WORSENING OF THE VISION INCREASED EYE PAIN INCREASING OVERALL REDNESS DISCHARGE WHICH IS CLOUDY OR MILKY Dr. Ying can be reached at [phone] Saturday thru Saturday 8am-5pm If after hours, please call [phone] and ask to speak with the Retina Physician halftone operator. documented in this encounter [facility] 03-20-2024 Note Procedure date: 03/20. Right Eye Arm to retina circulation is normal. AV transit is normal. Findings include staining, window defect. Interval change is baseline. Left Eye Arm to retina circulation is normal. AV transit is normal. Findings include staining, window defect. Interval change is baseline. Notes Patchy hyperfluorescence throughout macula and periphery with areas of hypofluoresence discretely in macula of both eyes. [facility] 03-20-2024 Note Procedure date: 03/20. Right Eye Arm to retina circulation is normal. AV transit is normal. Findings include staining, window defect. Interval change is baseline. Left Eye Arm to retina circulation is normal. AV transit is normal. Findings include staining, window defect. Interval change is baseline. Notes Patchy hyperfluorescence throughout macula and periphery with areas of hypofluoresence discretely in macula of both eyes. ORDEROUT 03-20-2024 Note Procedure date: 03/20. Right Eye Clear. Disc findings include normal observations. Vessel findings include normal. Macula findings include atrophy. Pigmentary Change. Interval change is same. Left Eye Clear. Disc findings include normal observations. Vessel findings include normal. Macula findings include atrophy. Pigmentary Change. Interval change is same. [facility] 03-20-2024 Note Procedure date: 03/20. Right Eye Clear. Disc findings include normal observations. Vessel findings include normal. Macula findings include atrophy. Pigmentary Change. Interval change is same. Left Eye Clear. Disc findings include normal observations. Vessel findings include normal. Macula findings include atrophy. Pigmentary Change. Interval change is same. [facility] 03-20-2024 Note Procedure date: 03/20. Right Eye Quality was good. Findings include atrophy, outer retinal layer disruption. Interval change is same. Left Eye Quality was good. Findings include atrophy, outer retinal layer disruption. Interval change is same. [facility] 03-20-2024 Note Procedure date: 03/20. Right Eye Quality was good. Findings include atrophy, outer retinal layer disruption. Interval change is same. Left Eye Quality was good. Findings include atrophy, outer retinal layer disruption. Interval change is same. ORDEROUT 03-20-2024 History of Present illness Narrative REASON FOR VISIT Tess Ken presents to clinic today for a Established Patient visit. Chief Complaint Uveitis HISTORY OF PRESENT ILLNESS HPI 1.Bilateral posterior uveitis 2.Pigmentary retinal dystrophy 3.DDx: MAR,CAR,birdshot, APMPPE 63 year old female patient presents to clinic as 4 week follow-up with OCT/OPTOS/IVFA Pt states VA OU stable x last visit. Pt denies floaters/flashes/curtain/pain OU x last visit. Diabetes: Last A1C: Lab Results Component Value Date HGBA1C 6.5% 02/17 FBS: 114 this am FBS range: fluctuating high and low Eyes remain quiet without complaint of blurred vision, eye pain, redness, photophobia or floaters Pt states Prednisone causes blood sugar to fluctuate between 70-480. Pt now on sliding scale of Insulin Current Eye meds: Prednisone 30mg PO every day Last edited by Veronica Santana on 03/20/2024 1:26 PM. Allergies, medications & history reviewed & updated by Veronica Santana REVIEW OF SYSTEMS Review of Systems ATTENDING PHYSICIAN NOTE Chief Complaint Patient presents with Uveitis HPI 1.Bilateral posterior uveitis 2.Pigmentary retinal dystrophy 3.DDx: MAR,CAR,birdshot, APMPPE 63 year old female patient presents to clinic as 4 week follow-up with OCT/OPTOS/IVFA Pt states VA OU stable x last visit. Pt denies floaters/flashes/curtain/pain OU x last visit. Diabetes: Last A1C: Lab Results Component Value Date HGBA1C 6.5% 02/17 FBS: 114 this am FBS range: fluctuating high and low Eyes remain quiet without complaint of blurred vision, eye pain, redness, photophobia or floaters Pt states Prednisone causes blood sugar to fluctuate between 70-480. Pt now on sliding scale of Insulin Current Eye meds: Prednisone 30mg PO every day Last edited by Veronica Santana on 03/20/2024 1:26 PM. Referring Doctor: Self Self No address on file Medications: Current Outpatient Medications Medication Sig Insulin lispro, 1 Unit Dial, 100 UNIT/ML Solution Pen-injector Inject 4 Units under the skin before meals & at bedtime. losartan 25 MG Tab tablet Take 1 tablet by mouth daily every morning. meloxicam 15 MG tablet Take 0.5 tablets by mouth daily. metformin 1000 MG Tab tablet Take 1 tablet by mouth 2 times daily. predniSONE 10 MG tablet Take 3 tablets by mouth daily. rosuvastatin 10 MG Tab tablet Take 5 tablets by mouth at bedtime. Empagliflozin (JARDIANCE PO) Take 5 mg by mouth daily every morning. (Patient not taking: Reported on 11/12/2023) Moxifloxacin 400 MG tablet Nitrofurantoin, macrocrystal-monohydrate, 100 MG capsule Take 1 capsule by mouth 2 times daily. Review of Systems: I reviewed the patient's review of systems, and I have updated the medical record. Today's Ancillary Tests: OCT/HRT MACULA OU Procedure date: 03/20/2024. Right Eye Quality was good. Findings include atrophy, outer retinal layer disruption. Interval change is same. Left Eye Quality was good. Findings include atrophy, outer retinal layer disruption. Interval change is same. Base Eye Exam Visual Acuity (Snellen - Linear) Right Left Dist sc CF at 3' 20/40 -1 Dist ph sc NI Tonometry (Applanation, 1:30 PM) Right Left Pressure 12 13 Prednisone 30mg PO every day Pupils Pupils Right PERRL Left PERRL Visual Velasquez Left Right Full Restrictions Partial inner superior temporal, inferior temporal, superior nasal, inferior nasal deficiencies Extraocular Movement Right Left Full, Ortho Full, Ortho Neuro/Psych Oriented x3: Yes Mood/Affect: Normal Dilation Both eyes: 1.0% Mydriacyl, 2.5% Phenylephrine @ 1:31 PM Assessment/Plan: Bilateral posterior uveitis Pigmentary retinal dystrophy DDx: MAR,CAR,birdshot, APMPPE - Discussed diagnosis in detail with patient. - imaging suggestive of genetic cause with bilateral presentation - however differential dx includes uveitic entities as well as CAR/MAR - hx of meningioma - Will do Spark test to rule out genetic vs inflammatory conditions. - FA today shows: Staining and window defects, no leakage, more consistent with genetic conditions v inflammatory. - Will know more once the Spark results come back in 6-8 weeks, referral placed to [facility] for counseling. - Call for a sooner appointment with any problems or concerns - (11/13/2021) No evidence of inflammation seen today - Still waiting on results from genetic testing - Reviewed FAF imaging with patient, stable - 05/14/2022: [facility] genetic testing (05/23/22) did not identify any pathogenic variants - FAF stable. - VA and vision remain stable - No leakage on FA last year - Consulting Dr. Malone re workup for CAR and ddx above. - (11/12/2023) reviewed results of imaging with patient and - Eli Cabrera and Claudette Phelps were present during exam - having bladder issues, taking ATB, no hx of pentosan per patient - inflammation or toxicity perhaps more likely with completely negative genetic screening - consider referring to Dr. Ying or Kira for evaluation - could consider local steroid tx as she's already pseudophakic with good vision but slightly worsening areas of posterior atrophy on FAF today - patient advised to call if any changes (12/23/2023) Course: - right eye vision loss for 15-20 years - denies flashes or floaters - reports pink eye at the time of unknown etiology for bladder inflammation for 6 week course. Resolved now. Workup: - 01/20/2019 MRI brain: white matter abnormalties nonspecific, possible vascular or demyelinating areas in the periventricular areas of the parietal lobe 02/07/24 MRI brain: Trace left and small right mastoid effusion is nonspecific. No discrete evidence of optic neuritis or other acute orbital pathology. White matter changes are most likely due to chronic microvascular ischemic changes in a patient of this age. Otherwise, postinfectious or inflammatory changes or migraine related changes by be considered. Doubt primary demyelination. ROS: Positive: recent weight loss/gain, changes in bowel or bladder patterns, and change in urine Negative: fever/chills, night sweats, fatigue, generalized weakness, easy bruising/bleeding, tremor, intolerance to heat or cold, raynaud's, sicca symptoms, nasal ulcers, oral ulcer, cold sores, genital ulcers, sinusitis, nose bleeds, difficulty swallowing, chest pain, shortness of breath, wheezing, cough, blood in sputum, nausea, vomiting, abdominal pain, diarrhea, weakness/numbness/tingling of limbs/digits, muscle pain, joint aches/pains, rash, hives, sun sensitivity, hair loss, skin discoloration, headache, dizziness, seizure, tinnitus, hearing loss, depression, anxiety, enlarged lymph nodes, and tattoos/inflammation of tattoos Family History:(eye diseases, autoimmune disease) - none - 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 Right Eye Quality was good. Findings include atrophy, outer retinal layer disruption. Interval change is same. Left Eye Quality was good. Findings include atrophy, outer retinal layer disruption. Interval change is same. Meds: - current medications: none - prior Medications: Impression/PLAN: - FAF reviewed from initial visit with Dr. Horowitz and clear evidence of disease progression - IVFA/ICG reviewed in detail. Difficult to assess given diffuse atrophy but does appear to be possible leakage. - MRI brain 2019 with possible demyelinating disease and recent episode of inflammation in bladder - Discussed with patient: 4 causes of uveitis, cancer, trauma, autoimmune or infection, 50% of the time no cause is found and it is considered idiopathic. Discussed findings of today's exam with the patient. The pathophysiology of uveitis discussed with patient. Will order blood work to narrow down the cause of inflammation. - consider oral steroids if TB and Syphilis negative with repeat imaging in 4 weeks to check for changes 02/14/2024 - Eyes are quiet on exam. - Reviewed brain MRI results of 02/06/24 with patient. - IVFA today shows vascular leakage both eyes. - Autoimmune blood work that was ordered was all negative. - Discussed starting oral steroids; if the inflammation responds to steroid use this suggests the uveitis is caused by an autoimmune condition. - Recommend starting prednisone 60 mg by mouth all at once in the morning with food for 1 week. -This will be followed by a 10 mg taper per week as follows 50-40-30, and remain on 30mg until next visit. - Discussed side effects of medication such as: elevated blood pressure, elevated blood sugar/worsening of diabetes, osteoporosis/fractures, mood swings, memory or behavior changes, confusion, delirium, increased appetite, weight gain, upset stomach/ulcer, belly, face, back or lower extremity edema, glaucoma, cataracts, thin skin or bruising of skin, increased risk of infection or slow wound healing - DO NOT STOP without consulting a health care provider. Cessation without taper could be life threatening. - Recommend return to the clinic in 4 weeks with repeat imaging to evaluate control of inflammation. (03/20/2024) - Currently on Prednisone 30mg PO daily. - Cannot appreciate a difference in vision while being on Prednisone. Reports huge spike in glucose and now using sliding scale insulin. - IVFA unreliable today due to poor fill secondary to blinking during administration of dye. - Based on imaging obtained, there is still leakage present but unsure if related to inflammation or damaged blood vessels. - Due to no improvement with Prednisone, will begin weekly taper 20-10 - Discussed presenting case with fellow colleagues. - Recheck in 12 weeks. 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 Combined form of age-related cataract, right eye - Denies limitation in daily activities - Not visually significant at this time - Continue to monitor Dry eye syndrome of bilateral lacrimal glands - Artificial tears QID - Warm compresses BID Pseudophakia, left eye - well centered, monitor NEXT VISIT Tropicamide 1% 1 drop Both eyes x 1 Phenylephrine 2.5% 1 drop to Both eyes x 1 William applanation: Both Eyes 12wks ~ DFE OU, OCT OU, Optos OU I, Marilu Madera, acted as a scribe for Anthony Ying DO for this note of 03/20/2024 9:25 AM. documented in this encounter [facility] 02-17-2024 Note Procedure date: 01/26. Right Eye Clear. Disc findings include normal observations. Vessel findings include normal. Macula findings include atrophy. Pigmentary Change. Interval change is same. Left Eye Clear. Disc findings include normal observations. Vessel findings include normal. Macula findings include atrophy. Pigmentary Change. Interval change is same. Notes Significant peripheral changes on FAF since 2021 [facility] 02-14-2024 Note Right Eye Procedure date: 02/14/2024. Findings include hyperfluorescence, leakage, staining, window defect. Interval change is same. Left Eye Findings include hyperfluorescence, leakage, staining, window defect. Interval change is same. [facility] 02-14-2024 Note Right Eye Procedure date: 02/14/2024. Findings include hyperfluorescence, leakage, staining, window defect. Interval change is same. Left Eye Findings include hyperfluorescence, leakage, staining, window defect. Interval change is same. [facility] 02-14-2024 Note Procedure date: 01/26. Right Eye Quality was good. Findings include outer retinal layer disruption. Interval change is same. Left Eye Quality was good. Findings include outer retinal layer disruption. Interval change is same. [facility] 02-14-2024 Note Procedure date: 01/26. Right Eye Quality was good. Findings include outer retinal layer disruption. Interval change is same. Left Eye Quality was good. Findings include outer retinal layer disruption. Interval change is same. ORDEROUT 02-14-2024 Note Procedure date: 01/26. Right Eye Clear. Disc findings include normal observations. Vessel findings include normal. Macula findings include atrophy. Pigmentary Change. Interval change is same. Left Eye Clear. Disc findings include normal observations. Vessel findings include normal. Macula findings include atrophy. Pigmentary Change. Interval change is same. Notes Significant peripheral changes on FAF since 2021 ORDEROUT 02-14-2024 History of Present illness Narrative REASON FOR VISIT Tess Ken presents to clinic today for a Follow-Up Patient visit. Chief Complaint Follow-up HISTORY OF PRESENT ILLNESS HPI 63 y.o. female presents for uveitis follow up with OCT, Optos, IVFA, and ICG today for Bilateral posterior uveitis. MRI BRAIN (02/07/2024) done at [facility] MRI (02/07/2024) done at [facility] Vision is the the same since last visit, her central vision in the right eye remains grayed out. Eyes remain quiet without complaint of blurred vision, eye pain, redness, photophobia or floaters Patient NOT on a current eye medication regiment. -Asked and verified if patient started ant steroids since last visit and she states No, was not given any. -Patient on cephalexin 250 mg PO at bedtime to prevent bladder infections. Denies hospital, surgery or change in health since last visit. Diabetes: Last A1C: Lab Results Component Value Date HGBA1C 6.5% (02/05/2024)- At [facility] FBS:132 FBS range: 105-155 Last edited by Rayna Schaeffer MA on 02/14/2024 9:31 AM. Allergies, medications & history reviewed & updated by Rayna Schaeffer MA REVIEW OF SYSTEMS ROS Positive for: Eyes (blurred vision), Allergic/Imm (seasonal allergies) Negative for: Constitutional, Gastrointestinal, Neurological, Skin, Genitourinary, Musculoskeletal, HENT, Endocrine, Cardiovascular, Respiratory (denies SOB), Psychiatric (depression), Heme/Lymph Last edited by Rayna Schaeffer MA on 02/14/2024 9:13 AM. >14 minutes was spent with patient updating allergies, medications, and medical history. Referring Physician: Self, Self ATTENDING PHYSICIAN NOTE Chief Complaint Patient presents with Follow-up HPI 63 y.o. female presents for uveitis follow up with OCT, Optos, IVFA, and ICG today for Bilateral posterior uveitis. MRI BRAIN (02/07/2024) done at [facility] MRI (02/07/2024) done at [facility] Vision is the the same since last visit, her central vision in the right eye remains grayed out. Eyes remain quiet without complaint of blurred vision, eye pain, redness, photophobia or floaters Patient NOT on a current eye medication regiment. -Asked and verified if patient started ant steroids since last visit and she states No, was not given any. -Patient on cephalexin 250 mg PO at bedtime to prevent bladder infections. Denies hospital, surgery or change in health since last visit. Diabetes: Last A1C: Lab Results Component Value Date HGBA1C 6.5% (02/05/2024)- At [facility] FBS:132 FBS range: 105-155 Last edited by Rayna Schaeffer MA on 02/14/2024 9:31 AM. Referring Doctor: Self Self No address on file Medications: Current Outpatient Medications Medication Sig Empagliflozin (JARDIANCE PO) Take 5 mg by mouth daily every morning. (Patient not taking: Reported on 11/12/2023) losartan 25 MG Tab tablet Take 1 tablet by mouth daily every morning. meloxicam 15 MG tablet Take 0.5 tablets by mouth daily. metformin 1000 MG Tab tablet Take 1 tablet by mouth 2 times daily. Moxifloxacin 400 MG tablet Nitrofurantoin, macrocrystal-monohydrate, 100 MG capsule Take 1 capsule by mouth 2 times daily. predniSONE 10 MG tablet Take 6 tablets by mouth daily for 7 days, THEN 5 tablets daily for 7 days, THEN 4 tablets daily for 7 days, THEN 3 tablets daily for 7 days, THEN 2 tablets daily for 7 days, THEN 1 tablet daily for 7 days. rosuvastatin 10 MG Tab tablet Take 5 tablets by mouth at bedtime. Review of Systems: I reviewed the patient's review of systems, and I have updated the medical record. Today's Ancillary Tests: (future) FLUORESCEIN ANGIOGRAPHY AND INDOCYANINE-GREEN ANGIOGRAPHY-OU Right Eye Procedure date: 02/14/2024. Findings include hyperfluorescence, leakage, staining, window defect. Interval change is same. Left Eye Findings include hyperfluorescence, leakage, staining, window defect. Interval change is same. FUNDUS PHOTOGRAPHY-OU Procedure date: 02/14/2024. Right Eye Clear. Disc findings include normal observations. Vessel findings include normal. Macula findings include atrophy. Pigmentary Change. Interval change is same. Left Eye Clear. Disc findings include normal observations. Vessel findings include normal. Macula findings include atrophy. Pigmentary Change. Interval change is same. Notes Significant peripheral changes on FAF since 2021 OCT/HRT [facility]A OU Procedure date: 02/14/2024. Right Eye Quality was good. Findings include outer retinal layer disruption. Interval change is same. Left Eye Quality was good. Findings include outer retinal layer disruption. Interval change is same. Base Eye Exam Visual Acuity (Snellen - Linear) Right Left Dist sc CF at 3' 20/30 +2 Dist ph sc NI NI Tonometry (Tonopen, 9:21 AM) Right Left Pressure 14 12 Pupils Pupils Right PERRL Left PERRL Visual Velasquez Left Right Full Restrictions Partial inner superior temporal, inferior temporal, superior nasal, inferior nasal deficiencies Extraocular Movement Right Left Full, Ortho Full, Ortho Neuro/Psych Oriented x3: Yes Mood/Affect: Normal Dilation Both eyes: 1.0% Mydriacyl, 2.5% Phenylephrine @ 9:21 AM Slit Lamp and Fundus Exam External Exam Right Left External Normal Normal Slit Lamp Exam Right Left Lids/Lashes Normal Normal Conjunctiva/Sclera White and quiet White and quiet Cornea Clear Clear Anterior Chamber quiet Deep and quiet Iris Round and dilated Round and dialted Lens 2+ Nuclear sclerosis, 2+ Cortical cataract PCIOL Fundus Exam Right Left Vitreous Normal, no cell PVD, reyes ring, no cell Disc Normal Normal C/D Ratio 0.1 0.1 Macula atrophic, window defects no CME, some thinning, central island preserved Vessels Normal, no vascular changes Normal, no vascular changes Periphery pigmentary change pigmentary change Assessment/Plan: Bilateral posterior uveitis Pigmentary retinal dystrophy DDx: MAR,CAR,birdshot, APMPPE - Discussed diagnosis in detail with patient. - imaging suggestive of genetic cause with bilateral presentation - however differential dx includes uveitic entities as well as CAR/MAR - hx of meningioma - Will do Spark test to rule out genetic vs inflammatory conditions. - FA today shows: Staining and window defects, no leakage, more consistent with genetic conditions v inflammatory. - Will know more once the Spark results come back in 6-8 weeks, referral placed to [facility] for counseling. - Call for a sooner appointment with any problems or concerns - (11/13/2021) No evidence of inflammation seen today - Still waiting on results from genetic testing - Reviewed FAF imaging with patient, stable - 05/14/2022: [facility] genetic testing (05/23/22) did not identify any pathogenic variants - FAF stable. - VA and vision remain stable - No leakage on FA last year - Consulting Dr. Malone re workup for CAR and ddx above. - (11/12/2023) reviewed results of imaging with patient and - Eli Cabrera and Claudette Phelps were present during exam - having bladder issues, taking ATB, no hx of pentosan per patient - inflammation or toxicity perhaps more likely with completely negative genetic screening - consider referring to Dr. Ying or Kira for evaluation - could consider local steroid tx as she's already pseudophakic with good vision but slightly worsening areas of posterior atrophy on FAF today - patient advised to call if any changes (12/23/2023) Course: - right eye vision loss for 15-20 years - denies flashes or floaters - reports pink eye at the time of unknown etiology for bladder inflammation for 6 week course. Resolved now. Workup: - 01/20/2019 MRI brain: white matter abnormalties nonspecific, possible vascular or demyelinating areas in the periventricular areas of the parietal lobe 02/07/24 MRI brain: Trace left and small right mastoid effusion is nonspecific. No discrete evidence of optic neuritis or other acute orbital pathology. White matter changes are most likely due to chronic microvascular ischemic changes in a patient of this age. Otherwise, postinfectious or inflammatory changes or migraine related changes by be considered. Doubt primary demyelination. ROS: Positive: recent weight loss/gain, changes in bowel or bladder patterns, and change in urine Negative: fever/chills, night sweats, fatigue, generalized weakness, easy bruising/bleeding, tremor, intolerance to heat or cold, raynaud's, sicca symptoms, nasal ulcers, oral ulcer, cold sores, genital ulcers, sinusitis, nose bleeds, difficulty swallowing, chest pain, shortness of breath, wheezing, cough, blood in sputum, nausea, vomiting, abdominal pain, diarrhea, weakness/numbness/tingling of limbs/digits, muscle pain, joint aches/pains, rash, hives, sun sensitivity, hair loss, skin discoloration, headache, dizziness, seizure, tinnitus, hearing loss, depression, anxiety, enlarged lymph nodes, and tattoos/inflammation of tattoos Family History:(eye diseases, autoimmune disease) - none - 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 Findings include hyperfluorescence, leakage, staining, window defect. Interval change is same. Left Eye Findings include hyperfluorescence, leakage, staining, window defect. Interval change is same. FUNDUS PHOTOGRAPHY-OU Procedure date: 02/14/2024. Right Eye Clear. Disc findings include normal observations. Vessel findings include normal. Macula findings include atrophy. Pigmentary Change. Interval change is same. Left Eye Clear. Disc findings include normal observations. Vessel findings include normal. Macula findings include atrophy. Pigmentary Change. Interval change is same. Notes Significant peripheral changes on FAF since 2021 OCT/HRT [facility] OU Procedure date: 02/14/2024. Right Eye Quality was good. Findings include outer retinal layer disruption. Interval change is same. Left Eye Quality was good. Findings include outer retinal layer disruption. Interval change is same. Meds: - current medications: none - prior Medications: Impression/PLAN: - FAF reviewed from initial visit with Dr. Horowitz and clear evidence of disease progression - IVFA/ICG reviewed in detail. Difficult to assess given diffuse atrophy but does appear to be possible leakage. - MRI brain 2019 with possible demyelinating disease and recent episode of inflammation in bladder - Discussed with patient: 4 causes of uveitis, cancer, trauma, autoimmune or infection, 50% of the time no cause is found and it is considered idiopathic. Discussed findings of today's exam with the patient. The pathophysiology of uveitis discussed with patient. Will order blood work to narrow down the cause of inflammation. - consider oral steroids if TB and Syphilis negative with repeat imaging in 4 weeks to check for changes 02/14/2024 - Eyes are quiet on exam. - Reviewed brain MRI results of 02/06/24 with patient. - IVFA today shows vascular leakage both eyes. - Autoimmune blood work that was ordered was all negative. - Discussed starting oral steroids; if the inflammation responds to steroid use this suggests the uveitis is caused by an autoimmune condition. - Recommend starting prednisone 60 mg by mouth all at once in the morning with food for 1 week. -This will be followed by a 10 mg taper per week as follows 50-40-30, and remain on 30mg until next visit. - Discussed side effects of medication such as: elevated blood pressure, elevated blood sugar/worsening of diabetes, osteoporosis/fractures, mood swings, memory or behavior changes, confusion, delirium, increased appetite, weight gain, upset stomach/ulcer, belly, face, back or lower extremity edema, glaucoma, cataracts, thin skin or bruising of skin, increased risk of infection or slow wound healing - DO NOT STOP without consulting a health care provider. Cessation without taper could be life threatening. - Recommend return to the clinic in 4 weeks with repeat imaging to evaluate control of inflammation. 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 - Stressed blood glucose and blood pressure control and close follow-up with PCP/dog hair clipper - Advised importance in blood glucose and BP control in reducing risk of vision loss - Advised importance of regular fundus exams - Photos obtained to document disease severity and to follow changes over time - OCT obtained to evaluate for evidence of subretinal/intraretinal fluid Combined form of age-related cataract, both eyes - Denies limitation in daily activities - Not visually significant at this time - Continue to monitor Dry eye syndrome of bilateral lacrimal glands - Artificial tears QID - Warm compresses BID Pseudophakia - well centered, monitor NEXT VISIT Tropicamide 1% 1 drop Both eyes x 1 Phenylephrine 2.5% 1 drop to Both eyes x 1 William applanation: Both Eyes Imaging Next visit: OCT Mac Optos IVFA Both Eyes Return in about 4 weeks (around 03/13/2024) for DFE, OCT Mac, OPTOS, IVFA (no later than 3pm). IMaggie acted as a scribe for Anthony Ying DO for this note of 02/14/2024 12:51 PM. I have reviewed the dictated documentation as scribed by Maggie Lozada and it accurately reflects the work performed and the decisions made. Anthony Ying DO I saw and independently examined this patient today. I discussed my findings and the therapeutic plan with the patient. I agree with the history, physical examination, and medical decisions as outlined. I have reviewed the documentation and it accurately reflects the work performed and the decisions made. Anthony Ying DO Uveitis and Surgical Retina [facility] Eye Des[facility] Department of Ophthalmology and Visual Science documented in this encounter [facility] 02-14-2024 Instructions Anthony Ying DO - 02/14/2024 9:40 AM EST A prescription for Oral Prednisone 10 mg tablets will be sent to your pharmacy. Please take your pills the following regiment: 60 mg (6 pills) by mouth all at once in the morning with food for 1 week then 50 mg (5 pills) by mouth all at once in the morning with food for 1 week then 40 mg (4 pills) by mouth all at once in the morning with food for 1 week then 30 mg (3 pills) by mouth all at once in the morning with food for 1 week then 20 mg (2 pills) by mouth all at once in the morning with food for 1 week then 10 mg (1 pill) by mouth all at once in the morning with food and stay on this dose until your next visit We discussed side effects of medication such as: elevated blood pressure, elevated blood sugar/worsening of diabetes, osteoporosis/fractures, mood swings, memory or behavior changes, confusion, delirium, increased appetite, weight gain, upset stomach/ulcer, belly, face, back or lower extremity edema, glaucoma, cataracts, thin skin or bruising of skin, increased risk of infection or slow wound healing DO NOT STOP without consulting a health care provider. Cessation without taper could be life threatening. Please keep your scheduled appointment, documented in this encounter [facility] 12-23-2023 Note Right Eye Procedure date: 12/23/2023. Findings include hyperfluorescence, leakage, staining, window defect. Interval change is worse. Left Eye Procedure date: 12/23/2023. Findings include hyperfluorescence, leakage, staining, window defect. Interval change is worse. [facility] 12-23-2023 Note Right Eye Procedure date: 12/23/2023. Findings include hyperfluorescence, leakage, staining, window defect. Interval change is worse. Left Eye Procedure date: 12/23/2023. Findings include hyperfluorescence, leakage, staining, window defect. Interval change is worse. [facility]OUT 12-23-2023 Note Procedure date: 11/26. Right Eye Clear. Disc findings include normal observations. Vessel findings include normal. Macula findings include atrophy. Pigmentary Change. Interval change is same. Left Eye Clear. Disc findings include normal observations. Vessel findings include normal. Macula findings include atrophy. Pigmentary Change. Interval change is same. Notes Significant peripheral changes on FAF since 2021 [facility] 12-23-2023 Note Procedure date: 11/26. Right Eye Clear. Disc findings include normal observations. Vessel findings include normal. Macula findings include atrophy. Pigmentary Change. Interval change is same. Left Eye Clear. Disc findings include normal observations. Vessel findings include normal. Macula findings include atrophy. Pigmentary Change. Interval change is same. Notes Significant peripheral changes on FAF since 2021 [facility] 12-23-2023 Note Procedure date: 11/26. Right Eye Quality was good. Findings include outer retinal layer disruption. Interval change is same. Left Eye Quality was good. Findings include outer retinal layer disruption. Interval change is same. [facility] 12-23-2023 Note Procedure date: 11/26. Right Eye Quality was good. Findings include outer retinal layer disruption. Interval change is same. Left Eye Quality was good. Findings include outer retinal layer disruption. Interval change is same. ORDEROUT 12-23-2023 History of Present illness Narrative Images from the original note were not included. ATTENDING PHYSICIAN NOTE Chief Complaint Patient presents with New Patient HPI 63 y.o. female presents for uveitis evaluation with OCT and Optos today for uveitis evaluation referred by Dr Horowitz. Complains of lonstanding poor vision OD d/t PRD. No changes to vision since last appt with Dr Horowitz. She states that when she saw Dr Severino she was very inflammed and had been diagnosed with cystitis with unknown etiology. After she had a cystoscopy September 02, 2023 she developed the inflammatory response 3 days later. After several courses of oral antibiotics and antifungals she started to improve after 6 weeks. She has normal arthritis but has never been diagnosed with any autoimmune issues. She is to see an dog hair clipper and seal delivery vehicle team technician in the near future but she has not yet been scheduled. She notice that this morning her right eye seemed goopy and red, no itching or pain. She is not using any eye drops. 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 Pharmacy verified. No changes in health status. Compliant with meds, not using any ocular meds. Last edited by Alexandria Nuñez on 12/23/2023 8:48 AM. Referring Doctor: Lois Horowitz MD, PhD [address] [facility] [address] [place] [address] Medications: Current Outpatient Medications Medication Sig losartan 25 MG Tab tablet Take 1 tablet by mouth daily every morning. meloxicam 15 MG tablet Take 0.5 tablets by mouth daily. metformin 1000 MG Tab tablet Take 1 tablet by mouth 2 times daily. rosuvastatin 10 MG Tab tablet Take 5 tablets by mouth at bedtime. Empagliflozin (JARDIANCE PO) Take 5 mg by mouth daily every morning. (Patient not taking: Reported on 11/12/2023) Moxifloxacin 400 MG tablet Nitrofurantoin, macrocrystal-monohydrate, 100 MG capsule Take 1 capsule by mouth 2 times daily. Review of Systems: I reviewed the patient's review of systems, and I have updated the medical record. Today's Ancillary Tests: OCT/HRT MACULA OU Procedure date: 12/23/2023. Right Eye Quality was good. Findings include outer retinal layer disruption. Interval change is same. Left Eye Quality was good. Findings include outer retinal layer disruption. Interval change is same. FUNDUS PHOTOGRAPHY-OU Procedure date: 12/23/2023. Right Eye Clear. Disc findings include normal observations. Vessel findings include normal. Macula findings include atrophy. Pigmentary Change. Interval change is same. Left Eye Clear. Disc findings include normal observations. Vessel findings include normal. Macula findings include atrophy. Pigmentary Change. Interval change is same. Notes Significant peripheral changes on FAF since 2021 FLUORESCEIN ANGIOGRAPHY AND ICGA-OU Right Eye Procedure date: 12/23/2023. Findings include hyperfluorescence, leakage, staining, window defect. Interval change is worse. Left Eye Procedure date: 12/23/2023. Findings include hyperfluorescence, leakage, staining, window defect. Interval change is worse. Base Eye Exam Visual Acuity (Snellen - Linear) Right Left Dist sc CF @ 3ft 20/50 -1 Dist ph sc NI 20/40 Tonometry (Tonopen, 8:35 AM) Right Left Pressure 14 13 Pupils Pupils Shape React APD Right PERRL Round Minimal None Left PERRL Round Minimal None Visual Velasquez Left Right Full Full Extraocular Movement Right Left Full Full Neuro/Psych Oriented x3: Yes Mood/Affect: Normal Dilation Both eyes: 1.0% Mydriacyl, 2.5% Phenylephrine @ 8:34 AM Slit Lamp and Fundus Exam External Exam Right Left External Normal Normal Slit Lamp Exam Right Left Lids/Lashes Normal Normal Conjunctiva/Sclera White and quiet White and quiet Cornea inferior PEE nasal epi haze (circular) Anterior Chamber rare pigmentary cell Deep and quiet Iris Round and dilated Round and dialted Lens 2+ NSC & 2+CC PCIOL Fundus Exam Right Left Vitreous Normal, no cell PVD, reyes ring, no cell Disc Normal Normal C/D Ratio 0.1 0.1 Macula atrophic, window defects no CME, some thinning, central island preserved Vessels Normal, no vascular changes Normal, no vascular changes Periphery pigmentary change pigmentary change Assessment/Plan: Bilateral posterior uveitis Pigmentary retinal dystrophy DDx: MAR,CAR,birdshot, APMPPE - Discussed diagnosis in detail with patient. - imaging suggestive of genetic cause with bilateral presentation - however differential dx includes uveitic entities as well as CAR/MAR - hx of meningioma - Will do Spark test to rule out genetic vs inflammatory conditions. - FA today shows: Staining and window defects, no leakage, more consistent with genetic conditions v inflammatory. - Will know more once the Spark results come back in 6-8 weeks, referral placed to [facility] for counseling. - Call for a sooner appointment with any problems or concerns - (11/13/2021) No evidence of inflammation seen today - Still waiting on results from genetic testing - Reviewed FAF imaging with patient, stable - 05/14/2022: [facility] genetic testing (05/23/22) did not identify any pathogenic variants - FAF stable. - VA and vision remain stable - No leakage on FA last year - Consulting Dr. Malone re workup for CAR and ddx above. - (11/12/2023) reviewed results of imaging with patient and - Eli Cabrera and Claudette Phelps were present during exam - having bladder issues, taking ATB, no hx of pentosan per patient - inflammation or toxicity perhaps more likely with completely negative genetic screening - consider referring to Dr. Ying or Kira for evaluation - could consider local steroid tx as she's already pseudophakic with good vision but slightly worsening areas of posterior atrophy on FAF today - patient advised to call if any changes (12/23/2023) Course: - right eye vision loss for 15-20 years - denies flashes or floaters - reports pink eye at the time of unknown etiology for bladder inflammation for 6 week course. Resolved now. Workup: - 01/20/2019 MRI brain: white matter abnormalties nonspecific, possible vascular or demyelinating areas in the periventricular areas of the parietal lobe ROS: Positive: recent weight loss/gain, changes in bowel or bladder patterns, and change in urine Negative: fever/chills, night sweats, fatigue, generalized weakness, easy bruising/bleeding, tremor, intolerance to heat or cold, raynaud's, sicca symptoms, nasal ulcers, oral ulcer, cold sores, genital ulcers, sinusitis, nose bleeds, difficulty swallowing, chest pain, shortness of breath, wheezing, cough, blood in sputum, nausea, vomiting, abdominal pain, diarrhea, weakness/numbness/tingling of limbs/digits, muscle pain, joint aches/pains, rash, hives, sun sensitivity, hair loss, skin discoloration, headache, dizziness, seizure, tinnitus, hearing loss, depression, anxiety, enlarged lymph nodes, and tattoos/inflammation of tattoos Family History:(eye diseases, autoimmune disease) - none - 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 Normal heart size and mediastinal contours. No pulmonary edema. Degenerative change in the thoracic spine. IMPRESSION IMPRESSION: Degenerative changes in the thoracic spine; otherwise normal chest radiographs. ILIS AB W/REFLEX RPR Component Value Flag Ref Range Units Status Syphilis IgG/IGM Total Non Reactive Non Reactive Final ANGIOTENSIN CONVERTING ENZYME Component Value Flag Ref Range Units Status Angiotensin Converting Enzyme 63 19 - 123 U/L Final COMPREHENSIVE METABOLIC PANEL Component Value Flag Ref Range Units Status Sodium 141 135 - 145 mmol/L Final Potassium 4.5 3.5 - 5.0 mmol/L Final Chloride 104 98 - 108 mmol/L Final BUN 25 7 - 25 mg/dL Final Creatinine 0.69 0.50 - 1.20 mg/dL Final Glucose 139 70 - 99 mg/dL Final Bilirubin Total 0.3 <1.5 mg/dL Final Albumin 4.4 3.5 - 5.0 g/dL Final Total Protein 7.4 6.4 - 8.3 g/dL Final AST 13 10 - 39 U/L Final ALP 49 32 - 126 U/L Final Calcium 10.2 8.6 - 10.5 mg/dL Final CO2 27 21 - 31 mmol/L Final ALT 7 9 - 48 U/L Final Bun/Crea Ratio 36 Final Osmolality (Calculated) 302 278 - 305 mOsm/kg Final Anion Gap 15 7 - 17 mmol/L Final eGFR, CKD-EPI, Female >90 >=60 mL/min/1.73m2 Final Comment: Reported eGFR is based on the CKD-EPI 2020 equation using creatinine, age, and sex. CBC AND ELECTRONIC DIFF Component Value Flag Ref Range Units Status WBC Count 5.92 3.99 - 11.19 K/uL Final RBC Count 4.00 3.91 - 5.04 M/uL Final Hemoglobin 13.2 11.4 - 15.2 g/dL Final Hematocrit 41.3 34.9 - 44.3 % Final Mean Cell Volume 103.3 79.6 - 97.7 fL Final Mean Cell Hgb 33.0 25.9 - 33.9 pg Final Mean Cell Hgb Conc 32.0 31.4 - 35.9 g/dL Final RBC Distribution 11.6 10.8 - 14.9 % Final Platelet Count 265 150 - 393 K/uL Final Mean Platelet Volume 9.4 8.5 - 12.2 fL Final DIFF STATUS Electronic Differential Final Segs + Bands Auto 57.2 % Final Immature Grans % 0.2 % Final Lymphocyte % Auto 32.8 % Final Monocyte % Auto 7.4 % Final Eosinophil % Auto 1.7 % Final Basophil % Auto 0.7 % Final Nucleated RBC 0.0 <=0.2 /100 WBC Final Segs + Bands,Absolute Auto 3.39 1.64 - 7.28 K/uL Final Immature Grans Absolute <0.04 <=0.08 K/uL Final Abs Lymph Auto 1.94 1.16 - 3.51 K/uL Final Abs [place] Auto 0.44 0.22 - 0.87 K/uL Final Abs Eos Auto 0.10 0.00 - 0.42 K/uL Final Abs Baso Auto 0.04 0.00 - 0.15 K/uL Final OCT/HRT MACULA OU Procedure date: 12/23/2023. Right Eye Quality was good. Findings include outer retinal layer disruption. Interval change is same. Left Eye Quality was good. Findings include outer retinal layer disruption. Interval change is same. FUNDUS PHOTOGRAPHY-OU Procedure date: 12/23/2023. Right Eye Clear. Disc findings include normal observations. Vessel findings include normal. Macula findings include atrophy. Pigmentary Change. Interval change is same. Left Eye Clear. Disc findings include normal observations. Vessel findings include normal. Macula findings include atrophy. Pigmentary Change. Interval change is same. Notes Significant peripheral changes on FAF since 2021 FLUORESCEIN ANGIOGRAPHY AND ICGA-OU Right Eye Procedure date: 12/23/2023. Findings include hyperfluorescence, leakage, staining, window defect. Interval change is worse. Left Eye Procedure date: 12/23/2023. Findings include hyperfluorescence, leakage, staining, window defect. Interval change is worse. Meds: - current medications: none - prior Medications: Impression/PLAN: - FAF reviewed from initial visit with Dr. Horowitz and clear evidence of disease progression - IVFA/ICG reviewed in detail. Difficult to assess given diffuse atrophy but does appear to be possible leakage. - MRI brain 2019 with possible demyelinating disease and recent episode of inflammation in bladder - Discussed with patient: 4 causes of uveitis, cancer, trauma, autoimmune or infection, 50% of the time no cause is found and it is considered idiopathic. Discussed findings of today's exam with the patient. The pathophysiology of uveitis discussed with patient. Will order blood work to narrow down the cause of inflammation. 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 - Stressed blood glucose and blood pressure control and close follow-up with PCP/dog hair clipper - Advised importance in blood glucose and BP control in reducing risk of vision loss - Advised importance of regular fundus exams - Photos obtained to document disease severity and to follow changes over time - OCT obtained to evaluate for evidence of subretinal/intraretinal fluid Combined form of age-related cataract, both eyes - Denies limitation in daily activities - Not visually significant at this time - Continue to monitor Dry eye syndrome of bilateral lacrimal glands - Artificial tears QID - Warm compresses BID Pseudophakia - well centered, monitor NEXT VISIT Tropicamide 1% 1 drop Both eyes x 1 Phenylephrine 2.5% 1 drop to Both eyes x 1 William applanation: Both Eyes Imaging Next visit: OCT Mac Optos IVFA Both Eyes Return in about 4 weeks (around 01/20/2024) for DFE, OCT Mac, OPTOS, IVFA (no later than 3pm), ICG (no later than 3pm). Anthony Ying DO Uveitis and Surgical Retina [facility] Eye [facility] Department of Ophthalmology and Visual Science I, Anthony Ying DO acted as a scribe for Anthony Ying DO for this note of 12/23/2023 8:44 PM. I have reviewed the dictated documentation as scribed by Jesús Barksdale and it accurately reflects the work performed and the decisions made. I saw and independently examined this patient today. I discussed my findings and the therapeutic plan with the patient. I agree with the history, physical examination, and medical decisions as outlined. I have reviewed the documentation and it accurately reflects the work performed and the decisions made. Anthony Ying DO REASON FOR VISIT Tess Ken presents to clinic today for a New Patient visit. Chief Complaint New Patient HISTORY OF PRESENT ILLNESS HPI 63 y.o. female presents for uveitis evaluation with OCT and Optos today for uveitis evaluation referred by Dr Horowitz. Complains of lonstanding poor vision OD d/t PRD. No changes to vision since last appt with Dr Horowitz. She states that when she saw Dr Severino she was very inflammed and had been diagnosed with cystitis with unknown etiology. After she had a cystoscopy September 02, 2023 she developed the inflammatory response 3 days later. After several courses of oral antibiotics and antifungals she started to improve after 6 weeks. She has normal arthritis but has never been diagnosed with any autoimmune issues. She is to see an dog hair clipper and seal delivery vehicle team technician in the near future but she has not yet been scheduled. She notice that this morning her right eye seemed goopy and red, no itching or pain. She is not using any eye drops. 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 Pharmacy verified. No changes in health status. Compliant with meds, not using any ocular meds. Last edited by Alexandria Nuñez on 12/23/2023 8:48 AM. Allergies, medications & history reviewed & updated by Alexandria Nuñez REVIEW OF SYSTEMS Review of Systems Eyes: Positive for visual disturbance. Respiratory: Negative for cough, shortness of breath and wheezing. Musculoskeletal: Positive for joint swelling. Negative for gait problem. Allergic/Immunologic: Positive for environmental allergies. Neurological: Negative for dizziness and headaches. >15 minutes was spent with patient updating allergies, medications, and medical history. Referring Physician: documented in this encounter [facility] 11-12-2023 History of Present illness Narrative Chief Complaint Patient presents with Follow-up HPI Present for a 1 year follow-up to monitor pigmentary retinal dystrophy OU. Asked patient about problems with loss of vision,changes or decreased vision, glare, eye pain/irritation, itching, flashes of light, floaters, excessive tearing, redness and discharge. Patient reports that she has had pink eye OS>OD and has been taking ofloxacin PRN CURRENT OCULAR MEDICATIONS/TREATMENTS: Ofloxacin PRN OU Last edited by Karly Mendoza on 11/12/2023 2:02 PM. 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 Past Surgical History: Procedure Laterality Date REMOVAL CATARACT WITH INSERTION INTRAOCCULA Left 05/03/2021 LAMINECTOMY W/ BX OR EXCISION LESION INTRASPINAL INTRADURAL THORACIC Midline 02/16/2019 Laterality: Midline; Surgeon: Lauren Horowitz MD; [facility] MAIN OR FUSION POSTERIOR THORACIC Midline 02/16/2019 Laterality: Midline; Surgeon: Lauren Horowitz MD; Location: [facility] MAIN OR- No metal seen on imaging KNEE REPLACEMENT Total TONSILLECTOMY Family History Problem Relation Age of Onset Cataract Mother Heart Disease - Other Mother Heart Failure Mother Cataract Father Other - Specify Father COPD Emphysema Father Exam for this visit: Main Ophthalmology Exam External Exam Right Left External Normal Normal Slit Lamp Exam Right Left Lids/Lashes Normal Normal Conjunctiva/Sclera White and quiet White and quiet Cornea 2+ PEE Inferior 2+ PEE Inferior Anterior Chamber Deep and quiet Deep and quiet Iris Round and dilated Round and dialted Lens 2+ NSC & CC PCIOL Fundus Exam Right Left Vitreous Normal PVD, reyes ring Disc Normal Normal C/D Ratio 0.1 0.1 Macula atrophic, window defects no CME, some thinning, central island preserved Vessels Normal, no vascular changes Normal, no vascular changes Periphery pigmentary change pigmentary change, rare DBH VA Distance sc VA Distance cc VA Near sc VA Near sc IOP Right CF @ 3ft 14 Left 20/40 13 Assessment / Plan: Pigmentary retinal dystrophy DDx: MAR,CAR,birdshot, APMPPE - Discussed diagnosis in detail with patient. - imaging suggestive of genetic cause with bilateral presentation - however differential dx includes uveitic entities as well as CAR/MAR - hx of meningioma - Will do Spark test to rule out genetic vs inflammatory conditions. - FA today shows: Staining and window defects, no leakage, more consistent with genetic conditions v inflammatory. - Will know more once the Spark results come back in 6-8 weeks, referral placed to [facility] for counseling. - Call for a sooner appointment with any problems or concerns - (11/13/2021) No evidence of inflammation seen today - Still waiting on results from genetic testing - Reviewed FAF imaging with patient, stable - 05/14/2022: [facility] genetic testing (05/23/22) did not identify any pathogenic variants - FAF stable. - VA and vision remain stable - No leakage on FA last year - Consulting Dr. Malone re workup for CAR and ddx above. - (11/12/2023) reviewed results of imaging with patient and - Eli Cabrera and Claudette Phelps were present during exam - having bladder issues, taking ATB, no hx of pentosan per patient - inflammation or toxicity perhaps more likely with completely negative genetic screening - consider referring to Dr. 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 Dry eye syndrome of bilateral lacrimal glands - monitor Pseudophakia - monitor RTC: PRN, earlier as needed - refer to Dr. Ying or Dr. Malone, next available I, Jaki Burton,COA acted as a scribe for Lois Horowitz MD, PhD for this note of 11/12/2023 2:41 PM. I have reviewed the dictated documentation as scribed by Jaki Burton and it accurately reflects the work performed and the decisions made. I saw and independently examined this patient today. I discussed my findings and the therapeutic plan with the patient. I agree with the history, physical examination, and medical decisions as outlined. I have reviewed the documentation and it accurately reflects the work performed and the decisions made. Lois Horowitz MD PhD [employer] Ophthal[facility] REASON FOR VISIT Tess Ken presents to clinic today for a Established Patient visit. 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 Asked patient about problems with loss of vision,changes or decreased vision, glare, eye pain/irritation, itching, flashes of light, floaters, excessive tearing, redness and discharge. Patient reports that she has had pink eye OS>OD and has been taking ofloxacin PRN CURRENT OCULAR MEDICATIONS/TREATMENTS: Ofloxacin PRN OU Last edited by Karly Mendoza on 11/12/2023 2:02 PM. Allergies, medications & history reviewed & updated by Karly Mendoza REVIEW OF SYSTEMS Review of Systems Constitutional: Negative for chills and fever. HENT: Negative for congestion, postnasal drip and sneezing. Eyes: Positive for visual disturbance. Respiratory: Negative for cough. Neurological: Negative for dizziness, light-headedness and headaches. 10 minutes of face to face time was spent with patient performing the electrical design technician work of this visit. documented in this encounter [facility] 06-06-2023 History of Present illness Narrative Nurse Note: Review of Systems Constitutional: Negative for chills, fatigue and fever. HENT: Negative for hearing loss and tinnitus. Eyes: Negative for visual disturbance. Respiratory: Negative for cough and shortness of breath. Cardiovascular: Negative for chest pain and leg swelling. Gastrointestinal: Negative for constipation, diarrhea, nausea and vomiting. Genitourinary: Negative for difficulty urinating. Musculoskeletal: Negative for back pain and neck pain. Skin: Negative for rash. Neurological: Negative for dizziness, tremors, seizures, speech difficulty, weakness, light-headedness, numbness and headaches. Psychiatric/Behavioral: Negative for confusion, decreased concentration and hallucinations. Nursing Assessment: Physical Exam TITLE: NEURO-ONCOLOGY CLINIC FOLLOW UP VISIT REASON FOR FOLLOW UP VISIT: Meningioma Cc: follow up visit TREATMENT HISTORY: Surgery: 02-16-2019; T10, T11, T12 laminectomy withgross total resection and removal of [id number] intradural extramedullary thoracic mass consistent with a meningioma; performed by Lauren Horowitz MD, [facility]; the pathology was consistent with meningioma. SUBJECTIVE: Mrs Ken is a 62 year old female with a known lesion at the T11-12 level that is believed to be a meingioma. She was referred to the Neuro-Oncology Clinic and seen in consultation on January 27, 2019. The patient reported having a left knee replacement in 2018. She subsequently started noticing sensory changes and discomfort in the left lower extremity. The symptoms were mostly localized to the left anterolateral thigh area. She was managed conservatively [including with traction]. Her discomfort was intermittent. She went on to have a scan of her spine that showed a rather large lesion at the T11-12 region of the spinal canal. She was evaluated in Neurosurgery [Dr Horowitz]. Surgical resection of the lesion was discussed but the patient was also given a follow-up visit after the initial appointment with plans to have her undergo an MRI of the rest of the neuraxis. She was also referred to the Neuro-Oncology Clinic and was seen for the initial appointment as noted above on January 27, 2019. I reviewed the images associated with the brain MRI performed on 01-20-2019. This study was associated with the following report: No MRI evidence of abnormal intracranial enhancement. White matter abnormalities which are nonspecific. I personally reviewed the images associated with the cervical spine MRI performed on 01-20-2019. I also noted the following report: No MRI evidence of neoplastic disease involving the cervical spine. Degenerative changes involving the cervical spine resulting in varying degrees of neural foraminal narrowing at multiple levels and mild spinal stenosis at the C5-6 level. Soft tissue fullness in the lingual tonsil/tongue base region which effaces the vallecula bilaterally. This finding can be due to primary neoplasm, this can also just be due to reactive lymphoid tissue. Clinical correlation with direct visualization is recommended. Partial visualization of a large fatty signal mass lateral right supraclavicular/retroclavicular region with visualized portion on image 43 measuring 5 x 3 cm. 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 Given the size and lack of complete evaluation, MRI of the right brachial plexus is recommended to further evaluate A thoracic spine MRI was performed on January 20, 2019. I reviewed this study and noted the following report: Stable appearance of large contrast-enhancing mass within the spinal canal is centered at the T11-12 level. Statistically, schwannoma or meningioma be the most common etiologies. The prominent vasculature above the level of the mass also raises the possibility of lesion such as paraganglioma and hemangioblastoma. A few of the other possible causes would include solitary fibrous tumor and melanocytoma. The intradural mass severely compresses and displaces the spinal cord anteriorly and to the right. This mass is intradural and most likely extra medullary although involvement of the spinal cord would be difficult to exclude due to the severe compression of the spinal cord. There is a stable degree of hypointense T2-weighted signal within the mass which may be due to calcification or residual change from remote intralesional hemorrhage. Allowing for motion artifact, there are no definite contrast-enhancing lesions identified within the remaining portions of the thoracic spinal canal or the lumbar thecal sac. Focal marrow abnormalities in the T4 and T8 vertebral bodies. The T8 lesion is consistent with incidental hemangioma wall the T4 lesion is more indeterminate nature. Attention on continued interval follow-up MRI is recommended. A lumbar spine MRI was performed on January 20, 2019. I reviewed this study and noted the following report: Stable appearance of large contrast-enhancing mass within the spinal canal is centered at the T11-12 level. Statistically, schwannoma or meningioma be the most common etiologies. The prominent vasculature above the level of the mass also raises the possibility of lesion such as paraganglioma and hemangioblastoma. A few of the other possible causes would include solitary fibrous tumor and melanocytoma. The intradural mass severely compresses and displaces the spinal cord anteriorly and to the right. This mass is intradural and most likely extra medullary although involvement of the spinal cord would be difficult to exclude due to the severe compression of the spinal cord. There is a stable degree of hypointense T2-weighted signal within the mass which may be due to calcification or residual change from remote intralesional hemorrhage. Allowing for motion artifact, there are no definite contrast-enhancing lesions identified within the remaining portions of the thoracic spinal canal or the lumbar thecal sac. Focal marrow abnormalities in the T4 and T8 vertebral bodies. The T8 lesion is consistent with incidental hemangioma wall the T4 lesion is more indeterminate nature as detailed above. Attention on continued interval follow-up MRI is recommended. We discussed with the patient that surgery for resection of the lesion in the thoracic area of the cord would be most appropriate management. Medical treatment with radiation and/or chemotherapy without a tissue diagnosis was not appropriate The patient would let us know if she wanted to proceed with an ENT referral that was recommended because of the tonsillar tissue enlargement noted on the cervical spine MRI. Similarly, she was to advise if she decided to proceed with an MRI of the brachial plexus to evaluate a possible lipoma versus other possibilities as noted incidentally on the cervical spine imaging. The patient returned to the Neuro-Oncology clinic for a follow-up visit on 03-31-2019. She was accompanied by her . Since her initial visit with us on January 27, 2019, the patient was admitted to the Neurosurgery service for an elective planned resection of a presumed spinal canal meningioma. The date of admission was February 16, 2019. The patient proceeded with surgery on the date of admission and had a posterior thoracic laminectomy, excision of T11-T12 intradural extramedullary mass with the pathology noted to be consistent with meningioma. In clinic on March 31, 2019, the patient reported some mild soreness at the site of her surgery but also indicated that her gait was significantly improved and she had resolution of the limp in the left leg she had before the surgery. She was still using pain medications but only very sparingly. She denied having any problems with bowel or bladder function. A thoracic spine MRI was performed on March 23, 2019. I reviewed this study and noted the following report: Stable examination since 02/19/2019. Postoperative changes in the posterior aspect of the lower thoracic spine compatible with prior meningioma resection. No evidence of tumor recurrence. Protrusion of portions of the midline posterior soft tissues into the dorsum of the canal at the site of surgery resulting in severe spinal stenosis at the T11 and upper T12 levels with underlying cord compression. Supine positioning could contribute to the relative degree of soft tissue protrusion and spinal canal narrowing at this level. Stable signal abnormality within the left hemicord at T11-12 probably secondary to myelomalacia. I discussed the pathology, the likely favorable prognosis associated with the pathology and the clinical and imaging surveillance plan moving forward. We also reviewed the imaging with her and her . A follow up visit for clinical and imaging surveillance was provided. The patient was called on August 25, 2019 for a followup telephone visit. She denied any new symptoms. An MRI of the thoracic spine performed with and without contrast on August 14, 2019 showed postsurgical change and focal myelomalacia at T11-T12 status post tumor resection with no evidence of residual or recurrent tumor. Laminectomy is noted at T10-T11 and T12. Moderate disc marginal osteophyte a T7-T8. A return to Clinic in 3 months with thoracic spine MRI was recommended. The patient was called on December 01, 2019 for a video follow-up visit. She reported no new symptoms. In fact she felt very well. An MRI of the thoracic spine with and without contrast was performed on November 18, 2019. I reviewed this study and noted the following report: Postsurgical changes at T11-T12 and T12-L1 status post meningioma removal as per clinical history. No evidence for residual or recurrent tumor. Focal myelomalacia in the cord at T11-T12. Small left paracentral disc/ossified protrusion at T7-8 mildly narrowing the central canal without cord compromise. Minor bulging of the disc at T9-10 without spinal stenosis. The patient was to return to the Neuro-Oncology clinic in approximately 3 months with a repeat thoracic spine MRI. The patient returns to Clinic on March 29, 2020, for a follow up visit. She reported no new symptoms and is doing well overall. She had persistent numbness and occasional tingling in a patch of skin in the anteromedial aspect of the left thigh. A thoracic spine MRI shows no evidence of recurrent tumor; a report was no available and the imaging was interpreted independently. The patient returned to the Neuro-Oncology Clinic on October 18, 2020. She had no new symptoms. She had a thoracic spine MRI performed on October 18, 2020. A thoracic spine MRI with and without contrast was performed on October 18, 2020. This study appeared stable when compared to the patient's most recent imaging from March 2020. A formal report was pending at the time of the clinic visit. The patient returned to Clinic on April 18, 2021 for a follow up visit. She had no new symptoms. A thoracic spine MRI was performed on 04-18-2021. I reviewed this study and noted no significant changes compared to most recent imaging performed on 10-18-2020. A formal report was pending at the time of the Clinic visit. The patient was to return to Clinic in 6 months and a thoracic spine MRI was scheduled to be repeated with the follow up visit. The patient returned to the Neuro-oncology Clinic on October 12, 2021 for a follow up visit. She had no complaints. A thoracic spine MRI with and without contrast was performed on 10-12-2021. I reviewed this study and noted the following report: Postoperative changes again noted. No evidence of recurrent enhancing lesion in the spinal canal. Progressive degenerative changes of the T10-11 and T11-12 discs anteriorly, and mild increase in lower thoracic kyphosis compared to preoperative imaging. Findings suggest accelerated degeneration related to altered biomechanics following posterior decompression. The patient was advised to return to Clinic in 6 months. A thoracic spine MRI was planned to be repeated with the follow up visit. A [employer] Chart message was sent to the patient after the MRI report became available and in regards to accelerated degeneration related to altered biomechanics following posterior decompression. These changes were also reviewed with Neurosurgery. The patient returned to the Neuro-Oncology Clinic on April 05, 2022 for a follow-up visit. She had no complaints. A thoracic spine MRI was completed on April 05, 2022. I reviewed the study and noted the following report: Postoperative changes again noted. No evidence of recurrent enhancing lesion in the spinal canal. Progressive degenerative changes of the T10-11 and T11-12 discs anteriorly, and mild increase in lower thoracic kyphosis. Progressive endplate edema and enhancement extending from T10 to T12 levels. The patient was to continue with clinical and imaging surveillance. She was given a follow up appointment on 10-16-2022. The patient was sent a My Chart message after the visit with regards to the progressive degenerative changes of the T10-11 and T11-12 discs anteriorly, mild increase in lower thoracic kyphosis and progressive endplate edema and enhancement extending from T10 to T12 levels. We offered a referral to the Spine Center and planned to refer her if she agreed. The patient returned to the Neuro-Oncology Clinic on December 04, 2022 for a follow-up visit. She did not have any new complaints and was feeling well overall. She had occasional lower back pain but nothing was new or different. She had not been seen in the [facility] yet for the degenerative disc changes and kyphosis noted on the prior brain MRI because she was very busy dealing with her aging parents who had recently . Her mother had rather severe dementia. However she was planning on setting up that appointment. A thoracic spine MRI was completed on December 04, 2022. I reviewed the study and noted the following report: Postoperative changes again noted. No evidence of recurrent enhancing lesion in the spinal canal. Degenerative changes especially at the T10-11 and T11-12 levels. A thoracic spine MRI was completed on December 04, 2022. I reviewed the study and noted the following report: Postoperative changes again noted. No evidence of recurrent enhancing lesion in the spinal canal. Degenerative changes especially at the T10-11 and T11-12 levels. She was advised continued clinical and imaging surveillance. Interval history: The patient returns to the Neuro-Oncology Clinic today, June 06, 2023 for a follow-up visit. She is doing well overall. Since her last visit in clinic, she was evaluated in the comprehensive [facility] for degenerative disc changes and kyphosis. She was advised physical therapy. A thoracic spine MRI with and without contrast was completed in association with today's visit. The report is discussed below. REVIEW OF SYSTEMS: A complete review of systems with the patient was otherwise negative. PHYSICAL EXAMINATION: KARNOFSKY PERFORMANCE STATUS: 90 General Appearance: The patient appears healthy and in no distress Vitals: 06/06/23 1556 BP: 132/60 Pulse: 73 Resp: 18 Temp: 96.1 F (35.6 C) SpO2: 96% Neurologic: Mental status: awake and alert. Speech and language are without deficit or dysarthria. Cranial nerves: within normal limits Motor: no detectable weakness on examination. Gait and stance: intact MEDICAL DECISION MAKING: DATA REVIEW: NEUROIMAGING: A thoracic spine MRI was completed on June 06, 2023. I reviewed the study and noted the following report: Postsurgical changes related to prior resection of meningioma. Myelomalacia in the spinal cord at the level of T11-12. No evidence of new or nodular enhancement to suggest residual or recurrent disease LABS: None DIAGNOSIS: Meningioma, WHO Grade I, spinal: status post resection. The patient is stable clinically and stable on imaging. Degenerative changes of the T10-11 and T11-12 discs anteriorly, and mild increase in lower thoracic kyphosis compared to preoperative imaging. MANAGEMENT: The patient will return to clinic in 6 months with repeat imaging of the thoracic spine The total visit time was 30 minutes on the date of service. Kurtis Harris MD Avionics Technician in Neurology Division of Neuro-oncology [address] [place] [address] documented in this encounter [facility] 06-06-2023 Instructions CASPER Dow - 06/06/2023 3:30 PM EDT Your Neuro-Oncology Team [facility] [address] [place] [address] Dr. Kurtis Harris M.D. Nurse Practitioner: Renee Evans CNP Primary Nurse: GINGER Nieves, RN, GINGER Hodges, clock maker Office Office Office Clinical Research Trials [phone] MICHEAL Bradford Power Shovel Operator Neuro-Oncology Clinic Hours: Saturday-Saturday 8:30 - 4:30 Neuro-Oncology Office Information Regular business hours are Saturday through Saturday 8:30 a.m. to 4:30 p.m. Please call [phone] for information related to clinic appointments, scheduled tests, or for general office related questions or concerns. Messages for the physicians, nurses and other team members can be taken at this phone number and will be routed as appropriate. Emergency assistance is available after hours by calling the office at [phone] and the answering service will reach your doctor or the physician halftone operator. Please allow at least 48 hours for Prescription refill transactions. Please allow 10 business days for completion of FMLA and other disability paperwork. We will mail the completed paperwork to you or you may pick it up at the desk. It is your responsibility to return the FMLA or disability paperwork to your employer. If you need to mail a CD or paperwork to the office please mail to : NEURO-ONCOLOGY DEPARTMENT [address] [place] [address] Please be mindful that [employer] messages are only monitored during regular business hours from 8am to 5pm, Saturday through Saturday. It may take 1-2 business days for you to receive a response to your [employer] message [facility] Facilitators: JAMAL Brown and SCARLETT Bradford, PHARMACOMETRICIAN-S Virtual Meeting held on the Saturday of Every Month 3:00p.m. - 4:00 p.m. The Brain Tumor support group is available for anyone diagnosed with a brain tumor and their support person. This time is an opportunity for those impacted by a brain tumor to offer support to one another by sharing their experiences and learning more about life after diagnosis. Speakers may be arranged to discuss various topics such as diet and nutrition, per group request. Some group events are held throughout the year. For more information and to register for programming, visit [email or web address] or call [facility] at [phone] documented in this encounter [facility] 02-05-2023 History of Present illness Narrative Images from the original note were not included. [facility] Referred by: CASPER Dow [address] [place] [address] PCP: Darshan Rowley MD (General) Reason for consult: DDD, hx of thoracic meningioma T11-T12 History of Present Illness: Tess Ken is a 62 y.o. female with a history of Thoracic meningioma presenting today for evaluation of her chief complaint: worsening kyphosis. External notes/medical records independently reviewed and pertinent information found was incorporated. -pain in the T8-T10 band, 3/10 at worst. 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 Tess Ken reports pain located in mid thoracic back that started 2021. The pain radiates outward in her back. There is no associated numbness or tingling. Reports minimal weakness. Pain level is 2/10 today. Feels like aching pain and is intermittent in duration. Pain worse with activity, sleeping in certain positions. Pain improved with rest. The percentage of axial to limb pain is 100% and 0%, respectively. Patient's pain is not worrisome to her and Denies bowel dysfunction, bladder dysfunction or saddle anesthesia concerning for a cauda equina issue. Denies issues with balance Denies changes in writing or hand dexterity. Currently on Anticoagulation: None Current medications for this issue: meloxicam Beneficial Treatments: meloxicam Non-Beneficial Treatments: none Treatments: --Physical therapy: has completed in past, none in the past 6 months --Injections: NONE --Spine Surgery: T12 laminectomy O[facility] Report Reviewed 02/05/2023 Review of Systems: All other systems negative or as above and below. 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 She has no past medical history of Pacemaker. Surgical History: has a past surgical history that includes knee replacement; tonsillectomy; laminectomy w/ bx or excision lesion intraspinal intradural thoracic (Midline, 02/16/2019); fusion posterior thoracic (Midline, 02/16/2019); and removal cataract with insertion intraoccula (Left, 05/03/2021). Social History: reports that she has been smoking cigarettes. She has a 21.00 pack-year smoking history. She has never used smokeless tobacco. She reports current alcohol use of about 1.0 standard drink of alcohol per week. She reports that she does not use drugs. Social History Substance and Sexual Activity Drug Use Never Social History Social History Narrative Not on file Family History: family history includes Cataract in her father and mother; Emphysema in her father; Heart Disease - Other in her mother; Other - Specify in her father. Current Medications: has a current medication list which includes the following prescription(s): Empagliflozin (JARDIANCE PO), losartan 25 MG Tab tablet, meloxicam 15 MG tablet, metformin 1000 MG Tab tablet, and rosuvastatin 10 MG Tab tablet. Allergies: is allergic to lisinopril. PHYSICAL EXAMINATION Pulse 82 Temp 96.7 F (35.9 C) Ht 1.778 m (5' 10) Wt 102.1 kg (225 lb) SpO2 96% BMI 32.28 kg/m Smoking Status Every Day Body mass index is 32.28 kg/m . GENERAL: NAD, good eye contact, well appearing, responds appropriately. HEENT: Atraumatic, normocephalic. EOMI grossly intact to tracking examiner, sclerae anicteric. THORACIC/PULM: No visible chest wall deformities. No tachypnea, no accessory muscle use at rest. CARDIO & VASC: Regular rate and rhythm to peripheral pulse. Upper and lower limbs are warm, well perfused. No cyanosis, or edema. SKIN: Intact. No rashes, bruises, or ulcers over visible skin PSYCH: Affect appears normal, mood congruent. MUSCULOSKELETAL & NEURO: MUSCULOSKELETAL & NEURO: Observation: Visible Spine/Back Deformity: yes, palpable changes from spine surgery Palpation: Tenderness to palpation of the lumbar paraspinal muscles in the low back: no Tenderness over either trochanteric bursa: no Back ROM: Pain not reproducible with flexion, extension, rotation. Radicular Pain Testing RIGHT LEFT Seated Straight Leg Raise - - Slump Test - - Sacroiliac Joint Provocation Testing RIGHT LEFT JIHAN/Yifan's Test - - Thigh Thrust/Posterior Sheer Test - - Sacral Thrust - - Gaenslen Test - - Marsland's Test - - Facet Joint Pain Testing RIGHT LEFT Facet Loading (extension and rotation) - - Pain with extension - - Manual Muscle Testing: Lower Extremity MMT: -/5 HF KE KF DF APF Right 5 5 5 5 5 Left 5 5 5 5 5 Sensation: Grossly normal to light touch in BLL. Reflexes: -/4 Patellar Achilles Hamstring Clonus/Tone Right 2 2 - No/Normal Left 2 2 - No/Normal Gait: Grossly Normal Labs/Imaging Reviewed: Labs and imaging personally reviewed. Relevant diagnostic studies were also reviewed with and explained to patient using their images, reports, diagrams, and/or models. MRI 11/2022 FINDINGS: Postoperative changes from prior T10-T12 and laminectomy. No evidence of enhancing mass or nodularity at the resection bed or elsewhere in the thoracic spine. Alignment is stable since the previous postoperative MRI but there is progressive kyphosis in the lower thoracic spine compared to preoperative imaging (15 to 20 degrees in the lower thoracic spine currently compared to about 10 degrees in 2019). Vertebral bodies are stable in height and signal. Surgical incisions are well-healed. Paraspinal soft tissues are otherwise within normal limits. Previously visualized soft tissue abnormalities are not included in the field of view for this examination. Multilevel degenerative changes to the thoracic spine within the lower thoracic spine from T7 to T12, worst at T10-11 and T11-12. No severe thoracic canal stenosis or cord compression. Thinning of the spinal cord and increased T2 signal at T11-T12, is stable from prior imaging, likely secondary to myelomalacia from prior meningioma. Thoracic cord is otherwise within normal limits in caliber and signal. Lab Results Component Value Date SODIUM 138 03/03/2019 POTASSIUM 4.1 03/03/2019 CHLORIDE 105 03/03/2019 CO2 23 03/03/2019 BUN 18 03/03/2019 CREATSERUM 0.63 03/03/2019 GLUCOSE 185 (H) 03/03/2019 Lab Results Component Value Date WBC 4.85 03/03/2019 HGB 12.8 03/03/2019 HCT 36.3 03/03/2019 PLATELET 276 03/03/2019 MCV 93.8 03/03/2019 No results found for: SEDRATE No results found for: CRP Patient Reported Outcome Measures: No data to display ASSESSMENT AND PLAN ICD-10-CM 1. Mid back pain M54.9 AMB REFERRAL TO PHYSICAL THERAPY 2. Myofascial pain M79.18 AMB REFERRAL TO PHYSICAL THERAPY 3. History of thoracic surgery Z98.890 AMB REFERRAL TO PHYSICAL THERAPY 4. Kyphosis (acquired) (postural) M40.00 Tess Ken is a 62 y.o. female who presents for evaluation of worsening kyphosis. Pain appears to be primarily in the mid back T8-10 region. History and physical exam consistent with myofascial pain.MRI Imaging shows worsening kyphosis, however given patient's minimal symptoms and/or complaints, recommend physical therapy for core strengthening/positioning exercises. ---> Start physical therapy for the mid back/low back including core work, hip flexor stretches, general stretching and strengthening for the back and initiation of a home exercise program. Traction and modalities per therapist discretion. --> No further imaging needed at this time. ---> Medications: Continue Meloxciam ONCE daily as needed. OK to use acetaminophen as needed while taking meloxicam. We have discussed the adverse effects of using any NSAID; including gastrointestinal, renal, and cardiovascular side effects. No Other NSAID-type Medications (Ibuprofen, motrin, aleve, naproxen, diclofenac, etc). FOLLOW UP: NEEDED Medical management to be discussed with the staff pain physician Dr. Mendoza. Nely Gonzalez MD PGY3 Anesthesiology This note was dictated using medical dictation software [employer]. This note has been proofread for errors but typos and grammatical errors from dictation may still be present. Attending Physician Note (GE) I personally examined and evaluated the patient. I reviewed the case and the medical record with the resident. Based on the history and exam, I agree with the medical decision making. Dr. Gonzalez performed the interview and exam however, I was present and participated significantly in the evaluation, examination, and documentation of this patient. Seema Mendoza MD Energy Broker- Clinical [facility] Department of Anesthesiology- Pain Medicine documented in this encounter [facility] 12-04-2022 History of Present illness Narrative T11-12 meningioma. MRI T spine done today. Overall feels well. No weakness, numbness, incoordination, falls. Occasional lower back pain but nothing new/different or persistent. She just forgot about the referral to the spine center for the degenerative disc changes and kyphosis seen on prior MRI. She was busy dealing with her aging parents who recently passed. She is agreeable to appt in spine center now. Neuro exam: CN in tact 5/5 strength throughout Sensation symmetric to light touch/cold temperature No dysmetria with FTN or HTS, no dysdiadochokinesia with SHELLI, romberg negative Normal gait Nurse Note: Review of Systems Neurological: Negative for dizziness, tremors, seizures, syncope, facial asymmetry, speech difficulty, weakness, light-headedness, numbness and headaches. Nursing Assessment: Physical Exam Constitutional: Appearance: Normal appearance. Neurological: Mental Status: She is alert. Psychiatric: Mood and Affect: Mood normal. Behavior: Behavior normal. TITLE: NEURO-ONCOLOGY CLINIC FOLLOW UP VISIT REASON FOR FOLLOW UP VISIT: Meningioma Cc: follow up visit TREATMENT HISTORY: Surgery: 02-16-2019; T10, T11, T12 laminectomy withgross total resection and removal of [id number] intradural extramedullary thoracic mass consistent with a meningioma; performed by Lauren Horowitz MD, [facility] Neurosurgery; the pathology was consistent with meningioma. SUBJECTIVE: Mrs Ken is a 62 year old female with a known lesion at the T11-12 level that is believed to be a meingioma. She was referred to the Neuro-Oncology Clinic and seen in consultation on January 27, 2019. The patient reported having a left knee replacement in 2018. She subsequently started noticing sensory changes and discomfort in the left lower extremity. The symptoms were mostly localized to the left anterolateral thigh area. She was managed conservatively [including with traction]. Her discomfort was intermittent. She went on to have a scan of her spine that showed a rather large lesion at the T11-12 region of the spinal canal. She was evaluated in Neurosurgery [Dr Horowitz]. Surgical resection of the lesion was discussed but the patient was also given a follow-up visit after the initial appointment with plans to have her undergo an MRI of the rest of the neuraxis. She was also referred to the Neuro-Oncology Clinic and was seen for the initial appointment as noted above on January 27, 2019. I reviewed the images associated with the brain MRI performed on 01-20-2019. This study was associated with the following report: No MRI evidence of abnormal intracranial enhancement. White matter abnormalities which are nonspecific. I personally reviewed the images associated with the cervical spine MRI performed on 01-20-2019. I also noted the following report: No MRI evidence of neoplastic disease involving the cervical spine. Degenerative changes involving the cervical spine resulting in varying degrees of neural foraminal narrowing at multiple levels and mild spinal stenosis at the C5-6 level. Soft tissue fullness in the lingual tonsil/tongue base region which effaces the vallecula bilaterally. This finding can be due to primary neoplasm, this can also just be due to reactive lymphoid tissue. Clinical correlation with direct visualization is recommended. Partial visualization of a large fatty signal mass lateral right supraclavicular/retroclavicular region with visualized portion on image 43 measuring 5 x 3 cm. 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 Given the size and lack of complete evaluation, MRI of the right brachial plexus is recommended to further evaluate A thoracic spine MRI was performed on January 20, 2019. I reviewed this study and noted the following report: Stable appearance of large contrast-enhancing mass within the spinal canal is centered at the T11-12 level. Statistically, schwannoma or meningioma be the most common etiologies. The prominent vasculature above the level of the mass also raises the possibility of lesion such as paraganglioma and hemangioblastoma. A few of the other possible causes would include solitary fibrous tumor and melanocytoma. The intradural mass severely compresses and displaces the spinal cord anteriorly and to the right. This mass is intradural and most likely extra medullary although involvement of the spinal cord would be difficult to exclude due to the severe compression of the spinal cord. There is a stable degree of hypointense T2-weighted signal within the mass which may be due to calcification or residual change from remote intralesional hemorrhage. Allowing for motion artifact, there are no definite contrast-enhancing lesions identified within the remaining portions of the thoracic spinal canal or the lumbar thecal sac. Focal marrow abnormalities in the T4 and T8 vertebral bodies. The T8 lesion is consistent with incidental hemangioma wall the T4 lesion is more indeterminate nature. Attention on continued interval follow-up MRI is recommended. A lumbar spine MRI was performed on January 20, 2019. I reviewed this study and noted the following report: Stable appearance of large contrast-enhancing mass within the spinal canal is centered at the T11-12 level. Statistically, schwannoma or meningioma be the most common etiologies. The prominent vasculature above the level of the mass also raises the possibility of lesion such as paraganglioma and hemangioblastoma. A few of the other possible causes would include solitary fibrous tumor and melanocytoma. The intradural mass severely compresses and displaces the spinal cord anteriorly and to the right. This mass is intradural and most likely extra medullary although involvement of the spinal cord would be difficult to exclude due to the severe compression of the spinal cord. There is a stable degree of hypointense T2-weighted signal within the mass which may be due to calcification or residual change from remote intralesional hemorrhage. Allowing for motion artifact, there are no definite contrast-enhancing lesions identified within the remaining portions of the thoracic spinal canal or the lumbar thecal sac. Focal marrow abnormalities in the T4 and T8 vertebral bodies. The T8 lesion is consistent with incidental hemangioma wall the T4 lesion is more indeterminate nature as detailed above. Attention on continued interval follow-up MRI is recommended. We discussed with the patient that surgery for resection of the lesion in the thoracic area of the cord would be most appropriate management. Medical treatment with radiation and/or chemotherapy without a tissue diagnosis was not appropriate The patient would let us know if she wanted to proceed with an ENT referral that was recommended because of the tonsillar tissue enlargement noted on the cervical spine MRI. Similarly, she was to advise if she decided to proceed with an MRI of the brachial plexus to evaluate a possible lipoma versus other possibilities as noted incidentally on the cervical spine imaging. The patient returned to the Neuro-Oncology clinic for a follow-up visit on 03-31-2019. She was accompanied by her . Since her initial visit with us on January 27, 2019, the patient was admitted to the Neurosurgery service for an elective planned resection of a presumed spinal canal meningioma. The date of admission was February 16, 2019. The patient proceeded with surgery on the date of admission and had a posterior thoracic laminectomy, excision of T11-T12 intradural extramedullary mass with the pathology noted to be consistent with meningioma. In clinic on March 31, 2019, the patient reported some mild soreness at the site of her surgery but also indicated that her gait was significantly improved and she had resolution of the limp in the left leg she had before the surgery. She was still using pain medications but only very sparingly. She denied having any problems with bowel or bladder function. A thoracic spine MRI was performed on March 23, 2019. I reviewed this study and noted the following report: Stable examination since 02/19/2019. Postoperative changes in the posterior aspect of the lower thoracic spine compatible with prior meningioma resection. No evidence of tumor recurrence. Protrusion of portions of the midline posterior soft tissues into the dorsum of the canal at the site of surgery resulting in severe spinal stenosis at the T11 and upper T12 levels with underlying cord compression. Supine positioning could contribute to the relative degree of soft tissue protrusion and spinal canal narrowing at this level. Stable signal abnormality within the left hemicord at T11-12 probably secondary to myelomalacia. I discussed the pathology, the likely favorable prognosis associated with the pathology and the clinical and imaging surveillance plan moving forward. We also reviewed the imaging with her and her . A follow up visit for clinical and imaging surveillance was provided. The patient was called on August 25, 2019 for a followup telephone visit. She denied any new symptoms. An MRI of the thoracic spine performed with and without contrast on August 14, 2019 showed postsurgical change and focal myelomalacia at T11-T12 status post tumor resection with no evidence of residual or recurrent tumor. Laminectomy is noted at T10-T11 and T12. Moderate disc marginal osteophyte a T7-T8. A return to Clinic in 3 months with thoracic spine MRI was recommended. The patient was called on December 01, 2019 for a video follow-up visit. She reported no new symptoms. In fact she felt very well. An MRI of the thoracic spine with and without contrast was performed on November 18, 2019. I reviewed this study and noted the following report: Postsurgical changes at T11-T12 and T12-L1 status post meningioma removal as per clinical history. No evidence for residual or recurrent tumor. Focal myelomalacia in the cord at T11-T12. Small left paracentral disc/ossified protrusion at T7-8 mildly narrowing the central canal without cord compromise. Minor bulging of the disc at T9-10 without spinal stenosis. The patient was to return to the Neuro-Oncology clinic in approximately 3 months with a repeat thoracic spine MRI. The patient returns to Clinic on March 29, 2020, for a follow up visit. She reported no new symptoms and is doing well overall. She had persistent numbness and occasional tingling in a patch of skin in the anteromedial aspect of the left thigh. A thoracic spine MRI shows no evidence of recurrent tumor; a report was no available and the imaging was interpreted independently. The patient returned to the Neuro-Oncology Clinic on October 18, 2020. She had no new symptoms. She had a thoracic spine MRI performed on October 18, 2020. A thoracic spine MRI with and without contrast was performed on October 18, 2020. This study appeared stable when compared to the patient's most recent imaging from March 2020. A formal report was pending at the time of the clinic visit. The patient returned to Clinic on April 18, 2021 for a follow up visit. She had no new symptoms. A thoracic spine MRI was performed on 04-18-2021. I reviewed this study and noted no significant changes compared to most recent imaging performed on 10-18-2020. A formal report was pending at the time of the Clinic visit. The patient was to return to Clinic in 6 months and a thoracic spine MRI was scheduled to be repeated with the follow up visit. The patient returned to the Neuro-oncology Clinic on October 12, 2021 for a follow up visit. She had no complaints. A thoracic spine MRI with and without contrast was performed on 10-12-2021. I reviewed this study and noted the following report: Postoperative changes again noted. No evidence of recurrent enhancing lesion in the spinal canal. Progressive degenerative changes of the T10-11 and T11-12 discs anteriorly, and mild increase in lower thoracic kyphosis compared to preoperative imaging. Findings suggest accelerated degeneration related to altered biomechanics following posterior decompression. The patient was advised to return to Clinic in 6 months. A thoracic spine MRI was planned to be repeated with the follow up visit. A My Chart message was sent to the patient after the MRI report became available and in regards to accelerated degeneration related to altered biomechanics following posterior decompression. These changes were also reviewed with Neurosurgery. The patient returned to the Neuro-Oncology Clinic on April 05, 2022 for a follow-up visit. She had no complaints. A thoracic spine MRI was completed on April 05, 2022. I reviewed the study and noted the following report: Postoperative changes again noted. No evidence of recurrent enhancing lesion in the spinal canal. Progressive degenerative changes of the T10-11 and T11-12 discs anteriorly, and mild increase in lower thoracic kyphosis. Progressive endplate edema and enhancement extending from T10 to T12 levels. The patient was to continue with clinical and imaging surveillance. She was given a follow up appointment on 10-16-2022. The patient was sent a My Chart message after the visit with regards to the progressive degenerative changes of the T10-11 and T11-12 discs anteriorly, mild increase in lower thoracic kyphosis and progressive endplate edema and enhancement extending from T10 to T12 levels. We offered a referral to the Spine Center and planned to refer her if she agreed. Interval history: The patient returns to the Neuro-Oncology Clinic today, December 04, 2022 for a follow-up visit. She does not have any new complaints and overall feels well. She has occasional lower back pain but nothing is new or different. She has not been seen [facility] for the degenerative disc changes and kyphosis noted on the prior brain MRI because she was very busy dealing with her aging parents who recently . Her mother had rather severe dementia. However she is planning on setting up that appointment now. An MRI of the thoracic spine was completed in association with today's visit and is discussed below. REVIEW OF SYSTEMS: A complete review of systems with the patient was otherwise negative. PHYSICAL EXAMINATION: KARNOFSKY PERFORMANCE STATUS: 90 General Appearance: The patient appears healthy and in no distress Vitals: 12/04/22 1341 BP: 132/81 Pulse: 84 Temp: 98 F (36.7 C) SpO2: 95% Neurologic: Mental status: awake and alert. Speech and language are without deficit or dysarthria. Cranial nerves: within normal limits Motor: no detectable weakness on examination. Gait and stance: intact MEDICAL DECISION MAKING: DATA REVIEW: NEUROIMAGING: A thoracic spine MRI was completed on December 04, 2022. I reviewed the study and noted the following report: Postoperative changes again noted. No evidence of recurrent enhancing lesion in the spinal canal. Degenerative changes especially at the T10-11 and T11-12 levels. LABS: None DIAGNOSIS: Meningioma, WHO Grade I, spinal: status post resection. The patient is stable clinically and stable on imaging. Degenerative changes of the T10-11 and T11-12 discs anteriorly, and mild increase in lower thoracic kyphosis compared to preoperative imaging. MANAGEMENT: The patient will return to clinic on June 06, 2023 with repeat imaging of the thoracic spine She will set up an appointment with [facility] for degenerative changes and thoracic kyphosis noted on her current imaging and previous scans. The total visit time was 35 minutes on the date of service. Kurtis Harris MD Avionics Technician in Neurology Division of Neuro-oncology [address] [facility] [address] [address] documented in this encounter [facility] 12-04-2022 Instructions Lorin Kruger RN - 12/04/2022 2:00 PM EDT our Neuro-Oncology Team [facility] [address] [place] [address] Dr. Kurtis Harris M.D. Nurse Practitioner: Renee Evans CNP Primary Nurse: GINGER Nieves, RN, GINGER Hodges, clock maker Office MICHEAL Bradford Power Shovel Operator Neuro-Oncology Clinic Hours: Saturday-Saturday 8:30 - 4:30 Neuro-Oncology Office Information Regular business hours are Saturday through Saturday 8:30 a.m. to 4:30 p.m. Please call [phone] for information related to clinic appointments, scheduled tests, or for general office related questions or concerns. Messages for the physicians, nurses and other team members can be taken at this phone number and will be routed as appropriate. Emergency assistance is available after hours by calling the office at [phone] and the answering service will reach your doctor or the physician halftone operator. Please allow at least 48 hours for Prescription refill transactions. Please allow 10-14 business days for completion of FMLA and other disability paperwork. We will mail the completed paperwork to you or you may pick it up at the desk. It is your responsibility to return the FMLA or disability paperwork to your employer. If you need to mail a CD or paperwork to the office please mail to : NEURO-ONCOLOGY DEPARTMENT [address] [place] [address] Patient education videos are available on [employer]. These videos may help you to better understand your cancer or cancer treatments. The videos also give tips on how to care for yourself to help you feel your best. Here is the link to watch these videos: [email or web address]. [employer] [facility] Brain Tumor Support [facility] Facilitators: JAMAL Brown and SCARLETT Bradford, MICHEAL-S Next Meeting: Every Saturday of the month 3:00 pm- 4:00 pm. This event is now virtual and can be accessed through [employer]. Please visit [email or web address] to register or call [employer] at [phone] for more information. The Brain Tumor support group is available for anyone diagnosed with a brain tumor and their support person. This is an opportunity for those impacted by a brain tumor to offer support to one another by sharing their experiences and learning more about life after diagnosis.\ documented in this encounter [facility] 04-05-2022 History of Present illness Narrative TITLE: NEURO-ONCOLOGY CLINIC FOLLOW UP VISIT REASON FOR FOLLOW UP VISIT: Meningioma Cc: follow up visit TREATMENT HISTORY: Surgery: 02-16-2019; T10, T11, T12 laminectomy withgross total resection and removal of [id number] intradural extramedullary thoracic mass consistent with a meningioma; performed by Lauren Horowitz MD, [facility] Neurosurgery; the pathology was consistent with meningioma. SUBJECTIVE: Mrs Ken is a 61 year old female with a known lesion at the T11-12 level that is believed to be a meingioma. She was referred to the Neuro-Oncology Clinic and seen in consultation on January 27, 2019. The patient reported having a left knee replacement in 2018. She subsequently started noticing sensory changes and discomfort in the left lower extremity. The symptoms were mostly localized to the left anterolateral thigh area. She was managed conservatively [including with traction]. Her discomfort was intermittent. She went on to have a scan of her spine that showed a rather large lesion at the T11-12 region of the spinal canal. She was evaluated in Neurosurgery [Dr Horowitz]. Surgical resection of the lesion was discussed but the patient was also given a follow-up visit after the initial appointment with plans to have her undergo an MRI of the rest of the neuraxis. She was also referred to the Neuro-Oncology Clinic and was seen for the initial appointment as noted above on January 27, 2019. I reviewed the images associated with the brain MRI performed on 01-20-2019. This study was associated with the following report: No MRI evidence of abnormal intracranial enhancement. White matter abnormalities which are nonspecific. I personally reviewed the images associated with the cervical spine MRI performed on 01-20-2019. I also noted the following report: No MRI evidence of neoplastic disease involving the cervical spine. Degenerative changes involving the cervical spine resulting in varying degrees of neural foraminal narrowing at multiple levels and mild spinal stenosis at the C5-6 level. Soft tissue fullness in the lingual tonsil/tongue base region which effaces the vallecula bilaterally. This finding can be due to primary neoplasm, this can also just be due to reactive lymphoid tissue. Clinical correlation with direct visualization is recommended. Partial visualization of a large fatty signal mass lateral right supraclavicular/retroclavicular region with visualized portion on image 43 measuring 5 x 3 cm. 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 Given the size and lack of complete evaluation, MRI of the right brachial plexus is recommended to further evaluate A thoracic spine MRI was performed on January 20, 2019. I reviewed this study and noted the following report: Stable appearance of large contrast-enhancing mass within the spinal canal is centered at the T11-12 level. Statistically, schwannoma or meningioma be the most common etiologies. The prominent vasculature above the level of the mass also raises the possibility of lesion such as paraganglioma and hemangioblastoma. A few of the other possible causes would include solitary fibrous tumor and melanocytoma. The intradural mass severely compresses and displaces the spinal cord anteriorly and to the right. This mass is intradural and most likely extra medullary although involvement of the spinal cord would be difficult to exclude due to the severe compression of the spinal cord. There is a stable degree of hypointense T2-weighted signal within the mass which may be due to calcification or residual change from remote intralesional hemorrhage. Allowing for motion artifact, there are no definite contrast-enhancing lesions identified within the remaining portions of the thoracic spinal canal or the lumbar thecal sac. Focal marrow abnormalities in the T4 and T8 vertebral bodies. The T8 lesion is consistent with incidental hemangioma wall the T4 lesion is more indeterminate nature. Attention on continued interval follow-up MRI is recommended. A lumbar spine MRI was performed on January 20, 2019. I reviewed this study and noted the following report: Stable appearance of large contrast-enhancing mass within the spinal canal is centered at the T11-12 level. Statistically, schwannoma or meningioma be the most common etiologies. The prominent vasculature above the level of the mass also raises the possibility of lesion such as paraganglioma and hemangioblastoma. A few of the other possible causes would include solitary fibrous tumor and melanocytoma. The intradural mass severely compresses and displaces the spinal cord anteriorly and to the right. This mass is intradural and most likely extra medullary although involvement of the spinal cord would be difficult to exclude due to the severe compression of the spinal cord. There is a stable degree of hypointense T2-weighted signal within the mass which may be due to calcification or residual change from remote intralesional hemorrhage. Allowing for motion artifact, there are no definite contrast-enhancing lesions identified within the remaining portions of the thoracic spinal canal or the lumbar thecal sac. Focal marrow abnormalities in the T4 and T8 vertebral bodies. The T8 lesion is consistent with incidental hemangioma wall the T4 lesion is more indeterminate nature as detailed above. Attention on continued interval follow-up MRI is recommended. We discussed with the patient that surgery for resection of the lesion in the thoracic area of the cord would be most appropriate management. Medical treatment with radiation and/or chemotherapy without a tissue diagnosis was not appropriate The patient would let us know if she wanted to proceed with an ENT referral that was recommended because of the tonsillar tissue enlargement noted on the cervical spine MRI. Similarly, she was to advise if she decided to proceed with an MRI of the brachial plexus to evaluate a possible lipoma versus other possibilities as noted incidentally on the cervical spine imaging. The patient returned to the Neuro-Oncology clinic for a follow-up visit on 03-31-2019. She was accompanied by her . Since her initial visit with us on January 27, 2019, the patient was admitted to the Neurosurgery service for an elective planned resection of a presumed spinal canal meningioma. The date of admission was February 16, 2019. The patient proceeded with surgery on the date of admission and had a posterior thoracic laminectomy, excision of T11-T12 intradural extramedullary mass with the pathology noted to be consistent with meningioma. In clinic on March 31, 2019, the patient reported some mild soreness at the site of her surgery but also indicated that her gait was significantly improved and she had resolution of the limp in the left leg she had before the surgery. She was still using pain medications but only very sparingly. She denied having any problems with bowel or bladder function. A thoracic spine MRI was performed on March 23, 2019. I reviewed this study and noted the following report: Stable examination since 02/19/2019. Postoperative changes in the posterior aspect of the lower thoracic spine compatible with prior meningioma resection. No evidence of tumor recurrence. Protrusion of portions of the midline posterior soft tissues into the dorsum of the canal at the site of surgery resulting in severe spinal stenosis at the T11 and upper T12 levels with underlying cord compression. Supine positioning could contribute to the relative degree of soft tissue protrusion and spinal canal narrowing at this level. Stable signal abnormality within the left hemicord at T11-12 probably secondary to myelomalacia. I discussed the pathology, the likely favorable prognosis associated with the pathology and the clinical and imaging surveillance plan moving forward. We also reviewed the imaging with her and her . A follow up visit for clinical and imaging surveillance was provided. The patient was called on August 25, 2019 for a followup telephone visit. She denied any new symptoms. An MRI of the thoracic spine performed with and without contrast on August 14, 2019 showed postsurgical change and focal myelomalacia at T11-T12 status post tumor resection with no evidence of residual or recurrent tumor. Laminectomy is noted at T10-T11 and T12. Moderate disc marginal osteophyte a T7-T8. A return to Clinic in 3 months with thoracic spine MRI was recommended. The patient was called on December 01, 2019 for a video follow-up visit. She reported no new symptoms. In fact she felt very well. An MRI of the thoracic spine with and without contrast was performed on November 18, 2019. I reviewed this study and noted the following report: Postsurgical changes at T11-T12 and T12-L1 status post meningioma removal as per clinical history. No evidence for residual or recurrent tumor. Focal myelomalacia in the cord at T11-T12. Small left paracentral disc/ossified protrusion at T7-8 mildly narrowing the central canal without cord compromise. Minor bulging of the disc at T9-10 without spinal stenosis. The patient was to return to the Neuro-Oncology clinic in approximately 3 months with a repeat thoracic spine MRI. The patient returns to Clinic on March 29, 2020, for a follow up visit. She reported no new symptoms and is doing well overall. She had persistent numbness and occasional tingling in a patch of skin in the anteromedial aspect of the left thigh. A thoracic spine MRI shows no evidence of recurrent tumor; a report was no available and the imaging was interpreted independently. The patient returned to the Neuro-Oncology Clinic on October 18, 2020. She had no new symptoms. She had a thoracic spine MRI performed on October 18, 2020. A thoracic spine MRI with and without contrast was performed on October 18, 2020. This study appeared stable when compared to the patient's most recent imaging from March 2020. A formal report was pending at the time of the clinic visit. The patient returned to Clinic on April 18, 2021 for a follow up visit. She had no new symptoms. A thoracic spine MRI was performed on 04-18-2021. I reviewed this study and noted no significant changes compared to most recent imaging performed on 10-18-2020. A formal report was pending at the time of the Clinic visit. The patient was to return to Clinic in 6 months and a thoracic spine MRI was scheduled to be repeated with the follow up visit. The patient returned to the Neuro-oncology Clinic on October 12, 2021 for a follow up visit. She had no complaints. A thoracic spine MRI with and without contrast was performed on 10-12-2021. I reviewed this study and noted the following report: Postoperative changes again noted. No evidence of recurrent enhancing lesion in the spinal canal. Progressive degenerative changes of the T10-11 and T11-12 discs anteriorly, and mild increase in lower thoracic kyphosis compared to preoperative imaging. Findings suggest accelerated degeneration related to altered biomechanics following posterior decompression. The patient was advised to return to Clinic in 6 months. A thoracic spine MRI was planned to be repeated with the follow up visit. A My Chart message was sent to the patient after the MRI report became available and in regards to accelerated degeneration related to altered biomechanics following posterior decompression. These changes were also reviewed with Neurosurgery. Interval history: The patient returns to the Neuro-Oncology Clinic today, April 05, 2022 for a follow-up visit. She has no complaints. An MRI of the thoracic spine was performed in association with today's visit and is discussed in more detail below. REVIEW OF SYSTEMS: A complete review of systems with the patient was otherwise negative. PHYSICAL EXAMINATION: KARNOFSKY PERFORMANCE STATUS: 90 General Appearance: The patient appears healthy and in no distress Vitals: 04/05/22 1350 BP: 130/61 Pulse: 75 Resp: 16 Temp: 97.7 F (36.5 C) Neurologic: Mental status: awake and alert. Speech and language are without deficit or dysarthria. Cranial nerves: within normal limits Motor: no detectable weakness on examination. Gait and stance: intact MEDICAL DECISION MAKING: DATA REVIEW: NEUROIMAGING: A thoracic spine MRI was completed on April 05, 2022. I reviewed the study and noted the following report: Postoperative changes again noted. No evidence of recurrent enhancing lesion in the spinal canal. Progressive degenerative changes of the T10-11 and T11-12 discs anteriorly, and mild increase in lower thoracic kyphosis. Progressive endplate edema and enhancement extending from T10 to T12 levels. LABS: None DIAGNOSIS: Meningioma, WHO Grade I, spinal: status post resection. The patient is stable clinically and stable on imaging. Degenerative changes of the T10-11 and T11-12 discs anteriorly, and mild increase in lower thoracic kyphosis compared to preoperative imaging. MANAGEMENT: The patient will continue with clinical and imaging surveillance. She was given a follow up appointment on 10-16-2022. ADDENDUM: The patient was sent a My Chart message after the visit with regards to the progressive degenerative changes of the T10-11 and T11-12 discs anteriorly, mild increase in lower thoracic kyphosis and progressive endplate edema and enhancement extending from T10 to T12 levels. We offered a referral to the [facility] and will refer if she agrees. The total visit time was 35 minutes on the date of service. Kurtis Harris MD Avionics Technician in Neurology Division of Neuro-oncology [address] [place] [address] Nurse Note: Review of Systems Constitutional: Negative for chills, fatigue and fever. HENT: Negative for hearing loss and tinnitus. Eyes: Negative for visual disturbance. Respiratory: Negative for cough and shortness of breath. Cardiovascular: Negative for chest pain and leg swelling. Gastrointestinal: Negative for constipation, diarrhea, nausea and vomiting. Genitourinary: Negative for difficulty urinating. Musculoskeletal: Negative for back pain and neck pain. Skin: Negative for rash. Neurological: Negative for dizziness, tremors, seizures, speech difficulty, weakness, light-headedness, numbness and headaches. Psychiatric/Behavioral: Negative for confusion, decreased concentration and hallucinations. Nursing Assessment: Physical Exam documented in this encounter [facility] 04-05-2022 Instructions Luz Marina Garcia RN - 04/05/2022 1:30 PM EST Your Neuro-Oncology Team [facility] [address] [place] [address] Dr. Kurtis Harris M.D. Nurse Practitioner: Renee Evans CNP Primary Nurse: GINGER Nieves, clock maker Office MICHEAL Bradford Power Shovel Operator Neuro-Oncology Clinic Hours: Saturday-Saturday 8:30 - 4:30 Neuro-Oncology Office Information Regular business hours are Saturday through Saturday 8:30 a.m. to 4:30 p.m. Please call [phone] for information related to clinic appointments, scheduled tests, or for general office related questions or concerns. Messages for the physicians, nurses and other team members can be taken at this phone number and will be routed as appropriate. Emergency assistance is available after hours by calling the office at [phone] and the answering service will reach your doctor or the physician halftone operator. Please allow at least 48 hours for Prescription refill transactions. Please allow 10-14 business days for completion of FMLA and other disability paperwork. We will mail the completed paperwork to you or you may pick it up at the desk. It is your responsibility to return the FMLA or disability paperwork to your employer. If you need to mail a CD or paperwork to the office please mail to : NEURO-ONCOLOGY DEPARTMENT [address] [place] [id number] Patient education videos are available on The [employer] website. These videos may help you to better understand your cancer or cancer treatments. The videos also give tips on how to care for yourself to help you feel your best. Here is the link to watch these videos: [email or web address] [facility] Brain Tumor Support Group Facilitators: JAMAL Brown and SCARLETT Bradford, MICHEAL-S Next Meeting: Every Saturday of the month 3:00 pm- 4:00 pm. This event is now virtual and can be accessed through [employer]. Please visit [email or web address] to register or call [facility] at [phone] for more information. The Brain Tumor support group is available for anyone diagnosed with a brain tumor and their support person. This is an opportunity for those impacted by a brain tumor to offer support to one another by sharing their experiences and learning more about life after diagnosis. documented in this encounter [facility] 11-13-2021 History of Present illness Narrative REASON FOR VISIT Tess Ken presents to clinic today for a Established Patient visit. Chief Complaint Blurred Vision HISTORY OF PRESENT ILLNESS HPI Mckenzie Ken (pronouns:She/her) is a 61 y.o. 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 Vision has had no changes since last visit. They deny pain, pressure, flashes, floaters CURRENT OCULAR MEDICATIONS/TREATMENTS: Last edited by Richard Roberts on 11/13/2021 10:01 AM. (History) Allergies, medications & history reviewed & updated by Richard Roberts REVIEW OF SYSTEMS ROS Positive for: Eyes (blurred vision), Allergic/Imm (seasonal allergies) Negative for: Constitutional, Gastrointestinal, Neurological, Skin, Genitourinary, Musculoskeletal, HENT, Endocrine, Cardiovascular, Respiratory (denies SOB), Psychiatric (depression), Heme/Lymph Last edited by Richard Roberts on 11/13/2021 10:01 AM. (History) 15 minutes of face to face time was spent with patient performing the electrical design technician work of this visit. Referring Physician: Chief Complaint Patient presents with Blurred Vision HPI Mckenzie Ken (pronouns:She/her) is a 61 y.o. 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 Vision has had no changes since last visit. They deny pain, pressure, flashes, floaters CURRENT OCULAR MEDICATIONS/TREATMENTS: Last edited by Richard Roberts on 11/13/2021 10:01 AM. (History) Referring Doctor: Self Self No address on file Medications: Current Outpatient Medications Medication Sig Empagliflozin (JARDIANCE PO) Take 5 mg by mouth daily every morning. losartan 25 MG Tab tablet Take 25 mg by mouth daily every morning. meloxicam 15 MG tablet Take 7.5 mg by mouth daily. metformin 1000 MG Tab tablet Take 1 tablet by mouth 2 times daily. rosuvastatin 10 MG Tab tablet Take 5 tablets by mouth at bedtime. 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 PSH Past Surgical History: Procedure Laterality Date REMOVAL CATARACT WITH INSERTION INTRAOCCULA Left 05/03/2021 LAMINECTOMY W/ BX OR EXCISION LESION INTRASPINAL INTRADURAL THORACIC Midline 02/16/2019 Laterality: Midline; Surgeon: Lauren Horowitz MD; Location: [facility] FUSION POSTERIOR THORACIC Midline 02/16/2019 Laterality: Midline; Surgeon: Lauren Horowitz MD; Location: [facility] OR- No metal seen on imaging KNEE REPLACEMENT Total TONSILLECTOMY Family History: Family History Problem Relation Age of Onset Cataract Mother Heart Disease - Other Mother Cataract Father Other - Specify Father COPD Emphysema Father Social History Social History Socioeconomic History Marital status: Tobacco Use Smoking status: Current Every Day Smoker Packs/day: 1.00 Years: 21.00 Pack years: 21.00 Types: Cigarettes Smokeless tobacco: Never Used Substance and Sexual Activity Alcohol use: Yes Alcohol/week: 1.0 standard drink Types: 1 Glasses of wine per week Comment: social Drug use: Never Review of Systems: I reviewed the patient's review of systems, and I have updated the medical record. Base Eye Exam Visual Acuity (Snellen - Linear) Right Left Dist cc CF @ 1ft 20/25-1 Tonometry (Tonopen, 9:48 AM) Right Left Pressure 16 16 Pupils Pupils APD Right PERRL None Left PERRL None Visual Velasquez Left Right Full Restrictions Central scotoma Extraocular Movement Right Left Full Full Neuro/Psych Oriented x3: Yes Mood/Affect: Normal Dilation Both eyes: 1.0% Mydriacyl, 2.5% Phenylephrine @ 10:06 AM Slit Lamp and Fundus Exam External Exam Right Left External Normal Normal Slit Lamp Exam Right Left Lids/Lashes Normal Normal Conjunctiva/Sclera White and quiet White and quiet Cornea PEE Inferior 3+ PEE Inferior 3+ Anterior Chamber Deep and quiet Deep and quiet Iris round and dilated round and dilated Lens 2+ Cortical cataract, 2+ Nuclear sclerosis PC IOL Anterior Vitreous Normal Vitreous syneresis Fundus Exam Right Left Posterior Vitreous Normal Vitreous syneresis Disc Normal Normal C/D Ratio 0.1 0.1 Macula atrophic, window defects no CME, some thinning, central island preserved Vessels Normal, no vascular changes Normal, no vascular changes Periphery pigmentary change pigmentary change Refraction Wearing Rx Sphere Cylinder Right +1.75 Sphere Left +1.75 Sphere Type: OTC readers Assessment and Plan: 1. Pigmentary retinal dystrophy -Discussed diagnosis in detail with patient. - imaging suggestive of genetic cause with bilateral presentation - however differential dx includes uveitic entities as well as CAR/MAR - hx of meningioma -Will do Spark test to rule out genetic vs inflammatory conditions. -FA today shows: Staining and window defects, no leakage, more consistent with genetic conditions v inflammatory. -Will know more once the Spark results come back in 6-8 weeks, referral placed to [facility] for counseling. -Call for a sooner appointment with any problems or concerns (11/13/2021). -No evidence of inflammation seen today -Still waiting on results from genetic testing -Reviewed FAF imaging with patient, stable 2. Mixed type age-related cataract, both eyes -Monitor until decreased ADL, not visually significant at this time. 3. Dry eye syndrome of bilateral lacrimal glands -monitor 4. Pseudophakia -monitor NEXT VISIT Tropicamide 1% 1 drop Both eyes x 1 Phenylephrine 2.5% 1 drop to Both eyes x 1 William applanation: Both Eyes Imaging: FAF OU, OCT OU Optos OU Follow up in: 6 months IRossMaggiegiorgi Toures acted as a scribe for Lois Horowitz MD, PhD for this note of 11/13/2021 4:01 PM. I saw and independently examined this patient today. I discussed my findings and the therapeutic plan with the patient. I agree with the history, physical examination, and medical decisions as outlined. I have reviewed the documentation and it accurately reflects the work performed and the decisions made. Lois Horowitz MD PhD Energy Broker of Ophthalmology [facility] documented in this encounter [facility] 10-12-2021 History of Present illness Narrative Nurse Note: Review of Systems Constitutional: Negative for chills, fatigue and fever. HENT: Negative for hearing loss and tinnitus. Eyes: Negative for visual disturbance. Respiratory: Negative for cough and shortness of breath. Cardiovascular: Negative for chest pain and leg swelling. Gastrointestinal: Negative for constipation, diarrhea, nausea and vomiting. Endocrine: Negative for cold intolerance, heat intolerance, polydipsia, polyphagia and polyuria. Genitourinary: Negative for difficulty urinating, dysuria, frequency and urgency. Musculoskeletal: Negative for back pain and neck pain. Skin: Negative for color change, pallor, rash and wound. Neurological: Negative for dizziness, tremors, seizures, speech difficulty, weakness, light-headedness, numbness and headaches. Hematological: Does not bruise/bleed easily. Psychiatric/Behavioral: Negative for confusion and decreased concentration. The patient is not nervous/anxious. Nursing Assessment: Physical Exam TITLE: NEURO-ONCOLOGY CLINIC FOLLOW UP VISIT REASON FOR FOLLOW UP VISIT: Meningioma Cc: follow up visit TREATMENT HISTORY: Surgery: 02-16-2019; T10, T11, T12 laminectomy withgross total resection and removal of [id number] intradural extramedullary thoracic mass consistent with a meningioma; performed by Lauren Horowitz MD, [facility] Neurosurgery; the pathology was consistent with meningioma. SUBJECTIVE: Mrs Ken is a 61 year old female with a known lesion at the T11-12 level that is believed to be a meingioma. She was referred to the Neuro-Oncology Clinic and seen in consultation on January 27, 2019. The patient reported having a left knee replacement in 2018. She subsequently started noticing sensory changes and discomfort in the left lower extremity. The symptoms were mostly localized to the left anterolateral thigh area. She was managed conservatively [including with traction]. Her discomfort was intermittent. She went on to have a scan of her spine that showed a rather large lesion at the T11-12 region of the spinal canal. She was evaluated in Neurosurgery [Dr Horowitz]. Surgical resection of the lesion was discussed but the patient was also given a follow-up visit after the initial appointment with plans to have her undergo an MRI of the rest of the neuraxis. She was also referred to the Neuro-Oncology Clinic and was seen for the initial appointment as noted above on January 27, 2019. I reviewed the images associated with the brain MRI performed on 01-20-2019. This study was associated with the following report: No MRI evidence of abnormal intracranial enhancement. White matter abnormalities which are nonspecific. I personally reviewed the images associated with the cervical spine MRI performed on 01-20-2019. I also noted the following report: No MRI evidence of neoplastic disease involving the cervical spine. Degenerative changes involving the cervical spine resulting in varying degrees of neural foraminal narrowing at multiple levels and mild spinal stenosis at the C5-6 level. Soft tissue fullness in the lingual tonsil/tongue base region which effaces the vallecula bilaterally. This finding can be due to primary neoplasm, this can also just be due to reactive lymphoid tissue. Clinical correlation with direct visualization is recommended. Partial visualization of a large fatty signal mass lateral right supraclavicular/retroclavicular region with visualized portion on image 43 measuring 5 x 3 cm. 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 Given the size and lack of complete evaluation, MRI of the right brachial plexus is recommended to further evaluate A thoracic spine MRI was performed on January 20, 2019. I reviewed this study and noted the following report: Stable appearance of large contrast-enhancing mass within the spinal canal is centered at the T11-12 level. Statistically, schwannoma or meningioma be the most common etiologies. The prominent vasculature above the level of the mass also raises the possibility of lesion such as paraganglioma and hemangioblastoma. A few of the other possible causes would include solitary fibrous tumor and melanocytoma. The intradural mass severely compresses and displaces the spinal cord anteriorly and to the right. This mass is intradural and most likely extra medullary although involvement of the spinal cord would be difficult to exclude due to the severe compression of the spinal cord. There is a stable degree of hypointense T2-weighted signal within the mass which may be due to calcification or residual change from remote intralesional hemorrhage. Allowing for motion artifact, there are no definite contrast-enhancing lesions identified within the remaining portions of the thoracic spinal canal or the lumbar thecal sac. Focal marrow abnormalities in the T4 and T8 vertebral bodies. The T8 lesion is consistent with incidental hemangioma wall the T4 lesion is more indeterminate nature. Attention on continued interval follow-up MRI is recommended. A lumbar spine MRI was performed on January 20, 2019. I reviewed this study and noted the following report: Stable appearance of large contrast-enhancing mass within the spinal canal is centered at the T11-12 level. Statistically, schwannoma or meningioma be the most common etiologies. The prominent vasculature above the level of the mass also raises the possibility of lesion such as paraganglioma and hemangioblastoma. A few of the other possible causes would include solitary fibrous tumor and melanocytoma. The intradural mass severely compresses and displaces the spinal cord anteriorly and to the right. This mass is intradural and most likely extra medullary although involvement of the spinal cord would be difficult to exclude due to the severe compression of the spinal cord. There is a stable degree of hypointense T2-weighted signal within the mass which may be due to calcification or residual change from remote intralesional hemorrhage. Allowing for motion artifact, there are no definite contrast-enhancing lesions identified within the remaining portions of the thoracic spinal canal or the lumbar thecal sac. Focal marrow abnormalities in the T4 and T8 vertebral bodies. The T8 lesion is consistent with incidental hemangioma wall the T4 lesion is more indeterminate nature as detailed above. Attention on continued interval follow-up MRI is recommended. We discussed with the patient that surgery for resection of the lesion in the thoracic area of the cord would be most appropriate management. Medical treatment with radiation and/or chemotherapy without a tissue diagnosis was not appropriate The patient would let us know if she wanted to proceed with an ENT referral that was recommended because of the tonsillar tissue enlargement noted on the cervical spine MRI. Similarly, she was to advise if she decided to proceed with an MRI of the brachial plexus to evaluate a possible lipoma versus other possibilities as noted incidentally on the cervical spine imaging. The patient returned to the Neuro-Oncology clinic for a follow-up visit on 03-31-2019. She was accompanied by her . Since her initial visit with us on January 27, 2019, the patient was admitted to the Neurosurgery service for an elective planned resection of a presumed spinal canal meningioma. The date of admission was February 16, 2019. The patient proceeded with surgery on the date of admission and had a posterior thoracic laminectomy, excision of T11-T12 intradural extramedullary mass with the pathology noted to be consistent with meningioma. In clinic on March 31, 2019, the patient reported some mild soreness at the site of her surgery but also indicated that her gait was significantly improved and she had resolution of the limp in the left leg she had before the surgery. She was still using pain medications but only very sparingly. She denied having any problems with bowel or bladder function. A thoracic spine MRI was performed on March 23, 2019. I reviewed this study and noted the following report: Stable examination since 02/19/2019. Postoperative changes in the posterior aspect of the lower thoracic spine compatible with prior meningioma resection. No evidence of tumor recurrence. Protrusion of portions of the midline posterior soft tissues into the dorsum of the canal at the site of surgery resulting in severe spinal stenosis at the T11 and upper T12 levels with underlying cord compression. Supine positioning could contribute to the relative degree of soft tissue protrusion and spinal canal narrowing at this level. Stable signal abnormality within the left hemicord at T11-12 probably secondary to myelomalacia. I discussed the pathology, the likely favorable prognosis associated with the pathology and the clinical and imaging surveillance plan moving forward. We also reviewed the imaging with her and her . A follow up visit for clinical and imaging surveillance was provided. The patient was called on August 25, 2019 for a followup telephone visit. She denied any new symptoms. An MRI of the thoracic spine performed with and without contrast on August 14, 2019 showed postsurgical change and focal myelomalacia at T11-T12 status post tumor resection with no evidence of residual or recurrent tumor. Laminectomy is noted at T10-T11 and T12. Moderate disc marginal osteophyte a T7-T8. A return to Clinic in 3 months with thoracic spine MRI was recommended. The patient was called on December 01, 2019 for a video follow-up visit. She reported no new symptoms. In fact she felt very well. An MRI of the thoracic spine with and without contrast was performed on November 18, 2019. I reviewed this study and noted the following report: Postsurgical changes at T11-T12 and T12-L1 status post meningioma removal as per clinical history. No evidence for residual or recurrent tumor. Focal myelomalacia in the cord at T11-T12. Small left paracentral disc/ossified protrusion at T7-8 mildly narrowing the central canal without cord compromise. Minor bulging of the disc at T9-10 without spinal stenosis. The patient was to return to the Neuro-Oncology clinic in approximately 3 months with a repeat thoracic spine MRI. The patient returns to Clinic on March 29, 2020, for a follow up visit. She reported no new symptoms and is doing well overall. She had persistent numbness and occasional tingling in a patch of skin in the anteromedial aspect of the left thigh. A thoracic spine MRI shows no evidence of recurrent tumor; a report was no available and the imaging was interpreted independently. The patient returned to the Neuro-Oncology Clinic on October 18, 2020. She had no new symptoms. She had a thoracic spine MRI performed on October 18, 2020. A thoracic spine MRI with and without contrast was performed on October 18, 2020. This study appeared stable when compared to the patient's most recent imaging from March 2020. A formal report was pending at the time of the clinic visit. The patient returned to Clinic on April 18, 2021 for a follow up visit. She had no new symptoms. A thoracic spine MRI was performed on 04-18-2021. I reviewed this study and noted no significant changes compared to most recent imaging performed on 10-18-2020. A formal report was pending at the time of the Clinic visit. The patient was to return to Clinic in 6 months and a thoracic spine MRI was scheduled to be repeated with the follow up visit. Interval history: The patient returns to the Neuro-oncology Clinic today, October 12, 2021 for a follow up visit. She has no complaints. A thoracic spine MRI with and without contrast was performed on 10-12-2021. The report is discussed below. REVIEW OF SYSTEMS: A complete review of systems with the patient was otherwise negative. PHYSICAL EXAMINATION: KARNOFSKY PERFORMANCE STATUS: 90 General Appearance: The patient appears healthy and in no distress Vitals: 10/12/21 1312 BP: 122/58 Pulse: 79 Resp: 16 Temp: 97.8 F (36.6 C) Neurologic: Mental status: awake and alert. Speech and language are without deficit or dysarthria. Cranial nerves: within normal limits Motor: no detectable weakness on examination. Gait and stance: intact MEDICAL DECISION MAKING: DATA REVIEW: NEUROIMAGING: A thoracic spine MRI with and without contrast was performed on 10-12-2021. I reviewed this study and noted the following report: Postoperative changes again noted. No evidence of recurrent enhancing lesion in the spinal canal. Progressive degenerative changes of the T10-11 and T11-12 discs anteriorly, and mild increase in lower thoracic kyphosis compared to preoperative imaging. Findings suggest accelerated degeneration related to altered biomechanics following posterior decompression. LABS: None DIAGNOSIS: Meningioma, WHO Grade I, spinal: status post resection. The patient is stable clinically and stable on imaging. Degenerative changes of the T10-11 and T11-12 discs anteriorly, and mild increase in lower thoracic kyphosis compared to preoperative imaging. MANAGEMENT: The patient will return to Clinic in 6 months A thoracic spine MRI will be repeated with the follow up visit. The following My Chart message was sent to the patient after the MRI report became available and in regards to accelerated degeneration related to altered biomechanics following posterior decompression. These changes were also reviewed with Neurosurgery. Clementina Ferris Jesus Manuel: The neuroradiologist has confirmed that there is no evidence of tumor growth on the MRI report. He does mention some changes probably related to wear and tear following your surgery. Do have any back pain? Mid to low back area? I think you said no when we discussed this in the clinic but I just wanted to make sure that we do not need the opinion of a Spine neurosurgeon about these changes. Thank you The total visit time was 20 minutes on the date of service. Kurtis Harris MD Avionics Technician in Neurology Division of Neuro-oncology [address] [place] [address] documented in this encounter [facility] 10-12-2021 Instructions Virginia Oliver RN - 10/12/2021 2:00 PM EDT Your Neuro-Oncology Team [facility] [address] [place] [id number] Doctors: Dung Farooq M.D. & Kurtis Harris M.D. Elba Batres M.D., and Riley Martinez M.D. Nurse Practitioners: Gisele Bell CNP, Frances Sales GROUP CONTRACT ANALYST, and Renee Evans GROUP CONTRACT ANALYST Office Office MICHEAL Bradford Power Shovel Operator Neuro-Oncology Clinic Hours: Saturday-Saturday 8:30 - 4:30 Neuro-Oncology Office Information Regular business hours are Saturday through Saturday 8:30 a.m. to 4:30 p.m. Please call [phone] for information related to clinic appointments, scheduled tests, or for general office related questions or concerns. Messages for the physicians, nurses and other team members can be taken at this phone number and will be routed as appropriate. Emergency assistance is available after hours by calling the office at [phone] and the answering service will reach your doctor or the physician halftone operator. Please allow at least 48 hours for Prescription refill transactions. Please allow 10 business days for completion of FMLA and other disability paperwork. We will mail the completed paperwork to you or you may pick it up at the desk. It is your responsibility to return the FMLA or disability paperwork to your employer. If you need to mail a CD or paperwork to the office please mail to : NEURO-ONCOLOGY DEPARTMENT [address] [address] Patient education videos are available on [facility] website. These videos may help you to better understand your cancer or cancer treatments. The videos also give tips on how to care for yourself to help you feel your best. Here is the link to watch these videos: [email or web address]. [facility] Brain Tumor Support Group Facilitators: JAMAL Brown and SCARLETT Bradford, PHARMACOMETRICIAN-S Meeting held on the Saturday of Every Month - NOW VIRTUAL 3:00p.m. - 4:00p.m. Link for meeting can be accessed through [employer] The Brain Tumor support group is available for anyone diagnosed with a brain tumor and their support person. This time is an opportunity for those impacted by a brain tumor to offer support to one another by sharing their experiences and learning more about life after diagnosis. Speakers may be arranged to discuss various topics such as diet and nutrition, per group request. Some group events are held throughout the year. Online Support Groups If you are interested in joining an online support group, please go to [email or web address] to find out more information about [facility]. Resources These resources can be useful in finding more specific information, education, assistance and support. * [facility] -Provides free, professional support services to individuals, families, caregivers, and the bereaved to help them better cope with and manage the emotional and practical challenges arising from cancer. Services include counseling and support groups, educational publications and workshops, and financial assistance. Services are provided by professional oncology social workers and are offered completely free of charge. 374 [address] [place] ([phone]) or http://www.cancercare.org * [employer] -The only national organization providing comprehensive resources and serving the complex supportive care needs of brain tumor patients and caregivers from diagnosis through treatment and beyond. Works with brain tumor patients and their families, collaborations with allied groups and organizations, and the funding of brain tumor research. 118-287-VBSV (1975) or http://www.abta.org *[facility] Shedding Light to Every Step From a Brain Tumor diagnosis to recovery, [facility] will help you find the info you're looking for, from people you can trust. http://www.brainsforthecure.org/ documented in this encounter [facility] 05-24-2021 Note Procedure date: 05/23. Right Eye Clear. Disc findings include normal observations. Vessel findings include normal. Macula findings include atrophy. Pigmentary Change. Interval change is baseline. Left Eye Clear. Disc findings include normal observations. Vessel findings include normal. Pigmentary Change. Interval change is baseline. RADIOLOGY 05-24-2021 Note Procedure date: 05/23. Right Eye Quality was good. Findings include outer retinal layer disruption. Interval change is baseline. Left Eye Quality was good. Findings include outer retinal layer disruption, epiretinal membrane. Interval change is baseline. Notes Significant outer retinal loss, worse in right than left eye. ORDEROUT 05-24-2021 Note Procedure date: 05/23. Right Eye Arm to retina circulation is normal. AV transit is normal. Findings include window defect, staining. Interval change is baseline. Left Eye Arm to retina circulation is normal. AV transit is normal. Findings include window defect, staining. Interval change is baseline. Notes Patchy hyperfluorescence throughout macula and periphery with areas of hypofluoresence discretely in macula of both eyes. ORDEROUT 05-23-2021 History of Present illness Narrative REASON FOR VISIT Tess Ken presents to clinic today for a New Patient visit. Chief Complaint Referral HISTORY OF PRESENT ILLNESS HPI Referral Additional comments: 60 yr old female, type 2 diabetic, referred by Dr Jones at [facility] for retina evaluation. 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 Dr Jones would like re evaluation of retina s/p cataract surgery OS. Comments Vision improved OS s/p cataract surgery. 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 No flashes or floaters. No eye pain. No eye drops. Last edited by Krystle Neumann on 05/23/2021 11:18 AM. (History) Allergies, medications & history reviewed & updated by Krystle Neumann REVIEW OF SYSTEMS Review of Systems Eyes: No central vision OD. Vision improved s/p cataract surgery OS 05/03/21. Respiratory: Negative for shortness of breath. Cardiovascular: Negative for chest pain. 20 minutes of face to face time was spent with patient performing the electrical design technician work of this visit. Referring Physician: Chief Complaint Patient presents with Referral 60 yr old female, type 2 diabetic, referred by Dr Jones at [facility] for retina evaluation. 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 Dr Jones would like re evaluation of retina s/p cataract surgery OS. HPI Referral Additional comments: 60 yr old female, type 2 diabetic, referred by Dr Jones at [facility] for retina evaluation. 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 Dr Jones would like re evaluation of retina s/p cataract surgery OS. Comments Vision improved OS s/p cataract surgery. 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 No flashes or floaters. No eye pain. No eye drops. Last edited by Krystle Neumann on 05/23/2021 11:18 AM. (History) Referring Doctor: Self Self No address on file Medications: Current Outpatient Medications Medication Sig Empagliflozin (JARDIANCE PO) Take 5 mg by mouth daily every morning. losartan 25 MG Tab tablet Take 25 mg by mouth daily every morning. meloxicam 15 MG tablet Take 7.5 mg by mouth daily. metformin 1000 MG Tab tablet Take 1 tablet by mouth 2 times daily. rosuvastatin 10 MG Tab tablet Take 5 tablets by mouth at bedtime. 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 PSH Past Surgical History: Procedure Laterality Date REMOVAL CATARACT WITH INSERTION INTRAOCCULA Left 05/03/2021 LAMINECTOMY W/ BX OR EXCISION LESION INTRASPINAL INTRADURAL THORACIC Midline 02/16/2019 Laterality: Midline; Surgeon: Lauren Horowitz MD; Location: [facility] MA[facility] OR FUSION POSTERIOR THORACIC Midline 02/16/2019 Laterality: Midline; Surgeon: Lauren Horowitz MD; Location: [facility] MA[facility] OR KNEE REPLACEMENT Total TONSILLECTOMY Family History: Family History Problem Relation Age of Onset Cataract Mother Heart Disease - Other Mother Cataract Father Other - Specify Father COPD Emphysema Father Social History Social History Socioeconomic History Marital status: Tobacco Use Smoking status: Current Every Day Smoker Packs/day: 1.00 Years: 21.00 Pack years: 21.00 Types: Cigarettes Smokeless tobacco: Never Used Substance and Sexual Activity Alcohol use: Yes Alcohol/week: 1.0 standard drink Types: 1 Glasses of wine per week Comment: social Drug use: Never Review of Systems: I reviewed the patient's review of systems, and I have updated the medical record. Base Eye Exam Visual Acuity (Snellen - Linear) Right Left Dist sc CF at 1' 20/25 Dist ph sc 20/20 -2 Near cc J1 Tonometry (Tonopen, 11:29 AM) Right Left Pressure 13 12 Pupils Pupils Right PERRL Left PERRL Visual Velasquez (Counting fingers) Left Right Full Restrictions Partial inner superior temporal, inferior temporal, superior nasal, inferior nasal deficiencies Extraocular Movement Right Left Full Full Neuro/Psych Oriented x3: Yes Mood/Affect: Normal Dilation Both eyes: 1.0% Mydriacyl, 2.5% Phenylephrine @ 11:30 AM Slit Lamp and Fundus Exam External Exam Right Left External Normal Normal Slit Lamp Exam Right Left Lids/Lashes Normal Normal Conjunctiva/Sclera White and quiet White and quiet Cornea PEE Inferior 3+ PEE Inferior 3+ Anterior Chamber Deep and quiet Deep and quiet Iris round and dilated round and dilated Lens 2+ Cortical cataract, 2+ Nuclear sclerosis PC IOL Anterior Vitreous Normal Vitreous syneresis Fundus Exam Right Left Disc Normal Normal C/D Ratio 0.1 0.1 Macula atrophic, window defects no CME Vessels Normal, no vascular changes Normal, no vascular changes Periphery pigmentary change pigmentary change Refraction Wearing Rx Sphere Right +1.75 Left +1.75 Type: OTC readers Assessment and Plan: 1. Pigmentary retinal dystrophy -Discussed diagnosis in detail with patient. - imaging suggestive of genetic cause with bilateral presentation - however differential dx includes uveitic entities as well as CAR/MAR - hx of meningioma -Will do Spark test to rule out genetic vs inflammatory conditions. -FA today shows: Staining and window defects, no leakage, more consistent with genetic conditions v inflammatory. -Will know more once the Spark results come back in 6-8 weeks, referral placed to [facility] for counseling. -Call for a sooner appointment with any problems or concerns 2. Mixed type age-related cataract, both eyes -Monitor until decreased ADL, not visually significant at this time. 3. Dry eye syndrome of bilateral lacrimal glands -monitor 4. Pseudophakia -monitor NEXT VISIT Tropicamide 1% 1 drop Both eyes x 1 Phenylephrine 2.5% 1 drop to Both eyes x 1 William applanation: Both Eyes Imaging: FAF OU, OCT OU Optos OU Follow up in: 6 months INury, COA acted as a scribe for Lois Horowitz MD, PhD for this note of 05/23/2021 9:24 AM. I have reviewed the dictated documentation as scribed by Nury Mireles and it accurately reflects the work performed and the decisions made. I saw and independently examined this patient today. I discussed my findings and the therapeutic plan with the patient. I agree with the history, physical examination, and medical decisions as outlined. I have reviewed the documentation and it accurately reflects the work performed and the decisions made. 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, both eyes Dry eye syndrome of bilateral lacrimal glands Tear film insufficiency, unspecified Pseudophakia Lens replaced by other means [facility] Diagnosis Thoracic spine tumor Neoplasm of unspecified nature of bone, soft tissue, and skin Meningioma, spinal [facility] Diagnosis Onset Date Resolution Status Multiple thyroid nodules [facility] Work Phone: Evaluation note* Diagnosis Meningioma, spinal [facility] Diagnosis Meningioma, spinal- Primary [facility] Diagnosis Pigmentary retinal dystrophy- Primary Nuclear senile cataract of right eye [facility] assessment information available [facility] Work Phone: Evaluation note* Diagnosis Meningioma, spinal [facility] Diagnosis Thoracic spine tumor- Primary Neoplasm of unspecified nature of bone, soft tissue, and skin [facility] Diagnosis Thoracic spine tumor Neoplasm of unspecified nature of bone, soft tissue, and skin [facility] Diagnosis Thoracic spine tumor- Primary Neoplasm of unspecified nature of bone, soft tissue, and skin [facility] Diagnosis Mid back pain- Primary Backache, unspecified Myofascial pain Mylagia and myositis, unspecified History of thoracic surgery Kyphosis (acquired) (postural) [facility] Diagnosis Onset Date Resolution Status Urinary tract infection none active [facility] Work Phone: Evaluation note* Diagnosis Thoracic spine tumor Neoplasm of unspecified nature of bone, soft tissue, and skin [facility] Diagnosis Meningioma, spinal- Primary [facility] Diagnosis Pigmentary retinal dystrophy- Primary Combined forms of age-related cataract of right eye Other and combined forms of senile cataract Pseudophakia of left eye Lens replaced by other means Dry eye syndrome of bilateral lacrimal glands Tear film insufficiency, 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, without long-term current use of insulin [facility] Diagnosis Bilateral posterior uveitis- Primary Chorioretinitis, 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, without long-term current use of insulin Combined forms of age-related cataract of right eye Other and combined forms of senile cataract Dry eye syndrome of bilateral lacrimal glands Tear film insufficiency, unspecified Pseudophakia of left eye Lens replaced by other means Bilateral posterior uveitis Chorioretinitis, unspecified [facility] Diagnosis Bilateral posterior uveitis Chorioretinitis, unspecified [facility] Diagnosis Bilateral posterior uveitis- Primary Chorioretinitis, 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, without long-term current use of insulin [facility] Bilateral posterior uveitis- Primary Chorioretinitis, 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, without long-term current use of insulin Pigmentary retinal dystrophy documented in [facility] Diagnosis Bilateral posterior uveitis- Primary Chorioretinitis, 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, without long-term current use of insulin Combined forms of age-related cataract of right eye Other and combined forms of senile cataract documented in [facility] Diagnosis Bilateral posterior uveitis- Primary Chorioretinitis, 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, without long-term current use of insulin documented [facility] Diagnosis Pelvic pain- Primary Unspecified symptom associated with female genital organs Vaginal atrophy Postmenopausal atrophic vaginitis documented in this encounter [facility] for referral (narrative)* Consultation (Routine) - New Request Specialty Diagnoses / Procedures Referred By Paul bermeo Referred To Contact Ophthalmology Diagnoses Pigmentary retinal dystrophy Lois Horowitz MD, PhD [address] [place] [address] Belinda Domingo, [facility] [address] [facility] [address] [place] [address] Referral ID Status Reason Start Date Expiration Date V isits Requested Visits Authorized [id number] New Request 05/23/2021 06/17/2022 1 1 [facility] for referral (narrative)* Consultation (Routine) - New Request Specialty Diagnoses / Procedures Referred By Contac t Referred To Contact Spine Diagnoses Thoracic spine tumor Renee Evans APRN-QUINCY [address] [place] [address] Referral ID Status Reason Start Date Expiration Date V isits Requested Visits Authorized [id number] New Request 12/04/2022 12/29/2023 1 1 * MRI/CAT Scan (Routine) - New Request Specialty Diagnoses / Procedures Referred By Contac t Referred To Contact Diagnoses Thoracic spine tumor Procedures MRI SPINE THORACIC WITH AND WITHOUT CONTRAST ME MRI, DORSAL SPINE Kurtis Mcduffie MD [address] [place] [address] Referral ID Status Reason Start Date Expiration Date V isits Requested Visits Authorized [id number] New Request 12/04/2022 12/29/2023 1 1 [facility] for referral (narrative)No reason for referral information availableWMercy Hospital Work Phone: Chief Complaint Chief Complaint Description Start Date lower back pain Preliminary chief co mplaint data, not yet signed by the author as of Instructions Instruction Description Start Date CompletedPatient advised to follow-up with Primary Care Physician for BMI management. Advance Directives No Advanced Directives Records FoundLatest Code Status on File Code Status Date Activated Date Inactivated Comments Full Code 02/16/2019 4:46 PM Full Code 02/16/2019 5:57 AM 02/16/2019 12:56 PM Advance Directive Response Recorded Date/ Time Advance Directives No December 12:17pm Living Will No September 24, 2018 9:18am Power of Balance Clerk No September 24 9 9:18am Latest Code Status on File Code Status Date Activated Date Inactivated Comments Full Code 02/16/2019 4:46 PM Full Code 02/16/2019 5:57 AM 02/16/2019 12:56 PM Advance Directive Response Recorded Date/ Time Advance Directives No December 11:17am Living Will No September 24, 2018 8:18am Power of Balance Clerk No September 24, 9 8:18am Latest Code Status on File Code Status Date Activated Date Inactivated Comments Full Code 02/16/2019 4:46 PM Code Status History Code Status Date Activated Date Inactivated Comments Full Code 02/16/2019 5:57 AM 02/16/2019 12:56 PM Date Activated Date Inactivated Comments 02/16/2019 4:46 PM Date Activated Date Inactivated Comments 02/16/2019 5:57 AM 02/16/2019 12:56 PM Date Activated Date Inactivated Comments 02/16/2019 4:46 PM Date Activated Date Inactivated Comments 02/16/2019 5:57 AM 02/16/2019 12:56 PM Advance Directive Response Recorded Date/ Time Advance Directives No December 12:17pm Assessments There may be information available, but it has not been provided by the sender. Review of System There may be information available, but it has not been provided by the sender. Family History There may be information available, but it has not been provided by the sender.No Family History Records FoundNo Family History Records FoundNo Family History Records Found History of Present Illness There may be information available, but it has not been provided by the sender. Reason for Referral Specialty Diagnoses / Procedures Referred By Paul t Referred To Contact Diagnoses Thoracic spine tumor Meningioma, spinal Procedures MRI SPINE THORACIC WITH AND WITHOUT CONTRAST ME MRI, DORSAL SPINE Kurtis Mcduffie MD [address] [place] [address] Referral ID Status Reason Start Date Expiration Date Visits Re quested Visits Authorized [id number] Closed 03/29/2020 04/23/2021 1 1 Specialty Diagnoses / Procedures Referred By Contac t Referred To Contact Diagnoses Meningioma, spinal Procedures MRI SPINE THORACIC WITH AND WITHOUT CONTRAST ME MRI, DORSAL SPINE Kurtis Mcduffie MD [address] [place] [address] Referral ID Status Reason Start Date Expiration Date Visits Re quested Visits Authorized [id number] Closed 04/18/2021 05/13/2022 1 1 Specialty Diagnoses / Procedures Referred By Contac t Referred To Contact Diagnoses Meningioma, spinal Procedures MRI SPINE THORACIC WITH AND WITHOUT CONTRAST ME MRI, DORSAL SPINE COMBO Renee Evans, COMMUNICATIONS ADVISOR-GROUP CONTRACT ANALYST [address] [place] [address] Referral ID Status Reason Start Date Expiration Date V isits Requested Visits Authorized [id number] New Request 10/12/2021 11/06/2022 1 1 Referral ID Status Reason Start Date Expiration Date Visits Re quested Visits Authorized [id number] Closed 10/12/2021 11/06/2022 1 1 Specialty Diagnoses / Procedures Referred By Contac t Referred To Contact Diagnoses Thoracic spine tumor Procedures MRI SPINE THORACIC WITH AND WITHOUT CONTRAST ME MRI, DORSAL SPINE COMBO Renee Evans, COMMUNICATIONS ADVISOR-GROUP CONTRACT ANALYST [address] [place] [address] Referral ID Status Reason Start Date Expiration Date V isits Requested Visits Authorized [id number] New Request 04/06/2022 05/01/2023 1 1 Referral ID Status Reason Start Date Expiration Date Visits Requested Visits Authorized [id number] Authorized - Elizabeth 04/06/2022 05/01/2023 1 1 Specialty Diagnoses / Procedures Referred By Contac t Referred To Contact Physical Therapy Diagnoses Mid back pain Myofascial pain History of thoracic surgery Seeam Mendoza MD [address] [place] [address] Referral ID Status Reason Start Date Expiration Date V isits Requested Visits Authorized [id number] New Request 02/05/2023 03/01/2024 1 1 Scheduling Instructions [facility] [address] [facility] 2nd [place] [address] Fax [facility] (Neck and Back Therapy) [address] [place] [address] FAX [facility] [address] [place] [address] [phone] FAX Outpatient Rehabilitation [facility] [place] [address] [facility], [address] [place] [address] [phone] FAX [facility] [address] [place] [address] FAX Physical Therapy at [address], [address] [place] [address] [phone] FAX [facility] [address] [place] [address] [phone] FAX Outpatient Rehabilitation Outpatient Care [address], [address] [place] [address] [phone] FAX [facility] [address] [facility], [address] [place] [address] [phone] FAX [facility] [address], Room: [address] [place] [address] FAX [facility] [address] [facility], [address] [place] [address] FAX [facility] [address] [place] [address] [phone] FAX [facility] [place] [address] [facility], [address] [place] [address] [phone] FAX [facility] [address] [facility], [address] [place] [address] FAX Outpatient Rehabilitation [facility] [place] [address] [facility], [address] [place] [address] [phone] FAX [facility] [address] [facility], [address] [place] [address] ) [phone] FAX [facility] [place] [address] [facility], [place] [address] [phone] FAX [facility] [employer] [address] [place] [address] [phone] FAX Outpatient Rehabilitation Outpatient Care [address], [address] [place] [address] [phone] FAX [facility] [address] [place] [address] [phone] FAX Outpatient Care [address] [address] FAX [facility], [address] [place] [address] FAX Specialty Diagnoses / Procedures Referred By Contac t Referred To Contact Diagnoses Thoracic spine tumor Procedures MRI SPINE THORACIC WITH AND WITHOUT CONTRAST ME MRI, DORSAL SPINE Kurtis Mcduffie MD [address] [place] [address] Referral ID Status Reason Start Date Expiration Date Visits Re quested Visits Authorized [id number] Closed 12/04/2022 12/29/2023 1 1 Specialty Diagnoses / Procedures Referred By Contac t Referred To Contact Diagnoses Meningioma, spinal Procedures MRI SPINE THORACIC WITH AND WITHOUT CONTRAST ME MRI, DORSAL SPINE Renee Kimbrough APRN-QUINCY [address] [place] [address] Referral ID Status Reason Start Date Expiration Date V isits Requested Visits Authorized [id number] New Request 06/06/2023 06/30/2024 1 1 Specialty Diagnoses / Procedures Referred By Paul bermeo Referred To Contact Diagnoses Uveitis Procedures MRI BRAIN WITH AND WITHOUT CONTRAST CHG MRI BRAIN BRAIN STEM W/O W/CONTRAST MATERIAL Anthony Ying, [address] [facility] [address] [place] [address] Referral ID Status Reason Start Date Expiration Date V isits Requested Visits Authorized [id number] New Request 12/23/2023 01/16/2025 1 1 Chief Complaint and Reason for Visit Chief Complaint GOITER DISCUSS THYROID U/S INT LABS SCREENING ABN MAMM Reason for Visit Multiple thyroid nod ules Chief Complaint multiple thyroid nod ules Chief Complaint Urinary tract infect ion Reason for Visit Urinary tract infect ion Chief Complaint Urinary tract infect ion CONCERN FOR UTI Reason for Visit Urinary tract infect ion Chief Complaint Admit Date NOT FASTING February 05, 2024 9:33am spinal meningioma February 07, 2024 6:53am Summary Purpose Additional Source Comments Reason for Visit (unrecogniz ed section and content) Reason Comments Follow-up Specialty Diagnoses / Procedures Referred By Contact Referred To Contact Ophthamology - Retina / Ophthalmology Diagnoses Unspecified chorioretinal inflammation, bilateral Return in about 6 weeks (around 07/24/2024) for DFE, OCT Mac, Optos, OU, possible Ozurdex OS. Procedures ME DEXAMETHASONE INTRA IMPLANT INJECTION Self, Self Anthony iYng DO [address] [address] Phone: tel: fax: Referral ID Status Reason Start Date Expiration Date V isits Requested Visits Authorized [id number] Authorized 07/27/2024 02/24/2025 4 4 Reason For Visit Description Start Date New - 1st visit with practice Preliminary reason f or visit data, not yet signed by the author as of lower back pain Reason Comments Referral 60 yr old female, ty pe 2 diabetic, referred by Dr Jones at [facility] for retina evaluation. 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 Specialty Diagnoses / Procedures Referred By Contac t Referred To Contact Diagnoses Thoracic spine tumor Meningioma, spinal Procedures MRI SPINE THORACIC WITH AND WITHOUT CONTRAST ME MRI, DORSAL SPINE Kurtis Mcduffie MD [address] [place] [address] Referral ID Status Reason Start Date Expiration Date Visits Re quested Visits Authorized [id number] Closed 03/29/2020 04/23/2021 1 1 Specialty Diagnoses / Procedures Referred By Contac t Referred To Contact Diagnoses Meningioma, spinal Procedures MRI SPINE THORACIC WITH AND WITHOUT CONTRAST ME MRI, DORSAL SPINE Kurtis Mcduffie MD [address] [place], [place] [address] Referral ID Status Reason Start Date Expiration Date Visits Re quested Visits Authorized [id number] Closed 04/18/2021 05/13/2022 1 1 Reason Comments Follow-up Reason Comments Blurred Vision Specialty Diagnoses / Procedures Referred By Contac t Referred To Contact Magnetic Resonance Imaging Procedures MRI T-SPINE Renee Evans, COMMUNICATIONS ADVISOR-GROUP CONTRACT ANALYST [address] [place] [address] [address] Referral ID Status Reason Start Date Expiration Date V isits Requested Visits Authorized [id number] Pending Review 04/05/2022 04/30/2023 1 1 Specialty Diagnoses / Procedures Referred By Contac t Referred To Contact Diagnoses Thoracic spine tumor Procedures MRI SPINE THORACIC WITH AND WITHOUT CONTRAST ME MRI, DORSAL SPINE GILBERTO Renee Evans, COMMUNICATIONS ADVISOR-GROUP CONTRACT ANALYST [address] [place] [address] Referral ID Status Reason Start Date Expiration Date Visits Requested Visits Authorized [id number] Authorized - Elizabeth 04/06/2022 05/01/2023 1 1 Referral ID Status Reason Start Date Expiration Date Visits Re quested Visits Authorized [id number] Closed 04/06/2022 05/01/2023 1 1 Reason Comments Follow-up Reason Comments New Patient Specialty Diagnoses / Procedures Referred By Contac t Referred To Contact Spine Diagnoses Thoracic spine tumor Renee Evans, COMMUNICATIONS ADVISOR-GROUP CONTRACT ANALYST [address] [place] [address] Referral ID Status Reason Start Date Expiration Date V isits Requested Visits Authorized [id number] New Request 12/04/2022 12/29/2023 1 1 Specialty Diagnoses / Procedures Referred By Contac t Referred To Contact Diagnoses Thoracic spine tumor Procedures MRI SPINE THORACIC WITH AND WITHOUT CONTRAST ME MRI, DORSAL SPINE Kurtis Mcduffie MD [address] Ground [place] [id number] Referral ID Status Reason Start Date Expiration Date Visits Re quested Visits Authorized [id number] Closed 12/04/2022 12/29/2023 1 1 Reason Comments Uveitis Reason Comments Follow-up Uveitis Specialty Diagnoses / Procedures Referred By Contact Referred To Contact Ophthamology - Retina / Ophthalmology Diagnoses Unspecified chorioretinal inflammation, bilateral RTN 12wks ~ DFE, OCT Mac, OPTOS. [id number] Procedures ME DEXAMETHASONE INTRA IMPLANT ME INTRAVITREAL NJX PHARMACOLOGIC AGT SPX RETURN PATIENT Self, Self Anthony Ying, DO [address] [place] [address] Phone: tel: fax: Referral ID Status Reason Start Date Expiration Date V isits Requested Visits Authorized [id number] Authorized 06/11/2024 09/24/2024 2 2 Reason Comments New Patient Dysuria and Perineal Pain Care Teams (unrecognized sec tion and content) Revenue Coordinator Relationship Specialty Start Date End Date Darshan Rowley MD [address] [facility] [address] [place], [place] [address] PCP - General Family Medicine 02/09/19 Revenue Coordinator Relationship Specialty Start Date End Date Darshan Rowley MD [address] [facility] [address] [place], [place] [id number] PCP - General Family Medicine 02/09/19 Revenue Coordinator Relationship Specialty Start Date End Date Darshan Rowley MD [address] [facility] [address] [place] [address] PCP - General Family Medicine 02/09/19 Revenue Coordinator Relationship Specialty Start Date End Date Darshan Rowley MD [address] [facility] [address] [place] [address] PCP - General Family Medicine 02/09/19 Revenue Coordinator Relationship Specialty Start Date End Date Darshan Rowley MD [address] [place] [address] PCP - General Family Medicine 02/09/19 Team Status: Active Member Role Status Dates Dr. Darshan Rowley MD Family Provider Active Dr. Darshan Rowley MD Primary Care Provider Active Team Status: Inactive Member Role Status Dates Dr. Darshan Rowley MD Primary Care Provider Active Dr. Yung Inman MD Attending Provider Active Revenue Coordinator Relationship Specialty Start Date End Date Darshan Rowley MD [address] [facility] [address] [place] [address] PCP - General Family Medicine 02/09/19 Revenue Coordinator Relationship Specialty Start Date End Date Darshan Rowley MD [address] [facility] [address] [place] [address] PCP - General Family Medicine 02/09/19 Revenue Coordinator Relationship Specialty Start Date End Date Darshan Rowley MD [address] [facility] [address] [place] [address] PCP - General Family Medicine 02/09/19 Team Status: Inactive Member Role Status Dates Dr. Darshan Rowley MD Primary Care Provider, Referring Provider Active Javier CORNELL, PA Attending Provider Active Team Status: Inactive Member Role Status Dates Dr. Darshan Rowley MD Primary Care Provi jan, Attending Provider, Referring Provider Active Team Status: Inactive Member Role Status Dates Dr. Darshan Rowley MD Primary Care Provider Active Javier CORNELL, PA Attending Provider, Referring Provi jan Active Revenue Coordinator Relationship Specialty Start Date End Date Darshan Rowley MD [address] [place] [address] PCP - General Family Medicine 02/09/19 Revenue Coordinator Relationship Specialty Start Date End Date Darshan Rowley MD [address] [place], [place] [address] PCP - General Family Medicine 02/09/19 Team Status: Inactive Member Role Status Dates Dr. Darshan Rowley MD Primary Care Provider, Referring Provider Active Hermilo CORNELL, PA Attending Provider Active Team Status: Inactive Member Role Status Dates Dr. Darshan Rowley MD Primary Care Provider Active Hermilo CORNELL, PA Attending Provider Active Revenue Coordinator Relationship Specialty Start Date End Date Darshan Rowley MD [address] [place] [address] PCP - General Family Medicine 02/09/19 Revenue Coordinator Relationship Specialty Start Date End Date Darshan Rowley MD [address] [place] [address] PCP - General Family Medicine 02/09/19 Rayna Smith MD [address] [place] [address] Urology 12/23/23 Revenue Coordinator Relationship Specialty Start Date End Date Darshan Rowley MD [address] [place] [address] PCP - General Family Medicine 02/09/19 Rayna Smith MD [address] [place] [address] Urology 12/23/23 Revenue Coordinator Relationship Specialty Start Date End Date Darshan Rowley MD [address] [place] [address] PCP - General Family Medicine 02/09/19 Rayna Smith MD [address] [place] [address] Urology 12/23/23 Revenue Coordinator Relationship Specialty Start Date End Date Darshan Rowley MD [address] [place] [address] PCP - General Family Medicine 02/09/19 Rayna Smith MD [address] [place] [address] Urology 12/23/23 Team Status: Inactive Member Role Status Dates Dr. Darshan Rowley MD Primary Care Provider Active Start: February 05, 2024 End: February 05, 2024 Dr. Darshan Rowley MD Attending Provider Active Start: February 05, 2024 End: February 05, 2024 Dr. Darshan Rowley MD Referring Provider Active Start: February 05, 2024 End: February 05, 2024 Team Status: Inactive Member Role Status Dates Dr. Darshan Rowley MD Primary Care Provider Active Start: February 07, 2024 End: February 07, 2024 NATHAN DURAN Attending Provider Active Start: [email or web address] End: February 07, 2024 NATHAN DURAN Referring Provider Active Start: Lopez 2023 End: February 07, 2024 Team Status: Inactive Member Role Status Dates Dr. Darshan Rowley MD Primary Care Provider Active Start: April 29, 2024 End: April 29, 2024 Dr. Rayna Smith MD Attending Provider Active Start: April 29, 2024 End: April 29, 2024 Dr. Rayna Smith MD Referring Provider Active Start: April 29, 2024 End: April 29, 2024 Revenue Coordinator Relationship Specialty Start Date End Date Darshan Rowley MD PCP - General Family Medicine 02/09/19 Rayna Smith MD Urology 12/23/23 Revenue Coordinator Relationship Specialty Start Date End Date Darshan Rowley MD PCP - General Family Medicine 02/09/19 Rayna Smith MD Urology 12/23/23 Revenue Coordinator Relationship Specialty Start Date End Date Darshan Rowley MD PCP - General Family Medicine 02/09/19 Rayna Smith MD Urology 12/23/23 Goals (unrecognized section and content) Goals may be documented in a n alternate sectionGoals may be documented in an alternate sectionGoals may be documented in an alternate sectionGoals may be documented in an alternate sectionGoals may be documented in an alternate sectionGoals may be documented in an alternate sectionGoals may be documented in an alternate section INFORMATION SOURCE (unrecogn ized section and content) DATE CREATED AUTHOR 10/08/2024 [facility] DATE CREATED AUTHOR AUTHOR'S ORGANIZ ATION 11/03/2024 [facility] DATE CREATED AUTHOR AUTHOR'S ORGANIZ ATION 11/05/[address] [facility] FOR RECORDS PERTAINING TO PATIENTS WHO ARE OR HAVE BEEN ENROLLED IN A CHEMICAL DEPENDENCY/SUBSTANCEABUSE PROGRAM, SOME INFORMATION MAY BE OMITTED. This clinical summary was aggregated from multiple sources. Caution should be exercised in using it in the provision of clinical care. This summary normalizes information from multiple sources, and as a consequence, information in this document may materially change the coding, format and clinical context of patient data. In addition, data may be omitted in some cases. CLINICAL DECISIONS SHOULD BE BASED ON THE PRIMARY CLINICAL RECORDS. [facility] [employer] [facility]. provides no warranty or guarantee of the accuracy or completeness of information in this document.
[2024-11-09 11:14] LABS: Anion Gap 15 (5-15); BUN 17 mg/dL (4-19); BUN/Creat Ratio 17.2 RATIO (10-20); Calcium,Total 9.5 mg/dL (7.6-11.0); Carbon Dioxide 22.0 mmol/L (21.0-32.0); Chloride 102 mmol/L (98-108); Cholesterol 163 mg/dL (<=200); Glucose 98 mg/dL (70-99); Low Density Lipoprotein Calc. 78 mg/dL; Potassium 4.1 mmol/L (3.3-5.1); Triglycerides 151 mg/dL; Very Low Density Lipoprotein 30 mg/dL (5-40); cholesterol:hdl ratio screen 2.97
== END | disposition home or self-care (01) ==
LOC: MTLAB 07:05
PROVIDERS: PCP Family Medicine; Referring Provider Family Medicine; Visit Provider Family Medicine
DX: E11.9 Type 2 diabetes mellitus without complications (principal)
CPT/HCPCS: 36415; 80048; 80061; 83036; 84443

== ENCOUNTER → 2024-12-10 | Outpatient (CLI) | payer MEDICARE, SELFPAY | END | disposition home or self-care (01) | LOC: LABSPEC 13:56 | PROVIDERS: PCP Family Medicine; Visit Provider Family Medicine | DX: N39.0 Urinary tract infection, site not specified (principal) | CPT/HCPCS: 87086 ==

== ENCOUNTER → 2025-01-22 | Outpatient (CLI) | payer MEDICARE, SELFPAY ==
--- OUTSIDE RECORDS SUMMARY | 2025-01-22 15:37 | XMS RPT_ITS | CCD ---
Author Organization [facility] Care Team Providers Care Corporate Travel Manager Name Role Phone He Oakes DO Paula Unavailable Darshan Rowley MD Primary Care Provider [phone] Darshan Rowley Primary Care Provider Dr. Darshan Rowley Referring Provider Dr. Yung Inman Attending Provider [phone] Darshan Rowley MD Primary Care Provider Darshan [...] [phone] Dr. Darshan Rowley MD Attending Provider Dr. Darshan Rowley MD Referring Provider RENEE EVANS Attending Provider RENEE EVANS Referring Provider [phone] Rayna Smith MD Attending Provider [phone] Dr. Rayna Smith MD Referring Provider Darshan Rowley MD Primary Care Provider [phone] Sarah FLETCHER, Rayna Unavailable Unavailable Sarah FLETCHER, Rayna Unavailable MD RODY KEITH Attending Unavailabl e PHYSICIAN, NOT RECORDED Primary Care Unavaila ble ANTHONY YING Attending Unavailable ROWLEY, DARSHAN R Primary Care Unavailable LOIS HOROWITZ A Referring Unavailable DIOGO, ANTHONY Attending Unavailable ROWLEY, DARSHAN R Primary Care Unavailable SELF, SELF Referring Unavailable DIOGO, ANTHONY Attending Unavailable ROWLEY, DARSHAN R Primary Care Unavailable SELF, SELF Referring Unavailable DIOGO, ANTHONY Attending Unavailable ROWLEY, DARSHAN R Primary Care Unavailable SELF, SELF Referring Unavailable RODY KEITH Attending Unavailable ROWLEY, DARSHAN Ricardo Primary Care Unavailable ROWLEY, DARSHAN R Referring Unavailable ROWLEY, DARSHAN R Primary Care Unavailable SELF, SELF Referring Unavailable DIOGO, ANTHONY Attending Unavailable ROWLEY, DARSHAN R Primary Care Unavailable SELF, SELF Referring Unavailable DIOGO, ANTHONY Referring Unavailable DIOGO, ANTHONY Attending Unavailable ROWLEY, DARSHAN R Primary Care Unavailable DIOGO, ANTHONY Attending Unavailable ROWLEY, DARSHAN R Primary Care Unavailable LOIS HOROWITZ Referring Unavailable Rayna Smith Referring Unavailable Rowley, Darshan Primary Care Unavailable Rayna Smith Attending Unavailable Rowley, Darshan Primary Care Unavailable JAYA, NITZA Attending Unavailable JAYA, NITZA Referring Unavailable Rowley, Darshan Primary Care Unavailable Hunter, Yung Attending Unavailable Hunter, Yung Referring Unavailable Rowley, Darshan Attending Unavailable Rowley, Darshan Referring Unavailable Rowley, Darshan Primary Care Unavailable Rowley, Darshan Attending Unavailable Rowley, Darshan Primary Care Unavailable Rowley, Darshan Attending Unavailable Rowley, Darshan Referring Unavailable Rowley, Darshan Primary Care Unavailable Cherise Greenwood Attending Unavailable Rowely, Darshan Primary Care Unavailable Cherise Greenwood Attending Unavailable Rowley, Darshan Primary Care Unavailable Consuelo Trinidad Attending Unavailable Rowley, Darshan Primary Care Unavailable Rowley, Darshan Referring Unavailable Rowley, Darshan Primary Care Unavailable Rayna Smith Attending Unavailable Rowley, Darshan Attending Unavailable Rowley, Darshan Referring Unavailable Rowley, Darshan Primary Care Unavailable Allergies Allergy Classification Reported Allergen(s) Allergy Type Date of Onset Reaction(s) Facility (14 sources) Lisinopril Drug Allergy 7 Cough [facility] (15 sources) Lisinopril Propensity to adverse reactions to drug 7 Cough [facility] (9 sources) Methocarbamol Drug Allergy 0 Muscle Rigidity [facility] (1 source) Methocarbamol Drug Allergy 4 pain [facility] (1 source) Lisinopril Drug Allergy 5 [facility] (1 source) Methocarbamol Drug Allergy 5 [facility] Medications Current Medications Medication Drug [...] 2023 amitriptyline hydrochloride 10 mg oral tablet (3 sources) Tricyclic Antidepressant Start: 10-30-2024 take 1 [...] 2023 8:27am dexamethasone 0.7 mg drug implant (9 sources) Corticosteroid Start: 06-12-2024 dexAMETHasone 0.7 MG [...] 0 Active estradiol 0.01 mg vaginal insert (2 sources) Estrogen Start: 11-02-2024 estradiol (Yuvafem) 10 MCG [...] 2020 1:00am glipiZIDE 5 mg oral tablet (2 sources) Sulfonylurea take 1 tablet by mouth twice [...] ml insulin lispro 100 unt/ml pen injector (5 sources) Insulin Analog Start: 03-04-2024 inject 4 [...] mirabegron 50 mg extended release oral tablet (3 sources) beta3-Adrenergic Agonist Start: 10-30-2024 End: 11-30-2024 take 1 tablet by mouth once daily Mirabegron ER (Myrbetriq) 50 MG tablet Take 1 tablet by mouth daily. 30 tablet 11 11/30/2024 Active moxifloxacin 400 mg oral tablet (9 sources) Quinolone Antimicrobial Start: 11-05-2023 Moxifloxacin 400 [...] EACH PO DAILY December 09, 2017 11:00pm predniSONE 10 mg oral tablet (2 sources) [...] Start: 10-30-2023 take 1 tablet by debbie every other day Vibegron (Gemtesa) 75 mg [...] capsules (200mg-300mg) twice daily as directed GABAPENTIN [id number] Jessica Tien DIAZ Start: 09-24-2018 End: 04-25-2020 take 1 capsule [...] 25, 2020 1:00am September 03, 2023 9:58am nitrofurantoin, macrocrystals 25 mg / nitrofurantoin, monohydrate 75 mg oral capsule (17 sources) Nitrofuran Antibacterial Start: 11-30-2024 End: 11-30-2024 take 1 dose by mouth once 100 mg, Oral, ONCE (IN CLINIC), 1 dose, On Sat11/30/24 at 0830 Start: 06-04-2023 End: 11-30-2024 Nitrofurantoin (macrocrystal -monohydrate) (MACROBID) capsule 100 mg Start: 06-04-2023 End: 06-09-2023 take 1 capsule by mouth every twelve hours at mealtime Nitrofurantoin Monohyd/M-Cryst (Macrobid ) 100 mg capsule Discontinued 100 mg PO [...] not open, crush, dissolve , or chew oxyCODONE hydrochloride 5 mg oral tablet (20 sources) Opioid Agonist Start: 12-24-2017 End: 12-31-2017 take 5-10 mg by mouth every four hours as needed for pain Oxycodone 5 MG tablet Discontinued 5 - 10 mg PO EVERY 4 HOURS NEEDED as needed for Mod-Severe Pain (4-10/10) 60 7 December 24, 2017 12:00am December 30, 2017 [...] MG TABS 1 tablet nightly ROSUVASTATIN CALCIUM [id number] Qian Presley HEALTH CARE SANITARY TECHNICIAN Start: 12-10-2017 take 5 tablets by mo [facility] at bedtime rosuvastatin 10 MG Tab tablet Take 5 tablets by mouth at bedtime. 12/10/2017 Active Start: 12-10-2017 take 1 tablet by [facility] at bedtime Rosuvastatin 10 MG tablet Active [...] MG TABS 1 tablet nightly ZOLPIDEM TARTRATE [id number] Qian Asafsaro HEALTH CARE SANITARY TECHNICIAN Start: 12-10-2017 End: 04-25-2020 take 1 tablet by mouth at bedtime as needed for sleep Zolpidem 5 MG tablet Discontinued 5 mg PO AT BEDTIME NEEDED as needed for Sleep December 10, 2017 12:00am April 25, 2020 3:04pm Problems Active Problems Problem Classification Problem Date Documented Date Episodic/Chronic Abdominal pain (4 sources) Pain in pelvis; Translations: [Pelvic and perineal pain] Onset: 10-06-2024 11-02-2024 Episodic Anxiety disorders (1 [...] 07-27-2024 11-12-2023 Chronic Diabetes mellitus without complication (1 source) Type 2 diabetes mellitus without complications; Translations: [Type 2 diabetes mellitus without complications] Onset: 11-20-2024 Chronic Inflammation; infection of eye (except that caused by tuberculosis or sexually transmitteddisease) (9 sources) Posterior uveitis; 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, bilateral] Onset: 03-11-2024 12-23-2023 Chronic Inflammatory diseases of female pelvic organs (1 source) Acute vaginitis; Translations: [Acute vaginitis] Onset: 09-30-2024 Episodic Menopausal disorders (3 sources) Atrophy of vagina; Translations: [Postmenopausal atrophic vaginitis] Onset: 11-16-2024 11-02-2024 Chronic Mood disorders (20 sources) Mood disorders; Translations: [Depression, unspecified] Onset: 03-29-2020 Resolved: 06-06-2023 03-29-2020 Neoplasms of unspecified nature or uncertain behavior [...] bladder; Translations: [Bladder disorder, unspecified] 09-12-2023 Chronic Other diseases of bladder and urethra (1 source) Overactive bladder; Translations: [Overactive bladder] Onset: 11-16-2024 Chronic Residual codes; unclassified (1 source) History [...] [Nontoxic multinodular goiter] Chronic Urinary tract infections (5 sources) Urinary tract infection, site not specified; Translations: [Urinary tract infection, site not specified] Onset: 07-14-2024 03-08-2023 Episodic Past or Other Problems Problem Classification Problem Date Documented Date Episodic/Chronic Fluid and electrolyte disorders (20 sources) Disorder of electrolytes; Translations: [Other disorders of electrolyte and fluid balance, not elsewhere classified] Onset: 02-17-2019 03-02-2019 Episodic Other and unspecified benign neoplasm (20 [...] specified postprocedural states] Onset: 02-16-2019 02-16-2019 Episodic Superficial injury; contusion (1 source) Contusion of right knee; Translations: [Contusion of right knee, initial encounter] Onset: 11-17-2015 11-30-2024 Episodic Unclassified (1 source) Problem Results Test Name Value Interpretation Reference Range Facility Urine Cultureon 12-11-2024 [facility] Culture exhibits no growth. Normal [facility] Comment on above: Performed By: #### M 100.2200 #### [facility] [address] [place], [address] CYSTOSCOPYon 11-30-2024 Donald Lewis 11/30/2024 9:33 AM CYSTOSCOPY Date/Time: 11/30/2024 8:30 AM Performed by: Rody Keith MD Authorized by: Rody Keith MD The attending physician was present for the entire procedure. Pre-Procedure: Indications: recurrent UTIs Detailed information of all possible complications and side effects were discussed with the patient, these include but not only; UTI, sepsis, hematuria, incontinence, urethral injury and cardiovascular complications. Informed consent was obtained. Does this procedure require a Holdrege Protocol? Yes. Holdrege Protocol is required. The patient was given one dose of antibiotics. Urine was collected for testing. Procedure: Procedure performed: cystoscopy The patient was placed dorsolithotomy with all pressure points well padded. with chlorhexidine. The flexible cystoscope was lubricated and placed into the urethral tract under direct visualization. A 360 survey of the bladder was performed. The cystoscope was reflected and the bladder neck and the ureteral orifices were inspected. The findings are detailed below. The cystoscope was removed following any additional procedures documented below. Findings: The urinary meatus appeared normal. No tumors observed. No bladder fistula present. No foreign bodies observed. No stones found. No trabeculations were found. Both ureteral orifices were normal in size, shape and position with efflux of clear urine. The urethra was inspected. No foreign body(s) present in urethra. No urethral diverticulum observed. No urethral stricture found. Other Cystoscopy Findings: Cystitis cystica L lateral wal ulceration- ? Infectious Post Procedure: Patient tolerated procedure with no immediate complications Post-procedure antibiotics were given (see MAR for details) EBL: no blood loss Procedure Comments: Urine for C& S Will repeat cysto in 6 weeks- if ulcer still present recommend fulguration Rody Keith MD [facility] observation (narrative) [facility] POCT URINE DIPSTICK AUTOMATE Don 11-30-2024 Amorphous sediment LM Ql (Urine sed) [facility] Appearance (U) Clear [facility] Bacteria LM Ql (Urine sed) [facility] Bilirubin Ql (U) Negative [facility] Casts LM.LPF (Urine sed) [#/Area] [facility] Color (U) Yellow [facility] Crystals LM Nom (Urine sed) [facility] Epithelial cells.squamous LM.HPF (Urine sed) [#/Area] [facility] Flow cytometry specialist review Jamar (Unsp spec) [Interp] [facility] Glucose Auto test strip (U) [Mass/Vol] Negative mg/dL [facility] Ketones [Mass/Vol] Negative mg/dL [facility] Leukocyte esterase Qn (U) [facility] Leukocyte esterase Test strip Ql (U) Moderate [facility] Microscopic observation Gram stain Nom (Bronch spec) [facility] Nitrite Ql (U) Positive [facility] pH (U) 6.0 [pH] 5 - 7 [facility] Protein Ql (U) 100 mg/dL [facility] RBC LM.HPF (Urine sed) [#/Area] [facility] RBC Ql (U) Small [facility] Specific gravity (U) [Rel density] 1.020 1.001 - 1.035 [facility] Transitional cells LM Ql (Urine sed) [facility] Urobilinogen Qn (U) 0.2 [facility] WBC LM.HPF (Urine sed) [#/Area] [facility] URINE CULTUREon 11-30-2024 Amikacin [Susceptibility] 2 ug/mL Invalid Interpretation Code [facility] Comment on above: Order Comment: Routi ne cultures are evaluated for significant uropathogens >=100,000 CFU/mL. Performed By: #### U R #### [facility] (DEFAULT) [address] [place] [address] Ampicillin [Susceptibility] >=[address] [facility] Comment on above: Order Comment: Routi ne cultures are evaluated for significant uropathogens >=100,000 CFU/mL. Performed By: #### U R #### [facility] (DEFAULT) [address] [place] [address] Ampicillin+Sulbactam [Susceptibility] 16 ug/mL Significant change up [facility] Comment on above: Order Comment: Routi ne cultures are evaluated for significant uropathogens >=100,000 CFU/mL. Performed By: #### U R #### [facility] (DEFAULT) [address] [place] [address] ceFAZolin [Susceptibility] >= Resistant [facility] Comment on above: Order Comment: Routi ne cultures are evaluated for significant uropathogens >=100,000 CFU/mL. Result Comment: Cefa zolin susceptibility results can be inferred to the following oral cephalosporins: cephalexin, cefuroxime, and cefdinir. Performed By: #### U R #### [facility] (DEFAULT) [address] [place] [address] Cefepime [Susceptibility] <= Invalid Interpretation Code [facility] Comment on above: Order Comment: Routi ne cultures are evaluated for significant uropathogens >=100,000 CFU/mL. Performed By: #### U R #### [facility] (DEFAULT) [address] [place] [address] cefTRIAXone [Susceptibility] 4 ug/mL Resistant [facility] Comment on above: Order Comment: Routi ne cultures are evaluated for significant uropathogens >=100,000 CFU/mL. Performed By: #### U R #### [facility] (DEFAULT) [address] [address] Ciprofloxacin [Susceptibility] >= Resistant [facility] Comment on above: Order Comment: Routi ne cultures are evaluated for significant uropathogens >=100,000 CFU/mL. Performed By: #### U R #### [facility] (DEFAULT) [address] [address] Ertapenem [Susceptibility] <= Invalid Interpretation Code [facility] Comment on above: Order Comment: Routi ne cultures are evaluated for significant uropathogens >=100,000 CFU/mL. Performed By: #### U R #### [facility] (DEFAULT) [address] [address] Gentamicin [Susceptibility] <= Invalid Interpretation Code [facility] Comment on above: Order Comment: Routi ne cultures are evaluated for significant uropathogens >=100,000 CFU/mL. Performed By: #### U R #### [facility] (DEFAULT) [address] [address] levoFLOXacin [Susceptibility] >= Resistant [facility] Comment on above: Order Comment: Routi ne cultures are evaluated for significant uropathogens >=100,000 CFU/mL. Performed By: #### U R #### [facility] (DEFAULT) [address] [address] Nitrofurantoin [Susceptibility] <= Invalid Interpretation Code [facility] Comment on above: Order Comment: Routi ne cultures are evaluated for significant uropathogens >=100,000 CFU/mL. Performed By: #### U R #### [facility] (DEFAULT) [address] [address] Piperacillin+Tazobacta m [Susceptibility] 8 ug/mL Invalid Interpretation Code [facility] Comment on above: Order Comment: Routi ne cultures are evaluated for significant uropathogens >=100,000 CFU/mL. Performed By: #### U R #### [facility] (DEFAULT) [address] [place] [address] Trimethoprim+Sulfameth oxazole [Susceptibility] 40 ug/mL Invalid Interpretation Code [facility] Comment on above: Order Comment: Meron ne cultures are evaluated for significant uropathogens >=100,000 CFU/mL. Performed By: #### U R #### [facility] (DEFAULT) [address] [place] [address] Basic Metabolic Profile (BMP )on 11-09-2024 BUN/CRE 17.2 RATIO Normal 10-20 [facility] Comment on above: Performed By: #### L 501.9520, L501.9985, L500.4100, L500.2500 #### [facility] [address] [place], [address] Calcium [Mass/Vol] 9.5 mg/dL Normal 7.6-11.0 [facility] Comment on above: Performed By: #### L 501.9520, L501.9985, L500.4100, L500.2500 #### [facility] [address] [place], [address] Chloride [Moles/Vol] 102 mmol/L Normal 98-108 [facility] Comment on above: Performed By: #### L 501.9520, L501.9985, L500.4100, L500.2500 #### [facility] [address] [place], [address] CO2 [Moles/Vol] 22.0 mmol/L Normal 21.0-32.0 [facility] Comment on above: Performed By: #### L 501.9520, L501.9985, L500.4100, L500.2500 #### [facility] [address] [place], [address] Creatinine [Mass/Vol] 1.00 mg/dL Normal 0.70-1.20 [facility] Comment on above: Performed By: #### L 501.9520, L501.9985, L500.4100, L500.2500 #### [facility] [address] [place], [address] GAP 15 Normal 5-15 [facility] Comment on above: Performed By: #### L 501.9520, L501.9985, L500.4100, L500.2500 #### [facility] [address] [place], [address] GFR/1.73 sq M.predicted among non-blacks MDRD (S/P/Bld) [Vol rate/Area] 62 mL/min/{1.73_m2} Normal >60 [facility] Comment on above: Result Comment: mL/m in/1.73m2 CKD-EPI Creatinine Equation (2020) Performed By: #### L 501.9520, L501.9985, L500.4100, L500.2500 #### [facility] [address] [place], [address] Glucose [Mass/Vol] 98 mg/dL Normal 70-99 [facility] Comment on above: Performed By: #### L 501.9520, L501.9985, L500.4100, L500.2500 #### [facility] [address] [place], [address] Potassium [Moles/Vol] 4.1 mmol/L Normal 3.3-5.1 [facility] Comment on above: Performed By: #### L 501.9520, L501.9985, L500.4100, L500.2500 #### [facility] [address] [place], [address] Sodium [Moles/Vol] 139 mmol/L Normal 133-145 [facility] Comment on above: Performed By: #### L 501.9520, L501.9985, L500.4100, L500.2500 #### [facility] [address] [place], [address] Urea nitrogen [Mass/Vol] 17 mg/dL Normal 4-19 [facility] Comment on above: Performed By: #### L 501.9520, L501.9985, L500.4100, L500.2500 #### [facility] [address] [place], [address] BUN Normal 4-19 [facility] Comment on above: Result Comment: 10/30 ORDER. AND PT SAID THIS WAS DONE. Performed By: #### L 500.2500, L100.0500 ####[facility] [address] [place], [address] BUN/CRE Normal 10-20 [facility] Comment on above: Result Comment: 10/30 ORDER. AND PT SAID THIS WAS DONE. Performed By: #### L 500.2500, L100.0500 ####[facility] [address] [place], [address] Calcium Normal 7.6-11.0 [facility] Comment on above: Result Comment: 10/30 ORDER. AND PT SAID THIS WAS DONE. Performed By: #### L 500.2500, L100.0500 ####[facility] [address] [place], [address] CL Normal 98-108 [facility] Comment on above: Result Comment: 10/30 ORDER. AND PT SAID THIS WAS DONE. Performed By: #### L 500.2500, L100.0500 ####[facility] [address] [place], [address] CO2 Normal 21.0-32.0 [facility] Comment on above: Result Comment: 10/30 ORDER. AND PT SAID THIS WAS DONE. Performed By: #### L 500.2500, L100.0500 ####[facility] [address] [place], [address] CREAT,SERUM Normal 0.70-1.20 [facility] Comment on above: Result Comment: 10/30 ORDER. AND PT SAID THIS WAS DONE. Performed By: #### L 500.2500, L100.0500 ####[facility] [address] [place], [address] eGFR Normal >60 [facility] Comment on above: Result Comment: 10/30 ORDER. AND PT SAID THIS WAS DONE. Performed By: #### L 500.2500, L100.0500 ####[facility] [address] [place], [address] GAP Normal 5-15 [facility] Comment on above: Result Comment: 10/30 ORDER. AND PT SAID THIS WAS DONE. Performed By: #### L 500.2500, L100.0500 ####[facility] [address] [place], [address] GLU Normal 70-99 [facility] Comment on above: Result Comment: 10/30 ORDER. AND PT SAID THIS WAS DONE. Performed By: #### L 500.2500, L100.0500 ####[facility] [address] [place], [address] Potassium Normal 3.3-5.1 [facility] Comment on above: Result Comment: 10/30 ORDER. AND PT SAID THIS WAS DONE. Performed By: #### L 500.2500, L100.0500 ####[facility] [address] [place], [address] Basic Metabolic Profile (BMP) Normal 133-145 [facility] Comment on above: Result Comment: 10/30 ORDER. AND PT SAID THIS WAS DONE. Performed By: #### L 500.2500, L100.0500 ####[facility] [address] [place], [address] CBC-Complete Blood Cnt No Di ffon 11-09-2024 HCT Normal 37-47 [facility] Comment on above: Result Comment: 10/30 ORDER. AND PT SAID THIS WAS DONE. Performed By: #### L 500.2500, L100.0500 ####[facility] [address] [place], [address] HGB Normal 12.0-15.0 [facility] Comment on above: Result Comment: 10/30 ORDER. AND PT SAID THIS WAS DONE. Performed By: #### L 500.2500, L100.0500 ####[facility] [address] [place], [address] MCH Normal 27.0-32.0 [facility] Comment on above: Result Comment: 10/30 ORDER. AND PT SAID THIS WAS DONE. Performed By: #### L 500.2500, L100.0500 ####[facility] [address] [place], [address] MCHC Normal 32-36 [facility] Comment on above: Result Comment: 10/30 ORDER. AND PT SAID THIS WAS DONE. Performed By: #### L 500.2500, L100.0500 ####[facility] [address] [place], [address] MCV Normal 81-99 [facility] Comment on above: Result Comment: 10/30 ORDER. AND PT SAID THIS WAS DONE. Performed By: #### L 500.2500, L100.0500 ####[facility] [address] [place], [address] PLT Normal 150-450 [facility] Comment on above: Result Comment: 10/30 ORDER. AND PT SAID THIS WAS DONE. Performed By: #### L 500.2500, L100.0500 ####[facility] [address] [place], [address] RBC Normal 4.2-5.4 [facility] Comment on above: Result Comment: 10/30 ORDER. AND PT SAID THIS WAS DONE. Performed By: #### L 500.2500, L100.0500 ####[facility] [address] [place], [address] RDW CV Normal 11.6-14.6 [facility] Comment on above: Result Comment: 10/30 ORDER. AND PT SAID THIS WAS DONE. Performed By: #### L 500.2500, L100.0500 ####[facility] [address] [place], [address] RDW SD Normal 35.1-43.9 [facility] Comment on above: Result Comment: 10/30 ORDER. AND PT SAID THIS WAS DONE. Performed By: #### L 500.2500, L100.0500 ####[facility] [address] [place], [address] WBC Normal 4.4-11.0 [facility] Comment on above: Result Comment: 10/30 ORDER. AND PT SAID THIS WAS DONE. Performed By: #### L 500.2500, L100.0500 ####[facility] [address] [place], [address] Hemoglobin A1con 11-09-2024 HbA1c (Bld) [Mass fraction] 6.1 % High <=5.6 [facility] Comment on above: Result Comment: Norm al < 5.7 % Prediabetic 5.7 - 6.4 % Diabetic >or= 6.5 % Please note range changes. Performed By: #### L 501.9520, L501.9985, L500.4100, L500.2500 #### [facility] [address] [place], [address] Lipid Profileon 11-09-2024 CHOL:HDL 2.97 Normal [facility] Comment on above: Performed By: #### L 501.9520, L501.9985, L500.4100, L500.2500 #### [facility] [address] [place], [address] Cholesterol [Mass/Vol] 163 mg/dL Normal <=200 [facility] Comment on above: Result Comment: Chol esterol level, Desirable <200 mg/dL Borderline high cholesterol 200-239 mg/dL High cholesterol >=240 mg/dL Recommendations of the NCEP Adult Treatment Panel for the following risk-cutoff thresholds for the [place] population. Performed By: #### L 501.9520, L501.9985, L500.4100, L500.2500 #### [facility] [address] [place], [address] Cholesterol in HDL [Mass/Vol] 55 mg/dL Normal [facility] Comment on above: Result Comment: Shantelle onal Cholesterol Education Program (NCEP) guidelines: <40 mg/dL: Low HDL-cholesterol (major risk factor for CHD) >= 60 mg/dL: High HDL-cholesterol (negative risk factor for CHD) HDL-cholesterol is affected by a number of factors, e.g. smoking, exercise, hormones, sex and age. Performed By: #### L 501.9520, L501.9985, L500.4100, L500.2500 #### [facility] [address] [place], [address] Cholesterol in LDL [Mass/Vol] 78 mg/dL Normal [facility] Comment on above: Result Comment: Bord chgfgb=059-049 mg/dL Higher Nmbe=803 mg/dL or greater Friedwald Equation for LDL-C Performed By: #### L 501.9520, L501.9985, L500.4100, L500.2500 #### [facility] [address] [place], [address] Cholesterol in VLDL [Mass/Vol] 30 mg/dL Normal 5-40 [facility] Comment on above: Performed By: #### L 501.9520, L501.9985, L500.4100, L500.2500 #### [facility] [address] [place], [address] Triglyceride [Mass/Vol] 151 mg/dL Normal [facility] Comment on above: Result Comment: The drugs N-Acetylcysteine and Metamizole may falsely depress this assay. Normal range: <150 mg/dL Borderline High: 150-199 mg/dL High: 200-499 mg/dL Very High: >500 mg/dL Performed By: #### L 501.9520, L501.9985, L500.4100, L500.2500 #### [facility] [address] [place], [place], [address] Thyroid Stim Hormone (TSH)on 11-09-2024 TSH 3.110 uIU/mL Normal 0.300-4.20 0 [facility] Comment on above: Performed By: #### L 501.9520, L501.9985, L500.4100, L500.2500 #### [facility] [address] [place], [place], [address] POCT URINE DIPSTICK NON-AUTO MATEDon 10-30-2024 Amorphous sediment LM Ql (Urine sed) [facility] Appearance (U) CLEAR [facility] Bacteria LM Ql (Urine sed) [facility] Bil[facility]l (U) [facility] Casts LM.LPF (Urine sed) [#/Area] [facility] Color (U) YELLOW [facility] Crystals LM Nom (Urine sed) [facility] Epithelial cells.squamous LM.HPF (Urine sed) [#/Area] [facility] Flow cytometry specialist review Jamar (Unsp spec) [Interp] [facility] Glucose Auto test strip (U) [Mass/Vol] Negative mg/dL [facility] Ketones [Mass/Vol] Negative mg/dL [facility] Leukocyte esterase Qn (U) [facility] Leukocyte esterase Test strip Ql (U) Negative [facility] Microscopic observation Gram stain Nom (Bronch spec) [facility] Nitrite Ql (U) Negative [facility] pH (U) 6.5 [pH] 5 - 7 [facility] Protein Ql (U) Negative mg/dL [facility] RBC LM.HPF (Urine sed) [#/Area] [facility] RBC Ql (U) Negative [facility] Specific gravity (U) [Rel density] 1.001 - 1.035 [facility] Transitional cells LM Ql (Urine sed) [facility] Urobilinogen Qn (U) 0.2 [facility] WBC LM.HPF (Urine sed) [#/Area] [facility] URINE DIPSTICK WITH REFLEX M ICROSCOPYon 10-30-2024 Appearance (U) Clear Clear [facility] Color (U) Yellow Yellow [facility] Glucose Test strip (U) [Mass/Vol] Negative Negative [facility] Interpretation and review of laboratory results Normal [facility] Ketones (U) [Mass/Vol] Negative Negative [facility] Leukocyte esterase Test strip Ql (U) Negative Negative [facility] Nitrite Ql (U) Negative Negative [facility] pH (U) 6.5 [pH] 5.0 - 7.0 [facility] Protein (U) [Mass/Vol] Negative Negative [facility] RBC (U) [#/Vol] Negative Negative [facility] Specific gravity (U) [Rel density] 1.006 1.001 - 1.035 [facility] Urobilinogen (U) [Mass/Vol] 0.2 E.U./dL 0.2 E.U/dL, 1.0 E.U/dL [facility] Appearance (U) Clear Normal Clear [facility] Comment on above: Performed By: #### U ASR #### [facility] (DEFAULT) [address] [place] [address] Blood Urine Negative Normal Negative [facility] Comment on above: Performed By: #### U ASR #### [facility] (DEFAULT) [address] [place] [address] Color (U) Yellow Normal Yellow [facility] Comment on above: Performed By: #### U ASR #### [facility] (DEFAULT) [address] [place] [address] Glucose Ql (U) Negative Normal Negative [facility] Comment on above: Performed By: #### U ASR #### [facility] (DEFAULT) [address] [place] [address] Ketones Ql (U) Negative Normal Negative [facility] Comment on above: Performed By: #### U ASR #### [facility] (DEFAULT) [address] [place] [address] Leukocyte esterase Test strip Ql (U) Negative Normal Negative [facility] Comment on above: Performed By: #### U ASR #### [facility] (DEFAULT) [address] [place] [address] Nitrites Urine Negative Normal Negative [facility] Comment on above: Performed By: #### U ASR #### [facility] (DEFAULT) [address] [place] [address] pH (U) 6.5 [pH] Normal 5.0-7.[address] [facility] Comment on above: Performed By: #### U ASR #### [facility] (DEFAULT) [address] [place] [address] Protein Urine Negative Normal Negative [facility] Comment on above: Performed By: #### U ASR #### [facility] (DEFAULT) [address] [place] [address] Specific Eleva Urine 1.006 Normal 1.001 -1.[address] [facility] Comment on above: Performed By: #### U ASR #### [facility] (DEFAULT) [address] [place] [address] Urobilinogen Urine 0.2 E.U./dL Normal 0.2 E.U/dL, 1.0 E.U/dL [facility] Comment on above: Performed By: #### U ASR #### [facility] (DEFAULT) [address] [address] MR/Farrukh 09-30-2024 MR/DEO [facility] [address] [facility], [address] [place] [address] OFFICE VISIT Date of Service: 09/30/24 MR#: [id number] Acct: [id number] Name: TESS KEN Rep #: [id number] : 1960 Provider: Dr. Rayna Anthony i, MD Age/Sex: 64/F [facility] Status: Signed Intake Vital Signs 09/17/24 08:49 09/30/24 12:16 Height 5 ft 10 in 5 ft 10 in Weight: 195 lb BMI 27.9 BP 139/88 H Pulse 63 Temp 98 F Intake Visit Reasons: same issues never really improved. Final Inspector And Tester Required: No Accompanied by: Is patient in pain?: Yes Allergies methocarbamol (From Robaxin) Adverse Reaction (Intermediate, Verified 07/29/24 09:36) pain lisinopril Adverse Reaction (Verified 07/29/24 09:36) COUGH Have you fallen in the past year?: No [facility] Medical History (Updated 10/01/24 @ 10:42 by [...] healthy appearing, comfortable and no acute distress [facility] Head: normocephalic and atraumatic Ears: hearing grossly [...] Last Brennan (more content not included)... Normal [facility] Urine Cultureon 09-30-2024 [facility] PLEASE ADD CULTURE T O URINE TAKIN 09/28/24 PER Culture exhibits no growth. Normal [facility] Comment on above: Performed By: #### L 100.0500, L501.2450, L500.2500, M100.2200, L400.0001 ####[facility] [address] [facility] [place], [address] Abdomen/Pelvis WITH Contrast on 09-28-2024 Abdomen/Pelvis WITH Contrast [facility] Services [address] [place] [address] Abdomen/Pelvis WITH Contrast MR#: [id number] Acct: [id number] Name: TESS KEN Rep #: [id number] : 1960 F 64 From: Talon haddad MD PCP: Dr. Darshan Rowley MD Status: REG CLI Study: Abdomen/Pelvis WITH Contrast Date of Exam: 06/19 Exam# [id number] Ordering Dr: Darshan Rowley MD PROCEDURE: ABDOMEN/PELVIS [...] for the patient's stated age. Reading Location: [facility] CC: Dr. Darshan Rowley MD Global Commodity Manager: Signed Normal [facility] Basic Metabolic Profile (BMP )on 09-28-2024 BUN/CRE 15.5 RATIO Normal 10-20 [facility] Comment on above: Performed By: #### L 100.0500, L501.2450, L500.2500, M100.2200, L400.0001 ####[facility] [address] [place], [address] Calcium [Mass/Vol] 9.7 mg/dL Normal 7.6-11.0 [facility] Comment on above: Performed By: #### L 100.0500, L501.2450, L500.2500, M100.2200, L400.0001 ####[facility] [address] [place], [address] Chloride [Moles/Vol] 98 mmol/L Normal 98-108 [facility] Comment on above: Performed By: #### L 100.0500, L501.2450, L500.2500, M100.2200, L400.0001 ####[facility] [address] [place], [address] CO2 [Moles/Vol] 24.6 mmol/L Normal 21.0-32.0 [facility] Comment on above: Performed By: #### L 100.0500, L501.2450, L500.2500, M100.2200, L400.0001 ####[facility] [address] [place], [address] Creatinine [Mass/Vol] 1.07 mg/dL Normal 0.70-1.20 [facility] Comment on above: Performed By: #### L 100.0500, L501.2450, L500.2500, M100.2200, L400.0001 ####[facility] [address] [place], [address] GAP 13 Normal 5-15 [facility] Comment on above: Performed By: #### L 100.0500, L501.2450, L500.2500, M100.2200, L400.0001 ####[facility] [address] [place], [address] GFR/1.73 sq M.predicted among non-blacks MDRD (S/P/Bld) [Vol rate/Area] 57 mL/min/{1.73_m2} Low >60 [facility] Comment on above: Result Comment: mL/m in/1.73m2 CKD-EPI Creatinine Equation (2020) Performed By: #### L 100.0500, L501.2450, L500.2500, M100.2200, L400.0001 ####[facility] [address] [place], [address] Glucose [Mass/Vol] 147 mg/dL High 70-99 [facility] Comment on above: Performed By: #### L 100.0500, L501.2450, L500.2500, M100.2200, L400.0001 ####[facility] [address] [place], [address] Potassium [Moles/Vol] 4.9 mmol/L Normal 3.3-5.1 [facility] Comment on above: Performed By: #### L 100.0500, L501.2450, L500.2500, M100.2200, L400.0001 ####[facility] [address] [place], [address] Sodium [Moles/Vol] 136 mmol/L Normal 133-145 [facility] Comment on above: Performed By: #### L 100.0500, L501.2450, L500.2500, M100.2200, L400.0001 ####[facility] [address] [place], [address] Urea nitrogen [Mass/Vol] 17 mg/dL Normal 4-19 [facility] Comment on above: Performed By: #### L 100.0500, L501.2450, L500.2500, M100.2200, L400.0001 ####[facility] [address] [place], [address] CBC-Complete Blood Cnt No Di ffon 09-28-2024 Erythrocyte distribution width (RBC) [Ratio] 12.3 % Normal 11.6-14.6 [facility] Comment on above: Performed By: #### L 100.0500, L501.2450, L500.2500, M100.2200, L400.0001 ####[facility] [address] [place], [address] Hematocrit (Bld) [Volume fraction] 41.4 % Normal 37-47 [facility] Comment on above: Performed By: #### L 100.0500, L501.2450, L500.2500, M100.2200, L400.0001 ####[facility] [address] [place], [address] Hemoglobin (Bld) [Mass/Vol] 14.6 g/dL Normal 12.0-15.0 [facility] Comment on above: Performed By: #### L 100.0500, L501.2450, L500.2500, M100.2200, L400.0001 ####[facility] [address] [place], [address] MCH (RBC) [Entitic mass] 33.1 pg High 27.0-32.0 [facility] Comment on above: Performed By: #### L 100.0500, L501.2450, L500.2500, M100.2200, L400.0001 ####[facility] [address] [place], [address] MCHC (RBC) [Mass/Vol] 35.3 g/dL Normal 32-36 [facility] Comment on above: Performed By: #### L 100.0500, L501.2450, L500.2500, M100.2200, L400.0001 ####[facility] [address] [place], [address] MCV (RBC) [Entitic vol] 93.9 fL Normal 81-99 [facility] Comment on above: Performed By: #### L 100.0500, L501.2450, L500.2500, M100.2200, L400.0001 ####[facility] [address] [place], [address] Platelet mean volume (Bld) [Entitic vol] 9.0 fL Normal 6.2-12.0 [facility] Comment on above: Performed By: #### L 100.0500, L501.2450, L500.2500, M100.2200, L400.0001 ####[facility] [address] [place], [address] Platelets (Bld) [#/Vol] 259 10*3/uL Normal 150-450 [facility] Comment on above: Performed By: #### L 100.0500, L501.2450, L500.2500, M100.2200, L400.0001 ####[facility] [address] [place], [address] RBC (Bld) [#/Vol] 4.41 10*6/uL Normal 4.2-5.4 [facility] Comment on above: Performed By: #### L 100.0500, L501.2450, L500.2500, M100.2200, L400.0001 ####[facility] [address] [place], [address] RDW SD 43.0 fl Normal 35.1-43.9 [facility] Comment on above: Performed By: #### L 100.0500, L501.2450, L500.2500, M100.2200, L400.0001 ####[facility] [address] [place], [address] WBC (Bld) [#/Vol] 8.4 10*3/uL Normal 4.4-11.0 [facility] Comment on above: Performed By: #### L 100.0500, L501.2450, L500.2500, M100.2200, L400.0001 ####[facility] [address] [place], [address] Lipaseon 09-28-2024 Lipase [Catalytic activity/Vol] 42 U/L Normal 13-75 [facility] Comment on above: Result Comment: Emory manriquez note: LIPASE revised reference range effective 22. New Lipase methodology. Expected to produce lower values than the previous assay method. NEW Reference Range: 13 - 75 U/L Performed By: #### L 100.0500, L501.2450, L500.2500, M100.2200, L400.0001 ####[facility] [address] [place], [address] Urinalysis, Completeon 09-28 EPI,SQUAMOUS 0-5 SEEN Normal 5-10 [facility] Comment on above: Order Comment: Urine , Random Performed By: #### L 100.0500, L501.2450, L500.2500, M100.2200, L400.0001 ####[facility] [address] [place], [address] RBC 0-5 SEEN Normal 0-5 [facility] Comment on above: Order Comment: Urine , Random Performed By: #### L 100.0500, L501.2450, L500.2500, M100.2200, L400.0001 ####[facility] [address] [place], [address] WBC 0-5 SEEN Normal 0-5 [facility] Comment on above: Order Comment: Urine , Random Performed By: #### L 100.0500, L501.2450, L500.2500, M100.2200, L400.0001 ####[facility] [address] [place], [address] BACTERIA 0 SEEN Normal None Seen [facility] Comment on above: Order Comment: Urine , Random Performed By: #### L 100.0500, L501.2450, L500.2500, M100.2200, L400.0001 ####[facility] [address] [place], [address] Mucus Ql (Urine sed) 0 SEEN Normal [facility] Comment on above: Order Comment: Urine , Random Performed By: #### L 100.0500, L501.2450, L500.2500, M100.2200, L400.0001 ####[facility] [address] [place], [address] MR/BMS.BPon 09-17-2024 MR/BMS.BP [address], [address] [place] [address] OFFICE VISIT Date of Service: 09/17/24 MR#: [id number] Acct: [id number] Name: TESS KEN Rep #: [id number] : 1960 Provider: CHAD Cordero Evan linda Age/Sex: 64/F [place] [facility] Status: Signed Intake Vital Signs 06/03/24 08:22 09/17/24 08:49 Height 5 ft 10 in 5 ft 10 in BP Intake Visit Reasons: Establish Care Allergies methocarbamol (From Robaxin) Adverse Reaction (Intermediate, Verified 07/29/24 09:36) pain lisinopril Adverse Reaction (Verified 07/29/24 09:36) COUGH Have you fallen in the past year?: No [facility] Medical History Telma glabrata infection Bilateral retinitis [...] participated in a diagnostic assessment to begin therapy. She receives psychiatric services at [facility] through Cherise Greenwood CNP and currently [...] raised i (more content not included)... Normal [facility] MR/BMS.BPon 07-29-2024 MR/BMS.BP [facility] [address], [address] [place] [address] OFFICE VISIT Date of Service: 07/29/24 MR#: [id number] Acct: [id number] Name: TESS KEN Rep #: [id number] : 1960 Provider: OTILIA ace Age/Sex: 63/F [place] [facility] Status: Signed Intake Vital Signs 06/03/24 08:22 [...] the past year?: No PFSH Medical History Telma glabrata infection Bilateral retinitis [...] Present Illness History provided by: patient HPI: Tses Ken is a 63 year old female [...] adequately groom (more content not included)... Normal [facility] (narrative) [facility] OCT/HRT MACULA OUon 07-28-19 [facility] Radiology Study observation (narrative) [facility] PA DEXAMETHASONE IO IMPL - O Son 07-27-2024 [facility] Urine Cultureon 07-09-2024 [facility] Culture exhibits no growth. Normal [facility] Comment on above: Performed By: #### L 400.0001, M100.0 #### [facility] [address] [place], [address] Urinalysis, Completeon 07-08 EPI,SQUAMOUS 0-5 SEEN Normal 5-10 [facility] Comment on above: Order Comment: Urine , Random Performed By: #### L 400.0001, M100.0 #### [facility] [address] [place], [address] RBC 0-5 SEEN Normal 0-5 [facility] Comment on above: Order Comment: Urine , Random Performed By: #### L 400.0001, M100.2200 #### [facility] [address] [place], [address] WBC 0-5 SEEN Normal 0-5 [facility] Comment on above: Order Comment: Urine , Random Performed By: #### L 400.0001, M100.2200 #### [facility] [address] [place], [address] BACTERIA 0 SEEN Normal None Seen [facility] Comment on above: Order Comment: Urine , Random Performed By: #### L 400.0001, M100.2200 #### [facility] [address] [place], [address] Mucus Ql (Urine sed) 0 SEEN Normal [facility] Comment on above: Order Comment: Urine , Random Performed By: #### L 400.0001, M100.2200 #### [facility] [address] [place], [address] FUNDUS PHOTOGRAPHY-OUon 05-26 [facility] Radiology Study observation (narrative) [facility] OCT/HRT MACULA OUon 06-13-19 [facility] (narrative) [facility] PA DEXAMETHASONE IO IMPL - O Don 06-12-2024 [facility] MR/BMS.BPon 06-03-2024 MR/BMS.BP [address], [address] [place] [address] OFFICE VISIT Date of Service: 06/03/24 MR#: [id number] Acct: [id number] Name: KATHRYNTESS Rep #: [id number] : 1960 Provider: OTILIA ace Age/Sex: 63/F [place] [facility] Status: Signed Intake Vital Signs 09/12/23 10:34 [...] Medical History (Updated 06/03/24 @ 09:21 by OTILIA Hawthorne) Telma glabrata infection Bilateral retinitis Lesion of [...] 51-60 ye (more content not included)... Normal [facility] CBC-Complete Blood Cnt No Di ffon 03-05-2025 Erythrocyte distribution width (RBC) [Ratio] 13.5 % Normal 11.6-14.6 [facility] Comment on above: Performed By: #### L 100.0500 ####[facility] [address] [place], [address] Hematocrit (Bld) [Volume fraction] 42.8 % Normal 37-47 [facility] Comment on above: Performed By: #### L 100.0500 ####[facility] [address] [place], [address] Hemoglobin (Bld) [Mass/Vol] 14.5 g/dL Normal 12.0-15.0 [facility] Comment on above: Performed By: #### L 100.0500 ####[facility] [address] [place], [address] MCH (RBC) [Entitic mass] 33.1 pg High 27.0-32.0 [facility] Comment on above: Performed By: #### L 100.0500 ####[facility] [address] [place], [address] MCHC (RBC) [Mass/Vol] 33.9 g/dL Normal 32-36 [facility] Comment on above: Performed By: #### L 100.0500 ####[facility] [address] [place], [address] MCV (RBC) [Entitic vol] 97.7 fL Normal 81-99 [facility] Comment on above: Performed By: #### L 100.0500 ####[facility] [address] [place], [address] Platelet mean volume (Bld) [Entitic vol] 9.2 fL Normal 6.2-12.0 [facility] Comment on above: Performed By: #### L 100.0500 ####[facility] [address] [place], [address] Platelets (Bld) [#/Vol] 293 10*3/uL Normal 150-450 [facility] Comment on above: Performed By: #### L 100.0500 ####[facility] [address] [place], [address] RBC (Bld) [#/Vol] 4.38 10*6/uL Normal 4.2-5.4 [facility] Comment on above: Performed By: #### L 100.0500 ####[facility] [address] [place], [address] RDW SD 48.9 fl High 35.1-43.9 [facility] Comment on above: Performed By: #### L 100.0500 ####[facility] [address] [place], [address] WBC (Bld) [#/Vol] 7.7 10*3/uL Normal 4.4-11.0 [facility] Comment on above: Performed By: #### L 100.0500 ####[facility] [address] [place], [address] Erythrocyte distribution wid th ratioOrdered By: Rayna Smith on 04-29-2024 Erythrocyte distribution width (RBC) [Ratio] 13.5 % 11.6-14.6 [facility] Erythrocyte distribution wid th standard deviationOrdered By: Rayna Smith on 04-29-2024 Erythrocyte distribution width (RBC) [Entitic vol] 48.9 fL High 35.1-43.9 [facility] Hematocrit Auto (Bld) [Volum e fraction]Ordered By: Rayna Smith on 04-29-2024 Hematocrit (Bld) [Volume fraction] 42.8 % 37-47 [facility] Hemoglobin measurementOrdere d By: Rayna Smith on 04-29-2024 Hemoglobin (Bld) [Mass/Vol] 14.5 g/dL 12.0-15.0 [facility] MCV (mean corpuscular volume ) determinationOrdered By: Rayna Smith on 04-29-2024 MCV (RBC) [Entitic vol] 97.7 fL 81-99 [facility] Mean corpuscular hemoglobin (MCH) determinationOrdered By: Rayna Smith on 04-29-2024 MCH (RBC) [Entitic mass] 33.1 pg High 27.0-32.0 [facility] Mean corpuscular hemoglobin concentration (MCHC) determinationOrdered By: Rayna Smith on 04-29-2024 MCHC (RBC) [Mass/Vol] 33.9 g/dL 32-36 [facility] Mean platelet volume determi nationOrdered By: Rayna Smith on 04-29-2024 Platelet mean volume (Bld) [Entitic vol] 9.2 fL 6.2-12.0 [facility] Platelet countOrdered By: Blayne Smith on 04-29-2024 Platelets (Bld) [#/Vol] 293 10*3/uL 150-450 [facility] RBC Auto (Bld) [#/Vol]Ordere d By: Rayna Smith on 04-29-2024 RBC (Bld) [#/Vol] 4.38 10*6/uL 4.2-5.4 [facility] White blood cell (WBC) count Ordered By: Rayna Smith on 04-29-2024 WBC (Bld) [#/Vol] 7.7 10*3/uL 4.4-11.0 [facility] FLUORESCEIN ANGIOGRAPHY-03-20-2024 [facility] Radiology Study observation (narrative) [facility] FUNDUS PHOTOGRAPHY-02-26 [facility] Radiology Study observation (narrative) [facility] OCT/HRT MAC[facility]A [facility]) [facility] FLUORESCEIN ANGIOGRAPHY AND ICGA-02-14-2024 [facility] Rad[facility] (narrative[facility] FUNDUS PH[facility]-01-26 [facility] Radiology Study observation (narrative) [facility] OCT/HRT MACULA OUon 02-14-20 [facility] Radiology Study observation (narrative) [facility] Brain W/WO Contraston 2023 Brain W/WO Contrast [facility] Imaging Services [address] [place] [address] Brain W/WO Contrast MR#: [id number] Acct: [id number] Name: TESS KEN Rep #: [id number] : 1960 F 63 From: Estivenmanuel lan DO PCP: Dr. Darshan Rowley MD Status: REG CLI Study: Brain W/WO Contrast Date of Exam: 02/07/24 Exam# [id number] Ordering Dr: ANTHONY YING D.O [id number] EXAM: MR ORBITS WITHOUT AND WITH INTRAVENOUS [...] ANTHONY YING D.O; Dr. Darshan Rowley MD Global Commodity Manager: Signed Normal [facility] Spine Thoracic W/WO Contrast on 02-07-2024 Spine Thoracic W/WO Contrast [facility] Imaging Services [address] [place] [id number] Spine Thoracic W/WO Contrast MR#: [id number] Acct: [id number] Name: TESS KEN Rep #: [id number] : 1960 F 63 From: Estiven lan DO PCP: Dr. Darshan Rowley MD Status: REG CLI Study: Spine Thoracic W/WO Contrast Date of Exam: Exam# [id number] Ordering Dr: RENEE EVANS [id number] EXAM: MR THORACIC SPINE WITHOUT AND WITH [...] CC: Dr. Darshan Rowley MD; RENEE EVANS Global Commodity Manager: Signed Normal [facility] Albumin to globulin ratioOrd ered By: Darshan Rowley on 02-05-2024 Albumin/Globulin [Mass ratio] 1.0 {ratio} 0.9-2.4 [facility] Bilirubin, totalOrdered By: Darshan Rowley on 02-05-2024 Bilirubin [Mass/Vol] 0.40 mg/dL 0.20-1.00 [facility] Comment on above: For patients on eltr ombopag therapy, use of Dimension [place] TBIL is not recommended. Blood urea nitrogen (BUN)/cr eatinine ratioOrdered By: Darshan Rowley on 02-05-2024 Urea nitrogen/Creatinine [Mass ratio] 14.6 mg/mg 10-20 [facility] Carbon dioxide measurementOr dered By: Darshan Rowley on 02-05-2024 CO2 [Moles/Vol] 26.0 mmol/L 21.0-32.0 [facility] Chloride measurementOrdered By: Darshan Rowley on 02-05-2024 Chloride [Moles/Vol] 106 mmol/L 98-107 [facility] Comprehensive Metabolic Prof ilon 02-05-2024 Albumin [Mass/Vol] 3.6 g/dL Normal 3.2-5.0 [facility] Comment on above: Performed By: #### L 501.9985, L500.4050, L500.4100 ####[facility] [address] [place], [address] Albumin/Globulin [Mass ratio] 1.0 {ratio} Normal 0.9-2.4 [facility] Comment on above: Performed By: #### L 501.9985, L500.4050, L500.4100 ####[facility] [address] [place], [address] ALK P 62 U/L Normal 45-117 [facility] Comment on above: Performed By: #### L 501.9985, L500.4050, L500.4100 ####[facility] [address] [place], [address] ALT [Catalytic activity/Vol] 17 U/L Normal 13-56 [facility] Comment on above: Performed By: #### L 501.9985, L500.4050, L500.4100 ####[facility] [address] [place], [address] AST [Catalytic activity/Vol] 14 U/L Low 15-37 [facility] Comment on above: Performed By: #### L 501.9985, L500.4050, L500.4100 ####[facility] [address] [place], [address] Bilirubin [Mass/Vol] 0.40 mg/dL Normal 0.20-1.00 [facility] Comment on above: Result Comment: For patients on eltrombopag therapy, use of Dimension [place] TBIL is not recommended. Performed By: #### L 501.9985, L500.4050, L500.4100 ####[facility] [address] [place], [address] BUN/CRE 14.6 RATIO Normal 10-20 [facility] Comment on above: Performed By: #### L 501.9985, L500.4050, L500.4100 ####[facility] [address] [place], [address] CA,Total 9.3 mg/dL Normal 8.5-10.1 [facility] Comment on above: Performed By: #### L 501.9985, L500.4050, L500.4100 ####[facility] [address] [place], [address] Chloride [Moles/Vol] 106 mmol/L Normal 98-107 [facility] Comment on above: Performed By: #### L 501.9985, L500.4050, L500.4100 ####[facility] [address] [place], [address] CO2 [Moles/Vol] 26.0 mmol/L Normal 21.0-32.0 [facility] Comment on above: Performed By: #### L 501.9985, L500.4050, L500.4100 ####[facility] [address] [place], [address] Creatinine [Mass/Vol] 0.89 mg/dL Normal 0.55-1.02 [facility] Comment on above: Result Comment: The validity of the calculated GFR GFRAA in patients over 70 years has not been determined. Clinical correlation is essential. Performed By: #### L 501.9985, L500.4050, L500.4100 ####[facility] [address] [place], [address] EST GFR - AA 82 mL/min Normal >60 [facility] Comment on above: Result Comment: Afri can Faroese GFR Calc Performed By: #### L 501.9985, L500.4050, L500.4100 ####[facility] [address] [place], [address] GAP 6 Normal 5-15 [facility] Comment on above: Performed By: #### L 501.9985, L500.4050, L500.4100 ####[facility] [address] [place], [address] GFR/1.73 sq M.predicted among non-blacks MDRD (S/P/Bld) [Vol rate/Area] 68 mL/min/{1.73_m2} Normal >60 [facility] Comment on above: Result Comment: Non- GFR Calc Performed By: #### L 501.9985, L500.4050, L500.4100 ####[facility] [address] [place], [address] Globulin (S) [Mass/Vol] 3.7 g/dL Normal 2.2-4.2 [facility] Comment on above: Performed By: #### L 501.9985, L500.4050, L500.4100 ####[facility] [address] [place], [address] Glucose [Mass/Vol] 148 mg/dL High 74-106 [facility] Comment on above: Result Comment: Fast ing Glucose result greater than or equal to 126 mg/dL suggests DIABETES MELLITUS per A.D.A. criteria. Performed By: #### L 501.9985, L500.4050, L500.4100 ####[facility] [address] [place], [address] Potassium [Moles/Vol] 4.3 mmol/L Normal 3.5-5.1 [facility] Comment on above: Performed By: #### L 501.9985, L500.4050, L500.4100 ####[facility] [address] [place], [address] Sodium [Moles/Vol] 138 mmol/L Normal 136-145 [facility] Comment on above: Performed By: #### L 501.9985, L500.4050, L500.4100 ####[facility] [address] [place], [address] T PROT 7.3 g/dL Normal 6.4-8.2 [facility] Comment on above: Performed By: #### L 501.9985, L500.4050, L500.4100 ####[facility] [address] [place], [address] Urea nitrogen [Mass/Vol] 13 mg/dL Normal 7-18 [facility] Comment on above: Performed By: #### L 501.9985, L500.4050, L500.4100 ####[facility] [address] [place], [address] Estimated glomerular filtrat ion rate (GFR) AmericanOrdered By: Darshan Rowley on 02-05-2024 Estimated GFR (MDRD) Amer 82 mL/min >60 [facility] Comment on above: GFR Calc Glomerular filtration rate ( GFR) estimationOrdered By: Darshan Rowley on 02-05-2024 Estimated GFR (MDRD) Non-Af Amer 68 mL/min >60 [facility] Comment on above: Non- GFR Calc Glucose measurementOrdered B y: Darshan Rowley on 02-05-2024 Glucose [Mass/Vol] 148 mg/dL High 74-106 [facility] Comment on above: Fasting Glucose resu lt greater than or equal to 126 mg/dL suggests DIABETES MELLITUS per A.D.A. criteria. Hemoglobin A1con 02-05-2024 HbA1c (Bld) [Mass fraction] 6.7 % High 3.8-5.6 [facility] Comment on above: Result Comment: Norm al < 5.7 % Prediabetic 5.7 - 6.4 % Diabetic >or= 6.5 % Please note range changes. Performed By: #### L 501.9985, L500.4050, L500.4100 ####[facility] [address] [place], [place], [address] Hemoglobin A1c percentageOrd ered By: Darshan Rowley on 02-05-2024 HbA1c (Bld) [Mass fraction] 6.7 % High 3.8-5.6 [facility] Comment on above: Normal < 5.7 % Predi abetic 5.7 - 6.4 % Diabetic >or= 6.5 % Please note range changes. High density lipoprotein (HD L) measurementOrdered By: Darshan Rowley on 02-05-2024 Cholesterol in HDL [Mass/Vol] 55 mg/dL >40 [facility] Comment on above: The drugs N-Acetylcy steine and Metamizole may falsely depress this assay. Reference Range HDL <40 mg/dL Low HDL Cholesterol HDL >or= 60 mg/dL High HDL Cholesterol Laboratory - Chemistry and C hemistry - challengeOrdered By: Darshan Rowley on 02-05-2024 AST [Catalytic activity/Vol] 14 U/L Low 15-37 [facility] Lipid Profileon 02-05-2024 Cholesterol [Mass/Vol] 171 mg/dL Normal 200 [facility] Comment on above: Result Comment: <200 mg/dL Desirable 200-240 mg/dL Borderline >240 mg/dL High Risk Performed By: #### L 501.9985, L500.4050, L500.4100 ####[facility] [address] [place], [place], [address] Cholesterol in HDL [Mass/Vol] 55 mg/dL Normal [facility] Comment on above: Result Comment: The drugs N-Acetylcysteine and Metamizole may falsely depress this assay. Reference Range HDL <40 mg/dL Low HDL Cholesterol HDL >or= 60 mg/dL High HDL Cholesterol Performed By: #### L 501.9985, L500.4050, L500.4100 ####[facility] [address] [place], [address] Cholesterol in LDL [Mass/Vol] 78 mg/dL Normal 0-130 [facility] Comment on above: Performed By: #### L 501.9985, L500.4050, L500.4100 ####[facility] [address] [place], [address] Cholesterol in VLDL [Mass/Vol] 38 mg/dL Normal 5-40 [facility] Comment on above: Performed By: #### L 501.9985, L500.4050, L500.4100 ####[facility] [address] [place], [address] Triglyceride [Mass/Vol] 192 mg/dL Normal [facility] Comment on above: Result Comment: The drugs N-Acetylcysteine and Metamizole may falsely depress this assay. Serum Triglycerides Reference Interval Normal <150 mg/dL Borderline high 150 - 199 mg/dL High 200 - 499 mg/dL Very High > or = 500 mg/dL Performed By: #### L 501.9985, L500.4050, L500.4100 ####[facility] [address] [place], [address] Low density lipoprotein (LDL ) cholesterol measurementOrdered By: Darshan Rowley on 02-05-2024 Cholesterol in LDL [Mass/Vol] 78 mg/dL 0-130 [facility] Potassium measurementOrdered By: Darshan Rowley on 02-05-2024 Potassium [Moles/Vol] 4.3 mmol/L 3.5-5.1 [facility] Serum anion gap measurementO rdered By: Darshan Rowley on 02-05-2024 Anion gap [Moles/Vol] 6 mmol/L 5-15 [facility] Serum globulin measurementOr dered By: Darshan Rowley on 02-05-2024 Globulin (S) [Mass/Vol] 3.7 g/dL 2.2-4.2 [facility] Serum or plasma alanine platt otransferase (ALT) measurementOrdered By: Darshan Rowley on 02-05-2024 ALT [Catalytic activity/Vol] 17 U/L 13-56 [facility] Serum or plasma albumin jaz urement (mass/volume)Ordered By: Darshan Rowley on 02-05-2024 Albumin [Mass/Vol] 3.6 g/dL 3.2-5.0 [facility] Serum or plasma alkaline gerardo sphatase measurementOrdered By: Darshan Rowley on 02-05-2024 ALP [Catalytic activity/Vol] 62 U/L 45-117 [facility] Serum or plasma calcium jaz urement (mass/volume)Ordered By: Darshan Rowley on 02-05-2024 Calcium [Mass/Vol] 9.3 mg/dL 8.5-10.1 [facility] Serum or plasma cholesterol measurement (mass/volume)Ordered By: Darshan Rowley on 02-05-2024 Cholesterol [Mass/Vol] 171 mg/dL <200 [facility] Comment on above: <200 mg/dL Desirable 200-240 mg/dL Borderline >240 mg/dL High Risk Serum or plasma creatinine m easurement (mass/volume)Ordered By: Darshan Rowley on 02-05-2024 Creatinine [Mass/Vol] 0.89 mg/dL 0.55-1.02 [facility] Comment on above: The validity of the calculated GFR & GFRAA in patients over 70 years has not been determined. Clinical correlation is essential. Serum or plasma urea nitroge n measurement (mass/volume)Ordered By: Darshan Rowley on 02-05-2024 Urea nitrogen [Mass/Vol] 13 mg/dL 7-18 [facility] Sodium levelOrdered By: Darshan Rowley on 02-05-2024 Sodium [Moles/Vol] 138 mmol/L 136-145 [facility] Total proteinOrdered By: Briseyda Rowley on 02-05-2024 Protein [Mass/Vol] 7.3 g/dL 6.4-8.2 [facility] Triglycerides measurementOrd ered By: Darshan Rowley on 02-05-2024 Triglyceride [Mass/Vol] 192 mg/dL <199 [facility] Comment on above: The drugs N-Acetylcy steine and Metamizole may falsely depress this assay.Serum Triglycerides Reference Interval Normal <150 mg/dL Borderline high 150 - 199 mg/dL High 200 - 499 mg/dL Very High > or = 500 mg/dL Very low density lipoprotein (VLDL) cholesterol measurementOrdered By: Darshan Rowley on 02-05-2024 VLDL Cholesterol 38 mg/dL 5-40 [facility] BERTO MULTIPLEX SCRN WITH REFL EXon 12-23-2023 BERTO Screen, Multiplex Negative Normal Negative [facility] Comment on above: Result Comment: This test includes the following antibodies: Centromere, Chromatin, DsDNA, Jo1, Ribosomal P, OFFICE SYSTEMS TECHNOLOGY INSTRUCTOR, ScL70, Sm/OFFICE SYSTEMS TECHNOLOGY INSTRUCTOR, [place], SSA and SSB. A negative screen result means each antibody listed is negative. If positive, the individual antibody results will be reflexed. Performed By: #### A MELA, ANCA #### [facility] (DEFAULT) [address] [address] ANGIOTENSIN CONVERTING ENZYM Danny 12-23-2023 Angiotensin converting enzyme [Catalytic activity/Vol] 63 U/L 19 - 123 U/L [facility] Interpretation and review of laboratory results Normal [facility] Angiotensin converting enzyme [Catalytic activity/Vol] 63 U/L Normal 19-[address] [facility] Comment on above: Performed By: #### Y BHAVYA #### [facility] (DEFAULT) [address] [address] ANTI NEUTROPHIL CYTOPLASMIC ANTIBODYon 12-23-2023 Neutrophil Cytoplasmic Antibody Negative Normal Negative [facility] Comment on above: Performed By: #### A NASR, ANCA #### [facility] (DEFAULT) [address] [address] ANTI-PROTEINASE 3 ABon 12-22 Proteinase 3 Antibodies Negative Normal Negative [facility] Comment on above: Performed By: #### S YPHT, MPO, PR3AB #### [facility] (DEFAULT) [address] [address] CBC AND ELECTRONIC DIFFon Basophils (Bld) [#/Vol] 0.04 10*3/uL Normal 0.00-0.[address] [facility] Comment on above: Performed By: #### L AB980 #### [facility] (DEFAULT) [address] [place] [address] Basophils/100 WBC (Bld) 0.7 % Normal [facility] Comment on above: Performed By: #### L AB980 #### [facility] (DEFAULT) [address] [place] [address] DIFF STATUS Electronic Differential Normal [facility] Comment on above: Performed By: #### L AB980 #### [facility] (DEFAULT) [address] [place] [address] Eosinophils (Bld) [#/Vol] 0.10 10*3/uL Normal 0.00-0.[address] [facility] Comment on above: Performed By: #### L AB980 #### [facility] (DEFAULT) [address] [place] [address] Eosinophils/100 WBC (Bld) 1.7 % Normal [facility] Comment on above: Performed By: #### L AB980 #### [facility] (DEFAULT) [address] [place] [address] Hematocrit (Bld) [Volume fraction] 41.3 % Normal 34.9-44.[address] [facility] Comment on above: Performed By: #### L AB980 #### [facility] (DEFAULT) [address] [place] [address] Hemoglobin (Bld) [Mass/Vol] 13.2 g/dL Normal 11.4-15.[address] [facility] Comment on above: Performed By: #### L AB980 #### [facility] (DEFAULT) [address] [address] Immature Grans % 0.2 % Normal [facility] Comment on above: Performed By: #### L AB980 #### [facility] (DEFAULT) [address] [place] [address] Immature Grans Absolute < Normal <=0.[address] [facility] Comment on above: Performed By: #### L AB980 #### [facility] (DEFAULT) [address] [place] [address] Lymphocytes (Bld) [#/Vol] 1.94 10*3/uL Normal 1.16-3.[address] [facility] Comment on above: Performed By: #### L AB980 #### [facility] (DEFAULT) [address] [address] Lymphocytes/100 WBC (Bld) 32.8 % Normal [facility] Comment on above: Performed By: #### L AB980 #### [facility] (DEFAULT) [address] [address] MCV (RBC) [Entitic vol] 103.3 fL High 79.6-97.[address] [facility] Comment on above: Performed By: #### L AB980 #### [facility] (DEFAULT) [address] [address] Mean Cell Hgb 33.0 pg Normal 25.9-33.[address] [facility] Comment on above: Performed By: #### L AB980 #### [facility] (DEFAULT) [address] [address] Mean Cell Hgb Conc 32.0 g/dL Normal 31.4-35.9 [facility] Comment on above: Performed By: #### L AB980 #### [facility] (DEFAULT) [address] [address] Monocytes (Bld) [#/Vol] 0.44 10*3/uL Normal 0.22-0.[address] [facility] Comment on above: Performed By: #### L AB980 #### [facility] (DEFAULT) [address] [address] Monocytes/100 WBC (Bld) 7.4 % Normal [facility] Comment on above: Performed By: #### L AB980 #### [facility] (DEFAULT) [address] [address] Nucleated RBC 0.0 /100 WBC Normal <=0.2 [facility] Comment on above: Performed By: #### L AB980 #### [facility] (DEFAULT) [address] [address] Platelet mean volume (Bld) [Entitic vol] 9.4 fL Normal 8.5-12.[address] [facility] Comment on above: Performed By: #### L AB980 #### [facility] (DEFAULT) [address] [address] Platelets (Bld) [#/Vol] 265 10*3/uL Normal 150-[address] [facility] Comment on above: Performed By: #### L AB980 #### [facility] (DEFAULT) [address] [address] RBC (Bld) [#/Vol] 4.00 10*6/uL Normal 3.91-5.[address] [facility] Comment on above: Performed By: #### L AB980 #### [facility] (DEFAULT) [address] [address] RBC Distribution 11.6 % Normal 10.8-14.9 [facility] Comment on above: Performed By: #### L AB980 #### [facility] (DEFAULT) [address] [address] Segs + Bands Auto 57.2 % Normal [facility] Comment on above: Performed By: #### L AB980 #### [facility] (DEFAULT) [address] [address] Segs + Bands,Absolute Auto 3.39 K/uL Normal 1.64-7.[address] [facility] Comment on above: Performed By: #### L AB980 #### [facility] (DEFAULT) [address] [address] WBC (Bld) [#/Vol] 5.92 10*3/uL Normal 3.99-11.[address] [facility] Comment on above: Performed By: #### L AB980 #### [facility] (DEFAULT) [address] [place] [address] COMPREHENSIVE METABOLIC PANE Tereso 12-23-2023 Albumin [Mass/Vol] 4.4 g/dL 3.5 - 5.0 g/dL [facility] ALP [Catalytic activity/Vol] 49 U/L 32 - 126 U/L [facility] ALT [Catalytic activity/Vol] 7 U/L Low 9 - 48 U/L [facility] Anion gap [Moles/Vol] 15 mmol/L 7 - 17 mmol/L [facility] AST [Catalytic activity/Vol] 13 U/L 10 - 39 U/L [facility] Bilirubin [Mass/Vol] 0.3 mg/dL NINF - 1.5 mg/dL [facility] Calcium [Mass/Vol] 10.2 mg/dL 8.6 - 10. 5 mg/dL [facility] Chloride [Moles/Vol] 104 mmol/L 98 - 10 8 mmol/L [facility] CO2 [Moles/Vol] 27 mmol/L 21 - 31 mmol/L [facility] Creatinine [Mass/Vol] 0.69 mg/dL 0.50 - 1.20 mg/dL [facility] eGFR, CKD-EPI, Female - PINF [facility] Comment on above: Reported eGFR is bas ed on the CKD-EPI 2020 equation using creatinine, age, and sex. Glucose [Mass/Vol] 139 mg/dL High 70 - 99 mg/dL [facility] Interpretation and review of laboratory results Abnormal [facility] Osmolality Calc [Osmolality] 302 [facility] Potassium [Moles/Vol] 4.5 mmol/L 3.5 - 5.0 mmol/L [facility] Protein [Mass/Vol] 7.4 g/dL 6.4 - 8.3 g/dL [facility] Sodium [Moles/Vol] 141 mmol/L 135 - 145 mmol/L [facility] Urea nitrogen [Mass/Vol] 25 mg/dL 7 - 25 mg/dL [facility] Urea nitrogen/Creatinine [Mass ratio] 36 mg/mg [facility] Albumin [Mass/Vol] 4.4 g/dL Normal 3.5-5.0 [facility] Comment on above: Performed By: #### C MPN #### [facility] (DEFAULT) [address] [place] [address] ALP [Catalytic activity/Vol] 49 U/L Normal 32-[address] [facility] Comment on above: Performed By: #### C MPN #### [facility] (DEFAULT) [address] [place] [address] ALT [Catalytic activity/Vol] 7 U/L Low 9-[address] [facility] Comment on above: Performed By: #### C MPN #### [facility] (DEFAULT) [address] [place] [address] Anion gap [Moles/Vol] 15 mmol/L Normal 7-17 [facility] Comment on above: Performed By: #### C MPN #### [facility] (DEFAULT) [address] [place] [address] AST [Catalytic activity/Vol] 13 U/L Normal 10-[address] [facility] Comment on above: Performed By: #### C MPN #### [facility] (DEFAULT) [address] [place] [address] 40032 Bilirubin [Mass/Vol] 0.3 mg/dL Normal <1.[address] [facility] Comment on above: Performed By: #### C MPN #### [facility] (DEFAULT) [address] [place] [address] 60097 Calcium [Mass/Vol] 10.2 mg/dL Normal 8.6-10.5 [facility] Comment on above: Performed By: #### C MPN #### [facility] (DEFAULT) [address] [place] [address] 82149 Chloride [Moles/Vol] 104 mmol/L Normal 98-[address] [facility] Comment on above: Performed By: #### C MPN #### [facility] (DEFAULT) [address] [place] [address] 09791 CO2 [Moles/Vol] 27 mmol/L Normal 21-31 [facility] Comment on above: Performed By: #### C MPN #### [facility] (DEFAULT) [address] [place] [address] 13003 Creatinine [Mass/Vol] 0.69 mg/dL Normal 0.50-1.20 [facility] Comment on above: Performed By: #### C MPN #### [facility] (DEFAULT) [address] [place] [address] 66674 eGFR, CKD-EPI, Female > Normal >=60 [facility] Comment on above: Result Comment: Repo rted eGFR is based on the CKD-EPI 2020 equation using creatinine, age, and sex. Performed By: #### C MPN #### [facility] (DEFAULT) [address] [place] [address] 71015 Glucose [Mass/Vol] 139 mg/dL High 70-99 [facility] Comment on above: Performed By: #### C MPN #### [facility] (DEFAULT) [address] [place] [address] 39294 Osmolality [Osmolality] 302 mosm/kg Normal 278-[address] [facility] Comment on above: Performed By: #### C MPN #### [facility] (DEFAULT) [address] [place] [address] 92441 Potassium [Moles/Vol] 4.5 mmol/L Normal 3.5-5.0 [facility] Comment on above: Performed By: #### C MPN #### [facility] (DEFAULT) [address] [place] [address] 49698 Protein [Mass/Vol] 7.4 g/dL Normal 6.4-8.3 [facility] Comment on above: Performed By: #### C MPN #### [facility] (DEFAULT) [address] [place] [address] 62225 Sodium [Moles/Vol] 141 mmol/L Normal 135-145 [facility] Comment on above: Performed By: #### C MPN #### [facility] (DEFAULT) [address] [place] [address] 24288 Urea nitrogen [Mass/Vol] 25 mg/dL Normal 7-[address] [facility] Comment on above: Performed By: #### C MPN #### [facility] (DEFAULT) [address] [place] [address] 67582 Urea nitrogen/Creatinine [Mass ratio] 36 mg/mg Normal [facility] Comment on above: Performed By: #### C MPN #### [facility] (DEFAULT) [address] [place] [address]4041 FLUORESCEIN ANGIOGRAPHY AND ICGA-OUon 12-23-2023 [facility] Radiology Study observation (narrative) [facility] FUNDUS PHOTOGRAPHY-OUon 11-26 [facility] Radiology Study observation (narrative) [facility] M TUBERCULOSIS BY Adalid KISER 12-23-2023 M. TB Mitogen-Nil 9.97 IU/mL Normal [facility] Comment on above: Order Comment: The M . Tuberculosis antigen levels cannot be correlated to stage or degree of infection, response to therapy or likelihood for progression to active disease. Results from QuantiFERON TB Gold Plus must be used in conjunction with individual epidemiological history, current medical status, and results of other diagnostic evaluation. Performed By: #### S YPHT, MPO, PR3AB #### [facility] (DEFAULT) [address] [place] [address]1996 M. TB Nil 0.03 IU/mL Normal [facility] Comment on above: Order Comment: The M . Tuberculosis antigen levels cannot be correlated to stage or degree of infection, response to therapy or likelihood for progression to active disease. Results from QuantiFERON TB Gold Plus must be used in conjunction with individual epidemiological history, current medical status, and results of other diagnostic evaluation. Performed By: #### S YPHT, MPO, PR3AB #### [facility] (DEFAULT) [address] [address] M. TB TB1-Nil 0.00 IU/mL Normal [facility] Comment on above: Order Comment: The M . Tuberculosis antigen levels cannot be correlated to stage or degree of infection, response to therapy or likelihood for progression to active disease. Results from QuantiFERON TB Gold Plus must be used in conjunction with individual epidemiological history, current medical status, and results of other diagnostic evaluation. Performed By: #### S YPHT, MPO, PR3AB #### [facility] (DEFAULT) [address] [address] M. TB TB2-Nil 0.01 IU/mL Normal [facility] Comment on above: Order Comment: The M . Tuberculosis antigen levels cannot be correlated to stage or degree of infection, response to therapy or likelihood for progression to active disease. Results from QuantiFERON TB Gold Plus must be used in conjunction with individual epidemiological history, current medical status, and results of other diagnostic evaluation. Performed By: #### S YPHT, MPO, PR3AB #### [facility] (DEFAULT) [address] [address] M. Tuberculosis by Quantiferon in tube Negative Normal Negative [facility] Comment on above: Order Comment: The M . Tuberculosis antigen levels cannot be correlated to stage or degree of infection, response to therapy or likelihood for progression to active disease. Results from QuantiFERON TB Gold Plus must be used in conjunction with individual epidemiological history, current medical status, and results of other diagnostic evaluation. Performed By: #### S YPHT, MPO, PR3AB #### [facility] (DEFAULT) [address] [address] MYELOPEROXIDASE ANTIBODIESon 12-23-2023 Myeloperoxidase Antibodies Negative Normal Negative [facility] Comment on above: Performed By: #### S YPHT, MPO, PR3AB #### [facility] (DEFAULT) [address] [address] OCT/HRT MACULA OUon 12-23-19 [facility] Radiology Study observation (narrative) [facility] SYPHILIS AB W/REFLEX RPRon 1 Syphilis IgG/IGM Total Non-Reactive Normal Non Reactive [facility] Comment on above: Performed By: #### S YPHT, MPO, PR3AB #### [facility] (DEFAULT) [address] [place] [address] T. pallidum Ab Ql (S)Ordered By: Michelle Lane on 12-23-2023 Interpretation and review of laboratory results Normal [facility] T. pallidum IgG Ql (S) Non-Reactive Non Reactive [facility] XR CHEST PA AND LATERAL 2 [...] thoracic spine; otherwise normal chest radiographs. Normal [facility] XR Chest PA and Lateralon IMPRESSION: Degenerative [...] the thoracic spine; otherwise normal chest radiographs. [facility] Radiology Study observation (narrative) [facility] XR Chest PA and LateralOrder ed By: Alexx Brandon on 12-23-2023 [facility] Work Phone: [facility]GRAP[facility] Clear. Disc findings include normal observations. Vessel findings include normal. Macula findings include atrophy. Pigmentary Change. Interval change is same. Left Eye Clear. Disc findings include normal observations. Vessel findings include normal. Macula findings include atrophy. Pigmentary Change. Interval change is worse. Notes Slight satellite changes on FAF of macular atrophy [facility] (narrative) [facility] OCT/HRT MAC[place]A OUon 11-12-19 24 Right Eye Quality was good. Findings include outer retinal layer disruption. Interval change is same. Left Eye Quality was good. Findings include epiretinal membrane, outer retinal layer disruption. Interval change is same. ORDEROUT [facility] Radiology Study observation (narrative) [facility] Basophil percentageOrdered B y: Hermilo Liu on 06-04-2023 Basophil percentage >100 SEEN /hpf 0-5 [facility] Comment on above: Microscopic field is filled. Other elements may be obscured. Bilirubin Test strip Ql (U)O rdered By: Hermilo Liu on 06-04-2023 Bilirubin Ql (U) Negative Negative [facility] Culture, urineOrdered By: St epifanio Liu on 06-04-2023 Bacteria identified Cx Nom (U) Escherichia coli [facility] Ketones Test strip Ql (U)Ord ered By: Hermilo Liu on 06-04-2023 Ketones Ql (U) 15 mg/dl Negative [facility] Laboratory - Chemistry and C hemistry - challengeon 06-04-2023 Bilirubin Ql (U) Negative [facility] Glucose Ql (U) 500 g/dL [facility] Ketones Ql (U) Small (15+) [facility] pH (U) 6.0 [pH] [facility] Specific gravity (U) [Rel density] 1.015 [facility] Urobilinogen (U) [Mass/Vol] Negative [facility] Laboratory - Hematology and Cell countson 06-04-2023 Hemoglobin Ql (U) Hemolyzed [facility] Laboratory - Specimen inform ationon 06-04-2023 Clarity (U) Cloudy [facility] Color (U) YELLOW [facility] Laboratory - Urinalysison Nitrite Ql (U) Negative [facility] Protein Ql (U) Negative [facility] Mucus LM Ql (Urine sed)Order ed By: Hermilo Liu on 06-04-2023 Mucus Ql (Urine sed) 0 SEEN /hpf [facility] Nitrite Test strip Ql (U)Ord ered By: Hermilo Liu on 06-04-2023 Nitrite Ql (U) Negative Negative [facility] No Panel InformationOrdered By: Hermilo Liu on 06-04-2023 Urine RBC 0 SEEN /hpf 0-5 [facility] No Panel Informationon 06-03 Urine Leukocytes Positive [facility] Urine Non-Hemolyzed Blood Moderate [facility] Protein Test strip Ql (U)Ord ered By: Hermilo Liu on 06-04-2023 Protein Ql (U) 100 mg/dl Negative [facility] Squamous epithelial cells de tection in urine sediment by light microscopyOrdered By: Hermilo Liu on 06-04-2023 Epithelial cells.squamous LM Ql (Urine sed) 0 SEEN /hpf 5-10 [facility] Urine blood detectionOrdered By: Hermilo Liu on 06-04-2023 RBC Ql (U) 250 /ul Negative [facility] Urine clarityOrdered By: Ez Liu on 06-04-2023 Clarity (U) Turbid Clear [facility] Urine color determinationOrd ered By: Hermilo Liu on 06-04-2023 Color (U) Yellow Yellow [facility] Urine glucose detectionOrder ed By: Hermilo Liu on 06-04-2023 Glucose Ql (U) 1000 mg/dl Normal [facility] Urine leukocyte esterase det ection by dipstickOrdered By: Hermilo Liu on 06-04-2023 Leukocyte esterase Test strip Ql (U) 500 /ul Negative [facility] Urine pHOrdered By: Hermilo harris on 06-04-2023 pH (U) 6.0 [pH] 5.0 - 8.0 [facility] Urine sediment bacteria coun t by microscopy (number/high power field)Ordered By: Hermilo Liu on 06-04-2023 Bacteria LM.HPF (Urine sed) [#/Area] 0 /[HPF] None Seen [facility] Urine specific gravity measu rementOrdered By: Hermilo Liu on 06-04-2023 Specific gravity (U) [Rel density] 1.010 1.002-1.03 0 [facility] Urine urobilinogen measureme ntOrdered By: Hermilo Liu on 06-04-2023 Urobilinogen Ql (U) Normal mg/dl Normal [facility] Culture, urineOrdered By: Jenny Moser on 03-08-2023 Bacteria identified Cx Nom (U) Culture exhibits no growth. [facility] Bacteria identified Cx Nom (U) Culture exhibits no growth. [facility] Laboratory - Chemistry and C hemistry - challengeon 03-08-2023 Bilirubin Ql (U) Negative [facility] Glucose Ql (U) 500 g/dL [facility] Ketones Ql (U) Trace (5) [facility] pH (U) 6.0 [pH] [facility] Specific gravity (U) [Rel density] 1.015 [facility] Urobilinogen (U) [Mass/Vol] Negative [facility] Laboratory - Hematology and Cell countson 03-08-2023 Hemoglobin Ql (U) Moderate [facility] Laboratory - Specimen inform ationon 03-08-2023 Clarity (U) Cloudy [facility] Color (U) Dk Yellow [facility] Laboratory - Urinalysison Nitrite Ql (U) Negative [facility] Protein Ql (U) Negative [facility] No Panel Informationon 03-08 Urine Leukocytes Positive [facility] Urine Non-Hemolyzed Blood [facility] Basophil percentageOrdered B y: Darshan Rowley on 12-27-2022 Chloride [Moles/Vol] 107 mmol/L 98-107 [facility] Cholesterol [Mass/Vol] 178 mg/dL <200 [facility] Comment on above: <200 mg/dL Desirable 200-240 mg/dL Borderline >240 mg/dL High Risk Glucose [Mass/Vol] 115 mg/dL 74-106 [facility] Comment on above: Fasting Glucose resu lt from 100 to 125 mg/dL suggests IMPAIRED HOMEOSTASIS per A.D.A. criteria. Potassium [Moles/Vol] 4.2 mmol/L 3.5-5.1 [facility] Sodium [Moles/Vol] 139 mmol/L 136-145 [facility] Triglyceride [Mass/Vol] 287 mg/dL <199 [facility] Comment on above: The drugs N-Acetylcy steine and Metamizole may falsely depress this assay.Serum Triglycerides Reference Interval Normal <150 mg/dL Borderline high 150 - 199 mg/dL High 200 - 499 mg/dL Very High > or = 500 mg/dL Laboratory - Chemistry and C hemistry - challengeOrdered By: Darshan Rowley on 12-27-2022 CO2 [Moles/Vol] 25.0 mmol/L 21.0-32.0 [facility] Urea nitrogen/Creatinine [Mass ratio] 25.4 mg/mg 10-20 [facility] No Panel InformationOrdered By: Darshan Rowley on 12-27-2022 Estimated GFR (MDRD) Amer 89 mL/min >60 [facility] Comment on above: GFR Calc Estimated GFR (MDRD) Non-Af Amer 74 mL/min >60 [facility] Comment on above: Non- GFR Calc Urine Microalbumin/Creatinin e Ratio 8.4 mg/g CRE <30 [facility] Serum or plasma calcium jaz urement (mass/volume)Ordered By: Darshan Rowley on 12-27-2022 Calcium [Mass/Vol] 9.1 mg/dL 8.5-10.1 [facility] Serum or plasma cholesterol in HDL measurement (mass/volume)Ordered By: Darshan Rowley on 12-27-2022 Cholesterol in HDL [Mass/Vol] 46 mg/dL >40 [facility] Comment on above: The drugs N-Acetylcy steine and Metamizole may falsely depress this assay. Reference Range HDL <40 mg/dL Low HDL Cholesterol HDL >or= 60 mg/dL High HDL Cholesterol Serum or plasma cholesterol in VLDL measurement (mass/volume)Ordered By: Darshan Rowley on 12-27-2022 Cholesterol in VLDL [Mass/Vol] 57 mg/dL 5-40 [facility] Serum or plasma creatinine m easurement (mass/volume)Ordered By: Darshan Rowley on 12-27-2022 Creatinine [Mass/Vol] 0.83 mg/dL 0.55-1.02 [facility] Comment on above: The validity of the calculated GFR & GFRAA in patients over 70 years has not been determined. Clinical correlation is essential. Serum or plasma low density lipoprotein (LDL) cholesterol measurement (mass/volume)Ordered By: Darshan Rowley on 12-27-2022 Cholesterol in LDL [Mass/Vol] 75 mg/dL 0-130 [facility] Serum or plasma urea nitroge n measurement (mass/volume)Ordered By: Darshan Rowley on 12-27-2022 Urea nitrogen [Mass/Vol] 21 mg/dL 7-18 [facility] Thin prep Papanicolaou smear with manual screeningOrdered By: Darshan Rowley on 12-27-2022 Thin prep Papanicolaou smear with manual screening 7 5-15 [facility] Thin prep Papanicolaou smear with manual screening 8.6 mg/L NO RANGE EST. [facility] Urine creatinine measurement (mass/volume)Ordered By: Darshan Rowley on 12-27-2022 Creatinine (U) [Mass/Vol] 102.00 mg/dL NO RANGE EST. [facility] Whole blood hemoglobin A1c/t otal hemoglobin ratio (mass fraction)Ordered By: Darshan Rowley on 12-27-2022 HbA1c (Bld) [Mass fraction] 6.8 % 3.8-5.6 [facility] Comment on above: Normal < 5.7 % Predi abetic 5.7 - 6.4 % Diabetic >or= 6.5 % Please note range changes. Basophil percentageon 2021 Chloride [Moles/Vol] 107 mmol/L 98-107 [facility] Work Phone: Cholesterol [Mass/Vol] 168 mg/dL <200 [facility] Work Phone: Comment on above: <200 mg/dL Desirable 200-240 mg/dL Borderline >240 mg/dL High Risk Glucose [Mass/Vol] 140 mg/dL 74-106 [facility] Work Phone: Comment on above: Fasting Glucose resu lt greater than or equal to 126 mg/dL suggests DIABETES MELLITUS per A.D.A. criteria. Potassium [Moles/Vol] 4.5 mmol/L 3.5-5.1 [facility] Work Phone: [phone] Sodium [Moles/Vol] 139 mmol/L 136-145 [facility] Work Phone: [phone] Triglyceride [Mass/Vol] 234 mg/dL <199 [facility] Work Phone: [phone] Comment on above: The drugs N-Acetylcy steine and Metamizole may falsely depress this assay.Serum Triglycerides Reference Interval Normal <150 mg/dL Borderline high 150 - 199 mg/dL High 200 - 499 mg/dL Very High > or = 500 mg/dL Laboratory - Chemistry and C hemistry - challengeon 12-25-2021 CO2 [Moles/Vol] 25.0 mmol/L 21.0-32.0 [facility] Work Phone: [phone] Urea nitrogen/Creatinine [Mass ratio] 34.0 mg/mg 10- [facility] Work Phone: [phone] No Panel Informationon 12-25 Estimated GFR (MDRD) Amer 80 mL/min >60 [facility] Work Phone: [phone] Comment on above: GFR Calc Estimated GFR (MDRD) Non-Af Amer 66 mL/min >60 [facility] Work Phone: [phone] Comment on above: Non- GFR Calc Urine Microalbumin/Creatinin e Ratio 97.7 mg/g CRE <30 [facility] Work Phone: [phone] Vitamin D 25-Hydroxy 29.0 ng/mL [facility] Work Phone: [phone] Comment on above: Vitamin D 25(OH) Sta tus Range Deficiency <20 ng/mL (50nmol/L) Insufficiency 20 - 30 ng/mL (50 - 75 nmol/L) Sufficiency 30 - 100 ng/mL (75 - 250 nmol/L) Toxicity >100 ng/mL (>250 nmol/L) Serum or plasma calcium jaz urement (mass/volume)on 12-25-2021 Calcium [Mass/Vol] 9.2 mg/dL 8.5-10.1 [facility] Work Phone: Serum or plasma cholesterol in HDL measurement (mass/volume)on 12-25-2021 Cholesterol in HDL [Mass/Vol] 47 mg/dL >40 [facility] Work Phone: Comment on above: The drugs N-Acetylcy steine and Metamizole may falsely depress this assay. Reference Range HDL <40 mg/dL Low HDL Cholesterol HDL >or= 60 mg/dL High HDL Cholesterol Serum or plasma cholesterol in VLDL measurement (mass/volume)on 12-25-2021 Cholesterol in VLDL [Mass/Vol] 47 mg/dL 5-40 [facility] Work Phone: [phone] Serum or plasma creatinine m easurement (mass/volume)on 12-25-2021 Creatinine [Mass/Vol] 0.91 mg/dL 0.55-1.02 [facility] Work Phone: Comment on above: The validity of the calculated GFR & GFRAA in patients over 70 years has not been determined. Clinical correlation is essential. Serum or plasma low density lipoprotein (LDL) cholesterol measurement (mass/volume)on 12-25-2021 Cholesterol in LDL [Mass/Vol] 74 mg/dL 0-130 [facility] Work Phone: [phone] Serum or plasma urea nitroge n measurement (mass/volume)on 12-25-2021 Urea nitrogen [Mass/Vol] 31 mg/dL 7-18 [facility] Work Phone: [phone] Thin prep Papanicolaou smear with manual screeningon 12-25-2021 Thin prep Papanicolaou smear with manual screening 7 5-15 [facility] Work Phone: [phone] Thin prep Papanicolaou smear with manual screening 126.0 mg/L NO RANGE EST. [facility] Work Phone: Urine creatinine measurement (mass/volume)on 12-25-2021 Creatinine (U) [Mass/Vol] 129.00 mg/dL NO RANGE EST. [facility] Work Phone: Whole blood hemoglobin A1c/t otal hemoglobin ratio (mass fraction)on 12-25-2021 HbA1c (Bld) [Mass fraction] 6.8 % 3.8-5.6 [facility] Work Phone: Comment on above: Normal [...] Pigmentary Change. Interval change is same. [facility]narrative) [facility] OCT/HRT [place] OUon 11-14-19 Right Eye Quality was good. Findings include outer retinal layer disruption. Interval change is same. Left Eye Quality was good. Findings include outer retinal layer disruption, epiretinal membrane. Interval change is same. Notes Significant outer retinal loss, worse in right than left eye. ORDEROUT [facility] Radiology Study observation (narrative) [facility] FLUORESCEIN ANGIOGRAPHY-OUon 05-24-2021 [facility] FUNDUS PHOTOGRAPHY-OUon - [facility] OCT/HRT MAC[place]A OUon 05-25-19 [facility] No Panel Informationon 05-23 Radiology Study observation (narrative) [facility] No Panel Informationon 05-11 Parathyroid Hormone (Intact) 43.8 pg/mL 18.4-80.1 [facility] Work Phone: Clinical Summary: HMSPatient IDon 12-04-2018 [facility] Work Phone: Office Visit: New - 1st visi t with practice, Rm: 40on 12-04-2018 NEGATED: Highlighted rowMRI (magnetic resonance imaging) history of the lumbar/thoracic on 11/12/2018 at [facility] Work Phone: NEGATED: Highlighted rowxray history of the back on 08/08/2018 at [facility] Work Phone: Clinical Lists Update: Prelo ad Extendedon 12-03-2018 Tobacco smoking status NHIS current everyday smoker [facility] Work Phone: Clinical Summary: Scanned Hi story Summaryon 12-03-2018 adl form etoh alcohol performance wine, liquor [facility] Work Phone: Beta HCG ( test) Ql (U) 1 time per year [facility] Work Phone: brother(s) of patient alive or I do not have any brothers. My brother(s)' health history is unknown. [facility] Work Phone: Cholesterol [Mass/Vol] ArthritisDiabetes - non-insulin dependentDiabetic neuropathyFracturesHigh cholesterol [facility] Work Phone: consumes three or more drinks of alcohol (beer, wine, liquor) daily or almost daily less than 1 drink per day [facility] Work Phone: data entered by patient, alcohol (ethanol or ETOH) use Yes [facility] Work Phone: Data entered by patient, allergy list I don't have any Drug AllergiesI don't have any Environmental AllergiesI don't have any Food Allergies [facility] Work Phone: data entered by patient, cigarette smoking 1 pack a day [facility] Work Phone: data entered by patient, drug (of abuse) use No [facility] Work Phone: data entered by patient, Employer Name employed [facility] Work Phone: data entered by patient, exercise history No [facility] Work Phone: data entered by patient, father's medical history COPD [facility] Work Phone: Data entered by patient, history of past surgeries Knee replacement - totalTonsillectomy [facility] Work Phone: Data entered by patient, medication list losartan potassium-25 AG-6-Ydhcuqigkbjbmw hcl-1000 EM-6-PYEafhpryiwk-15 FP-2-Nvmnvdxzcavqni-10 IL-3-Rhnyiqjyilis-81 ZI-8-Jbuqkwuqyywngih-100 MG-2 & 6-UWIMncowvz-0 ZR-1-GCpggkau-5 MG-1-HS [facility] Work Phone: data entered by patient, mother's medical history Heart disease [facility] Work Phone: data entered by patient, 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, current smoker current everyday smoker [facility] Work Phone: data entered by patient, 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, marital status [facility] Work Phone: data entered by patient, 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, 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 [facility] Work Phone: father of patient is alive or Alive [facility] Work Phone: father's medical history, comments emphysema [facility] Work Phone: Housing Type: apartment, house, long-term, trailer, none house [facility] Work Phone: housing unit size (asthma environmental history, housing) (from single family to don't know) 2 floors [facility] Work Phone: mother of patient is alive or Alive [facility] Work Phone: Number of dependent children No [facility] Work Phone: sister of patient(s) alive or I do not have any sisters. My sister(s)' health history is unknown. [facility] Work Phone: tobacco use, when do you smoke? 21 [facility] Work Phone: Web entered surgical history comments Bilat Knee replacements, Lap BTO [facility] Work Phone: Clinical Lists Update: Prelo ad Extendedon 11-27-2018 Tobacco smoking status NHIS current everyday smoker [facility] Work Phone: Clinical Summary: Scanned Hi story Summaryon 11-27-2018 adl form etoh alcohol performance wine, liquor [facility] Work Phone: Beta HCG ( test) Ql (U) 1 time per year [facility] Work Phone: brother(s) of patient alive or I do not have any brothers. My brother(s)' health history is unknown. [facility] Work Phone: Cholesterol [Mass/Vol] ArthritisDiabetes - non-insulin dependentDiabetic neuropathyFracturesHigh cholesterol [facility] Work Phone: consumes three or more drinks of alcohol (beer, wine, liquor) daily or almost daily 1 drink per day [facility] Work Phone: data entered by patient, alcohol (ethanol or ETOH) use Yes [facility] Work Phone: Data entered by patient, allergy list I don't have any Drug AllergiesI don't have any Environmental AllergiesI don't have any Food Allergies [facility] Work Phone: data entered by patient, cigarette smoking 1 pack a day [facility] Work Phone: data entered by patient, drug (of abuse) use No [facility] Work Phone: data entered by patient, Employer Name employed [employer] Work Phone: data entered by patient, exercise history No [facility] Work Phone: Data entered by patient, history of past surgeries Knee replacement - totalTonsillectomy [facility] Work Phone: Data entered by patient, medication list losartan [id number]-dailymet formin hcl-1000 wi-0-umdlpqxlsukd-15 px-2-oorycbrdrugsmd-10 pu-2-dmuyhprsukgx-81 ja-0-lytynoreeesxfao-100 mg-2 & 1-uoyjphilth-8 wh-9-zxeqrMhxbcl-5 mg-1-HS [facility] Work Phone: data entered by patient, mother's medical history Heart disease [facility] Work Phone: data entered by patient, 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, current smoker current everyday smoker [facility] Work Phone: data entered by patient, 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, marital status [facility] Work Phone: father of patient is alive or Alive [facility] Work Phone: Housing Type: apartment, house, long-term, trailer, none house [facility] Work Phone: housing unit size (asthma environmental history, housing) (from single family to don't know) 2 floors [facility] Work Phone: mother of patient is alive or Alive [facility] Work Phone: Number of dependent children No [facility] Work Phone: sister of patient(s) alive or I do not have any sisters. My sister(s)' health history is unknown. [facility] Work Phone: tobacco use, when do you smoke? 20 [facility] Work Phone: Web entered surgical history comments Lap BTO [facility] Work Phone: Vital Signs Date Time Vital Sign Value Performing Clinician Facility 11-30-2024 08:12-0400 Body height 177.8 cm Rody Keith MD Work Phone: [facility] 11-30-2024 08:12-0400 Body mass index (BMI) [Ratio] 27.98 kg/m2 Rody Keith MD Work Phone: [facility] 11-30-2024 08:12-0400 Body temperature 97.7 [degF] Rody Keith MD Work Phone: [facility] 11-30-2024 08:12-0400 Body weight 88.45 kg Rody Keith MD Work Phone: [facility] 11-30-2024 08:12-0400 Diastolic blood pressure 71 mm[Hg] Rody Keith MD Work Phone: [facility] 11-30-2024 08:12-0400 Heart rate 69 /min Rody Keith MD Work Phone: [facility] 11-30-2024 08:12-0400 SaO2% (BldA) [Mass fraction] 98 % Rody Keith MD Work Phone: [facility] 11-30-2024 08:12-0400 Systolic blood pressure 135 mm[Hg] Rody Keith MD Work Phone: [facility] 10-30-2024 09:08-0400 Body height 177.8 cm Rody Keith MD Work Phone: [facility] 10-30-2024 09:08-0400 Body mass index (BMI) [Ratio] 28.04 kg/m2 Rody Keith MD Work Phone: [facility] 10-30-2024 09:08-0400 Body temperature 98.01 [degF] Rody Keith MD Work Phone: [facility] 10-30-2024 09:08-0400 Body weight 88.63 kg Rody Keith MD Work Phone: [facility] 10-30-2024 09:08-0400 Diastolic blood pressure 81 mm[Hg] Rody Keith MD Work Phone: [facility] 10-30-2024 09:08-0400 Heart rate 68 /min Rody Keith MD Work Phone: [facility] 10-30-2024 09:08-0400 SaO2% (BldA) [Mass fraction] 97 % Rody Keith MD Work Phone: [facility] 10-30-2024 09:08-0400 Systolic blood pressure 140 mm[Hg] Royd Keith MD Work Phone: [facility] 06-06-2023 15:56-0400 Body height 177.8 cm Kurtis Harris MD Work Phone: [facility] 06-06-2023 15:56-0400 Body mass index (BMI) [Ratio] 28.65 kg/m2 Kurtis Harris MD Work Phone: [facility] 06-06-2023 15:56-0400 Body temperature 96.1 [degF] Kurtis Harris MD Work Phone: [facility] 06-06-2023 15:56-0400 Body weight 90.58 kg Kurtis Harris MD Work Phone: [facility] 06-06-2023 15:56-0400 Diastolic blood pressure 60 mm[Hg] Kurtis Harris MD Work Phone: [facility] 06-06-2023 15:56-0400 Heart rate 73 /min Kurtis Harris MD Work Phone: [facility] 06-06-2023 15:56-0400 Respiratory rate 18 /min Kurtis Harris MD Work Phone: [facility] 06-06-2023 15:56-0400 SaO2% (BldA) [Mass fraction] 96 % Kurtis Harris MD Work Phone: [facility] 06-06-2023 15:56-0400 Systolic blood pressure 132 mm[Hg] Kurtis Harris MD Work Phone: [facility] 06-06-2023 13:43-0400 Body height 177.8 cm Kurtis Harris MD Work Phone: [facility] 06-06-2023 13:43-0400 Body mass index (BMI) [Ratio] 28.27 kg/m2 Kurtis Harris MD Work Phone: [facility] 06-06-2023 13:43-0400 Body weight 89.36 kg Kurtis Harris MD Work Phone: [facility] 06-06-2023 13:43-0400 Diastolic blood pressure 64 mm[Hg] Kurtis Harris MD Work Phone: [facility] 06-06-2023 13:43-0400 Heart rate 80 /min Kurtis Harris MD Work Phone: [facility] 06-06-2023 13:43-0400 Systolic blood pressure 119 mm[Hg] Kurtis Harris MD Work Phone: [facility] 06-04-2023 07:37-0400 Body temperature 97.5 [degF] Dr. Darshan Rowley Work Phone: [facility] 06-04-2023 07:37-0400 Diastolic blood pressure 78 mm[Hg] Dr. Darshan Rowley Work Phone: [facility] 06-04-2023 07:37-0400 Heart rate 80 /min Dr. Darshan Rowley Work Phone: [facility] 06-04-2023 07:37-0400 Respiratory rate 12 /min Dr. Darshan Rowley Work Phone: [facility] 06-04-2023 07:37-0400 SaO2% (BldA) [Mass fraction] 97 % Dr. Darshan Rowley Work Phone: [facility] 06-04-2023 07:37-0400 Systolic blood pressure 122 mm[Hg] Dr. Darshan Rowley Work Phone: [facility] 03-08-2023 12:50-0500 Body height 177.[address] Darshan Rowley Work Phone: [facility] 03-08-2023 12:50-0500 Body mass index (BMI) [Ratio] 31.4 kg/m2 Dr. Darshan Rowley Work Phone: [facility] 03-08-2023 12:50-0500 Body temperature 98 [degF] Dr. Darshan Rowley Work Phone: [facility] 03-08-2023 12:50-0500 Body weight 99.[address] Darshan Rowley Work Phone: [facility] 03-08-2023 12:50-0500 Diastolic blood pressure 68 mm[Hg] Dr. Darshan Rowley Work Phone: [facility] 03-08-2023 12:50-0500 Heart rate 73 /min Dr. Darshan Rowley Work Phone: [facility] 03-08-2023 12:50-0500 Respiratory rate 17 /min Dr. Darshan Rowley Work Phone: [facility] 03-08-2023 12:50-0500 SaO2% (BldA) [Mass fraction] 96 % Dr. Darshan Rowley Work Phone: [facility] 03-08-2023 12:50-0500 Systolic blood pressure 138 mm[Hg] Dr. Darshan Rowley Work Phone: [facility] 02-05-2023 11:13-0500 Body height 177.8 cm Seema Mendoza MD Work Phone: [facility] 02-05-2023 11:13-0500 Body mass index (BMI) [Ratio] 32.28 kg/m2 Seema Mendoza MD Work Phone: [facility] 02-05-2023 11:13-0500 Body temperature 96.69 [degF] Seema Mendoza MD Work Phone: [facility] 02-05-2023 11:13-0500 Body weight 102.06 kg Seema Mendoza MD Work Phone: [facility] 02-05-2023 11:13-0500 Heart rate 82 /min Seema Mendoza MD Work Phone: [facility] 02-05-2023 11:13-0500 SaO2% (BldA) [Mass fraction] 96 % Seema Mendoza MD Work Phone: [facility] 12-04-2022 13:41-0400 Body height 177.8 cm Kurtis Harris MD Work Phone: [facility] 12-04-2022 13:41-0400 Body mass index (BMI) [Ratio] 31.85 kg/m2 Kurtis Harris MD Work Phone: [facility] 12-04-2022 13:41-0400 Body temperature 98.01 [degF] Kurtis Harris MD Work Phone: [facility] 12-04-2022 13:41-0400 Body weight 100.7 kg Kurtis Harris MD Work Phone: [facility] 12-04-2022 13:41-0400 Diastolic blood pressure 81 mm[Hg] Kurtis Harris MD Work Phone: [facility] 12-04-2022 13:41-0400 Heart rate 84 /min Kurtis Harris MD Work Phone: [facility] 12-04-2022 13:41-0400 SaO2% (BldA) [Mass fraction] 95 % Kurtis Harris MD Work Phone: [facility] 12-04-2022 13:41-0400 Systolic blood pressure 132 mm[Hg] Kurtis Harris MD Work Phone: [facility] 12-04-2022 11:45-0400 Body height 177.8 cm Renee Evans BUILDING REPAIR MAINTENANCE SUPERVISOR-PROCESS ENGINEERING INTERN Work Phone: [facility] 12-04-2022 11:45-0400 Diastolic blood pressure 71 mm[Hg] Renee Evans BUILDING REPAIR MAINTENANCE SUPERVISOR-PROCESS ENGINEERING INTERN Work Phone: [facility] 12-04-2022 11:45-0400 Systolic blood pressure 137 mm[Hg] Renee Nevarezuld BUILDING REPAIR MAINTENANCE SUPERVISOR-PROCESS ENGINEERING INTERN Work Phone: [facility] 04-05-2022 13:50-0500 Body mass index (BMI) [Ratio] 30.39 kg/m2 Kurtis Harris MD Work Phone: [facility] 04-05-2022 13:50-0500 Body temperature 97.7 [degF] Kurtis Harris MD Work Phone: [facility] 04-05-2022 13:50-0500 Body weight 96.07 kg Kurtis Harris MD Work Phone: [facility] 04-05-2022 13:50-0500 Diastolic blood pressure 61 mm[Hg] Kurtis Harris MD Work Phone: [facility] 04-05-2022 13:50-0500 Heart rate 75 /min Kurtis Harris MD Work Phone: [facility] 04-05-2022 13:50-0500 Respiratory rate 16 /min Kurtis Harris MD Work Phone: [facility] 04-05-2022 13:50-0500 SaO2% (BldA) [Mass fraction] 97 % Kurtis Harris MD Work Phone: [facility] 04-05-2022 13:50-0500 Systolic blood pressure 130 mm[Hg] Kurtis Harris MD Work Phone: [facility] 04-05-2022 11:18-0500 Body height 177.8 cm Renee Evans BUILDING REPAIR MAINTENANCE SUPERVISOR-PROCESS ENGINEERING INTERN Work Phone: [facility] 04-05-2022 11:18-0500 Diastolic blood pressure 65 mm[Hg] Renee Evans BUILDING REPAIR MAINTENANCE SUPERVISOR-PROCESS ENGINEERING INTERN Work Phone: [facility] 04-05-2022 11:18-0500 Systolic blood pressure 121 mm[Hg] Renee Evans BUILDING REPAIR MAINTENANCE SUPERVISOR-PROCESS ENGINEERING INTERN Work Phone: [facility] 10-12-2021 13:12-0400 Body height 177.8 cm Kurtis Harris MD Work Phone: [facility] 10-12-2021 13:12-0400 Body mass index (BMI) [Ratio] 30.71 kg/m2 Kurtis Harris MD Work Phone: [facility] 10-12-2021 13:12-0400 Body temperature 97.81 [degF] Kurtis Harris MD Work Phone: [facility] 10-12-2021 13:12-0400 Body weight 97.07 kg Kurtis Harris MD Work Phone: [facility] 10-12-2021 13:12-0400 Diastolic blood pressure 58 mm[Hg] Kurtis Harris MD Work Phone: [facility] 10-12-2021 13:12-0400 Heart rate 79 /min Kurtis Harris MD Work Phone: [facility] 10-12-2021 13:12-0400 Respiratory rate 16 /min Kurtis Harris MD Work Phone: [facility] 10-12-2021 13:12-0400 SaO2% (BldA) [Mass fraction] 97 % Kurtis Harris MD Work Phone: [facility] 10-12-2021 13:12-0400 Systolic blood pressure 122 mm[Hg] Kurtis Harris MD Work Phone: [facility] 10-18-2020 09:29-0400 Body height 177.8 cm Kurtis Harris MD Work Phone: [facility] 10-18-2020 09:29-0400 Diastolic blood pressure 63 mm[Hg] Kurtis Harris MD Work Phone: [facility] 10-18-2020 09:29-0400 Heart rate 75 /min Kurtis Harris MD Work Phone: [facility] 10-18-2020 09:29-0400 Systolic blood pressure 112 mm[Hg] Kurtis Harris MD Work Phone: [facility] NEGATED: Highlighted [id number] 11:14-0400 BMI (Body Mass Index) 28.08 kg/m2 [facility] Work Phone: NEGATED: Highlighted [id number] 11:140400 Body weight 88.[address] [facility] Work Phone: NEGATED: Highlighted [id number] 11:14-0400 Body weight [address] [facility] Work Phone: NEGATED: Highlighted [id number] 11:14-0400 BP Diastolic 65 mm[Hg] [facility] Work Phone: NEGATED: Highlighted [id number] 11:14-0400 BP Systolic 101 mm[Hg] [facility] Work Phone: NEGATED: Highlighted [id number] 11:14-0400 Heart rate 2+ [facility] Work Phone: NEGATED: Highlighted [id number] 11:14-0400 Height 177.[address] [facility] Work Phone: NEGATED: Highlighted [id number] 11:14-0400 Height [address] [facility] Work Phone: NEGATED: Highlighted [id number] 11:14-0400 Pulse (Heart Rate) 66 /min [facility] Work Phone: Encounters Encounter Date Encounter Type Care Provider Facility Start: 12-10-2024 End: 12-10-2024 ambulatory Darshan Rowley Facility:[facility] Start: 11-30-2024 End: 11-30-2024 Patient encounter procedure Rody Keith MD Work Phone: [facility] Comment on above: Recurrent UTI (Prima ry Dx) Start: 11-30-2024 ambulatory RODY Rodriguez ity:[facility] Start: 11-16-2024 ambulatory MD RODY KEITH Facility:[facility] Start: 11-09-2024 End: 11-09-2024 ambulatory Darshan Rowley Facility:[facility] Start: 10-30-2024 End: 10-30-2024 Office consultation new/estab patient 80 min Rody Keith MD Work Phone: [facility] Comment on above: Pelvic pain (Primary Dx); Vaginal atrophy Start: 10-30-2024 ambulatory DARSHAN ROWLEY Facility :[facility] Start: 09-30-2024 End: 09-30-2024 ambulatory Darshan Rowley Facility:[facility] Start: 09-28-2024 End: 09-28-2024 ambulatory Darshan Rowley Facility:[facility] Start: 09-17-2024 End: 09-17-2024 ambulatory Consuelo Marsh Facility:[facility] Start: 07-29-2024 End: 07-29-2024 ambulatory Cherise Greenwood Facility:[facility] Start: 07-27-2024 ambulatory ANTHONY Ellis y:[facility] Start: 07-27-2024 End: 07-27-2024 Office outpatient visit 15 minutes Anthony Ying DO Work Phone: 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 Darshan Rowley MD Work Phone: [facility] Work Phone: Start: 04-29-2024 End: 04-29-[address] 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, without long-term current use of insulin; Pigmentary retinal dystrophy Start: 03-20-2024 ambulatory ATNHONY Ellis y:[facility] Start: 02-14-2024 End: 02-14-2024 Office outpatient visit 25 minutes Anthony Ying DO Work Phone: [facility] Comment on above: Bilateral posterior uveitis (Primary Dx); Pigmentary retinal dystrophy; 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 Darshan Rowley MD Work Phone: [facility] Work Phone: Start: 02-07-2024 End: 02-07-2024 ambulatory Darshan Rowley Facility:[facility] Start: 02-05-2024 End: 02-05-[address] Darshan Rowley MD -Laboratory, [place] Work Phone: Start: 02-05-2024 End: 02-05-2024 ambulatory Darshan Rowley Facility:[facility] Start: 12-23-2023 End: 12-23-2023 Subsequent hospital visit by physician Anthony Ying DO Work Phone: [facility] [place] Comment on above: Arrived Start: 12-23-2023 ambulatory ANTHONY YING Rhonda y:[facility] Start: 12-23-2023 End: 12-23-2023 Office outpatient visit 25 minutes Anthony Ying DO Work Phone: [facility] [place] Comment on above: Bilateral posterior uveitis (Primary Dx); Pigmentary retinal dystrophy; 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, without long-term current use of insulin; Combined forms of age-related cataract of right eye; Dry eye syndrome of bilateral lacrimal glands; Pseudophakia of left eye Start: 12-23-2023 ambulatory ANTHONY YING Facilit y:[facility] Start: 11-12-2023 End: 11-12-2023 Office outpatient visit 15 minutes Lois Horowitz MD, PhD Work Phone: [facility] [place] Comment on above: Pigmentary retinal d ystrophy (Primary Dx); Combined forms of age-related cataract of right eye; Pseudophakia of left eye; Dry eye syndrome of bilateral lacrimal glands; 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 Darshan Rowley Work Phone: [facility] Work Phone: Start: 06-04-2023 End: 06-04-[address] Darshan Rowley Work Phone: [facility] Work Phone: Start: 03-08-2023 End: 03-08-[address] Darshan Rowley Work Phone: [facility] Work Phone: Start: 03-08-2023 End: 03-08-[address] [facility] Work [facility]: Start: 03-08-2023 End: 03-08-[address] Darshan Rowley Work Phone: [facility] Work Phone: Start: 02-05-2023 End: 02-05-2023 Office consultation new/estab patient 60 min Seema Mendoza MD Work Phone: [facility] Comment on above: Mid back pain (Prima ry Dx); Myofascial pain; History of thoracic surgery; Kyphosis (acquired) (postural) Start: 12-27-2022 End: 12-27-[address] Darshan Rowley Work Phone: [facility] [place] Work Phone: Start: 12-04-2022 End: 12-05-2022 Office outpatient visit 25 minutes Kurtis Harris MD Work Phone: Division of [facility] Oncology [facility] Comment on above: Thoracic spine tumor (Primary Dx) Start: 12-04-2022 End: 12-04-2022 Subsequent hospital visit by physician Renee Evans APRN-PROCESS ENGINEERING INTERN Work Phone: [facility] Comment on above: Arrived Start: 10-16-2022 End: 10-16-2022 Subsequent hospital visit by physician Renee Evans BUILDING REPAIR MAINTENANCE SUPERVISOR-PROCESS ENGINEERING INTERN Work Phone: [facility] Comment on above: Canceled (Personal A ppointment Conflict) Start: 04-30-2022 End: 04-30-2022 ambulatory [facility] Work Phone: Start: 04-30-2022 End: 04-30-2022 Patient encounter procedure [facility] Start: 04-05-2022 End: 04-06-2022 Office outpatient visit 25 minutes Kurtis Harris MD Work Phone: Division of Neuro Oncology at [facility] Comment on above: Thoracic spine tumor (Primary Dx) Start: 04-05-2022 End: 04-05-2022 Subsequent hospital visit by physician Renee Evans BUILDING REPAIR MAINTENANCE SUPERVISOR-[facility] Work Phone: [facility] Comment on above: Arrived Start: 12-25-2021 End: 12-25-2021 [facility] [facility] Work Phone: Start: 12-25-2021 End: 12-25-2021 Patient encounter procedure [facility] Start: 11-13-2021 End: 11-13-2021 Office outpatient visit 15 minutes Lois Horowitz MD, PhD Work Phone: [facility] [place] [facility] [place] Comment on above: Pigmentary retinal d ystrophy (Primary Dx); Nuclear senile cataract of right eye Start: 10-12-2021 End: 10-12-2021 Office outpatient visit 15 minutes Kurtis Harris MD Work Phone: Division of Neuro Oncology at [facility] Comment on above: Meningioma, spinal ( Primary Dx) Start: 10-12-2021 End: 10-12-2021 Subsequent hospital visit by physician Kurtis Harris MD Work Phone: Department of Radiology Comment on above: Arrived Start: 06-02-2021 End: 06-02-[address] Darshan Rowley Work Phone: [facility] Start: 05-29-2021 End: 05-29-[address] Darshan Rowley Work Phone: [facility] Start: 05-23-2021 End: 05-23-2021 Office outpatient new 45 minutes Lois Horowitz MD, PhD Work Phone: [facility] [place] [facility] [place] Comment on above: Pigmentary retinal d ystrophy (Primary Dx); Mixed type age-related cataract, both eyes; Dry eye syndrome of bilateral lacrimal glands; Pseudophakia Start: 05-11-2021 End: 05-11-[address] Darshan Rowley Work Phone: [facility] Start: 05-10-2021 End: 05-10-[address] Darshan Rowley Work Phone: [facility] Start: 04-28-2021 End: 04-28-[address] Darshan Rowley Work Phone: [facility] Start: 10-18-2020 End: 10-18-2020 Subsequent hospital visit by physician Kurtis Harris MD Work Phone: [facility] Comment on above: Arrived Start: 12-04-2018 End: 12-04-2018 Patient encounter procedure He Oakes DO Work Phone: [facility] Work Phone: Procedures Date Procedure Procedure Detail Performing Clinician Start: 11-30-2024 Urnls dip stick/tabl et rgnt auto w/o microscopy Rody Keith MD Work Phone: Start: 11-30-2024 Cystourethroscopy Nicole Keith MD Work Phone: Start: 10-30-2024 Urnls dip stick/tabl et rgnt auto w/o microscopy Rody Keith MD Work Phone: Start: 10-30-2024 Urnls dip stick/tabl et rgnt non-auto w/o micrscp Rody Keith MD Work Phone: Start: 07-27-2024 Intravitreal njx [...] US scan of thyroid Start: 11-13-2021 End: 09-19-2022 Fundus photography w/interpretation & report Lois Horowitz [...] RSV VACCINE (1 - 1-dose 75+ series) [facility] Start: 01-15-2025 End: 01-15-2025 Patient encounter procedure 01/15/2025 8:30 AM EST Office Visit [facility] [place] [address] [place] [address] Rody Keith MD [address] [place] [address] [facility] [place] Start: 12-11-2024 End: 12-11-2024 Patient encounter procedure 12/11/2024 3:20 PM EDT Office Visit [facility] [place] [address] [place], [place] [id number] Anthony Ying, DO [address] [place] [address] [facility] [place] Start: 11-30-2024 End: 11-30-2025 Bacteria identified in Urine by Culture [facility] Comment on above: Expected: 11/30/2024 , Expires: 11/30/2025 Start: 11-26-2024 End: 11-26-2024 Patient encounter procedure 11/26/2024 10:30 AM EDT Office Visit [facility] [place] [address] [place], [place] [id number] Rody Keith MD [address] [place], [place] [id number] [facility] [place] Start: 10-26-2024 COVID-19 VACCINE ( season) COVID-19 VACCINE ( season) [facility] Start: 10-26-2024 Influenza vaccination INFLUENZA VACC INE (#1) [facility] Start: 09-25-2024 End: 09-25-2024 Patient encounter procedure 09/25/2024 10:20 AM EDT Office Visit [facility] [place] [address] [place], [place] [id number] Anthony Ying, [address] [place] [address] [facility] [place] Start: 07-27-2024 End: 07-27-2024 Patient encounter procedure 07/27/2024 1:40 PM EDT Office Visit [facility] [address] [place], [place] [id number] Anthony Ying DO [address] [place] [address] [facility] Start: 06-12-2024 End: 06-12-2024 Patient encounter procedure 06/12/2024 10:40 AM EDT Office Visit [facility] [place] [address] [place], [place] [id number] Anthony Ying DO [address] [place] [address] [facility] Start: 03-20-2024 End: 03-20-2024 Patient encounter procedure 03/20/2024 1:40 PM EST Office Visit [facility] [place] [address] [place] [address] Anthony Ying DO [address] [place] [address] [facility] [place] Start: 01-29-2024 Tetanus vaccination TETANUS [facility] Start: 01-20-2024 End: 01-20-2024 Patient encounter procedure 01/20/2024 9:20 AM EST Office Visit [facility] [place] [address] [place], [place] [id number] Anthony Ying DO [address] [place] [address] [facility] [place] Start: 12-23-2023 End: 12-22-2024 BERTO MULTIPLEX SCRN WITH REFLEX [facility] Comment on above: Expected: 12/23/2023 , Expires: 12/22/2024 Start: 12-23-2023 End: 12-22-2024 ANCA INIT SCRN (ANCA, PR3AB, MPO) [facility] Comment on above: Expected: 12/23/2023 , Expires: 12/22/2024 Start: 12-23-2023 End: 12-22-2024 M TUBERCULOSIS BY QUANTIFERON, BLD [facility] Comment on above: Expected: 12/23/2023 , Expires: 12/22/2024 Start: 12-23-2023 End: 12-22-2024 MR Brain WO and W contrast IV MRI BRAIN WITH AND WITHOUT CONTRAST Imaging Routine Bilateral posterior uveitis Expected: 12/23/2023, Expires: 12/22/2024 [facility] Comment on above: Expected: 12/23/2023 , Expires: 12/22/2024 Start: 12-23-2023 End: 12-23-2023 Patient encounter procedure 12/23/2023 8:00 AM EDT Office Visit [facility] [place] [address] [place] [address] Anthony Ying, [address] [place] [address] [facility] [place] Start: 12-12-2023 End: 12-12-2023 Patient encounter procedure [facility] Start: 10-27-2023 COVID-19 VACCINE ( season) COVID-19 VACCINE ( season) [facility] Start: 10-27-2023 COVID-19 VACCINE () COVID-19 VACCINE () [facility] Start: 10-27-2023 Influenza vaccination INFLUENZA VACC INE (#1) [facility] Start: 06-06-2023 End: 06-06-2023 Patient encounter procedure 06/06/2023 3:30 PM EDT Office Visit Division of Neuro Oncology at [facility] [address] [place] [address] Kurtis Harris MD [address] [place] [address] Division of [facility]cology at [facility] Start: 06-06-2023 End: 06-05-2024 MR Thoracic spine WO and W contrast IV [facility] Work Phone: Comment on above: 1 Occurrences starti ng 06/06/2023 until 06/06/2023 Expected: 06/06/2023 , Expires: 06/05/2024 Start: 06-06-2023 End: 06-06-2023 Patient encounter procedure 06/06/2023 1:40 PM EDT Appointment [facility] [address] [address] Kurtis Harris MD [address] [place] [address] [facility] Start: 12-04-2022 End: 12-05-2023 MR Thoracic spine WO and W contrast IV MRI SPINE THORACIC WITH AND WITHOUT CONTRAST Imaging Routine Thoracic spine tumor Expected: 12/04/2022, Expires: 12/05/2023 [facility] Comment on above: Expected: 12/04/2022 , Expires: 12/05/2023 Start: 12-04-2022 End: 12-04-2022 Patient encounter procedure [facility] Start: 10-26-2022 COVID-19 VACCINE ( season) COVID-19 VACCINE ( season) [facility] Start: 10-26-2022 Influenza vaccination INFLUENZA VACC INE (#1) [facility] Start: 10-16-2022 End: 10-16-2022 Patient encounter procedure [facility] Start: 05-14-2022 End: 05-14-2022 Patient encounter procedure 05/14/2022 Office Visit Ophthalmology Lois Horowitz MD, PhD [address] [place] [address] [facility] Start: 04-14-2022 End: 10-12-2022 MR Thoracic spine WO and W contrast IV MRI SPINE THORACIC WITH AND WITHOUT CONTRAST Imaging Routine Meningioma, spinal Expected: 04/14/2022 (Approximate), Expires: 10/12/2022 [facility] Work Phone: Comment on above: Expected: 04/14/2022 (Approximate), Expires: 10/12/2022 Start: 04-06-2022 End: 04-05-2023 MR Thoracic spine WO and W contrast IV MRI SPINE THORACIC WITH AND WITHOUT CONTRAST Imaging Routine Thoracic spine tumor Expected: 04/06/2022, Expires: 04/05/2023 [facility] Work Phone: Comment on above: Expected: 04/06/2022 , Expires: 04/05/2023 Start: 04-05-2022 End: 04-05-2022 Patient encounter procedure [facility] Start: 11-13-2021 End: 11-13-2021 Patient encounter procedure 11/13/2021 Office Visit Ophthalmology Lois Horowitz MD, PhD [address] [place] [address] [facility] Start: 11-13-2021 End: 11-13-2021 Patient encounter procedure 11/13/2021 Office Visit Ophthalmology Lois Horowitz MD, PhD [address] [place], [place] [id number] [facility] Start: 10-26-2021 Influenza vaccination INFLUENZA VACC INE (#1) [facility] Start: 10-19-2021 End: 10-19-2021 Patient encounter procedure [facility] Start: 10-26-2020 Influenza vaccination INFLUENZA VACC INE (#1) [facility] Start: 12-04-2018 End: 12-04-2018 Appointment Appointment [facility] Work Phone: Start: 2018 RSV VACCINE (1 - 1-dose 60+ series) RSV VACCINE (1 - 1-dose 60+ series) [facility] Start: 11-25-2014 Hepatitis B vaccination HEP B VACCINE (2 of 3 - 19+ 3-dose series) [facility] Start: 09-20-2013 Zoster vaccine hzv live for subcutaneous use ZOSTER (SHINGLES) VACCINE (1 of 2) [facility] Start: 2008 Screening for malignant neoplasm of lung LUNG CANCER SCREENING [facility] Start: 2008 Zoster vaccine hzv live for subcutaneous use ZOSTER (SHINGLES) VACCINE (1 of 2) [facility] Start: 09-09-2003 Colonoscopy COLORECTAL CAN CER SCREENING DISCUSSION [facility] Start: 09-09-2003 Screening for malignant neoplasm of colon COLORECTAL CANCER SCREENING DISCUSSION [facility] Start: 1998 Fasting lipid profile LIPID SCREENIN G [facility] Start: 1998 Lipid panel [facility]IPID SCREENING [facility] Start: 1998 Screening for malignant neoplasm of breast MAMMOGRAM SCREENING DISCUSSION [facility] Start: 1998 Screening mammography MAMMOGRA M SCREENING DISCUSSION [facility] Start: 09-09-1979 Screening for malignant neoplasm of cervix CERVICAL CANCER SCREENING DISCUSSION [facility] Start: 1977 Pneumococcal vaccination PNEUMOCOCCAL VACCINE SERIES (1 of 2 - PCV) [facility] Start: 1977 Third diphtheria, tetanus and acellular pertussis (DTaP) vaccination TDAP (ADULT) [facility] Start: 1976 Tetanus vaccination TETANUS [facility] Start: 1973 HIV screening HIV SCREENING DISCUSSI ON [facility] Start: 1964 Pneumococcal vaccination PNEUMOCOCCAL VACCINE SERIES (1 of 2 - PCV) [facility] Start: 1964 PNEUMOCOCCAL VACCINE SERIES (1 - PCV) PNEUMOCOCCAL VACCINE SERIES (1 - PCV) [facility] Start: 1964 PNEUMOCOCCAL VACCINE SERIES (1 of 2 - PCV) PNEUMOCOCCAL VACCINE SERIES (1 of 2 - PCV) [facility] Start: 1964 PNEUMOCOCCAL VACCINE SERIES (1 of 2 - PPSV23) PNEUMOCOCCAL VACCINE SERIES (1 of 2 - PPSV23) [facility] Start: 09-09-1963 COVID-19 VACCINE (1) COVID-19 VACCIN E (1) [facility] Start: 03-11-1959 COVID-19 VACCINE (#1) COVID-19 VACCI NE (#1) [facility] Start: 1958 Hepatitis C antibody , confirmatory test HEPATITIS C VIRUS SCREENING [facility] Start: 1958 Hepatitis C screening HEPATITI S C VIRUS SCREENING [facility] Start: 1958 Screening for osteoporosis DEXA SCAN DISCUSSION [facility] Start: 1958 Tetanus vaccination TETANUS [facility] End: 02-05-2025 Fluorescein icg angrph w/multiframe i&r uni/bi FLUORESCEIN ANGIOGRAPHY AND ICGA-OU PA - OFFICE PERFORMED IMAGING Routine Bilateral posterior uveitis 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, without long-term current use of insulin 3 Occurrences starting 02/13/2024 until 02/05/2025, 1 completed [facility] Comment on above: 3 Occurrences starti ng 02/13/2024 until 02/05/2025, 1 completed End: 10-30-2024 Fundus photography w/interpretation & report FUNDUS PHOTOGRAPHY-OU PA - OFFICE PERFORMED IMAGING Routine Pigmentary retinal dystrophy 12 Occurrences starting 11/06/2023 until 10/30/2024, 1 completed [facility] Comment on above: 12 Occurrences start ing 11/06/2023 until 10/30/2024, 1 completed End: 03-17-2025 Fundus photography w/interpretation & report FUNDUS PHOTOGRAPHY-OU PA - OFFICE PERFORMED IMAGING Routine Bilateral posterior uveitis 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, without long-term current use of insulin 3 Occurrences starting 03/19/2024 until 03/17/2025, 1 completed [facility] Comment on above: 3 Occurrences starti ng 03/19/2024 until 03/17/2025, 1 completed End: 10-12-2021 MR Thoracic spine WO and W contrast IV [facility] Work Phone: Comment on above: 1 Occurrences starti ng 10/12/2021 until 10/12/2021 End: 04-02-2022 MR Thoracic spine WO and W contrast IV [facility] Work Phone: Comment on above: 1 Occurrences starti ng 04/02/2022 until 04/02/2022 End: 10-04-2022 MR Thoracic spine WO and W contrast IV MRI SPINE THORACIC WITH AND WITHOUT CONTRAST Imaging Routine Thoracic spine tumor 1 Occurrences starting 10/04/2022 until 10/04/2022 [facility] Work Phone: Comment on above: 1 Occurrences starti ng 10/04/2022 until 10/04/2022 End: 10-18-2020 MRI of thoracic spine [facility] Work Phone: Comment on above: 1 Occurrences starti ng 10/18/2020 until 10/18/2020 End: 10-30-2024 Optical coherence tomography of retina OCT/HRT MACULA OU PA - OFFICE PERFORMED IMAGING Routine Pigmentary retinal dystrophy 12 Occurrences starting 11/06/2023 until 10/30/2024, 1 completed [facility] Comment on above: 12 Occurrences start ing 11/06/2023 until 10/30/2024, 1 completed End: 03-17-2025 Optical coherence tomography of retina OCT/HRT MACULA OU PA - OFFICE PERFORMED IMAGING Routine Bilateral posterior uveitis 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 pdf [facility] Work Phone: Immunizations Immunization Date Immunization Notes Care Provider [facility] 12-12-2023 influenza, seasonal, injectable, preservative free Dr. Darshan Rowley MD Work Phone: [facility] 12-12-2023 influenza virus vaccine, unspecified formulation Rody Keith MD Work Phone: [facility] 11-22-2022 influenza, injectabl e, quadrivalent, preservative free Dr. Darshan Rowley Work Phone: [facility] 11-22-2022 influenza virus vaccine, unspecified formulation Lois Horowitz MD, PhD Work Phone: [facility] 12-13-2021 influenza, injectabl e, quadrivalent, preservative free Dr. Darshan Rowley Work Phone: [facility] 12-13-2021 influenza, seasonal, injectable [facility] 12-13-2021 influenza virus vaccine, unspecified formulation Renee Evans BUILDING REPAIR MAINTENANCE SUPERVISOR-PROCESS ENGINEERING INTERN Work Phone: [facility] 12-28-2020 Covid (Moderna) Dr. Darshan baugh Work Phone: [facility] 11-30-2020 influenza, injectabl e, quadrivalent, preservative free Dr. Darshan Rowley Work Phone: [facility] 11-30-2020 influenza, seasonal, injectable Dr. Darshan Rowley Work Phone: [facility] 11-30-2020 influenza virus vaccine, unspecified formulation Kurtis Harris MD Work Phone: [facility] 04-12-2020 Covid (Moderna) Dr. Darshan baugh Work Phone: [facility] 03-15-2020 Covid (Moderna) Dr. Darshan baugh Work Phone: [facility] 12-02-2019 influenza, injectabl e, quadrivalent, preservative free Dr. Darshan Rowley Work Phone: [facility] 12-02-2019 influenza, seasonal, injectable Dr. Darshan Rowley Work Phone: [facility] 11-20-2018 influenza, injectabl e, quadrivalent, preservative free Dr. Darshan Rowley Work Phone: [facility] 11-20-2018 influenza, seasonal, injectable Dr. Darshan Rowley Work Phone: [facility] 12-24-2017 influenza, injectabl e, quadrivalent, preservative free Dr. Darshan Rowley Work Phone: [facility] 12-24-2017 influenza, seasonal, injectable Dr. Darshan Rowley Work Phone: [facility] 03-16-2014 hepatitis B vaccine, pediatric or pediatric/adolescent dosage Dr. Darshan Rowley Work Phone: [facility] 02-03-2014 hepatitis B vaccine, pediatric or pediatric/adolescent dosage Dr. Darshan Rowley Work Phone: [facility] 01-28-2014 tetanus toxoid, redu freddie diphtheria toxoid, and acellular pertussis vaccine, adsorbed Dr. Darshan Rowley Work Phone: [facility] 07-26-2013 zoster vaccine, unspecified formulation Renee Evans BUILDING REPAIR MAINTENANCE SUPERVISOR-PROCESS ENGINEERING INTERN Work Phone: [facility] Payers Date Payer Category Payer Medicare (Managed Care) [employer] PPO [id number] 2024 Medicare [id number] 2024 Unknown [id number] 2024 Self-pay [id number] 2022 Managed Care (unspecified) [employer]ONARD [id number] 2022 Private Health Insurance [employer] Arti LEONARD [id number] 2022-Present [address] [place] [address] [id number] 2022 Unknown [id number] 2020 Unknown [employer] [place] [id number] 2020-Present [address] [place] [address] [id number] 2018 Unknown [employer] M MO NETWORK ACCESS [id number] 2018-Present [address] [address] [place] [address] [id number] 1958 Unknown [id number] 2.16.840.1.313908.3.579.2. 627 1958 Unknown [id number] 2.16.840.1.272795.3.579.2. 594 1958 Unknown [id number] 2.16.840.1.412075.3.579.2. 594 1958 Unknown [id number] 2.16.840.1.161361.3.579.2. 594 1958 Unknown [id number] 2..840.1.393567.3.579.2. 594 1958 Unknown [id number] 2..840.1.009562.3.579.2. 594 1958 Unknown [id number] 2..840.1.817215.3.579.2. 594 1958 Unknown [id number] 2..840.1.210436.3.579.2. 594 1958 Unknown [id number] 2..840.1.952050.3.579.2. 594 1958 Unknown [id number] 2.16.840.1.759509.3.579.2. 594 Unknown [id number] Unknown [id number] Unknown [id number] 2.16.840.1.180354.3.579.2. 462 Unknown [id number] 2.16.840.1.420032.3.579.2. 462 Unknown [id number] 2.16.840.1.958529.3.579.2. 462 Unknown [id number] 2.16.840.1.480708.3.579.2. 462 Unknown [id number] 2.16.840.1.022476.3.579.2. 462 Unknown [id number] 2.16.840.1.281017.3.579.2. 462 Unknown [id number] 2.16.840.1.365963.3.579.2. 462 Unknown [id number] 2.16.840.1.878960.3.579.2. 462 Unknown [id number] 2.16.840.1.892938.3.579.2. 462 Unknown [id number] 2.16.840.1.175940.3.579.2. 462 Unknown [id number] 2.16.840.1.193788.3.579.2. 462 Social History Date Type Detail Facility Start: 05-10-2021 End: 06-04-2023 Assertion Unknown if ever smoked [facility] Work Phone: Start: 12-29-2018 End: 11-12-2023 Tobacco smoking status NHIS Smokes tobacco daily [facility] History of tobacco use Cigarette Smoker [facility] Start: 12-29-2018 End: 06-06-2023 Cigarettes smoked current (pack per day) - Reported 1 [facility] Start: 12-29-2018 End: 11-12-2023 Tobacco use and exposure Smokeless tobacco non-user [facility] Start: 05-23-2021 End: 11-30-2024 Alcohol intake Current drinker of alcohol (finding) [facility] Start: 03-29-2020 History SDOH Alcohol Comment social [facility] Start: 1960 Sex Assigned At Not on file [facility] Start: 05-13-2021 End: 05-23-2021 Exposure to SARS-CoV-2 (event) Not sure [facility] Start: 12-25-2017 Cigarettes [facility] Start: 1960 Sex Assigned At Female [facility] Start: 03-26-2022 End: 04-05-2022 Exposure to SARS-CoV-2 (event) Unable to assess [facility] Start: 05-14-2022 End: 06-06-2023 Tobacco use panel [facility] Adolescent depressio n screening assessment 0 [facility] Start: 05-19-2021 Gender identity Identifies as female gender (finding) [facility] Start: 12-26-2018 End: 05-13-2024 Sex Female (finding) [facility] Start: 06-05-2024 Sexual orientation Choose not to disclose [facility] NEGATED: Highlighted rowStart: 12-04-2018 End: 12-04-2018 Employment detail Employment detail [facility] Work Phone: Medical [...] serious difficulty hearing Yes 06/06/2023 4:20 PM EDT Hiwot Dumont, JOE Yes [facility] 06-06-2023 Are you blind, or do you have serious difficulty seeing, even when wearing glasses No 06/06/2023 4:20 PM EDT Hiwot Dumont RN No [facility] 06-06-2023 Do you have serious difficulty walking or climbing stairs No 06/06/2023 4:20 PM EDT Hiwot Dumotn, JOE No [facility] 06-06-2023 Do you have difficul ty dressing or bathing No 06/06/2023 4:20 PM EDT Hiwot Dumont, JOE No [facility] 06-06-2023 Because of a physica l, mental, or emotional condition, do you have difficulty doing errands alone such as visiting a physician's office or shopping No 06/06/2023 4:20 PM EDT Hiwot Dumont, JOE No [facility] Mental Status Date Assessment Result Facility 06-06-2023 Because of a physica l, mental, or emotional condition, do you have serious difficulty concentrating, remembering, or making decisions No 06/06/2023 4:20 PM EDT Hiwot Dumont, JOE No [facility] Clinical Notes 05-23-2021 to 11-30-2024 Garry Salvador RN - 11/30/2024 8:30 AM CHARLYTCsushila Keith MD - 11/30/2024 8:30 AM EDTAddendum Note - Rody Keith MD - 11/30/2024 8:30 AM Chani Sher - 10/30/2024 10:30 AM EDT Note Date & Type Note Facility 11-30-2024 History of Present illness Narrative Patient here today for cystoscopy. Patient escorted to procedure room where procedure was explained and patient agreed to continue. Sterile scope was set up with Normal Saline (Scope # [id number]). Medications and allergies were verified with the patient and are consistent with the EMR. Consent was obtained per Dr. Rody Keith. Patient was placed in lithotomy position prepped in sterile fashion. Time Out Per Dr. Rody Keith, Garry Salvador RN. Patient tolerated the procedure well. Patient was given Macrobid immediately after the procedure. Urine collected via clean catch and sent for UA and culture. Associated Order(s): CYSTOSCOPY Post-Procedure Diagnose(s): Recurrent UTI CYSTOSCOPY Date/Time: 11/30/2024 8:30 AM Performed by: Rody Keith MD Authorized by: Rody Keith MD The attending physician was present for the entire procedure. Pre-Procedure: Indications: recurrent UTIs Detailed information of all possible complications and side effects were discussed with the patient, these include but not only; UTI, sepsis, hematuria, incontinence, urethral injury and cardiovascular complications. Informed consent was obtained. Does this procedure require a Holdrege Protocol? Yes. Holdrege Protocol is required. The patient was given one dose of antibiotics. Urine was collected for testing. Procedure: Procedure performed: cystoscopy The patient was placed dorsolithotomy with all pressure points well padded. with chlorhexidine. The flexible cystoscope was lubricated and placed into the urethral tract under direct visualization. A 360 survey of the bladder was performed. The cystoscope was reflected and the bladder neck and the ureteral orifices were inspected. The findings are detailed below. The cystoscope was removed following any additional procedures documented below. Findings: The urinary meatus appeared normal. No tumors observed. No bladder fistula present. No foreign bodies observed. No stones found. No trabeculations were found. Both ureteral orifices were normal in size, shape and position with efflux of clear urine. The urethra was inspected. No foreign body(s) present in urethra. No urethral diverticulum observed. No urethral stricture found. Other Cystoscopy Findings: Cystitis cystica L lateral wal ulceration- ? Infectious Post Procedure: Patient tolerated procedure with no immediate complications Post-procedure antibiotics were given (see MAR for details) EBL: no blood loss Procedure Comments: Urine for C& S Will repeat cysto in 6 weeks- if ulcer still present recommend fulguration Rody Keith MD documented in this encounter [facility] 11-30-2024 Miscellaneous Notes Addended by: RODY KEITH on: 11/30/2024 02:38 PM Modules accepted: Orders documented in this encounter [facility] 11-30-2024 Note Addended by: RODY KEITH on: 11/30/2024 02:38 PM Modules accepted: Orders [facility] 10-30-2024 History of Present illness Narrative Post void residual completed today. Result of 44 entered into Urology Flowsheet. Tess Ken was offered and accepted a Medical Stationary Engineer Refrigeration for this exam/procedure/test 10/30/2024. Name of Medical Stationary Engineer Refrigeration: RENEE SHER New Patient Visit: Urology Female [...] seen by Dr Smith in 09/17f ro RUTIS. On Cysto she was noted to have [...] the pt has been experiencing urgency, frequency [id number], perineal pain with standing - radiates from [...] 4, Warm. No clubbing. No cyanosis. Skin: [place], warm and dry. No rashes noted. Pelvic Exam: Their was a Medical Stationary Engineer Refrigeration for this exam/procedure/test. Name of Medical Stationary Engineer Refrigeration: Renee Sher MA External genitalia: Normal labia minora and majora, normal clitoris, prepuce TOP FRAME MAKER: negative, 30 hypermobility Urinary system: urethral meatus [...] patient for this ongoing complex condition Rody Keith MD [1] Past Medical History: Diagnosis Date [...] Drug use: Never documented in this encounter [facility] 10-30-2024 Instructions Rody Keith MD - 10/30/2024 10:30 AM EDT We reviewed the following education and treatment for recurrent UTIs: Topical vaginal estrogen to alter vaginal pH and improve vaginal tissue Probiotics - to alter bowel chuck Good bowel regimen to decrease perineal colonization Cranberry supplements - Ellura- OTC supplements that prevent bacteria from adhering to the bladder lining documented in this encounter [facility] 07-27-2024 Note Table formatting fro m the original result was not included. Procedure date: 07/27/2024. Intraocular injection: 0.7 mg dexAMETHasone 0.7 MG Route: Intravitreal, Site: Left Eye ND: [id number], Lot: [id number], Expiration date: 05/26/2026, Waste: 0 mg Notes Dexamethasone (Ozurdex) 0.7 mg Intraocular Injection Left Eye - OPHTHALMOLOGY PROCEDURE NOTE PROCEDURE PERFORMED BY: Anthony Ying DO FURNACE WORKER(S): None ATTENDING: Anthony Ying DO PROCEDURE DATE: 07/27/2024 PROCEDURE START TIME: 8:45 PM INDICATIONS: Treatment of ICD-10-CM 1. Bilateral posterior uveitis H30.93 dexAMETHasone 0.7 MG Implant PA DEXAMETHASONE IO IMPL - OS OCT/HRT MACULA OU FUNDUS PHOTOGRAPHY-OU PA DEXAMETHASONE IO IMPL - OS 2. Type [...] THIS PROCEDURE REQUIRE A UNIVERSAL PROTOCOL? Yes. Holdrege Protocol is required. Pre-procedure verification was completed. [...] saline and an antibiotic drop was instilled. [facility] 07-27-2024 Note Table formatting fro m the original result was not included. Procedure date: 07/27/2024. Intraocular injection: 0.7 mg dexAMETHasone 0.7 MG Route: Intravitreal, Site: Left Eye [facility]: [id number], Lot: [id number], Expiration date: 05/26/2026, Waste: 0 mg Notes Dexamethasone (Ozurdex) 0.7 mg Intraocular Injection Left Eye - OPHTHALMOLOGY PROCEDURE NOTE PROCEDURE PERFORMED BY: Anthony Ying DO FURNACE WORKER(S): None ATTENDING: Anthony Ying DO PROCEDURE DATE: 07/27/2024 PROCEDURE START TIME: 8:45 PM INDICATIONS: Treatment of ICD-10-CM 1. Bilateral posterior uveitis H30.93 dexAMETHasone 0.7 MG Implant PA DEXAMETHASONE IO IMPL - OS OCT/HRT MACULA OU FUNDUS PHOTOGRAPHY-OU PA DEXAMETHASONE IO IMPL - OS 2. Type [...] THIS PROCEDURE REQUIRE A UNIVERSAL PROTOCOL? Yes. Holdrege Protocol is required. Pre-procedure verification was completed. [...] and an antibiotic drop was instilled. [facility] 07-27-2024 Note Procedure date: 2024. Right Eye Clear. Disc findings include normal observations. Vessel findings include normal. Macula findings include atrophy. Pigmentary Change. Interval change is same. Left Eye Clear. Disc findings include normal observations. Vessel findings include normal. Macula findings include atrophy. Pigmentary Change. Interval change is same. [facility] 07-27-2024 Note Procedure date: 2024. Right Eye Quality was good. Findings include atrophy, outer retinal layer disruption. Interval change is same. Left Eye Quality was good. Findings include atrophy, outer retinal layer disruption. Interval change is same. [facility] 07-27-2024 Note Procedure date: 2024. Right Eye [...] atrophy. Pigmentary Change. Interval change is same. PA DEXAMETHASONE IO IMPL - OS Procedure date: 07/27/2024. Intraocular injection: 0.7 mg dexAMETHasone 0.7 MG Route: Intravitreal, Site: Left Eye [facility]: 9302-9357-60, Lot: [id number], Expiration date: 05/26/2026, Waste: 0 mg Notes Dexamethasone (Ozurdex) 0.7 mg Intraocular Injection Left Eye - OPHTHALMOLOGY PROCEDURE NOTE PROCEDURE PERFORMED BY: Anthony Ying DO FURNACE WORKER(S): None ATTENDING: Anthony Ying DO PROCEDURE DATE: 07/27/2024 PROCEDURE START TIME: 8:45 PM INDICATIONS: Treatment of ICD-10-CM 1. Bilateral posterior uveitis H30.93 dexAMETHasone 0.7 MG Implant PA DEXAMETHASONE IO IMPL - OS OCT/HRT MACULA OU FUNDUS PHOTOGRAPHY-OU PA DEXAMETHASONE IO IMPL - OS 2. Type [...] THIS PROCEDURE REQUIRE A UNIVERSAL PROTOCOL? Yes. Holdrege Protocol is required. Pre-procedure verification was completed. [...] Marital status: - Incarceration: No - Heritage: Faroese - Miscarriages: None - Recent Sick Contacts: [...] atrophy. Pigmentary Change. Interval change is same. PA DEXAMETHASONE IO IMPL - OS Procedure date: 07/27/2024. Intraocular injection: 0.7 mg dexAMETHasone 0.7 MG Route: Intravitreal, Site: Left Eye ND: [id number], Lot: [id number], Expiration date: 05/26/2026, Waste: 0 mg Notes Dexamethasone (Ozurdex) 0.7 mg Intraocular Injection Left Eye - OPHTHALMOLOGY PROCEDURE NOTE PROCEDURE PERFORMED BY: Anthony Ying DO FURNACE WORKER(S): None ATTENDING: Anthony Ying DO PROCEDURE DATE: 07/27/2024 PROCEDURE START TIME: 8:45 PM INDICATIONS: Treatment of ICD-10-CM 1. Bilateral posterior uveitis H30.93 dexAMETHasone 0.7 MG Implant PA DEXAMETHASONE IO IMPL - OS OCT/HRT MACULA OU FUNDUS PHOTOGRAPHY-OU PA DEXAMETHASONE IO IMPL - OS 2. Type [...] THIS PROCEDURE REQUIRE A UNIVERSAL PROTOCOL? Yes. Holdrege Protocol is required. Pre-procedure verification was completed. [...] blood pressure control and close follow-up with PCP/box car loader - Advised importance in blood glucose and [...] Anthony Ying DO Uveitis and Surgical Retina [facility] [place] [facility] Department of Ophthalmology and Visual Science I, Anthony Ying DO acted as a scribe for Anthony Ying DO for this note of 07/27/2024 8:46 PM. REASON FOR VISIT Tess Ken presents to [...] Referring Physician: documented in this encounter [facility] 06-12-2024 Note Table formatting fro m the original result was not included. Procedure date: 06/12/2024. Intraocular injection: 0.7 mg dexAMETHasone 0.7 MG Route: Intravitreal, Site: Right Eye NDC: [id number], Lot: [id number], Expiration date: 05/26/2026, Waste: 0 mg Notes Dexamethasone (Ozurdex) 0.7 mg Intraocular Injection Right Eye - OPHTHALMOLOGY PROCEDURE NOTE PROCEDURE PERFORMED BY: Anthony Ying DO FURNACE WORKER(S): None ATTENDING: Anthony Ying DO PROCEDURE DATE: 06/12/2024 PROCEDURE START TIME: 12:32 PM INDICATIONS: Treatment of ICD-10-CM 1. Bilateral posterior uveitis H30.93 OCT/HRT MACULA OU FUNDUS PHOTOGRAPHY-OU PA DEXAMETHASONE IO IMPL - OD 2. Pigmentary [...] THIS PROCEDURE REQUIRE A UNIVERSAL PROTOCOL? Yes. Holdrege Protocol is required. Pre-procedure verification was completed. [...] and an antibiotic drop was instilled. [facility] 06-12-2024 Note Table formatting fro m the original result was not included. Procedure date: 06/12/2024. Intraocular injection: 0.7 mg dexAMETHasone 0.7 MG Route: Intravitreal, Site: Right Eye [facility]: [id number], Lot: [id number], Expiration date: 05/26/2026, Waste: 0 mg Notes Dexamethasone (Ozurdex) 0.7 mg Intraocular Injection Right Eye - OPHTHALMOLOGY PROCEDURE NOTE PROCEDURE PERFORMED BY: Anthony Ying DO FURNACE WORKER(S): None ATTENDING: Anthony Ying DO PROCEDURE DATE: 06/12/2024 PROCEDURE START TIME: 12:32 PM INDICATIONS: Treatment of ICD-10-CM 1. Bilateral posterior uveitis H30.93 OCT/HRT MACULA OU FUNDUS PHOTOGRAPHY-OU PA DEXAMETHASONE IO IMPL - OD 2. Pigmentary [...] THIS PROCEDURE REQUIRE A UNIVERSAL PROTOCOL? Yes. Holdrege Protocol is required. Pre-procedure verification was completed. [...] saline and an antibiotic drop was instilled. [facility] 06-12-2024 Note Procedure date: 06/12. Right Eye Quality was good. Findings include atrophy, outer retinal layer disruption. Interval change is same. Left Eye Quality was good. Findings include atrophy, outer retinal layer disruption. Interval change is same. [facility] 06-12-2024 Note Procedure date: 06/12. Right Eye [...] atrophy. Pigmentary Change. Interval change is same. [facility] 06-12-2024 Note Procedure date: 06/12. Right Eye [...] atrophy. Pigmentary Change. Interval change is same. PA DEXAMETHASONE IO IMPL - OD Procedure date: 06/12/2024. Intraocular injection: 0.7 mg dexAMETHasone 0.7 MG Route: Intravitreal, Site: Right Eye [facility]: [id number], Lot: [id number], Expiration date: 05/26/2026, Waste: 0 mg Notes Dexamethasone (Ozurdex) 0.7 mg Intraocular Injection Right Eye - OPHTHALMOLOGY PROCEDURE NOTE PROCEDURE PERFORMED BY: Anthony Ying DO FURNACE WORKER(S): None ATTENDING: Anthony Ying DO PROCEDURE DATE: 06/12/2024 PROCEDURE START TIME: 12:32 PM INDICATIONS: Treatment of ICD-10-CM 1. Bilateral posterior uveitis H30.93 OCT/HRT MACULA OU FUNDUS PHOTOGRAPHY-OU PA DEXAMETHASONE IO IMPL - OD 2. Pigmentary [...] THIS PROCEDURE REQUIRE A UNIVERSAL PROTOCOL? Yes. Holdrege Protocol is required. Pre-procedure verification was completed. [...] Marital status: - Incarceration: No - Heritage: Faroese - Miscarriages: None - Recent Sick Contacts: [...] atrophy. Pigmentary Change. Interval change is same. PA DEXAMETHASONE IO IMPL - OD Procedure date: 06/12/2024. Intraocular injection: 0.7 mg dexAMETHasone 0.7 MG Route: Intravitreal, Site: Right Eye [facility]: [id number], Lot: [id number], Expiration date: 05/26/2026, Waste: 0 mg Notes Dexamethasone (Ozurdex) 0.7 mg Intraocular Injection Right Eye - OPHTHALMOLOGY PROCEDURE NOTE PROCEDURE PERFORMED BY: Anthony Ying DO FURNACE WORKER(S): None ATTENDING: Anthony Ying DO PROCEDURE DATE: 06/12/2024 PROCEDURE START TIME: 12:32 PM INDICATIONS: Treatment of ICD-10-CM 1. Bilateral posterior uveitis H30.93 OCT/HRT MACULA OU FUNDUS PHOTOGRAPHY-OU PA DEXAMETHASONE IO IMPL - OD 2. Pigmentary [...] THIS PROCEDURE REQUIRE A UNIVERSAL PROTOCOL? Yes. Holdrege Protocol is required. Pre-procedure verification was completed. [...] blood pressure control and close follow-up with PCP/box car loader - Advised importance in blood glucose and [...] Anthony Ying DO Uveitis and Surgical Retina [facility] [place] [facility] Department of Ophthalmology and Visual Science [...] medical history. documented in this encounter [facility] 06-12-2024 Instructions Jesús Barksdale - 06/12/2024 10:40 [...] DISCHARGE WHICH IS CLOUDY OR MILKY Dr. iYng can be reached at [phone] Saturday thru Saturday 8am-5pm If after hours, please call [phone] and ask to speak with the Retina Physician top distribution executive. documented in this encounter [facility] 03-20-2024 Note Procedure date: 03/20. Right Eye [...] hypofluoresence discretely in macula of both eyes. [facility] 03-20-2024 Note Procedure date: 03/20. Right Eye [...] atrophy. Pigmentary Change. Interval change is same. [facility] 03-20-2024 Note Procedure date: 03/20. Right Eye [...] retinal layer disruption. Interval change is same. [facility] 03-20-2024 Note Procedure date: 03/20. 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 documented in this encounter [facility] 02-17-2024 Note Procedure date: 01/26. Right Eye Clear. Disc findings include normal observations. Vessel findings include normal. Macula findings include atrophy. Pigmentary Change. Interval change is same. Left Eye Clear. Disc findings include normal observations. Vessel findings include normal. Macula findings include atrophy. Pigmentary Change. Interval change is same. Notes Significant peripheral changes on FAF since [address] [facility] 02-14-2024 Note Right Eye Procedure date: 02/14/2024. Findings include hyperfluorescence, leakage, staining, window defect. Interval change is same. Left Eye Findings include hyperfluorescence, leakage, staining, window defect. Interval change is same. [facility] 02-14-2024 Note Right Eye Procedure date: 02/14/2024. [...] retinal layer disruption. Interval change is same. [facility] 02-14-2024 Note Procedure date: 01/26. Right Eye [...] posterior uveitis. MRI BRAIN (02/07/2024) done at [facility] MRI (02/07/2024) done at [facility] Vision is the the same since last [...] Component Value Date HGBA1C 6.5% (02/05/2024)- At [facility] FBS:132 FBS range: 105-155 Last edited by [...] posterior uveitis. MRI BRAIN (02/07/2024) done at [facility] MRI (02/07/2024) done at [facility] Vision is the the same since last [...] Component Value Date HGBA1C 6.5% (02/05/2024)- At [facility] FBS:132 FBS range: 105-155 Last edited by [...] Marital status: - Incarceration: No - Heritage: Faroese - Miscarriages: None - Recent Sick Contacts: [...] blood pressure control and close follow-up with PCP/box car loader - Advised importance in blood glucose and [...] Mac, OPTOS, IVFA (no later than 3pm). I, Maggie Lozada acted as a scribe for Anthony Ying [...] Anthony Ying DO Uveitis and Surgical Retina [facility] [place] [facility] Department of Ophthalmology and Visual Science documented in this encounter [facility] 02-14-2024 Instructions Anthony Ying DO - [...] scheduled appointment, documented in this encounter [facility] 12-23-2023 Note Right Eye Procedure date: 12/23/2023. Findings include hyperfluorescence, leakage, staining, window defect. Interval change is worse. Left Eye Procedure date: 12/23/2023. Findings include hyperfluorescence, leakage, staining, window defect. Interval change is worse. [facility] 12-23-2023 Note Right Eye Procedure date: 12/23/2023. [...] Significant peripheral changes on FAF since [address] [facility] 12-23-2023 Note Procedure date: 11/26. Right Eye [...] retinal layer disruption. Interval change is same. [facility] 12-23-2023 Note Procedure date: 11/26. Right Eye [...] autoimmune issues. 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 Pharmacy verified. No changes in health status. Compliant with meds, not using any ocular meds. Last edited by Alexandria Nuñez on 12/23/2023 8:48 AM. Referring Doctor: Lois Horowitz MD, PhD [id number] [facility] [address] [place] [address] Medications: Current Outpatient Medications Medication Sig losartan [...] Marital status: - Incarceration: No - Heritage: Faroese - Miscarriages: None - Recent Sick Contacts: [...] 1.94 1.16 - 3.51 K/uL Final Abs Ogle Auto 0.44 0.22 - 0.87 K/uL Final [...] blood pressure control and close follow-up with PCP/box car loader - Advised importance in blood glucose and [...] Anthony Ying DO [facility] [place] [facility] Department of Ophthalmology and Visual Science [...] autoimmune issues. She is to see an box car loader and adjunct nursing faculty in the near future but she has [...] Marital status: - Incarceration: No - Heritage: Faroese - Miscarriages: None - Recent Sick Contacts: [...] Referring Physician: documented in this encounter [facility] 11-12-2023 History of Present illness Narrative Chief [...] Midline; Surgeon: Lauren Horowitz MD; Location: [facility] OR FUSION POSTERIOR THORACIC Midline 02/16/2019 Laterality: Midline; Surgeon: Lauren Horowitz MD; Location: [facility] OR- No metal seen on imaging [...] the decisions made. Lois Horowitz MD PhD Warehouse Order Picker of Ophthalmology [facility] REASON FOR VISIT Tess Ken presents to [...] time was spent with patient performing the home theatre technician work of this visit. documented in this encounter [facility] 06-06-2023 History of Present illness Narrative Nurse [...] laminectomy withgross total resection and removal of [id number] intradural extramedullary thoracic mass consistent with a meningioma; performed by Lauren Horowitz MD, [facility] Neurosurgery; the pathology was consistent with [...] the date of service. Kurtis Harris MD 3D Technologist in Neurology Division of Neuro-oncology [address] [place] [address] documented in this encounter [facility] 06-06-2023 Instructions CASPER Dow - 06/06/2023 3:30 PM EDT Your Neuro-Oncology Team [facility] [address] [place] [address] Dr. Kurtis Harris M.D. Nurse Practitioner: Renee Evans CNP Primary Nurse: GINGER Nieves, RN, GINGER Hodges, staff interpreter Office Office Office Clinical Research Trials [phone] MICHEAL Bradford Container Washer Machine Neuro-Oncology Clinic Hours: Saturday-Saturday 8:30 - 4:30 Neuro-Oncology Office Information Regular business hours are Saturday through Saturday 8:30 a.m. to 4:30 p.m. Please call [phone] for information related to clinic appointments, scheduled tests, or for general office related questions or concerns. Messages for the physicians, nurses and other team members can be taken at this phone number and will be routed as appropriate. Emergency assistance is available after hours by calling the office at [phone] and the answering service will reach your doctor or the physician top distribution executive. Please allow at least 48 hours for [...] : NEURO-ONCOLOGY DEPARTMENT [address] [place] [address] Please be mindful that [employer] messages are only monitored during regular business hours from 8am to 5pm, Saturday through Saturday. It may take 1-2 business days for you to receive a response to your TalkPlus message [facility] Facilitators: JAMAL Brown and SCARLETT Bradford, MEDICAL SERVICES COORDINATOR-S Virtual Meeting held on the Saturday of [...] information and to register for programming, visit [email or web address] or call [facility] at [phone] documented in this encounter [facility] 02-05-2023 History of Present illness Narrative Images from the original note were not included. [facility] Referred by: Renee S Evans, BUILDING REPAIR MAINTENANCE SUPERVISOR-PROCESS ENGINEERING INTERN [address] [place] [address] PCP: Darshan Rowley MD (General) Reason for consult: DDD, hx of thoracic meningioma T11-T12 History of Present Illness: Tses Ken is a 62 y.o. female with a history of Thoracic meningioma presenting today for evaluation of her chief complaint: worsening kyphosis. External notes/medical records independently reviewed and pertinent information found was incorporated. -pain in the T8-T10 band, 3/10 at worst. 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 This note has been proofread for errors [...] documentation of this patient. Seema Mendoza MD Warehouse Order Picker- Clinical [facility] Department of Anesthesiology- Pain Medicine documented in this encounter [facility] 10-10-2023 History of Present illness Narrative T11-12 meningioma. [...] laminectomy withgross total resection and removal of [id number] intradural extramedullary thoracic mass consistent with a meningioma; performed by Lauren Horowitz MD, [facility] Neurosurgery; the pathology was consistent with [...] repeated with the follow up visit. A AppHero Chart message was sent to the patient [...] the date of service. Kurtis Harris MD 3D Technologist in Neurology Division of Neuro-oncology M410 [facility] [address] [place] [address] documented in this encounter [facility] 12-04-2022 Instructions Lorin Kruger RN - 12/04/2022 2:00 PM EDT our Neuro-Oncology Team [facility] [address] [place] [address] Dr. Kurtis Harris M.D. Nurse Practitioner: Renee Evans CNP Primary Nurse: GINGER Nieves, RN, NATE HodgesN, staff interpreter Office MICHEAL Bradford Container Washer Machine Neuro-Oncology Clinic Hours: Saturday-Saturday 8:30 - 4:30 Neuro-Oncology Office Information Regular business hours are Saturday through Saturday 8:30 a.m. to 4:30 p.m. Please call [phone] for information related to clinic appointments, scheduled tests, or for general office related questions or concerns. Messages for the physicians, nurses and other team members can be taken at this phone number and will be routed as appropriate. Emergency assistance is available after hours by calling the office at [phone] and the answering service will reach your doctor or the physician top distribution executive. Please allow at least 48 hours for [...] NEURO-ONCOLOGY DEPARTMENT [address] [place] [address] Patient education videos are available on The [employer]. These videos may help you to better understand your cancer or cancer treatments. The videos also give tips on how to care for yourself to help you feel your best. Here is the link to watch these videos: [email or web address] [email or web address]. [employer] Presents Brain Tumor Support Group Facilitators: JAMAL Brown and SCARLETT Bradford, DEYAS Next Meeting: Every Saturday of the month 3:00 pm- 4:00 pm. This event is now virtual and can be accessed through [employer]. Please visit [email or web address] to register or call [employer] at [phone] for more information. The Brain Tumor support group is available for anyone diagnosed with a brain tumor and their support person. This is an opportunity for those impacted by a brain tumor to offer support to one another by sharing their experiences and learning more about life after diagnosis.\ documented in this encounter [facility] 04-05-2022 History of Present illness Narrative TITLE: NEURO-ONCOLOGY CLINIC FOLLOW UP VISIT REASON FOR FOLLOW UP VISIT: Meningioma Cc: follow up visit TREATMENT HISTORY: Surgery: 02-16-2019; T10, T11, T12 laminectomy withgross total resection and removal of [id number] intradural extramedullary thoracic mass consistent with a meningioma; performed by Lauren Horowitz MD, [facility] Neurosurgery; the pathology was consistent with [...] the date of service. Kurtis Harris MD 3D Technologist in Neurology Division of Neuro-oncology 10 [facility] [address] [address] Nurse Note: Review of Systems Constitutional: Negative [...] Assessment: Physical Exam documented in this encounter [facility] 04-05-2022 Instructions Luz Marina Garcia RN - 04/05/2022 1:30 PM EST Your Neuro-Oncology Team [facility] [address] [place] [address] Dr. Kurtis Harris M.D. Nurse Practitioner: Renee Evans CNP Primary Nurse: GINGER Nieves, staff interpreter Office MICHEAL Bradford [employer] Neuro-Oncology Clinic Hours: Saturday-Saturday 8:30 - 4:30 Neuro-Oncology Office Information Regular business hours are Saturday through Saturday 8:30 a.m. to 4:30 p.m. Please call [phone] for information related to clinic appointments, scheduled tests, or for general office related questions or concerns. Messages for the physicians, nurses and other team members can be taken at this phone number and will be routed as appropriate. Emergency assistance is available after hours by calling the office at [phone] and the answering service will reach your doctor or the physician top distribution executive. Please allow at least 48 hours for [...] NEURO-ONCOLOGY DEPARTMENT [address] [place] [address] Patient education videos are available on The [employer] website. These videos may help you to better understand your cancer or cancer treatments. The videos also give tips on how to care for yourself to help you feel your best. Here is the link to watch these videos: [email or web address]. [employer] Presents Brain Tumor Support Group Facilitators: JAMAL Brown and SCARLETT Bradford, MEDICAL SERVICES COORDINATOR-S Next Meeting: Every Saturday of the month 3:00 pm- 4:00 pm. This event is now virtual and can be accessed through [employer]. Please visit [email or web address] to register or call [employer] at [phone] for more information. The Brain Tumor support group is available for anyone diagnosed with a brain tumor and their support person. This is an opportunity for those impacted by a brain tumor to offer support to one another by sharing their experiences and learning more about life after diagnosis. documented in this encounter [facility] 11-13-2021 History of Present illness Narrative REASON FOR VISIT Tess Ken presents to clinic today for a Established Patient visit. Chief Complaint Blurred Vision HISTORY OF PRESENT ILLNESS HPI Wil Ken (pronouns:She/her) is a 61 y.o. female [...] time was spent with patient performing the home theatre technician work of this visit. Referring Physician: Chief Complaint Patient presents with Blurred Vision HPI Wil Ken (pronouns:She/her) is a 61 y.o. female [...] Optos OU Follow up in: 6 months I Maggie Lozada acted as a scribe for Lois Horowitz [...] the decisions made. Lois Horowitz MD PhD Warehouse Order Picker of Ophthalmology [facility] documented in this encounter [facility] 10-12-2021 History of Present illness Narrative Nurse [...] laminectomy withgross total resection and removal of [id number] intradural extramedullary thoracic mass consistent with a meningioma; performed by Lauren Horowitz MD, [facility] Neurosurgery; the pathology was consistent with [...] changes were also reviewed with Neurosurgery. Clementina Mrs Ken: The neuroradiologist has confirmed that there is [...] the date of service. Kurtis Harris MD 3D Technologist in Neurology Division of Neuro-oncology M410 [facility] [address] [place] [address] documented in this encounter [facility] 10-12-2021 Instructions Virginia Oliver RN - 10/12/2021 2:00 PM EDT Your Neuro-Oncology Team [facility] [address] [id number] Doctors: Dung Farooq M.D. & Gregorio Drake M.D., and Riley Martinez M.D. Nurse Practitioners: Gisele Bell PROCESS ENGINEERING INTERN, Frances Sales PROCESS ENGINEERING INTERN, and Renee Evans PROCESS ENGINEERING INTERN Office Office MICHEAL Bradford [employer] Neuro-Oncology Clinic Hours: Saturday-Saturday 8:30 - 4:30 Neuro-Oncology Office Information Regular business hours are Saturday through Saturday 8:30 a.m. to 4:30 p.m. Please call [phone] for information related to clinic appointments, scheduled tests, or for general office related questions or concerns. Messages for the physicians, nurses and other team members can be taken at this phone number and will be routed as appropriate. Emergency assistance is available after hours by calling the office at [phone] and the answering service will reach your doctor or the physician top distribution executive. Please allow at least 48 hours for [...] DEPARTMENT [address] [place] [address] Patient education videos are available on The [employer] website. These videos may help you to better understand your cancer or cancer treatments. The videos also give tips on how to care for yourself to help you feel your best. Here is the link to watch these videos: [email or web address]. [employer] Presents Brain Tumor Support Group Facilitators: JAMAL Brown and SCARLETT Bradford, MEDICAL SERVICES COORDINATOR-S Meeting held on the Saturday of Every Month - NOW VIRTUAL 3:00p.m. - 4:00p.m. Link for meeting can be accessed through [employer] The Brain Tumor support group is available [...] an online support group, please go to [email or web address] to find out more information about Cancer [...] and are offered completely free of charge. [phone] ([phone]) or http://www.cancercare.org * [employer] -The only national organization providing comprehensive resources and serving the complex supportive care needs of brain tumor patients and caregivers from diagnosis through treatment and beyond. Works with brain tumor patients and their families, collaborations with allied groups and organizations, and the funding of brain tumor research. 675-858-CTJS (7727) or http://www.abta.org *Brains for the Cure Shedding Light to Every Step From a Brain Tumor diagnosis to recovery, [employer]ins [employer]ure will help you find the info you're looking for, from people you can trust. http://www.brainsforthecure.org/ documented in this encounter [facility] 05-24-2021 Note Procedure date: 05/23. Right Eye [...] 2 diabetic, referred by Dr Jones at [facility] for retina evaluation. Hx of new pigmentary [...] time was spent with patient performing the home theatre technician work of this visit. Referring Physician: Chief Complaint Patient presents with Referral 60 yr old female, type 2 diabetic, referred by Dr Jones at [facility] for retina evaluation. 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 Dr Jones would like re evaluation of retina s/p cataract surgery OS. HPI Referral Additional comments: 60 yr old female, type 2 diabetic, referred by Dr Jones at [facility] for retina evaluation. Hx of new pigmentary [...] OU Follow up in: 6 months INury, REBECA acted as a scribe for Lois Horowitz [...] the decisions made. Lois Horowitz MD PhD Warehouse Order Picker of Ophthalmology 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, both eyes Dry eye syndrome of bilateral lacrimal glands Tear film insufficiency, unspecified Pseudophakia Lens replaced by other means [facility] Diagnosis Thoracic spine tumor Neoplasm of unspecified nature of bone, soft tissue, and skin Meningioma, spinal [facility] Diagnosis Onset Date Resolution Status Multiple thyroid nodules [facility] Work Phone: Evaluation note* Diagnosis Meningioma, spinal [facility] Diagnosis Meningioma, spinal- Primary [facility] Pigmentary retinal dystrophy- Primary Nuclear senile cataract of right eye [facility] assessment information available [facility] Work Phone: Evaluation note* Diagnosis Meningioma, spinal [facility] Diagnosis Thoracic spine tumor- Primary Neoplasm of unspecified nature of bone, soft tissue, and skin [facility] Diagnosis Thoracic spine tumor Neoplasm of unspecified nature of bone, soft tissue, and skin [facility] Diagnosis Thoracic spine tumor- Primary Neoplasm of unspecified nature of bone, soft tissue, and skin [facility] Diagnosis Mid back pain- Primary Backache, unspecified Myofascial pain Mylagia and myositis, unspecified History of thoracic surgery Kyphosis (acquired) (postural) [facility] Diagnosis Onset Date Resolution Status Urinary tract infection none active [facility] Work Phone: Evaluation note* Diagnosis Thoracic spine tumor Neoplasm of unspecified nature of bone, soft tissue, and skin [facility] Diagnosis Meningioma, spinal- Primary [facility] Diagnosis Pigmentary retinal dystrophy- Primary Combined [...] of insulin [facility] Diagnosis Bilateral posterior uveitis- Primary Chorioretinitis, [...] Chorioretinitis, unspecified [facility] Diagnosis Bilateral posterior uveitis Chorioretinitis, unspecified [facility] Diagnosis Bilateral posterior uveitis- Primary Chorioretinitis, 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, without long-term current use of insulin [facility] Diagnosis Bilateral posterior uveitis- Primary Chorioretinitis, 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, without long-term current use of insulin Pigmentary retinal dystrophy [facility] Diagnosis Bilateral posterior uveitis- Primary Chorioretinitis, 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, without long-term current use of insulin Combined forms of age-related cataract of right eye Other and combined forms of senile cataract [facility] Diagnosis Bilateral posterior uveitis- Primary Chorioretinitis, 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, without long-term current use of insulin [facility] Diagnosis Pelvic pain- Primary Unspecified symptom associated with female genital organs Vaginal atrophy Postmenopausal atrophic vaginitis [facility] Diagnosis Recurrent UTI- Primary Urinary tract infection, site not specified [facility] Consultation (Routine) - New Request Specialty Diagnoses / Procedures Referred By Paul bermeo Referred To Contact Ophthalmology Diagnoses Pigmentary retinal dystrophy Lois Horowitz MD, PhD [address] [facility] [address] [place] [address] Belinda Domingo, [facility] [address] [facility] [address] [place] [address] Referral ID Status Reason Start Date Expiration Date V isits Requested Visits Authorized [id number] New Request 05/23/2021 06/17/2022 1 1 [facility] for [facility] (narrative)* Consultation (Routine) - New Request Specialty Diagnoses / Procedures Referred By Contac t Referred To Contact Spine Diagnoses Thoracic spine tumor Renee Evans APRN-QUINCY [address] [place] [id number] Referral ID Status Reason Start Date Expiration Date V isits Requested Visits Authorized [id number] New Request 12/04/2022 12/29/2023 1 1 Electronically signed by Renee Evans BUILDING REPAIR MAINTENANCE SUPERVISOR-PROCESS ENGINEERING INTERN at 12/04/2022 5:12 PM EDT * MRI/CAT Scan (Routine) - New Request Specialty Diagnoses / Procedures Referred By Contac t Referred To Contact Diagnoses Thoracic spine tumor Procedures MRI SPINE THORACIC WITH AND WITHOUT CONTRAST PA MRI, DORSAL SPINE Kurtis Mcduffie MD [address] [place] [address] Referral ID Status Reason Start Date Expiration Date V isits Requested Visits Authorized [id number] New Request 12/04/2022 12/29/2023 1 1 [facility] for referral (narrative)No reason for referral [facility] Work Phone: Chief Complaint Chief Complaint [...] No September 24, 2018 9:18am Power of Sandblaster Stone No September 24 9 9:18am Latest Code Status on File Code Status Date Activated Date Inactivated Comments Full Code 02/16/2019 4:46 PM Full Code 02/16/2019 5:57 AM 02/16/2019 12:56 PM Advance Directive Response Recorded Date/ Time Advance Directives No December 11:17am Living Will No September 24, 2018 8:18am Power of Sandblaster Stone No September 24 9 8:18am Latest Code Status on File [...] Referral Specialty Diagnoses / Procedures Referred By Contac t Referred To Contact Diagnoses Thoracic spine tumor Meningioma, spinal Procedures MRI SPINE THORACIC WITH AND WITHOUT CONTRAST PA MRI, DORSAL SPINE Kurtis Mcduffie MD [address] [place] [address] Referral ID Status Reason Start Date Expiration Date Visits Re quested Visits Authorized [id number] Closed 03/29/2020 04/23/2021 1 1 Specialty Diagnoses / Procedures Referred By Contac t Referred To Contact Diagnoses Meningioma, spinal Procedures MRI SPINE THORACIC WITH AND WITHOUT CONTRAST PA MRI, DORSAL SPINE Kurtis Mcduffie MD [address] [place] [address] Referral ID Status Reason Start Date Expiration Date Visits Re quested Visits Authorized [id number] Closed 04/18/2021 05/13/2022 1 1 Specialty Diagnoses / Procedures Referred By Contac t Referred To Contact Diagnoses Meningioma, spinal Procedures MRI SPINE THORACIC WITH AND WITHOUT CONTRAST PA MRI, DORSAL SPINE COMBO Renee Evans, BUILDING REPAIR MAINTENANCE SUPERVISOR-PROCESS ENGINEERING INTERN [address] [id number] Referral ID Status Reason Start Date Expiration Date V isits Requested Visits Authorized [id number] New Request 10/12/2021 11/06/2022 1 1 Referral ID Status Reason Start Date Expiration Date Visits Re quested Visits Authorized [id number] Closed 10/12/2021 11/06/2022 1 1 Specialty Diagnoses / Procedures Referred By Contac t Referred To Contact Diagnoses Thoracic spine tumor Procedures MRI SPINE THORACIC WITH AND WITHOUT CONTRAST PA MRI, DORSAL SPINE COMBO Renee Evans, BUILDING REPAIR MAINTENANCE SUPERVISOR-PROCESS ENGINEERING INTERN [address] [place] [phone] Referral ID Status Reason Start Date Expiration Date V isits Requested Visits Authorized [id number] New Request 04/06/2022 05/01/2023 1 1 Referral ID Status Reason Start Date Expiration Date Visits Requested Visits Authorized [id number] Authorized - Elizabeth 04/06/2022 05/01/2023 1 1 Specialty Diagnoses / Procedures Referred By Contac t Referred To Contact Physical Therapy Diagnoses Mid back pain Myofascial pain History of thoracic surgery Seema Mendoza MD [address] [place] [id number] Referral ID Status Reason Start Date Expiration Date V isits Requested Visits Authorized [id number] New Request 02/05/2023 03/01/2024 1 1 Scheduling Instructions [facility] [address] [facility], 2nd [place] [address] [phone] Fax [facility] (Neck and Back Therapy) [address] [place] [address] [phone] FAX [facility] [address] [place] [address] FAX Outpatient Rehabilitation Out[facility] [place] [address] [facility], [address] [place] [address] [phone] FAX [facility] [address] [place] [address] [phone] FAX Physical Therapy at [facility] [address] [facility], [address] [place] [address] [phone] FAX [facility] [address] [place] [address] [phone] FAX Outpatient Rehabilitation Outpatient Care [address], [address] [place] [address] [phone] FAX [facility] [address] [facility], [address] [place] [address] [phone] FAX [facility] at [address], Room: [address] [place] [address] FAX [facility] [place] [address] [facility], [address] [place] [address] FAX [facility] at [facility] [address] [place] [address] [phone] FAX [facility] at [facility] [address] [facility], [address] [place] [address] [phone] FAX [facility] [address] [facility], [address] [place] [address] FAX Outpatient Rehabilitation [facility] [place] [address] [facility], [address] [place] [address] [phone] FAX [facility] [address] [facility], [address] [place] [address] [phone] FAX [facility] [place] [address] [facility], [place] [address] [phone] FAX [facility] [address] [place] [address] [phone] FAX Outpatient Rehabilitation Outpatient Care [address], [address] [place] [address] [phone] FAX [facility] at [facility] [address] [place] [address] [phone] FAX Outpatient Care [address] [address] [phone] FAX [facility] at [facility], [address] [place] [address] FAX Specialty Diagnoses / Procedures Referred By Contac t Referred To Contact Diagnoses Thoracic spine tumor Procedures MRI SPINE THORACIC WITH AND WITHOUT CONTRAST PA MRI, DORSAL SPINE COMBO Kurtis Harris MD [address] [place] [address] Referral ID Status Reason Start Date Expiration Date Visits Re quested Visits Authorized [id number] Closed 12/04/2022 12/29/2023 1 1 Specialty Diagnoses / Procedures Referred By Contac t Referred To Contact Diagnoses Meningioma, spinal Procedures MRI SPINE THORACIC WITH AND WITHOUT CONTRAST PA MRI, DORSAL SPINE COMBO Renee Evans S, BUILDING REPAIR MAINTENANCE SUPERVISOR-PROCESS ENGINEERING INTERN [address] [place] [address] Referral ID Status Reason Start Date Expiration Date V isits Requested Visits Authorized [id number] New Request 06/06/2023 06/30/2024 1 1 Specialty Diagnoses / Procedures Referred By Contac t Referred To Contact Diagnoses Uveitis Procedures MRI BRAIN WITH AND WITHOUT CONTRAST CHG MRI BRAIN BRAIN STEM W/O W/CONTRAST MATERIAL Anthony Ying, DO [address] [facility] [address] [place] [address] Referral ID Status Reason Start Date Expiration Date V isits Requested Visits Authorized [id number] New Request 12/23/2023 01/16/2025 1 1 Chief [...] Mac, Optos, OU, possible Ozurdex OS. Procedures PA DEXAMETHASONE INTRA IMPLANT INJECTION Self, Self Anthony Ying, DO [address] [facility] [address] [place] [address] Phone: tel: fax: Referral ID Status Reason Start Date Expiration Date V isits Requested Visits Authorized [id number] Authorized 07/27/2024 02/24/2025 4 4 Reason For Visit Description Start Date New - 1st visit with practice Preliminary reason f or visit data, not yet signed by the author as of lower back pain Reason Comments Referral 60 yr old female, ty pe 2 diabetic, referred by Dr Jones at [facility] for retina evaluation. 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 Specialty Diagnoses / Procedures Referred By Paul bermeo Referred To Contact Diagnoses Thoracic spine tumor Meningioma, spinal Procedures MRI SPINE THORACIC WITH AND WITHOUT CONTRAST PA MRI, DORSAL SPINE Kurtis Mcduffie MD [address] [place] [address] Referral ID Status Reason Start Date Expiration Date Visits Re quested Visits Authorized [id number] Closed 03/29/2020 04/23/2021 1 1 Specialty Diagnoses / Procedures Referred By Paul bermeo Referred To Contact Diagnoses Meningioma, spinal Procedures MRI SPINE THORACIC WITH AND WITHOUT CONTRAST PA MRI, DORSAL SPINE Kurtis Mcduffie MD [address] [place] [address] Referral ID Status Reason Start Date Expiration Date Visits Re quested Visits Authorized [id number] Closed 04/18/2021 05/13/2022 1 1 Reason Comments Follow-up Reason Comments Blurred Vision Specialty Diagnoses / Procedures Referred By Paul bermeo Referred To Contact Magnetic Resonance Imaging Procedures MRI T-SPINE Renee Evans, BUILDING REPAIR MAINTENANCE SUPERVISOR-PROCESS ENGINEERING INTERN [address] [place] [id number] [facility] [address] [address] Referral ID Status Reason Start Date Expiration Date V isits Requested Visits Authorized [id number] Pending Review 04/05/2022 04/30/2023 1 1 Specialty Diagnoses / Procedures Referred By Paul bermeo Referred To Contact Diagnoses Thoracic spine tumor Procedures MRI SPINE THORACIC WITH AND WITHOUT CONTRAST PA MRI, DORSAL SPINE GILBERTO Renee Evans BUILDING REPAIR MAINTENANCE SUPERVISOR-PROCESS ENGINEERING INTERN [address] [place] [id number] Referral ID Status Reason Start Date Expiration Date Visits Requested Visits Authorized [id number] Authorized - Elizabeth 04/06/2022 05/01/2023 1 1 Referral ID Status Reason Start Date Expiration Date Visits Re quested Visits Authorized [id number] Closed 04/06/2022 05/01/2023 1 1 Reason Comments Follow-up Reason Comments New Patient Specialty Diagnoses / Procedures Referred By Contac t Referred To Contact Spine Diagnoses Thoracic spine tumor Renee Evans, BUILDING REPAIR MAINTENANCE SUPERVISOR-PROCESS ENGINEERING INTERN [address] [place] [address] Referral ID Status Reason Start Date Expiration Date V isits Requested Visits Authorized [id number] New Request 12/04/2022 12/29/2023 1 1 Specialty Diagnoses / Procedures Referred By Contac t Referred To Contact Diagnoses Thoracic spine tumor Procedures MRI SPINE THORACIC WITH AND WITHOUT CONTRAST PA MRI, DORSAL SPINE Kurtis Mcduffie MD [address] Ground Floor [place] [phone] Referral ID Status Reason Start Date Expiration Date Visits Re quested Visits Authorized [id number] Closed 12/04/2022 12/29/2023 1 1 Reason Comments Uveitis Reason Comments Follow-up Uveitis Specialty Diagnoses / Procedures Referred By Contact Referred To Contact Ophthamology - Retina / Ophthalmology Diagnoses Unspecified chorioretinal inflammation, bilateral RTN 12wks ~ DFE, OCT Mac, OPTOS. UVEITISFUWU Procedures PA DEXAMETHASONE INTRA IMPLANT PA INTRAVITREAL NJX PHARMACOLOGIC AGT SPX RETURN PATIENT Self, Self Anthony Ying, DO [address] [place] [address] Phone: tel: fax: Referral ID Status Reason Start Date Expiration Date V isits Requested Visits Authorized [id number] Authorized 06/11/2024 09/24/2024 2 2 Reason Comments New Patient Dysuria and Perineal Pain Reason Comments Cystoscopy Specialty Diagnoses / Procedures Referred By Contac t Referred To Contact Urology Diagnoses Pelvic and perineal pain Postmenopausal atrophic vaginitis Cysto Procedures PA CYSTOURETHROSCOPY FLEX CYSTOSCOPY Darshan Rowley MD [address] [facility] [address] [place] [address] Phone: tel: Rody Keith MD [address] [place] [address] Phone: tel: fax: Referral ID Status Reason Start Date Expiration Date Visits Re quested Visits Authorized [id number] Closed 11/26/2024 12/21/2025 1 1 Care Teams (unrecognized sec tion and content) Corporate Travel Manager Relationship Specialty Start Date End Date Darshan Rowley MD [address] [facility] [address] [place], [place] [phone] PCP - General Family Medicine 02/09/19 Corporate Travel Manager Relationship Specialty Start Date End Date Darshan oRwley MD [address] [facility] [address] [place] [address] PCP - General Family Medicine 02/09/19 Corporate Travel Manager Relationship Specialty Start Date End Date Darshan Rowley MD [address] [facility] [address] [place] [address] PCP - General Family Medicine 02/09/19 Corporate Travel Manager Relationship Specialty Start Date End Date Darshan Rowley MD [address] [facility] [address] [place] [address] PCP - General Family Medicine 02/09/19 Corporate Travel Manager Relationship Specialty Start Date End Date Darshan Rowley MD [address] [facility] [address] [place] [address] PCP - General Family Medicine 02/09/19 Team Status: Active Member Role Status Dates Dr. Darshan Rowley MD Family Provider Active Dr. Darshan Rowley MD Primary Care Provider Active Team Status: Inactive Member Role Status Dates Dr. Darshan Rowley MD Primary Care Provider Active Dr. Yung Inman MD Attending Provider Active Corporate Travel Manager Relationship Specialty Start Date End Date Darshan Rowley MD [address] [place] [address] PCP - General Family Medicine 02/09/19 Corporate Travel Manager Relationship Specialty Start Date End Date Darshan Rowley MD [address] [place] [address] PCP - General Family Medicine 02/09/19 Corporate Travel Manager Relationship Specialty Start Date End Date Darshan Rowley MD [address] [place] [address] PCP - General Family Medicine 02/09/19 Team Status: Inactive Member Role Status Dates Dr. Darshan Rowley MD Primary Care Provider, Referring Provider Active Javier CORNELL PA Attending Provider Active Team Status: Inactive Member Role Status Dates Dr. Darshan Rowley MD Primary Care Provi jan, Attending Provider, Referring Provider Active Team Status: Inactive Member Role Status Dates Dr. Darshan Rowley MD Primary Care Provider Active Javier CORNELL PA Attending Provider, Referring Provi jan Active Corporate Travel Manager Relationship Specialty Start Date End Date Darshan Rowley MD [address] [facility] [address] [place] [address] PCP - General Family Medicine 02/09/19 Corporate Travel Manager Relationship Specialty Start Date End Date Darshan Rowley MD [address] [place] [address] PCP - General Family Medicine 02/09/19 Team Status: Inactive Member Role Status Dates Dr. Darshan Rowley MD Primary Care Provider, Referring Provider Active Hermilo CORNELL PA Attending Provider Active Team Status: Inactive Member Role Status Dates Dr. Darshan Rowley MD Primary Care Provider Active Hermilo CORNELL PA Attending Provider Active Corporate Travel Manager Relationship Specialty Start Date End Date Darshan Rowley MD [address] [place] [address] PCP - General Family Medicine 02/09/19 Corporate Travel Manager Relationship Specialty Start Date End Date Darshan Rowley MD [address] [place] [address] PCP - General Family Medicine 02/09/19 Rayna Smith MD [address] [place] [address] Urology 12/23/23 Corporate Travel Manager Relationship Specialty Start Date End Date Darshan Rowley MD [address] [place] [address] PCP - General Family Medicine 02/09/19 Rayna Smith MD [address] [place] [address] Urology 12/23/23 Corporate Travel Manager Relationship Specialty Start Date End Date Darshan Rowley MD [address] [place] [address] PCP - General Family Medicine 02/09/19 Rayna Smith MD [address] [place] [address] Urology 12/23/23 Corporate Travel Manager Relationship Specialty Start Date End Date Darshan Rowley MD [address] [place] [address] PCP - General Family Medicine 02/09/19 Rayna Smith MD [address] [facility] [address] [place] [address] Urology 12/23/23 Team Status: Inactive Member Role [...] 2024 NATHAN DURAN Attending Provider Active Start: Lopez 2023 End: February 07, 2024 NATHAN DURAN Referring [...] April 29, 2024 End: April 29, 2024 Corporate Travel Manager Relationship Specialty Start Date End Date Darshan Rowley MD PCP - General Family Medicine 02/09/19 Rayna Smith MD Urology 12/23/23 Corporate Travel Manager Relationship Specialty Start Date End Date Darshan Rowley MD PCP - General Family Medicine 02/09/19 Rayna Smith MD Urology 12/23/23 Corporate Travel Manager Relationship Specialty Start Date End Date Darshan Rowley MD PCP - General Family Medicine 02/09/19 Rayna Smith MD Urology 12/23/23 Corporate Travel Manager Relationship Specialty Start Date End Date Darshan [...] ized section and content) DATE CREATED AUTHOR 12/04/2024 [facility] DATE CREATED AUTHOR AUTHOR'S ORGANIZ ATION 12/04/2024 [facility] DATE CREATED AUTHOR AUTHOR'S ORGANIZ ATION 12/26/2024 [facility] FOR RECORDS PERTAINING TO PATIENTS WHO ARE [...] BE BASED ON THE PRIMARY CLINICAL RECORDS. [email or web address] provides no warranty or guarantee of the accuracy or completeness of information in this document.
== END | disposition home or self-care (01) ==
LOC: MTLAB 15:34
PROVIDERS: PCP Family Medicine; Visit Provider Family Medicine
DX: N39.0 Urinary tract infection, site not specified (principal)
CPT/HCPCS: 87077; 87086; 87088; 87186